=== PATIENT | male | born 1935 | race Caucasian/White ===

== ENCOUNTER 2017-03-04 07:55 | Inpatient (IN) | payer MEDICARE ==
[~2017-03-04] VITALS: Ht 172.7 cm; Wt 70.1 kg
[~2017-03-04 07:55] MED LIST: AMLODIPINE BESYL5 MG PO; ASPIR 8181 MG PO; BUDESONIDE0.5 MG/2 M INH; CEFUROXIME500 MG PO; COMBIVENT INH14.7 GM PO; DOXYCYCLINE HY100 MG PO; FLUZONE HI180 MCG/07 IM; IPRAT-ALBUT 0.5-3 ML INH; LISINOPRIL-HCT1 EACH PO; NICOTINE LOZENGE4 MG BUCCAL; NORCO 5-325 TA1 EACH PO; NYSTATIN1 EAC1 TOP; OMEPRAZOLE20 MG PO; PREDNISONE20 MG PO; RANITIDINE HCL150 M1 PO; TAMSULOSIN HCL0.4 MG PO; ZESTORETIC 20-1 EACH PO
--- NOTE | 2017-03-04 13:45 | NUR ---
PT RECEIVED FROM ED. ARRIVED VIA STRETCHER. PT SATND PIVOT TO BED. PT ASSISTED TO BATHROOM, SBA. PT ON 2L NC. PT SKIN INTACT. IV TO RIGHT FOREARM. PT DENIES PAIN. PT TACHYPNIC, DENIES SOB, O2 SATS >92% ON 2L. LUNG SOUNDS WITH EXPIRATORY WHEEZE, RHONCHI. PT RESTING COMFORTABLY.
--- NOTE | 2017-03-04 16:10 | NUR ---
IV BOLUS INFUSING, IV MAG INFUSING. PT RESTING IN BED. PT DENIES NEEDS AT THIS TIME.
--- NOTE | 2017-03-04 16:35 | EKG ---
[facility] [address] [facility] [place] [address] Signed Sinus tachycardia T wave abnormality, consider lateral ischemia Abnormal ECG When compared with ECG of 04-JUL-2016 13:25, Incomplete left bundle branch block is now present Minimal criteria for Septal infarct are no longer present Confirmed by MARCELA NELSON MD ([id number]) on 03/04/2017 4:35:30 PM Electronically Signed By: MARCELA NELSON MD 03/04/17 1635 PATIENT NAME: ROMA SCHMIDT Electrocardiogram DATE OF : 39 PHYSICIAN: MARCELA NELSON MD REPORT #: [id number] REPORT IS CONFIDENTIAL AND NOT TO BE RELEASED WITHOUT AUTHORIZATION
--- NOTE | 2017-03-04 18:16 | NUR ---
IV BOLUS COMPLETED, LR AT 75 ML/HR INFUSING. PT DENIES NEEDS AT THIS TIME.
--- NOTE | 2017-03-04 18:16 | NUR ---
PT RECEIVED FROM ED WITH COPD EXACERBATION. PT ON 2L NC, LUNG SOUNDS WITH EXPIRATORY WHEEZE AND RHONCHI, GIVEN NEB FOR SOB. PT SBA TO BATHROOM. REGULAR DIET. DENIES PAIN. MAGNESIUM AND POTASSIUM REPLACED. PT HAD VOIDING ONCE SINCE ARRIVING, CONCENTRATED URINE. RECEIVED LR BOLUS X1.
--- NOTE | 2017-03-04 19:10 | NUR ---
BEDSIDE REPORT RECEIVED FROM OFFGOING RN. PT SITTING AT BEDSIDE EATING DINNER, TOLERATING WELL. PT'S URINAL EMPTIED PER REQUEST. PT DENIES OTHER NEEDS AT THIS TIME. CALL LIGHT WITHIN REACH.
--- NOTE | 2017-03-04 20:53 | NUR ---
PT ASSESSMENT COMPELTE. PT LYING IN BED WATCHING TV. PT DENIES PAIN, SOB, OR NAUSEA. PT COUGHS INTERMITTENTLY THROUGHOUT ASSESSMENT. STATES THAT OCCASIONALLY HE PRODUCES MUCOUS. PT REQUESTS WARM BLANKET. DENIES OTHER NEEDS AT THIS TIME. CALL LIGHT WITHIN REACH.
--- NOTE | 2017-03-04 23:36 | NUR ---
PT RESTING IN BED WITH EYES CLOSED. RESPIRATIONS EVEN AND UNLABORED. PT APPEARS TO BE SLEEPING. CALL LIGHT WITHIN REACH.
--- NOTE | 2017-03-05 00:33 | NUR ---
PT RESTING IN BED WITH EYES CLOSED. WAKES EASILY. PT ASSESMENT COMPLETE. PT DENIES PAIN, SOB, OR NAUSEA. LUNG SOUNDS WITH RHONCI AND EXPIRATORY WHEEZE THROUGHOUT, DO NOT CLEAR WITH COUGH. O2 IN PLACE @ 2 LPM. ASSESSMENT OTHERWISE BENIGN. PT DENIES NEEDS AT THIS TIME. CALL LIGHT WITHIN PT'S REACH.
--- NOTE | 2017-03-05 04:32 | NUR ---
PT RESTING WITH EYES CLOSED. RESPIRATIONS EVEN AND UNLABORED. PT APPEARS TO BE SLEEPING. PT ASSESSMENT COMPLETE, PT DOES NOT WAKE DURING AUSCLTATION OF HEART, LUNGS, OR BT'S. RHONCI PRESENT TO ALL LUNG MONROY. O2 IN PLACE @ 1 LPM. ASSESSMENT OTHERWISE UNCHANGED FROM PREVIOUS. CALL LIGHT WITHIN REACH.
--- NOTE | 2017-03-05 04:52 | NUR ---
PT RESTED WELL THROUGHOUT THE NIGHT. O2 BETWEEN 1-2 LPM VIA NC. RHONCI AND EXPIRATORY WHEEZES PRESENT TO ALL LUNG MONROY THROUGHOUT THE NIGHT. OCCASIONAL NONPRODUCTIVE COUGH. SBA/1 PA. UO QS. LR @ 75.
--- NOTE | 2017-03-05 08:30 | NUR ---
PT AWAKE IN BED EATING BREAKFAST. STATES "I'M FEELING A LITTLE BETTER TODAY." REPORTS JUST MILD SOB, IMPROVED. LUNGS WITH OCC RHONCI AND EXPIRATORY WHEEZES. PT DENIES COUGH. DENIES PAIN, NAUSEA OR OTHER CONCERNS. SATTING 92% ON 1LNC. IV INFUSING WNL. CALL LIGHT WITHIN REACH, CALLS APPROPRIATELY.
--- NOTE | 2017-03-05 11:33 | NUR ---
PT SITTING UP IN BED AWAKE, TALKING ON THE PHONE.
--- NOTE | 2017-03-05 15:40 | NUR ---
PT GOT OUT OF BED INDEPENDENTLY AND UNHOOKED IV FROM PORT. IV TUBING REPLACED. IV INTACT AND FUNCTIONS PROPERLY. FLUIDS RESTARTED. PT REMINDED TO CALL FOR ASSISTANCE. COBAN APPLIED TO IV SITE. PT ALERT AND ORIENTED.
[2017-03-05] MEDS ORDERED: NICORETTE4 M2 BUCCAL (15:44)
[2017-03-05] MEDS ORDERED: PREDNISONE20 MG PO (15:45)
[2017-03-05] MEDS ORDERED: DOXYCYCLINE HY100 MG PO (15:46)
--- NOTE | 2017-03-05 18:20 | NUR ---
PT SITTING UP IN BED WATCHING TV. DENIES NEEDS OR CONCERNS AT THIS TIME. CALL LIGHT WITHIN REACH.
--- NOTE | 2017-03-05 19:40 | NUR ---
RECEIVED REPORT FROM RN. PATIENT DENIES NEEDS AT THIS TIME.
--- NOTE | 2017-03-05 21:20 | NUR ---
PATIENT IS RESTING COMFORTABLY IN BED. BREATHING IS EVEN AND UNLABORED ON 1L O2 VIA NC. SHIFT ASSESSMENT DONE. PATIENT DENIES NEEDS AT THIS TIME.
--- NOTE | 2017-03-05 23:35 | NUR ---
PATIENT IS RESTING IN BED COMFORTABLY. BREATHING IS EVEN AND UNLABORED ON 1L OF O2 VIA NC. FRESH WATER GIVEN, CALL LIGHT WITHIN REACH.
--- NOTE | 2017-03-06 02:54 | NUR ---
HAD PATIENT AMBULATE AROUND UNIT X1, WHICH HE TOLERATED WELL A SBA WITH NON-SLIP SOCKS, AND RA. HE IS NOW RESTING COMFORTABLY IN BED WITH O2 SAT AT 90% ON RA. PATIENT DENIES NEEDS AT THIS TIME. CALL LIGHT WITHIN REACH.
--- NOTE | 2017-03-06 05:41 | NUR ---
PATIENT'S NIGHT WAS UNEVENTFUL. HE HAS BEEN RESTING COMFORTABLY THROUGHOUT SHIFT. VSS, NO COMPLAINTS OF PAIN. PATIENT WAS TITRATED TO RA, HE AMBULATED IN HALLS THIS EVENING WITHOUT SHORTNESS OF BREATH ON RA. HE IS A SBA, HIS IV IS SL. NO ACUTE CHANGES FROM BEGINNING OF SHIFT ASSESSMENT.
--- NOTE | 2017-03-06 07:39 | NUR ---
REPORT RECIEVED FROM DALJIT CASTAÑEDA. PT AWAKE AND VERY TALKATIVE. WOULD LIKE TO GO HOME TODAY. PT WALKED IN DUTTA WITH RN'S LAST NIGHT. TOLERATED WELL. STABLE WITH NO ASSIST.
--- NOTE | 2017-03-06 09:22 | NUR ---
PT ATE BREAKFAST AND IS SITTING UP IN BED TALKING. DENIES PAIN. HAD A BM A FEW MINUTES AGO AND FEELS HE DOES NOT NEED THE MIRALAX. RETURNED TO [facility]
--- NOTE | 2017-03-06 10:09 | NUR ---
PT CALLED FRIEND TO COME GET HIM. CALLED DR NELSON AND HE SAID IT WOULD BE AWHILE.
--- NOTE | 2017-03-06 13:45 | NUR ---
TALKED TO THE PT ABOUT HIM NEEDING TO HAVE O2 WHEN HE GETS HOME AND HE SAID HE WANTED TO GO THROUGH [facility]. ALSO WOULD LIKE TO HAVE A CHW COME VISIT WITH HIM AND SEE WHAT THEY CAN HELP HIM WITH HE LIVES ALONE NOW. FAXED CHART NOTES INCLUDING FACESHEET, ORDER, RT HOME O2 QUALIFIER, ER NOTES, H AND P, AND DC SUMMARY TO [facility].
--- NOTE | 2017-03-13 12:26 | NUR ---
CALLED AND TALKED WITH PT STATES HE HAS GOTTEN ALL HIS NEW MEDS AND IS TAKING THEM THEY WERE PRESCIRBED AND FINISHED HIS PREDNISONE AND ANTIBX YESTERDAY. STATES HE HAS A FOLLOW UP APPT AT 1430 TOMORROW AND HE WILL BE THERE AT 1400. STATES HE IS NOT GOING TO OVERDUE IT THIS TIME LIKE HE DID 10 MONTHS AGO WHEN HE WAS IN THE HOSPITAL.
== END 2017-03-06 12:35 | disposition home or self-care (01) | DRG 190 ==
LOC: ED 07:55 → MS 14:42
PROVIDERS: ADMIT Internal Medicine
PROC: 3E0234Z Introduction of Serum, Toxoid and Vaccine into Muscle, Percutaneous Approach (ICD-10-PCS; principal; 2017-03-06)
DX: J44.1 Chronic obstructive pulmonary disease with (acute) exacerbation (principal); J96.01 Acute respiratory failure with hypoxia; R65.10 Systemic inflammatory response syndrome (SIRS) of non-infectious origin without acute organ dysfunction; I10 Essential (primary) hypertension; N40.0 Benign prostatic hyperplasia without lower urinary tract symptoms; F17.210 Nicotine dependence, cigarettes, uncomplicated; E87.6 Hypokalemia; E83.42 Hypomagnesemia; Z23 Encounter for immunization
CPT/HCPCS: 36415; 71020; 80053; 83605; 83735; 84484; 85025; 87040; 87502; 90662; 93005; 93010; 94640; 94668; 94760; 94761; G0008; J0696; J1650; J2930; J3475; J7120

== ENCOUNTER 2017-11-03 12:08 | Emergency (ER) | payer MEDICARE, OTHER ==
[~2017-11-03] VITALS: Ht 172.7 cm; Wt 70.1 kg
[~2017-11-03 12:08] MED LIST changes: +NICORETTE4 M2 BUCCAL
[2017-11-03] MEDS ORDERED: PREDNISONE20 MG PO (12:52)
[2017-11-03] MEDS ORDERED: DOXYCYCLINE HY100 MG PO (13:07)
== END 2017-11-03 13:25 | disposition home or self-care (01) ==
LOC: ED 12:08
DX: J44.1 Chronic obstructive pulmonary disease with (acute) exacerbation (principal); I10 Essential (primary) hypertension; F17.200 Nicotine dependence, unspecified, uncomplicated; Z88.0 Allergy status to penicillin; Z79.899 Other long term (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
CPT/HCPCS: 71046; 94640; 99283; J7512

== ENCOUNTER 2017-11-15 19:50 | Emergency (ER) | payer MEDICARE, MEDICAID ==
[~2017-11-15] VITALS: Ht 172.7 cm; Wt 69.0 kg
[2017-11-15] MEDS ORDERED: ZITHROMAX250 MG PO (20:37)
== END 2017-11-15 21:26 | disposition home or self-care (01) ==
LOC: ED 19:50
DX: K11.20 Sialoadenitis, unspecified (principal); J44.9 Chronic obstructive pulmonary disease, unspecified; I10 Essential (primary) hypertension; F17.200 Nicotine dependence, unspecified, uncomplicated; Z88.0 Allergy status to penicillin; Z79.899 Other long term (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
CPT/HCPCS: 99283

== ENCOUNTER 2018-05-22 01:46 | Emergency (ER) | payer MEDICARE, OTHER ==
[~2018-05-22] VITALS: Ht 172.7 cm; Wt 74.5 kg
[~2018-05-22 01:46] MED LIST changes: +ADVIL200 M1 PO; +ALBUTEROL2.5 MG/3 M INH; +ASPIR-LOW81 MG PO; +ATIVAN1 MG PO; +DOXYCYCLINE HY100 MG; +POTASSIUM99 MG PO; +VENTOLIN HFA18 GM INH; +ZITHROMAX250 MG PO
--- OUTSIDE RECORDS SUMMARY | 2018-05-22 01:50 | XMS ---
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 Care History Medical/Surgical 04/03/2018 [facility] - PATIENT HAS AN APT WITH DR NELSON ON 04/17/18. - Patient is currently established with [facility]. If patient is seen in the ED during business hours. Please contact CHWs at [facility]. Care Recommendation: This patient has had 5 or more Emergency Department visits in the last 12 months.\T\nbsp; Patient requires education on the scope and purpose of the ED as an acute care provider not a Primary Care Provider and should not be utilized for chronic conditions.\T\nbsp; These are guidelines and the provider should exercise clinical judgment when providing care. E.D. VISIT COUNT (12 MO.) 8 [facility] TOTAL 8 NOTE: Visits indicate total known visits. ED/UCC VISIT TRACKING (12 MO.) 05/22/2018 01:46 [facility] [place] TYPE: Emergency COMPLAINT: - SOB 05/03/2018 01:09 [facility] [place] TYPE: Emergency COMPLAINT: - DIFFICUTLY BREATHING 04/16/2018 22:51 [facility] [place] TYPE: Emergency COMPLAINT: - ANXIETY,SOB DIAGNOSES: - Chronic obstructive pulmonary disease, unspecified - Other halfway (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 - Nicotine dependence, unspecified, uncomplicated - long term care pharmacist (current) use of systemic steroids - long term care pharmacist (current) use of aspirin - Essential (primary) hypertension - Allergy status to penicillin - Anxiety disorder, unspecified 04/15/2018 19:41 [facility] [place] TYPE: Emergency COMPLAINT: - SHORTNESS OF BREATH/CONSTIPATION DIAGNOSES: - Shortness of breath - Essential (primary) hypertension - Constipation, unspecified - Nicotine dependence, unspecified, uncomplicated - Chronic obstructive pulmonary disease with (acute) exacerbation - Allergy status to penicillin - 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 04/02/2018 20:47 [facility] TYPE: Emergency COMPLAINT: - SOB DIAGNOSES: - Nicotine dependence, unspecified, uncomplicated - long term care pharmacist (current) use of aspirin - Chronic obstructive pulmonary disease with (acute) exacerbation - Allergy status to penicillin - Essential (primary) hypertension - Shortness of breath - 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 03/16/2018 20:53 [facility] TYPE: Emergency COMPLAINT: - SOB,WEAKNESS DIAGNOSES: - Allergy status to penicillin - 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 - Chronic obstructive pulmonary disease with (acute) exacerbation - Nicotine dependence, unspecified, uncomplicated - Shortness of breath - Essential (primary) hypertension 11/15/2017 19:51 [facility] TYPE: Emergency COMPLAINT: - SWOLLEN GLANDS DIAGNOSES: - Nicotine dependence, unspecified, uncomplicated - Other halfway (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 - Chronic obstructive pulmonary disease, unspecified - Acute pharyngitis, unspecified - Sialoadenitis, unspecified - Essential (primary) hypertension - Allergy status to penicillin 11/03/2017 12:09 [facility] TYPE: Emergency COMPLAINT: - WEAKNESS DIAGNOSES: - Essential (primary) hypertension - Allergy status to penicillin - Weakness - Nicotine dependence, unspecified, uncomplicated - 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 - Chronic obstructive pulmonary disease with (acute) exacerbation INPATIENT VISIT TRACKING (12 MO.) 05/03/2018 01:10 [facility] TYPE: Medical Surgical COMPLAINT: - COPD EXACERBATION DIAGNOSES: - Other halfway (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 - Benign prostatic hyperplasia without lower urinary tract symptoms - Allergy status to penicillin - Chronic obstructive pulmonary disease with (acute) exacerbation - long term care pharmacist (current) use of aspirin - Nicotine dependence, unspecified, uncomplicated - Essential (primary) hypertension - Nicotine dependence, cigarettes, uncomplicated - Shortness of breath - long term care pharmacist (current) use of inhaled steroids - Personal history of traumatic brain injury 04/03/2018 11:16 [facility] TYPE: Medical Surgical COMPLAINT: - COPD EXACERBATION DIAGNOSES: - Essential (primary) hypertension - Allergy status to penicillin - [facility] (current) use of inhaled steroids - Benign prostatic hyperplasia without lower urinary tract symptoms - Nicotine dependence, cigarettes, uncomplicated - 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
[2018-05-22] MEDS ORDERED: PREDNISONE20 MG PO ×2 (01:54→06:10)
[2018-05-22] MEDS ORDERED: LISINOPRIL20 MG PO (01:56)
[2018-05-22] MEDS ORDERED: METFORMIN HCL500 MG PO (06:10)
--- NOTE | 2018-05-22 15:57 | EKG ---
[facility] [address] [facility] [place] [address] Signed Normal sinus rhythm Septal infarct , age undetermined ST \T\ T wave abnormality, consider lateral ischemia Abnormal ECG When compared with ECG of 15-APR-2018 19:47, Septal infarct is now present ST now depressed in Inferior leads Nonspecific T wave abnormality now evident in Inferior leads QT has lengthened Confirmed by LLUVIA VERA DO ([id number]) on 05/22/2018 3:57:30 PM Electronically Signed By: LLUVIA VERA DO 05/22/18 1557 PATIENT NAME: ROMA SCHMIDT Electrocardiogram DATE OF : 39 PHYSICIAN: LLUVIA VERA DO REPORT #: [id number] REPORT IS CONFIDENTIAL AND NOT TO BE RELEASED WITHOUT AUTHORIZATION
[2018-05-25] MEDS ORDERED: PREDNISONE20 MG PO (14:15)
[2018-05-25] MEDS ORDERED: LISINOPRIL-HCT1 EACH PO (14:17)
[2018-05-28] MEDS ORDERED: IPRAT-ALBUT 0.5-3 ML INH (10:52)
[2018-05-28] MEDS ORDERED: LISINOPRIL20 MG PO (10:53)
[2018-05-28] MEDS ORDERED: ADULT ASPIRIN R81 MG PO (13:28)
[2018-05-28] MEDS ORDERED: MAGNESIUM CITR296 ML PO (13:29)
[2018-05-28] MEDS ORDERED: TEARS AGAIN15 ML OU (13:30)
[2018-05-28] MEDS ORDERED: VENTOLIN HFA18 GM (13:36)
[2018-05-28] MEDS ORDERED: DALIRESP250 MCG PO (13:37)
[2018-05-29] MEDS ORDERED: CEFUROXIME500 MG PO (15:48)
[2018-05-29] MEDS ORDERED: PREDNISONE20 MG PO (15:50)
[2018-05-29] MEDS ORDERED: HUMULIN R100 UNIT/1 SUB-Q (15:52)
[2018-05-29] MEDS ORDERED: GLUCOSE TEST S1 EACH MISC (15:53)
[2018-05-29] MEDS ORDERED: BLOOD GLUCOSE1 EAC1 MISC (15:53)
[2018-05-29] MEDS ORDERED: BLOOD LANCETS1 EACH SUB-Q (15:54)
[2018-05-29] MEDS ORDERED: INSULIN SYRING1 EA13 MISC (16:00)
== END 2018-05-22 06:53 | disposition home or self-care (01) ==
LOC: ED 01:46
DX: J44.1 Chronic obstructive pulmonary disease with (acute) exacerbation (principal); R73.9 Hyperglycemia, unspecified; I10 Essential (primary) hypertension; F17.200 Nicotine dependence, unspecified, uncomplicated; Z88.0 Allergy status to penicillin; Z79.899 Other long term (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; Z79.52 Long term (current) use of systemic steroids; Z79.82 Long term (current) use of aspirin
CPT/HCPCS: 71046; 80048; 80053; 83880; 84484; 85025; 93005; 93010; 94640; 96374; 99285-25; J2930; J7030

== ENCOUNTER 2018-06-08 01:29 | Emergency (ER) | payer MEDICARE, OTHER ==
[~2018-06-08] VITALS: Ht 172.7 cm; Wt 75.3 kg
[~2018-06-08 01:29] MED LIST changes: +ADULT ASPIRIN R81 MG PO; +BLOOD GLUCOSE1 EAC1 MISC; +BLOOD LANCETS1 EACH SUB-Q; +DALIRESP250 MCG PO; +GLUCOSE TEST S1 EACH MISC; +HUMULIN R100 UNIT/1 SUB-Q; +INSULIN SYRING1 EA13 MISC; +LISINOPRIL20 MG PO; +MAGNESIUM CITR296 ML PO; +METFORMIN HCL500 MG PO; +TEARS AGAIN15 ML OU; +VENTOLIN HFA18 GM
--- OUTSIDE RECORDS SUMMARY | 2018-06-08 01:34 | XMS ---
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 Care History Medical/Surgical 05/23/2018 [facility] PATIENT NEXT APPOINTMENT WITH DR NELSON:\T\nbsp; May. 04/03/2018 [facility] - PATIENT HAS AN APT WITH DR NELSON ON 04/17/18. - Patient is currently established with [facility]. If patient is seen in the ED during business hours. Please contact CHWs at [facility]. Care Recommendation: This patient has had 5 [...] providing care. E.D. VISIT COUNT (12 MO.) 10 [facility]. TOTAL 10 NOTE: Visits indicate total known visits. 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 - Hyperglycemia, unspecified - Chronic obstructive pulmonary disease with (acute) exacerbation - Nicotine dependence, unspecified, uncomplicated - care home (current) use of systemic steroids - Essential (primary) hypertension - Shortness of breath - Allergy status to penicillin - terminal gauger supervisor (current) use of aspirin 05/03/2018 01:09 [facility] TYPE: Emergency COMPLAINT: - DIFFICUTLY BREATHING 04/16/2018 22:51 [facility] TYPE: Emergency COMPLAINT: - ANXIETY,SOB DIAGNOSES: - Chronic obstructive pulmonary disease, unspecified - 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 - Nicotine dependence, unspecified, uncomplicated - terminal gauger supervisor (current) use of systemic steroids - care home (current) use of aspirin - Essential (primary) hypertension - Allergy status to penicillin - Anxiety disorder, unspecified 04/15/2018 19:41 [facility] TYPE: Emergency COMPLAINT: - SHORTNESS OF BREATH/CONSTIPATION DIAGNOSES: - Shortness of breath - Essential (primary) hypertension - Constipation, unspecified - Nicotine dependence, unspecified, uncomplicated - Chronic obstructive pulmonary disease with (acute) exacerbation - Allergy status to penicillin - Other fci (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 04/02/2018 20:47 [facility] TYPE: Emergency COMPLAINT: - SOB DIAGNOSES: - Nicotine dependence, unspecified, uncomplicated - care home (current) use of aspirin - Chronic obstructive pulmonary disease with (acute) exacerbation - Allergy status to penicillin - Essential (primary) hypertension - Shortness of breath - Other fci (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 03/16/2018 20:53 [facility] TYPE: Emergency COMPLAINT: - SOB,WEAKNESS DIAGNOSES: - Allergy status to penicillin - Other fci (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 - Chronic obstructive pulmonary disease with (acute) exacerbation - Nicotine dependence, unspecified, uncomplicated - Shortness of breath - Essential (primary) hypertension 11/15/2017 19:51 [facility] TYPE: Emergency COMPLAINT: - SWOLLEN GLANDS DIAGNOSES: - Nicotine dependence, unspecified, uncomplicated - 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 - Chronic obstructive pulmonary disease, unspecified - Acute pharyngitis, unspecified - Sialoadenitis, unspecified - Essential (primary) hypertension - Allergy status to penicillin 11/03/2017 12:09 [facility] TYPE: Emergency COMPLAINT: - WEAKNESS DIAGNOSES: - Essential (primary) hypertension - Allergy status to penicillin - Weakness - Nicotine dependence, unspecified, uncomplicated - 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 - Chronic obstructive pulmonary disease with (acute) exacerbation INPATIENT VISIT TRACKING (12 MO.) 05/24/2018 07:28 [facility] TYPE: Medical Surgical COMPLAINT: - COPD, HYPOXIA DIAGNOSES: - Shortness of breath - Other specified abnormalities of plasma proteins - 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 - Essential (primary) hypertension - Nicotine dependence, cigarettes, uncomplicated - Allergy status to penicillin - Benign prostatic hyperplasia without lower urinary tract symptoms - care home (current) use of systemic steroids - Acute and chronic respiratory failure with hypoxia - terminal gauger supervisor (current) use of inhaled steroids - care home (current) use of aspirin - Cramp and spasm - 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 - Chronic obstructive pulmonary disease with (acute) exacerbation - terminal gauger supervisor (current) use of oral hypoglycemic drugs - Adverse effect of glucocorticoids and synthetic analogues, initial encounter 05/03/2018 01:10 [facility] TYPE: Medical Surgical COMPLAINT: - COPD EXACERBATION DIAGNOSES: - 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 - Benign prostatic hyperplasia without lower urinary tract symptoms - Allergy status to penicillin - Chronic obstructive pulmonary disease with (acute) exacerbation - care home (current) use of aspirin - Nicotine dependence, unspecified, uncomplicated - Essential (primary) hypertension - Nicotine dependence, cigarettes, uncomplicated - Shortness of breath - care home (current) use of inhaled steroids - Personal history of traumatic brain injury 04/03/2018 11:16 [facility] TYPE: Medical Surgical COMPLAINT: - COPD EXACERBATION DIAGNOSES: - Essential (primary) hypertension - Allergy status to penicillin - terminal gauger supervisor (current) use of inhaled steroids - Benign prostatic hyperplasia without lower urinary tract symptoms - Nicotine dependence, cigarettes, uncomplicated - 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 - Cramp and spasm - terminal gauger supervisor (current) use of aspirin - terminal gauger supervisor (current) use of systemic steroids - Chronic obstructive pulmonary disease with (acute) exacerbation [email or web address]
[2018-06-08] MEDS ORDERED: SPIRIVA18 MCG INH (01:43)
[2018-06-08] MEDS ORDERED: BROVANA15 MCG/2 M INH (01:43)
[2018-06-08] MEDS ORDERED: METFORMIN HCL500 MG PO (01:44)
[2018-06-08] MEDS ORDERED: PREDNISONE20 MG PO (01:45)
--- NOTE | 2018-06-08 13:41 | EKG ---
[facility] [address] [facility] [place] [address] Signed Normal sinus rhythm Left axis deviation Septal infarct , age undetermined ST \T\ T wave abnormality, consider lateral ischemia Abnormal ECG When compared with ECG of 24-MAY-2018 08:00, Incomplete left bundle branch block is no longer present Septal infarct is now present Confirmed by LLUVIA VERA DO ([id number]) on 06/08/2018 1:41:39 PM Electronically Signed By: LLUVIA VERA DO 06/08/18 1341 PATIENT NAME: ROMA SCHMIDT Electrocardiogram DATE OF : 39 PHYSICIAN: LLUVIA VERA DO REPORT #: [id number] REPORT IS CONFIDENTIAL AND NOT TO BE RELEASED WITHOUT AUTHORIZATION
== END 2018-06-08 03:28 | disposition home or self-care (01) ==
LOC: ED 01:29
DX: J44.1 Chronic obstructive pulmonary disease with (acute) exacerbation (principal); I10 Essential (primary) hypertension; Z87.891 Personal history of nicotine dependence; Z88.0 Allergy status to penicillin; Z79.52 Long term (current) use of systemic steroids; Z79.82 Long term (current) use of aspirin; Z79.899 Other long term (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
CPT/HCPCS: 71045; 80048; 85025; 93005; 93010; 94644; 99285-25; J7512

== ENCOUNTER 2018-06-08 19:36 | Observation (INO) | payer MEDICARE, OTHER ==
[~2018-06-08] VITALS: Ht 172.7 cm; Wt 76.1 kg
[~2018-06-08 19:36] MED LIST changes: +BROVANA15 MCG/2 M INH; +SPIRIVA18 MCG INH
--- OUTSIDE RECORDS SUMMARY | 2018-06-08 19:40 | XMS ---
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 Security Attending Psychiatrist Events No recent Security Events currently on file CRITERIA MET - 6 ED Visits in 6 Months - [facility] - 2 Visits in 30 Days CARE PROVIDERS Denisse Blanton Receiving Worker/Safety Manager 12/17/2017-Current PHONE: [phone] MARCELA NELSON Internal Medicine 04/03/2018-Current SANDEEP PHONE: [phone] Denisse Blanton Primary Care 12/17/2017-Current PHONE: [phone] MARCELA NELSON Primary Care 04/05/2016-Current PHONE: Unknown Other Current PHONE: Unknown Maria R has no Care Guidelines for this patient. Care History Medical/Surgical 05/23/2018 [facility] PATIENT NEXT APPOINTMENT WITH DR NELSON:\T\nbsp; May. 04/03/2018 [facility] - PATIENT HAS AN APT WITH DR NELSON ON 04/17/18. - Patient is currently established with [facility]. If patient is seen in the ED during business hours. Please contact CHWs at [facility]. Care Recommendation: This patient has [...] providing care. E.D. VISIT COUNT (12 MO.) [address] [place] [address]. TOTAL 11 NOTE: Visits indicate total known visits. ED/UCC VISIT TRACKING (12 MO.) 06/08/2018 19:37 [facility] TYPE: Emergency COMPLAINT: - DIFFICULTY BREATHING 06/08/2018 01:29 [facility] TYPE: Emergency COMPLAINT: - DIFFICULTY BREATHING 05/24/2018 07:27 [facility] TYPE: Emergency COMPLAINT: - SOB 05/22/2018 01:46 [facility] TYPE: Emergency COMPLAINT: - SOB DIAGNOSES: - Other fpc (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 - Hyperglycemia, unspecified - Chronic obstructive pulmonary disease with (acute) exacerbation - Nicotine dependence, unspecified, uncomplicated - transfer driver (current) use of systemic steroids - Essential (primary) hypertension - Shortness of breath - Allergy status to penicillin - [facility] (current) use of aspirin 05/03/2018 01:09 [facility] TYPE: Emergency COMPLAINT: - DIFFICUTLY BREATHING 04/16/2018 22:51 [facility] TYPE: Emergency COMPLAINT: - ANXIETY,SOB DIAGNOSES: - Chronic obstructive pulmonary disease, unspecified - Other zone maintenance technician (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 - Nicotine dependence, unspecified, uncomplicated - [facility] (current) use of systemic steroids - transfer driver (current) use of aspirin - Essential (primary) hypertension - Allergy status to penicillin - Anxiety disorder, unspecified 04/15/2018 19:41 [facility] TYPE: Emergency COMPLAINT: - SHORTNESS OF BREATH/CONSTIPATION DIAGNOSES: - Shortness of breath - Essential (primary) hypertension - Constipation, unspecified - Nicotine dependence, unspecified, uncomplicated - Chronic obstructive pulmonary disease with (acute) exacerbation - Allergy status to penicillin - Other fpc (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 04/02/2018 20:47 [facility] TYPE: Emergency COMPLAINT: - SOB DIAGNOSES: - Nicotine dependence, unspecified, uncomplicated - [facility] (current) use of aspirin - Chronic obstructive pulmonary disease with (acute) exacerbation - Allergy status to penicillin - Essential (primary) hypertension - Shortness of breath - Other fpc (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 03/16/2018 20:53 [facility] TYPE: Emergency COMPLAINT: - SOB,WEAKNESS DIAGNOSES: - Allergy status to penicillin - Other fpc (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 - Chronic obstructive pulmonary disease with (acute) exacerbation - Nicotine dependence, unspecified, uncomplicated - Shortness of breath - Essential (primary) hypertension 11/15/2017 19:51 [facility] TYPE: Emergency COMPLAINT: - SWOLLEN GLANDS DIAGNOSES: - Nicotine dependence, unspecified, uncomplicated - Other fpc (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 - Chronic obstructive pulmonary disease, unspecified - Acute pharyngitis, unspecified - Sialoadenitis, unspecified - Essential (primary) hypertension - Allergy status to penicillin 11/03/2017 12:09 [facility] TYPE: Emergency COMPLAINT: - WEAKNESS DIAGNOSES: - Essential (primary) hypertension - Allergy status to penicillin - Weakness - Nicotine dependence, unspecified, uncomplicated - Other zone maintenance technician (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 - Chronic obstructive pulmonary disease with (acute) exacerbation INPATIENT VISIT TRACKING (12 MO.) 05/24/2018 07:28 [facility] TYPE: Medical Surgical COMPLAINT: - COPD, HYPOXIA DIAGNOSES: - Shortness of breath - Other specified abnormalities of plasma proteins - 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 - Essential (primary) hypertension - Nicotine dependence, cigarettes, uncomplicated - Allergy status to penicillin - Benign prostatic hyperplasia without lower urinary tract symptoms - transfer driver (current) use of systemic steroids - Acute and chronic respiratory failure with hypoxia - transfer driver (current) use of inhaled steroids - [facility] (current) use of aspirin - Cramp and spasm - Other zone maintenance technician (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 - Chronic obstructive pulmonary disease with (acute) exacerbation - transfer driver (current) use of oral hypoglycemic drugs - Adverse effect of glucocorticoids and synthetic analogues, initial encounter 05/03/2018 01:10 [facility] TYPE: Medical Surgical COMPLAINT: - COPD EXACERBATION DIAGNOSES: - Other fpc (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 - Benign prostatic hyperplasia without lower urinary tract symptoms - Allergy status to penicillin - Chronic obstructive pulmonary disease with (acute) exacerbation - transfer driver (current) use of aspirin - Nicotine dependence, unspecified, uncomplicated - Essential (primary) hypertension - Nicotine dependence, cigarettes, uncomplicated - Shortness of breath - transfer driver (current) use of inhaled steroids - Personal history of traumatic brain injury 04/03/2018 11:16 [facility] TYPE: Medical Surgical COMPLAINT: - COPD EXACERBATION DIAGNOSES: - Essential (primary) hypertension - Allergy status to penicillin - [facility] (current) use of inhaled steroids - Benign prostatic hyperplasia without lower urinary tract symptoms - Nicotine dependence, cigarettes, uncomplicated - Other zone maintenance technician (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 - Cramp and spasm - transfer driver (current) use of aspirin - [facility] (current) use of systemic steroids - Chronic obstructive pulmonary disease with (acute) exacerbation [email or web address]
--- NOTE | 2018-06-08 23:24 | NUR ---
ADMITTED AT 2220 FROM ED VIA STRETCHER, PT TRANSFER SELF W/O PROBLEMS. UP TO BR W/O HELP, VOIDED AND HAD A LARGE SOGT BM. SLIGHT SOB AND LE WEAKNESS/UNSTEADY GAIT NOTED, SATS ON RETURN 95% ROOM AIR, RESP 24. NO C/O PAIN. ORIENTED TO HOSP ROOM AND PROCEDURES, STATED UNDERSTANDING. FLUIDS AT BEDSIDE, CALL LIGHT RETURN DEMONSTRATION DONE. BED ALARM ON FALL PRECATIONS IN PLACE
--- NOTE | 2018-06-09 01:39 | NUR ---
V/S AND I&O DONE AND CHARTED. PATIENT REQUESTED BREATHING TREATMENT, OPERATIONS MGR CHARLI NOTIFIED AND CALLED RT.
--- NOTE | 2018-06-09 01:54 | NUR ---
RESTING, EYES CLOSED, NO RESP DISTRESS, ON ROOM AIR. TURNS SELF IN BED. BED ALARM ON A FALL PRECAUTION. HAD REQUESTSD A PRN NEB TX BUT HE FELL ASLEEP RIGH AWAY, NO RESP DISTRESS PRESENT, LUNGS W/O CHANGES FROM EARLIER.
--- NOTE | 2018-06-09 02:53 | NUR ---
1 PA USING WALKER TO THE BATHROOM AND BACK TO BED. PATIENT ASKED FOR COFFEE, GIVEN.
--- NOTE | 2018-06-09 04:23 | NUR ---
PT AWAKE, UP TO BR WITH 1 PERSON ASSIST, VOIDED AND HAD SOFT BM. BACK TO BED. NO SOB, NO RESP DISTRESS NOTED, BACK TO BED, BED ALARM ON. PT ON ROOM AIR SPOT O2 CHECKS 92% ON RETURN/ROOM AIR, RESP 20
--- NOTE | 2018-06-09 04:55 | NUR ---
PT ADMITTED FROM ER. ON ROOM AIR. RECEIVED COPD BOOKLET, WILL REVIEW INFORMATION WHEN PT MORE AWAKE AND LESS ANXIOUS. HAS C/O SOB AND INCREASED ANXIETY FROM NOT HAVING ANY OXYGEN THIS ADMISSION. RECEIVED PRN NEBS AND INCREASED REASSURANCE AND SPOT O2 CHECK DONE TOO. SATS 90-94% ON ROOM AIR HAS GOT UP TO BR USING 1 PA AND WALKER, IMPROVED STEADINESS THIS AM
--- NOTE | 2018-06-09 06:15 | NUR ---
PT RESTING, ON ROOM AIR. NO RESP DISTRESS. BED ALARM ON.
--- NOTE | 2018-06-09 07:52 | NUR ---
IN ROOM FOR MORNING ASSESSMENT. PT UP TO BATHROOM. STANDBY ASSIST WITH FWW. PT HAD MILD SHORTNESS OF BREATH WITH ACTIVITY. RECOVERED QUICKLY. REMAINS ON RA AT THIS TIME.
--- NOTE | 2018-06-09 10:23 | NUR ---
MD in room with pt to discuss discharge arrangments.
--- NOTE | 2018-06-09 10:59 | NUR ---
IN ROOM TO GIVE PT DISCHARGE INSTRUCTIONS. INSTRUCTIONS GIVEN ON MEDICATION, FOLLOW-UP, WHEN TO CONTACT THE MD, ACTIVITY, AND DIET. PT VERBALIZED UNDERSTANDING. IV DC'D AT THIS TIME. PT WAITING FOR RIDE HOME.
== END 2018-06-09 11:30 | disposition home or self-care (01) ==
LOC: ED 19:36 → MS 19:38
PROVIDERS: ADMIT Student in an Organized Health Care Education/Training Program
DX: J44.1 Chronic obstructive pulmonary disease with (acute) exacerbation (principal); J96.21 Acute and chronic respiratory failure with hypoxia; N40.0 Benign prostatic hyperplasia without lower urinary tract symptoms; I10 Essential (primary) hypertension; R73.9 Hyperglycemia, unspecified; T38.0X5A Adverse effect of glucocorticoids and synthetic analogues, initial encounter; Z87.891 Personal history of nicotine dependence; Z79.1 Long term (current) use of non-steroidal anti-inflammatories (NSAID); Z79.82 Long term (current) use of aspirin; Z88.0 Allergy status to penicillin; Z79.4 Long term (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; Z79.51 Long term (current) use of inhaled steroids; Z79.52 Long term (current) use of systemic steroids; Z79.899 Other long term (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
CPT/HCPCS: 36415; 71045; 80048; 80053; 83880; 85025; 94640; 96372; 96374; 99285-25; G0378; J1650; J1815; J2930; J7512

== ENCOUNTER 2018-06-12 12:59 | Emergency (ER) | payer MEDICARE, OTHER ==
[~2018-06-12] VITALS: Ht 172.7 cm; Wt 76.1 kg
--- OUTSIDE RECORDS SUMMARY | 2018-06-12 13:02 | XMS ---
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 Security Food Services Coordinator Events No recent Security Events currently on file CRITERIA MET - 6 ED Visits in 6 Months - [facility] - 2 Visits in 30 Days CARE PROVIDERS Denisse Blanton Sales Marketing Manager/Insurance Claims Analyst 12/17/2017-Current PHONE: [phone] MARCELA NELSON Internal Medicine 04/03/2018-Current SANDEEP PHONE: [phone] Denisse Blanton Primary Care 12/17/2017-Current PHONE: [phone] MARCELA NELSON Primary Care 04/05/2016-Current PHONE: Unknown Other Current PHONE: Unknown Maria R has no Care Guidelines for this patient. Care History Medical/Surgical 05/23/2018 [facility] PATIENT NEXT APPOINTMENT WITH DR NELSON:\T\nbsp; May. 04/03/2018 [facility] - PATIENT HAS AN APT WITH DR NELSON ON 04/17/18. - Patient is currently established with [facility]. If patient is seen in the ED during business hours. Please contact CHWs at [facility]. Care Recommendation: This patient has [...] providing care. E.D. VISIT COUNT (12 MO.) [facility]. TOTAL 12 NOTE: Visits indicate total known visits. ED/UCC VISIT TRACKING (12 MO.) 06/12/2018 12:59 [facility] TYPE: Emergency COMPLAINT: - SOB 06/08/2018 19:37 [facility] TYPE: Emergency COMPLAINT: - DIFFICULTY BREATHING 06/08/2018 01:29 [facility] TYPE: Emergency COMPLAINT: - DIFFICULTY BREATHING DIAGNOSES: - FPC (current) use of aspirin - Essential (primary) hypertension - Other snf (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 - Personal history of nicotine dependence - Chronic obstructive pulmonary disease with (acute) exacerbation - FPC (current) use of systemic steroids - Allergy status to penicillin - Shortness of breath 05/24/2018 07:27 [facility] TYPE: Emergency COMPLAINT: - SOB 05/22/2018 01:46 [facility] TYPE: Emergency COMPLAINT: - SOB DIAGNOSES: - Other snf (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 - Hyperglycemia, unspecified - Chronic obstructive pulmonary disease with (acute) exacerbation - Nicotine dependence, unspecified, uncomplicated - FPC (current) use of systemic steroids - Essential (primary) hypertension - Shortness of breath - Allergy status to penicillin - media relations director (current) use of aspirin 05/03/2018 01:09 [facility] TYPE: Emergency COMPLAINT: - DIFFICUTLY BREATHING 04/16/2018 22:51 [facility] TYPE: Emergency COMPLAINT: - ANXIETY,SOB DIAGNOSES: - Chronic obstructive pulmonary disease, unspecified - Other vehicle dynamics engineer (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 - Nicotine dependence, unspecified, uncomplicated - media relations director (current) use of systemic steroids - media relations director (current) use of aspirin - Essential (primary) hypertension - Allergy status to penicillin - Anxiety disorder, unspecified 04/15/2018 19:41 [facility] TYPE: Emergency COMPLAINT: - SHORTNESS OF BREATH/CONSTIPATION DIAGNOSES: - Shortness of breath - Essential (primary) hypertension - Constipation, unspecified - Nicotine dependence, unspecified, uncomplicated - Chronic obstructive pulmonary disease with (acute) exacerbation - Allergy status to penicillin - Other snf (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 04/02/2018 20:47 [facility] TYPE: Emergency COMPLAINT: - SOB DIAGNOSES: - Nicotine dependence, unspecified, uncomplicated - FPC (current) use of aspirin - Chronic obstructive pulmonary disease with (acute) exacerbation - Allergy status to penicillin - Essential (primary) hypertension - Shortness of breath - Other vehicle dynamics engineer (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 03/16/2018 20:53 [facility] TYPE: Emergency COMPLAINT: - SOB,WEAKNESS DIAGNOSES: - Allergy status to penicillin - Other snf (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 - Chronic obstructive pulmonary disease with (acute) exacerbation - Nicotine dependence, unspecified, uncomplicated - Shortness of breath - Essential (primary) hypertension 11/15/2017 19:51 [facility] TYPE: Emergency COMPLAINT: - SWOLLEN GLANDS DIAGNOSES: - Nicotine dependence, unspecified, uncomplicated - Other vehicle dynamics engineer (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 - Chronic obstructive pulmonary disease, unspecified - Acute pharyngitis, unspecified - Sialoadenitis, unspecified - Essential (primary) hypertension - Allergy status to penicillin 11/03/2017 12:09 [facility] TYPE: Emergency COMPLAINT: - WEAKNESS DIAGNOSES: - Essential (primary) hypertension - Allergy status to penicillin - Weakness - Nicotine dependence, unspecified, uncomplicated - Other snf (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 - Chronic obstructive pulmonary disease with (acute) exacerbation INPATIENT VISIT TRACKING (12 MO.) 06/08/2018 19:38 [facility] TYPE: Medical Surgical COMPLAINT: - COPD EXACERBATION DIAGNOSES: - Benign prostatic hyperplasia without lower urinary tract symptoms - Essential (primary) hypertension - Acute and chronic respiratory failure with hypoxia - Chronic obstructive pulmonary disease with (acute) exacerbation - Hyperglycemia, unspecified - Personal history of nicotine dependence - Allergy status to penicillin - media relations director (current) use of aspirin - media relations director (current) use of inhaled steroids - FPC (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 - media relations director (current) use of non-steroidal anti-inflammatories (NSAID) - Shortness of breath - Other vehicle dynamics engineer (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 - FPC (current) use of systemic steroids - Adverse effect of glucocorticoids and synthetic analogues, initial encounter 05/24/2018 07:28 [facility] TYPE: Medical Surgical COMPLAINT: - COPD, HYPOXIA DIAGNOSES: - Shortness of breath - Other specified abnormalities of plasma proteins - 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 - Essential (primary) hypertension - Nicotine dependence, cigarettes, uncomplicated - Allergy status to penicillin - Benign prostatic hyperplasia without lower urinary tract symptoms - media relations director (current) use of systemic steroids - Acute and chronic respiratory failure with hypoxia - media relations director (current) use of inhaled steroids - media relations director (current) use of aspirin - Cramp and spasm - Other vehicle dynamics engineer (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 - Chronic obstructive pulmonary disease with (acute) exacerbation - FPC (current) use of oral hypoglycemic drugs - Adverse effect of glucocorticoids and synthetic analogues, initial encounter 05/03/2018 01:10 [facility] TYPE: Medical Surgical COMPLAINT: - COPD EXACERBATION DIAGNOSES: - Other vehicle dynamics engineer (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 - Benign prostatic hyperplasia without lower urinary tract symptoms - Allergy status to penicillin - Chronic obstructive pulmonary disease with (acute) exacerbation - FPC (current) use of aspirin - Nicotine dependence, unspecified, uncomplicated - Essential (primary) hypertension - Nicotine dependence, cigarettes, uncomplicated - Shortness of breath - FPC (current) use of inhaled steroids - Personal history of traumatic brain injury 04/03/2018 11:16 [facility] TYPE: Medical Surgical COMPLAINT: - COPD EXACERBATION DIAGNOSES: - Essential (primary) hypertension - Allergy status to penicillin - FPC (current) use of inhaled steroids - Benign prostatic hyperplasia without lower urinary tract symptoms - Nicotine dependence, cigarettes, uncomplicated - Other vehicle dynamics engineer (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 - Cramp and spasm - media relations director (current) use of aspirin - media relations director (current) use of systemic steroids - Chronic obstructive pulmonary disease with (acute) exacerbation [email or web address]
[2018-06-12] MEDS ORDERED: BACTRIM DS TAB1 EACH PO (13:18)
[2018-06-12] MEDS ORDERED: ALBUTEROL2.5 MG/0.5 INH (15:44)
[2018-06-12] MEDS ORDERED: CLOTRIMAZOLE10 MG MM (15:46)
--- NOTE | 2018-06-12 23:00 | EKG ---
[facility] [address] [place] [address] Signed Normal sinus rhythm Nonspecific ST and T wave abnormality Abnormal ECG When compared with ECG of 08-JUN-2018 01:37, Criteria for Septal infarct are no longer present T wave inversion less evident in Lateral leads Confirmed by MARCELA NELSON MD ([id number]) on 06/12/2018 11:00:47 PM Electronically Signed By: MARCELA NELSON MD 06/12/18 2300 PATIENT NAME: ROMA SCHMIDT Electrocardiogram DATE OF : 39 PHYSICIAN: MARCELA NELSON MD REPORT #: [id number] REPORT IS CONFIDENTIAL AND NOT TO BE RELEASED WITHOUT AUTHORIZATION
== END 2018-06-12 16:00 | disposition home or self-care (01) ==
LOC: ED 12:59
DX: J44.1 Chronic obstructive pulmonary disease with (acute) exacerbation (principal); B37.0 Candidal stomatitis; I10 Essential (primary) hypertension; Z87.891 Personal history of nicotine dependence; Z88.0 Allergy status to penicillin; Z79.4 Long term (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; Z79.899 Other long term (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
CPT/HCPCS: 71045; 80053; 82803; 83880; 85025; 93005; 93010; 94640; 96365; 99285-25; J3475

== ENCOUNTER 2018-06-13 20:19 | Observation (INO) | payer MEDICARE, OTHER ==
[~2018-06-13] VITALS: Ht 172.7 cm; Wt 73.5 kg
[~2018-06-13 20:19] MED LIST changes: +ALBUTEROL2.5 MG/0.5 INH; +BACTRIM DS TAB1 EACH PO; +CLOTRIMAZOLE10 MG MM
--- OUTSIDE RECORDS SUMMARY | 2018-06-13 20:22 | XMS ---
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 Security Watershed Program Manager Events No recent Security Events currently on file CRITERIA MET - 6 ED Visits in 6 Months - [facility] - 2 Visits in 30 Days CARE PROVIDERS Denisse Blanton Leak Detection Engineer/Internet Marketing Coordinator 12/17/2017-Current PHONE: [phone] MARCELA NELSON Internal Medicine 04/03/2018-Current SANDEEP PHONE: [phone] Denisse Blanton Primary Care 12/17/2017-Current PHONE: [phone] MARCELA NELSON Primary Care 04/05/2016-Current PHONE: Unknown Other Current PHONE: Unknown Maria R has no Care Guidelines for this patient. Care History Medical/Surgical 05/23/2018 [facility] PATIENT NEXT APPOINTMENT WITH DR NELSON:\T\nbsp; May. 04/03/2018 [facility] - PATIENT HAS AN APT WITH DR NELSON ON 04/17/18. - Patient is currently established with [facility]. If patient is seen in the ED during business hours. Please contact CHWs at [facility]. Care Recommendation: This patient has had [...] providing care. E.D. VISIT COUNT (12 MO.) 13 [facility]. TOTAL 13 NOTE: Visits indicate total known visits. ED/UCC VISIT TRACKING (12 MO.) 06/13/2018 20:20 [facility] TYPE: Emergency COMPLAINT: - DIFFICULTY BREATHING 06/12/2018 12:59 [facility] TYPE: Emergency COMPLAINT: - SOB 06/08/2018 19:37 [facility] TYPE: Emergency COMPLAINT: - DIFFICULTY BREATHING 06/08/2018 01:29 [facility] TYPE: Emergency COMPLAINT: - DIFFICULTY BREATHING DIAGNOSES: - lobsterman (current) use of aspirin - Essential (primary) hypertension - Other jail (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 - Personal history of nicotine dependence - Chronic obstructive pulmonary disease with (acute) exacerbation - half-way (current) use of systemic steroids - Allergy status to penicillin - Shortness of breath 05/24/2018 07:27 [facility] TYPE: Emergency COMPLAINT: - SOB 05/22/2018 01:46 [facility] TYPE: Emergency COMPLAINT: - SOB DIAGNOSES: - Other jail (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 - Hyperglycemia, unspecified - Chronic obstructive pulmonary disease with (acute) exacerbation - Nicotine dependence, unspecified, uncomplicated - half-way (current) use of systemic steroids - Essential (primary) hypertension - Shortness of breath - Allergy status to penicillin - half-way (current) use of aspirin 05/03/2018 01:09 [facility] TYPE: Emergency COMPLAINT: - DIFFICUTLY BREATHING 04/16/2018 22:51 [facility] TYPE: Emergency COMPLAINT: - ANXIETY,SOB DIAGNOSES: - Chronic obstructive pulmonary disease, unspecified - Other jail (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 - Nicotine dependence, unspecified, uncomplicated - half-way (current) use of systemic steroids - lobsterman (current) use of aspirin - Essential (primary) hypertension - Allergy status to penicillin - Anxiety disorder, unspecified 04/15/2018 19:41 [facility] TYPE: Emergency COMPLAINT: - SHORTNESS OF BREATH/CONSTIPATION DIAGNOSES: - Shortness of breath - Essential (primary) hypertension - Constipation, unspecified - Nicotine dependence, unspecified, uncomplicated - Chronic obstructive pulmonary disease with (acute) exacerbation - Allergy status to penicillin - Other terminal operations manager (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 04/02/2018 20:47 [facility] TYPE: Emergency COMPLAINT: - SOB DIAGNOSES: - Nicotine dependence, unspecified, uncomplicated - lobsterman (current) use of aspirin - Chronic obstructive pulmonary disease with (acute) exacerbation - Allergy status to penicillin - Essential (primary) hypertension - Shortness of breath - Other terminal operations manager (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 03/16/2018 20:53 [facility] TYPE: Emergency COMPLAINT: - SOB,WEAKNESS DIAGNOSES: - Allergy status to penicillin - Other terminal operations manager (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 - Chronic obstructive pulmonary disease with (acute) exacerbation - Nicotine dependence, unspecified, uncomplicated - Shortness of breath - Essential (primary) hypertension 11/15/2017 19:51 [facility] TYPE: Emergency COMPLAINT: - SWOLLEN GLANDS DIAGNOSES: - Nicotine dependence, unspecified, uncomplicated - Other jail (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 - Chronic obstructive pulmonary disease, unspecified - Acute pharyngitis, unspecified - Sialoadenitis, unspecified - Essential (primary) hypertension - Allergy status to penicillin 11/03/2017 12:09 [facility] TYPE: Emergency COMPLAINT: - WEAKNESS DIAGNOSES: - Essential (primary) hypertension - Allergy status to penicillin - Weakness - Nicotine dependence, unspecified, uncomplicated - Other terminal operations manager (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 - Chronic obstructive pulmonary [...] dependence - Allergy status to penicillin - lobsterman (current) use of aspirin - half-way (current) use of inhaled steroids - half-way (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 - lobsterman (current) use of non-steroidal anti-inflammatories (NSAID) - Shortness of breath - Other jail (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 - lobsterman (current) use of systemic steroids - Adverse [...] hyperplasia without lower urinary tract symptoms - lobsterman (current) use of systemic steroids - Acute and chronic respiratory failure with hypoxia - half-way (current) use of inhaled steroids - half-way (current) use of aspirin - Cramp and spasm - Other jail (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 - Chronic obstructive pulmonary disease with (acute) exacerbation - lobsterman (current) use of oral hypoglycemic drugs - Adverse effect of glucocorticoids and synthetic analogues, initial encounter 05/03/2018 01:10 [facility] TYPE: Medical Surgical COMPLAINT: - COPD EXACERBATION DIAGNOSES: - Other terminal operations manager (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 - Benign prostatic hyperplasia without lower urinary tract symptoms - Allergy status to penicillin - Chronic obstructive pulmonary disease with (acute) exacerbation - half-way (current) use of aspirin - Nicotine dependence, unspecified, uncomplicated - Essential (primary) hypertension - Nicotine dependence, cigarettes, uncomplicated - Shortness of breath - lobsterman (current) use of inhaled steroids - Personal history of traumatic brain injury 04/03/2018 11:16 [facility] TYPE: Medical Surgical COMPLAINT: - COPD EXACERBATION DIAGNOSES: - Essential (primary) hypertension - Allergy status to penicillin - half-way (current) use of inhaled steroids - Benign prostatic hyperplasia without lower urinary tract symptoms - Nicotine dependence, cigarettes, uncomplicated - Other jail (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 - Cramp and spasm - lobsterman (current) use of aspirin - lobsterman (current) use of systemic steroids - Chronic obstructive pulmonary disease with (acute) exacerbation [email or web address]
[2018-06-14] MEDS ORDERED: TRAZODONE HCL50 MG PO (13:40)
--- NOTE | 2018-06-14 20:04 | EKG ---
[facility] [address] [place] [address] Signed Normal sinus rhythm Left axis deviation Incomplete right bundle branch block Left ventricular hypertrophy with repolarization abnormality Cannot rule out Septal infarct , age undetermined Abnormal ECG When compared with ECG of 12-JUN-2018 13:38, Minimal criteria for Septal infarct are now present Confirmed by MARCELA NELSON MD ([id number]) on 06/14/2018 8:04:02 PM Electronically Signed By: MARCELA NELSON MD 06/14/182003 PATIENT NAME: ROMA SCHMIDT Electrocardiogram DATE OF : 39 PHYSICIAN: MARCELA NELSON MD REPORT #: [id number] REPORT IS CONFIDENTIAL AND NOT TO BE RELEASED WITHOUT AUTHORIZATION
== END 2018-06-14 15:15 | disposition home or self-care (01) ==
LOC: ED 20:19 → CCU 20:21
PROVIDERS: ADMIT Internal Medicine
DX: E86.0 Dehydration (principal); J44.1 Chronic obstructive pulmonary disease with (acute) exacerbation; I10 Essential (primary) hypertension; N40.0 Benign prostatic hyperplasia without lower urinary tract symptoms; J96.11 Chronic respiratory failure with hypoxia; F43.21 Adjustment disorder with depressed mood; F41.9 Anxiety disorder, unspecified; E11.9 Type 2 diabetes mellitus without complications; Z87.891 Personal history of nicotine dependence; Z88.0 Allergy status to penicillin; Z79.2 Long term (current) use of antibiotics; Z79.82 Long term (current) use of aspirin; Z79.4 Long term (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; Z79.51 Long term (current) use of inhaled steroids; Z79.52 Long term (current) use of systemic steroids; Z79.899 Other long term (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
CPT/HCPCS: 71045; 80053; 81001; 83880; 84484; 85025; 85379; 93005; 93010; 94640; 99285-25; G0378; J1815; J7120; J7512

== ENCOUNTER 2018-07-09 20:04 | Emergency (ER) | payer MEDICARE, OTHER ==
[~2018-07-09] VITALS: Ht 172.7 cm; Wt 73.5 kg
[~2018-07-09 20:04] MED LIST changes: +TRAZODONE HCL50 MG PO
--- OUTSIDE RECORDS SUMMARY | 2018-07-09 23:00 | XMS ---
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 Security Events currently on file CRITERIA MET - 6 ED Visits in 6 Months - [facility] - Has Care Guidelines - [facility] - 2 Visits in 30 Days CARE PROVIDERS Denisse Blanton Transportation Planner/Forest Ranger 12/17/2017-Current PHONE: [phone] Patrick Meade Transportation Planner/Forest Ranger 12/17/2017-Current PHONE: [phone] MARCELA NELSON Internal Medicine 04/03/2018-Current SANDEEP PHONE: [phone] Patrick Meade Primary Care 12/17/2017-Current PHONE: [phone] MARCELA NELSON Primary Care 04/05/2016-Current PHONE: Unknown Other Current PHONE: Unknown Maria R has no Care Guidelines for this patient. Care History Medical/Surgical 05/23/2018 [facility] PATIENT NEXT APPOINTMENT WITH DR NELSON:\T\nbsp; May. 04/03/2018 [facility] - PATIENT HAS AN APT WITH [...] providing care. E.D. VISIT COUNT (12 MO.) 1 [facility] 14 [facility] [place] TOTAL 15 NOTE: Visits indicate total known visits. 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 - Essential (primary) hypertension - Personal history of nicotine dependence - Chronic obstructive pulmonary disease with (acute) exacerbation - Chronic obstructive pulmonary disease with (acute) exacerbation - 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 technician (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 06/08/2018 19:37 [facility] [place] TYPE: Emergency COMPLAINT: - DIFFICULTY BREATHING 06/08/2018 01:29 [facility] [place] TYPE: Emergency COMPLAINT: - DIFFICULTY BREATHING DIAGNOSES: - 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 technician (current) use of aspirin - Essential (primary) hypertension - Other fpc (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 - Personal history of nicotine dependence - Chronic obstructive pulmonary disease with (acute) exacerbation - 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 technician (current) use of systemic steroids - Allergy status to penicillin - Shortness of breath 05/24/2018 07:27 [facility] [place] TYPE: Emergency COMPLAINT: - SOB 05/22/2018 01:46 [facility] [place] TYPE: Emergency COMPLAINT: - SOB DIAGNOSES: - Other fpc (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 - Hyperglycemia, unspecified - Chronic obstructive pulmonary disease with (acute) exacerbation - Nicotine dependence, unspecified, uncomplicated - 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 technician (current) use of systemic steroids - Essential (primary) hypertension - Shortness of breath - Allergy status to penicillin - jail (current) use of aspirin 05/03/2018 01:09 [facility] [place] TYPE: Emergency COMPLAINT: - DIFFICUTLY BREATHING 04/16/2018 22:51 [facility] [place] TYPE: Emergency COMPLAINT: - ANXIETY,SOB DIAGNOSES: - Chronic obstructive pulmonary disease, unspecified - Other fpc (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 - Nicotine dependence, unspecified, uncomplicated - jail (current) use of systemic steroids - 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 technician (current) use of aspirin - Essential (primary) [...] DIAGNOSES: - Nicotine dependence, unspecified, uncomplicated - 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 technician (current) use of aspirin - Chronic obstructive pulmonary disease with (acute) exacerbation - Allergy status to penicillin - Essential (primary) hypertension - Shortness of breath - Other fpc (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 03/16/2018 20:53 [facility] [place] TYPE: Emergency COMPLAINT: - SOB,WEAKNESS DIAGNOSES: - Allergy status to penicillin - Other 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 (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 - Chronic obstructive pulmonary disease with (acute) exacerbation - Nicotine dependence, unspecified, uncomplicated - Shortness of breath - Essential (primary) hypertension 11/15/2017 19:51 [facility] [place] TYPE: Emergency COMPLAINT: - SWOLLEN GLANDS DIAGNOSES: - Nicotine dependence, unspecified, uncomplicated - Other 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 (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 - Chronic obstructive pulmonary disease, unspecified - Acute pharyngitis, unspecified - Sialoadenitis, unspecified - Essential (primary) hypertension - Allergy status to penicillin 11/03/2017 12:09 [facility] [place] TYPE: Emergency COMPLAINT: - WEAKNESS DIAGNOSES: - Essential (primary) hypertension - Allergy status to penicillin - Weakness - Nicotine dependence, unspecified, uncomplicated - 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 [place] TYPE: Critical Care COMPLAINT: - DEHYDRATION DIAGNOSES: - Essential (primary) hypertension - Other fpc (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 - jail (current) use of inhaled steroids - 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 technician (current) use of antibiotics - 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 technician (current) use of systemic steroids - 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 technician (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 - Adjustment disorder with depressed mood - Anxiety disorder, unspecified - Dehydration - Weakness - 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 technician (current) use of aspirin - Personal history of nicotine dependence - Chronic respiratory failure with hypoxia - Benign prostatic hyperplasia without lower urinary tract symptoms - Allergy status to penicillin - Chronic obstructive pulmonary disease with (acute) exacerbation - Type 2 diabetes mellitus without complications 06/08/2018 19:38 [facility] [place] TYPE: Medical Surgical COMPLAINT: - COPD EXACERBATION DIAGNOSES: - Benign prostatic hyperplasia without lower urinary tract symptoms - Essential (primary) hypertension - Acute and chronic respiratory failure with hypoxia - Chronic obstructive pulmonary disease with (acute) exacerbation - Hyperglycemia, unspecified - Personal history of nicotine dependence - Allergy status to penicillin - 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 technician (current) use of aspirin - 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 technician (current) use of inhaled steroids - 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 technician (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 - 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 technician (current) use of non-steroidal anti-inflammatories (NSAID) - Shortness of breath - Other 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 (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 - 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 technician (current) use of systemic steroids - Adverse [...] hyperplasia without lower urinary tract symptoms - jail (current) use of systemic steroids - Acute and chronic respiratory failure with hypoxia - jail (current) use of inhaled steroids - 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 technician (current) use of aspirin - Cramp and spasm - Other 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 (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 - Chronic obstructive pulmonary disease with (acute) exacerbation - 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 technician (current) use of oral hypoglycemic drugs - Adverse effect of glucocorticoids and synthetic analogues, initial encounter 05/03/2018 01:10 [facility] [place] TYPE: Medical Surgical COMPLAINT: - COPD EXACERBATION DIAGNOSES: - Other 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 (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 - Benign prostatic hyperplasia without lower urinary tract symptoms - Allergy status to penicillin - Chronic obstructive pulmonary disease with (acute) exacerbation - 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 technician (current) use of aspirin - Nicotine dependence, unspecified, uncomplicated - Essential (primary) hypertension - Nicotine dependence, cigarettes, uncomplicated - Shortness of breath - 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 technician (current) use of inhaled steroids - Personal history of traumatic brain injury 04/03/2018 11:16 [facility] [place] TYPE: Medical Surgical COMPLAINT: - COPD EXACERBATION DIAGNOSES: - Essential (primary) hypertension - Allergy status to penicillin - jail (current) use of inhaled steroids - Benign prostatic hyperplasia without lower urinary tract symptoms - Nicotine dependence, cigarettes, uncomplicated - Other fpc (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 - Cramp and spasm - jail (current) use of aspirin - 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 technician (current) use of systemic steroids - Chronic obstructive pulmonary disease with (acute) exacerbation [email or web address]
--- NOTE | 2018-07-12 07:48 | EKG ---
[facility] [address] [place] [address] Signed Sinus tachycardia Left axis deviation Minimal voltage criteria for LVH, may be normal variant Abnormal ECG When compared with ECG of 13-JUN-2018 20:48, Minimal criteria for Septal infarct are no longer present Confirmed by MARCELA NELSON MD ([id number]) on 07/12/2018 7:48:15 AM Electronically Signed By: MARCELA NELSON MD 07/12/18 0748 PATIENT NAME: ROMA SCHMIDT Electrocardiogram DATE OF : 39 PHYSICIAN: MARCELA NELSON MD REPORT #: [id number] REPORT IS CONFIDENTIAL AND NOT TO BE RELEASED WITHOUT AUTHORIZATION
== END 2018-07-09 22:31 | disposition home or self-care (01) ==
LOC: ED 20:04
DX: J44.1 Chronic obstructive pulmonary disease with (acute) exacerbation (principal); I10 Essential (primary) hypertension; N40.0 Benign prostatic hyperplasia without lower urinary tract symptoms; Z87.891 Personal history of nicotine dependence; Z88.0 Allergy status to penicillin; Z79.899 Other long term (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; Z79.82 Long term (current) use of aspirin
CPT/HCPCS: 71046; 80053; 83880; 85025; 93005; 93010; 99285-25

== ENCOUNTER 2018-07-14 17:24 | Emergency (ER) | payer MEDICARE, OTHER ==
[~2018-07-14] VITALS: Ht 172.7 cm; Wt 73.5 kg
--- OUTSIDE RECORDS SUMMARY | 2018-07-14 17:28 | XMS ---
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 Security Events currently on file CRITERIA MET - 6 ED Visits in 6 Months - [facility] - Has Care Guidelines - [facility] - 2 Visits in 30 Days CARE PROVIDERS Denisse Blanton Heavy Equipment Service Manager/Stocking Inspector 12/17/2017-Current PHONE: [phone] Patrick Meade Heavy Equipment Service Manager/Stocking Inspector 12/17/2017-Current PHONE: [phone] MARCELA NELSON Internal Medicine 04/03/2018-Current SANDEEP PHONE: [phone] Patrick Meade Primary Care 12/17/2017-Current PHONE: [phone] MARCELA NELSON Primary Care 04/05/2016-Current PHONE: Unknown Other Current PHONE: Unknown Maria R has no Care Guidelines for this patient. Care History Medical/Surgical 07/10/2018 [facility] - PATIENT IS CURRENTLY ON SERVICES WITH PULMONARY REHAB AT [facility]. 05/23/2018 [facility] PATIENT NEXT APPOINTMENT WITH DR NELSON:\T\nbsp; May. 04/03/2018 [facility] - PATIENT HAS AN APT WITH DR NELSON ON 04/17/18. - Patient is currently established with [facility]. If patient is seen in the ED during business hours. Please contact CHWs at [facility]. Care Recommendation: This patient has had 5 [...] care. E.D. VISIT COUNT ([address] [facility] 15 [facility] [place] TOTAL 16 NOTE: Visits indicate total known visits. 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 - Benign prostatic hyperplasia without lower urinary tract symptoms 06/14/2018 18:43 [facility] TYPE: Emergency DIAGNOSES: - Chronic obstructive pulmonary disease with (acute) exacerbation - Hypoxemia - Shortness of Breath - Chest Pain 06/13/2018 20:20 [facility] TYPE: Emergency COMPLAINT: - DIFFICULTY BREATHING 06/12/2018 12:59 [facility] TYPE: Emergency COMPLAINT: - SOB DIAGNOSES: - Candidal stomatitis - Allergy status to penicillin - Shortness of breath - Other termite treater (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 - Essential (primary) hypertension - Personal history of nicotine dependence - Chronic obstructive pulmonary disease with (acute) exacerbation - Chronic obstructive pulmonary disease with (acute) exacerbation - jail (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 06/08/2018 19:37 [facility] [place] TYPE: Emergency COMPLAINT: - DIFFICULTY BREATHING 06/08/2018 01:29 [facility] [place] TYPE: Emergency COMPLAINT: - DIFFICULTY BREATHING DIAGNOSES: - jail (current) use of aspirin - Essential (primary) hypertension - Other senior living (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 - Personal history of nicotine dependence - Chronic obstructive pulmonary disease with (acute) exacerbation - jail (current) use of systemic steroids - Allergy status to penicillin - Shortness of breath 05/24/2018 07:27 [facility] [place] TYPE: Emergency COMPLAINT: - SOB 05/22/2018 01:46 [facility] [place] TYPE: Emergency COMPLAINT: - SOB DIAGNOSES: - Other termite treater (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 - Hyperglycemia, unspecified - Chronic obstructive pulmonary disease with (acute) exacerbation - Nicotine dependence, unspecified, uncomplicated - jail (current) use of systemic steroids - Essential (primary) hypertension - Shortness of breath - Allergy status to penicillin - adjunct faculty for medical terminology (current) use of aspirin 05/03/2018 01:09 [facility] [place] TYPE: Emergency COMPLAINT: - DIFFICUTLY BREATHING 04/16/2018 22:51 [facility] [place] TYPE: Emergency COMPLAINT: - ANXIETY,SOB DIAGNOSES: - Chronic obstructive pulmonary disease, unspecified - Other senior living (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 - Nicotine dependence, unspecified, uncomplicated - adjunct faculty for medical terminology (current) use of systemic steroids - adjunct faculty for medical terminology (current) use of aspirin - Essential (primary) hypertension - Allergy status to penicillin - Anxiety disorder, unspecified 04/15/2018 19:41 [facility] [place] TYPE: Emergency COMPLAINT: - SHORTNESS OF BREATH/CONSTIPATION DIAGNOSES: - Shortness of breath - Essential (primary) hypertension - Constipation, unspecified - Nicotine dependence, unspecified, uncomplicated - Chronic obstructive pulmonary disease with (acute) exacerbation - Allergy status to penicillin - Other termite treater (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 04/02/2018 20:47 [facility] [place] TYPE: Emergency COMPLAINT: - SOB DIAGNOSES: - Nicotine dependence, unspecified, uncomplicated - adjunct faculty for medical terminology (current) use of aspirin - Chronic obstructive pulmonary disease with (acute) exacerbation - Allergy status to penicillin - Essential (primary) hypertension - Shortness of breath - Other senior living (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 03/16/2018 20:53 [facility] [place] TYPE: Emergency COMPLAINT: - SOB,WEAKNESS DIAGNOSES: - Allergy status to penicillin - Other senior living (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 - Chronic obstructive pulmonary disease with (acute) exacerbation - Nicotine dependence, unspecified, uncomplicated - Shortness of breath - Essential (primary) hypertension 11/15/2017 19:51 [facility] [place] TYPE: Emergency COMPLAINT: - SWOLLEN GLANDS DIAGNOSES: - Nicotine dependence, unspecified, uncomplicated - Other termite treater (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 - Chronic obstructive pulmonary disease, unspecified - Acute pharyngitis, unspecified - Sialoadenitis, unspecified - Essential (primary) hypertension - Allergy status to penicillin 11/03/2017 12:09 [facility] [place] TYPE: Emergency COMPLAINT: - WEAKNESS DIAGNOSES: - Essential (primary) hypertension - Allergy status to penicillin - Weakness - Nicotine dependence, unspecified, uncomplicated - Other termite treater (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 - Chronic obstructive pulmonary disease with (acute) exacerbation INPATIENT VISIT TRACKING (12 MO.) [facility]14/2018 [facility] DIAGNOSES: - Chronic obstructive pulmonary disease with (acute) exacerbation - Hypoxemia 06/13/2018 20:21 [facility] TYPE: Critical Care COMPLAINT: - DEHYDRATION DIAGNOSES: - Essential (primary) hypertension - Other termite treater (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 - adjunct faculty for medical terminology (current) use of inhaled steroids - adjunct faculty for medical terminology (current) use of antibiotics - jail (current) use of systemic steroids - jail (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 - Adjustment disorder with depressed mood - Anxiety disorder, unspecified - Dehydration - Weakness - jail (current) use of aspirin - Personal history [...] dependence - Allergy status to penicillin - jail (current) use of aspirin - jail (current) use of inhaled steroids - adjunct faculty for medical terminology (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 - jail (current) use of non-steroidal anti-inflammatories (NSAID) - Shortness of breath - Other senior living (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 - adjunct faculty for medical terminology (current) use of systemic steroids - Adverse [...] jail (current) use of inhaled steroids - adjunct faculty for medical terminology (current) use of aspirin - Cramp and spasm - Other termite treater (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 - Chronic obstructive pulmonary disease with (acute) exacerbation - jail (current) use of oral hypoglycemic drugs - Adverse effect of glucocorticoids and synthetic analogues, initial encounter 05/03/2018 01:10 [facility] TYPE: Medical Surgical COMPLAINT: - COPD EXACERBATION DIAGNOSES: - Other termite treater (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 - Benign prostatic hyperplasia without lower urinary tract symptoms - Allergy status to penicillin - Chronic obstructive pulmonary disease with (acute) exacerbation - adjunct faculty for medical terminology (current) 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 of 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 - Nicotine dependence, unspecified, uncomplicated - Essential (primary) hypertension - Nicotine dependence, cigarettes, uncomplicated - Shortness of breath - adjunct faculty for medical terminology (current) use of inhaled steroids - Personal history of traumatic brain injury 04/03/2018 11:16 [facility] TYPE: Medical Surgical COMPLAINT: - COPD EXACERBATION DIAGNOSES: - Essential (primary) hypertension - Allergy status to penicillin - jail (current) use of inhaled steroids - Benign prostatic hyperplasia without lower urinary tract symptoms - Nicotine dependence, cigarettes, uncomplicated - Other senior living (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 - Cramp and spasm - adjunct faculty for medical terminology (current) use of aspirin - adjunct faculty for medical terminology (current) use of systemic steroids - Chronic obstructive pulmonary disease with (acute) exacerbation [email or web address]
== END 2018-07-14 19:00 | disposition home or self-care (01) ==
LOC: ED 17:24
DX: R06.02 Shortness of breath (principal); J44.9 Chronic obstructive pulmonary disease, unspecified; I10 Essential (primary) hypertension; Z87.891 Personal history of nicotine dependence; Z88.0 Allergy status to penicillin; Z79.899 Other long term (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; Z79.4 Long term (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
CPT/HCPCS: 71045; 94640; 99284-25; J1100

== ENCOUNTER 2018-08-10 10:13 | Emergency (ER) | payer MEDICARE, OTHER ==
[~2018-08-10] VITALS: Ht 172.7 cm; Wt 73.5 kg
--- OUTSIDE RECORDS SUMMARY | ~2018-08-10 | XMS | Encounter Summary ---
Demographics + + + | Address | [address] | | | [place] [address] | + + + | Home Phone | | + + + | Preferred Language | Unknown | + + + | Marital Status | | + + + | Oriental Orthodox Affiliation | Unknown | + + + | Race | Unknown | + + + | Ethnic Group | Unknown | + + + Author + + + | Author | [facility] | + + + | Organization | [facility] [employer] | + + + | Address [...] Team Providers + +------+ + | Care Progressive Care Unit Registered Nurse Name | Role | Phone | + [...] JYOTSNA LÓPEZ | | | | | ([facility]) | [place], | [place], [place] | | | | | Procedures | [place] [address] | [address] | | | | | Complete PFT | Phone: | Phone: | | | | | - Pre & | [phone] | [phone] | | | | | Post | Fax: | Fax: | | | | | Spirometry, | [phone] | [phone] | | | | | PLETH & [...] | | | disease, | [place], | [facility], [place] | | | | | unspecified | [place] [address] | [address] Phone: | | | | | (HCC) | Phone: | [phone] | | | | | | [phone] | Fax: | | | | | | Fax: | [phone] | | | | | | [phone] | | + +--------+ + + + + Encounter Details +--------+---------+ + + + | Date | Type | Department | Care Team | Description | +--------+---------+ + + + | 07/30/ | Office | [facility] | Chip Claros MD | Centrilobular | | 2019 | Visit | Pulmonology [address] | emphysema (HCC) | | | | [address] | [place] [address] | (Primary Dx) | | | | [place], [place] | [phone] | | | | | [address] | | | | | | [phone] | | | +--------+---------+ + + + [...] order a PFT to be done at [facility] in this encounter Progress Notes Chip Claros [...] got all his medications with him. His [id number] who is also his caregiver, give s [...] left lung base. Pulmonary function test 2016 [facility] severe obstructive impairment with very s [...] function test which will be done at [facility] - Complete PFT - Pre & [...] Claros MD Pulmonary and Critical Care Medicine [facility] [address] , [place] [address] in this encounter Plan of Treatment +--------+---------+ + + + | Date | Type | Specialty | Care Team | Description | +--------+---------+ + + + | 10/08/ | Office | Pulmonology | Chip Claros MD | | | 2019 | Visit | | [address] | | | | | | [place] [address] | | | | | | [phone] | | | | | | | [...]
--- OUTSIDE RECORDS SUMMARY | ~2018-08-10 | XMS | Encounter Summary ---
Demographics + + + | Address | [address] | | | [place] [address] | + + + | Home Phone | | + + + | Preferred Language | Unknown | + + + | Marital Status | | + + + | Sikhism Affiliation | Unknown | + + + | Race | Unknown | + + + | Ethnic Group | Unknown | + + + Author + + + | Author | [facility] | + + + | Organization | [facility] [employer] | + + + | Address [...] Team Providers + +------+ + | Care Pin Sorter And Bagger Name | Role | Phone | + +------+ + PCP | Unavailable | + +------+ + Encounter Details +--------+ + + + + | Date | Type | Department | Care Team | Description | +--------+ + + + + | 05/27/ | Ancillary | [facility] | Adi Garrett MD | SOB (shortness of | | 2019 | Procedure | ECHO | [address] | breath) | | | | | [place], [place] | | | | | | [address] | | | | | | | | +--------+ + + + + Social History + +-------+ +--------+------+ | Tobacco Use | Types | Packs/Day | Years | Date | | | | | Used | | + +-------+ +--------+------+ | Never Assessed | | | | | + +-------+ +--------+------+ + + + | Sex Assigned at | Date Recorded | | | | + + + | Not on file | | + + + as of this encounter Plan of Treatment +--------+---------+ + + + | Date | Type | Specialty | Care Team | Description | +--------+---------+ + + + | 10/08/ | Office | Pulmonology | Chip Claros MD | | | 2018 | Visit | | [address] | | | | | | [place] [address] | | | | | | [phone] | | | | | | | | +--------+---------+ + + + as of this encounter Procedures + +--------+ + + + | Procedure Name | Priori | Date/Time | Associated Diagnosis | Comments | | | ty | | | | + +--------+ + + + | ECHO OUTSIDE | Routin | 05/27/2018 | SOB (shortness of | Results for this | | INTERPRETATION | e | 9:34 AM | breath) | procedure are in the | | STANDARD | | PST | | results section. | + +--------+ + + + in this encounter Results ECHO outside interpretation standard (05/27/2018 9:34 AM) + + + | Impressions | Performed At | + + + | 1. Essentially normal study. 2. Overall left ventricular systolic | [facility] | | function is normal with an EF between 65 - 70%. 3. The right | RADIOLOGY | | ventricle is normal in size and function. 4. No significant valvular | | | abnormalities are noted. | | + + + + + + | Narrative | Performed At | + + + | Patient Name: David Miranda Date of : 1935 | [facility] | | Performing Physician: EDIL REYNOSO MD | RADIOLOGY | | | | | INDICATIONS SOB CONCLUSIONS 1. | | | Essentially normal study. 2. Overall left ventricular systolic | | | function is normal with an EF between 65 - 70%. 3. The right | | | ventricle is normal in size and function. 4. No significant valvular | | | abnormalities are noted. FINDINGS -------- ECG rhythm: Sinus | | | rhythm. Study: A 2-dimensional transthoracic echocardiogram with | | | m-mode, spectral and color flow Doppler was perfomed at [facility]. Study: | | | This was a technically adequate study. Left Ventricle: Overall left | | | ventricular systolic function is normal with, an EF between 65 - 70 %. | | | Left Ventricle: The left ventricle cavity size is normal. Left | | | Ventricle: Left ventricular wall thickness is normal. Left | | | Ventricle: No regional wall motion abnormalities. Left Ventricle: | | | Assessment of diastolic function is indeterminate. Right Ventricle: | | | The right ventricle is normal in size and function. Left Atrium: The | | | left atrium is normal in size. Right Atrium: The right atrium is | | | normal in size. Right Atrium: Prominent Chiari network seen in right | | | atrium (normal finding). Aortic Valve: The aortic valve is | | | trileaflet, and appears anatomically normal except for Aortic Valve: | | | mild thickening. Aortic Valve: Trace amount of aortic | | | regurgitation. Aortic Valve: There is no evidence of aortic | | | stenosis. Mitral Valve: There is trace mitral regurgitation. Mitral | | | Valve: No evidence of MVP. Mitral Valve: Mild mitral annular | | | calcification present. Tricuspid Valve: The tricuspid valve appears | | | structurally normal. Tricuspid Valve: Trace tricuspid regurgitation | | | present. Tricuspid Valve: There is no evidence of pulmonary | | | hypertension. Tricuspid Valve: The right ventricular systolic | | | pressure (pulmonary artery systolic pressure), as measured by Doppler, | | | is 33.44mmHg. Pulmonic Valve: The pulmonic valve was not well | | | visualized. Pericardium: There is no pericardial effusion. | | | IVC/Hepatic Veins: The IVC is normal size (1.5-2.5cm) and collapses | | | >50% with sniff, consistent with central venous pressures of 5-10mmHg. | | | Aorta: Ascending and arch aorta not well seen. Mass: No mass | | | visualized Thrombus: No clot visualized Thrombus: No vegetation | | | visualized. Septum: No ASD observed. Septum: No VSD observed. | | | MEASUREMENTS Ao Diam: 3.12 cm Ao sinus: 3.91 | | | cm Ao st junct: 3.05 cm IVC: 1.55 cm LA Major: 4.41 cm | | | EDV(Teich): 87.95 ml IVSd: 0.96 cm LVIDd: 4.40 cm | | | LVPWd: 0.92 cm LVOT Area: 3.20 cm2 LVOT Diam: 2.02 cm | | | %FS: 37.96 % EF(Teich): 68.34 % ESV(Teich): 27.83 ml | | | LVIDs: 2.73 cm SV(Teich): 60.11 ml RA Major: 4.89 cm RV | | | Major: 7.73 cm RV Minor: 3.21 cm RVIDd: 2.35 cm LVEF | | | MOD A2C: 73.83 % SV MOD A2C: 60.97 ml LVEF MOD A4C: | | | 64.43 % SV MOD A4C: 54.16 ml EF Biplane: 69.56 % LVEDV MOD | | | BP: 86.15 ml LVESV MOD BP: 26.22 ml LVEDV MOD A2C: 82.58 | | | ml LVLd A2C: 7.75 cm LVEDV MOD A4C: 84.06 ml LVLd A4C: | | | 7.22 cm LVESV MOD A2C: 21.61 ml LVLs A2C: 6.32 cm LVESV | | | MOD A4C: 29.90 ml LVLs A4C: 6.79 cm LAESV(A-L): 32.02 ml | | | LAESV Index (A-L): 17.03 ml/m2 LAAs A2C: 13.57 cm2 LAESV | | | A-L A2C: 30.89 ml LALs A2C: 5.06 cm LAAs A4C: 12.98 cm2 | | | LAESV A-L A4C: 30.63 ml LALs A4C: 4.67 cm RAAs: 12.58 | | | cm2 RAESV A-L: 28.09 ml RAESV MOD: 27.73 ml RALs: 4.78 | | | cm TAPSE: 1.82 cm AV maxP.32 mmHg AV meanP.83 | | | mmHg AV Vmax: 1.15 m/s AV Vmean: 0.78 m/s AV VTI: 25.09 | | | cm NORI Vmax: 3.12 cm2 NORI (VTI): 3.43 cm2 AVAI Vmax: | | | 0.00 cm2/m2 AVAI (VTI): 0.00 cm2/m2 LVOT maxP.04 mmHg | | | LVOT meanP.56 mmHg LVSI Dopp: 45.89 ml/m2 LVSV Dopp: | | | 86.27 ml LVOT Vmax: 1.12 m/s LVOT Vmean: 0.75 m/s LVOT | | | VTI: 26.91 cm MV A Gaurav: 1.56 m/s MV Dec [place]: 3.73 m/s2 | | | MV DecT: 244.70 ms MV E Gaurav: 0.91 m/s MV E/A Ratio: | | | 0.58 MV PHT: 70.96 ms MVA By PHT: 3.10 cm2 Septal e': | | | 0.04 m/s Septal E/e': 20.64 Lateral e': 0.05 m/s Lateral | | | E/e': 16.50 RAP: 5 mmHg RVSP: 33.44 mmHg TR maxPG: | | | 28.44 mmHg TR Vmax: 2.66 m/s RV s': 0.13 m/s | | | Residential Assistant: Authenticated by: EDIL REYNOSO MD Report | | | Date/Time: 05-27-2018 17:27:33 | | + + + + + | Procedure Note | + + | [facility] Results In - 05/27/2018 5:31 PM PST Patient Name: Graciela Miranda | | : 1935ccession: [id number] Physician: EDIL REYNOSO MD | | INDICATIONS SOB | | CONCLUSIONS 1. Essentially normal study.2. Overall left ventricular systolic | | function is normal with an EF between 65 - 70%.3. The right ventricle is normal in size | | and function. 4. No significant valvular abnormalities are noted.FINDINGS--------ECG | | rhythm: Sinus rhythm.Study: A 2-dimensional transthoracic echocardiogram with m-mode, | | spectral and color flow Doppler was perfomed at [facility]. Study: This was a technically | | adequate study.Left Ventricle: Overall left ventricular systolic function is normal | | with, an EF between 65 - 70 %. Left Ventricle: The left ventricle cavity size is normal. | | Left Ventricle: Left ventricular wall thickness is normal. Left Ventricle: No regional | | wall motion abnormalities. Left Ventricle: Assessment of diastolic function is | | indeterminate.Right Ventricle: The right ventricle is normal in size and function.Left | | Atrium: The left atrium is normal in size.Right Atrium: The right atrium is normal in | | size. Right Atrium: Prominent Chiari network seen in right atrium (normal | | finding).Aortic Valve: The aortic valve is trileaflet, and appears anatomically normal | | except for Aortic Valve: mild thickening. Aortic Valve: Trace amount of aortic | | regurgitation. Aortic Valve: There is no evidence of aortic stenosis.Mitral Valve: | | There is trace mitral regurgitation. Mitral Valve: No evidence of MVP. Mitral Valve: | | Mild mitral annular calcification present.Tricuspid Valve: The tricuspid valve appears | | structurally normal. Tricuspid Valve: Trace tricuspid regurgitation present. Tricuspid | | Valve: There is no evidence of pulmonary hypertension. Tricuspid Valve: The right | | ventricular systolic pressure (pulmonary artery systolic pressure), as measured by | | Doppler, is 33.44mmHg.Pulmonic Valve: The pulmonic valve was not well | | visualized.Pericardium: There is no pericardial effusion.IVC/Hepatic Veins: The IVC is | | normal size (1.5-2.5cm) and collapses >50% with sniff, consistent with central venous | | pressures of 5-10mmHg.Aorta: Ascending and arch aorta not well seen.Mass: No mass | | visualizedThrombus: No clot visualized Thrombus: No vegetation visualized.Septum: No ASD | | observed. Septum: No VSD observed.MEASUREMENTS Ao Diam: 3.12 cmAo sinus: | | 3.[address] junct: 3.05 cmIVC: 1.55 cmLA Major: 4.41 cmEDV(Teich): 87.95 | | mlIVSd: 0.96 cmLVIDd: 4.40 cmLVPWd: 0.92 cmLVOT Area: 3.20 tk5LICC Diam: 2.02 | | cm%FS: 37.96 %EF(Teich): 68.34 %ESV(Teich): 27.83 mlLVIDs: 2.73 cmSV(Teich): | | 60.11 mlRA Major: 4.89 cmRV Major: 7.73 cmRV Minor: 3.21 cmRVIDd: 2.35 cmLVEF | | MOD A2C: 73.83 %SV MOD A2C: 60.97 mlLVEF MOD A4C: 64.43 %SV MOD A4C: 54.16 mlEF | | Biplane: 69.56 %LVEDV MOD BP: 86.15 mlLVESV MOD BP: 26.22 mlLVEDV MOD A2C: 82.58 | | mlLVLd A2C: 7.75 cmLVEDV MOD A4C: 84.06 mlLVLd A4C: 7.22 cmLVESV MOD A2C: 21.61 | | mlLVLs A2C: 6.32 cmLVESV MOD A4C: 29.90 mlLVLs A4C: 6.79 cmLAESV(A-L): 32.02 | | mlLAESV Index (A-L): 17.03 ml/m2LAAs A2C: 13.57 [id number] A-L A2C: 30.89 mlLALs | | A2C: 5.06 cmLAAs A4C: 12.98 [id number] A-L A4C: 30.63 mlLALs A4C: 4.67 cmRAAs: | | 12.58 [id number] A-L: 28.09 mlRAESV MOD: 27.73 mlRALs: 4.78 cmTAPSE: 1.82 cmAV | | maxP.32 mmHgAV meanP.83 mmHgAV Vmax: 1.15 m/Shy Vmean: 0.78 m/Shy VTI: | | 25.09 cmAVA Vmax: 3.12 cm2AVA (VTI): 3.43 [id number] Vmax: 0.00 cm2/m2AVAI (VTI): | | 0.00 cm2/m2LVOT maxP.04 mmHgLVOT meanP.56 mmHgLVSI Dopp: 45.89 ml/m2LVSV | | Dopp: 86.27 mlLVOT Vmax: 1.12 m/sLVOT Vmean: 0.75 m/sLVOT VTI: 26.91 cmMV A Gaurav: | | 1.56 m/sMV Dec [place]: 3.73 m/s2MV DecT: 244.70 msMV E Gaurav: 0.91 m/sMV E/A | | Ratio: 0.58 MV PHT: 70.96 msMVA By PHT: 3.10 iu1Prxlzf e': 0.04 m/sSeptal E/e': | | 20.64 Lateral e': 0.05 m/sLateral E/e': 16.50 RAP: 5 mmHgRVSP: 33.44 mmHgTR | | maxP.44 mmHgTR Vmax: 2.66 m/sRV s': 0.13 m/sSonographer: DHAuthenticated by: | | MAGGIE WHITEeport Date/Time: 05-27-2018 17:27:33IMPRESSION:1. Essentially normal | | study.2. Overall left ventricular systolic function is normal with an EF between 65 - | | 70%.3. The right ventricle is normal in size and function. 4. No significant valvular | | abnormalities are noted. | | | |MEASUREMENTS | | | |Ao Diam: 3.12 cm | |Ao sinus: 3.91 cm | |Ao st junct: 3.05 cm | |IVC: 1.55 cm | |LA Major: 4.41 cm | |EDV(Teich): 87.95 ml | |IVSd: 0.96 cm | |LVIDd: 4.40 cm | |LVPWd: 0.92 cm | |LVOT Area: 3.20 cm2 | |LVOT Diam: 2.02 cm | |%FS: 37.96 % | |EF(Teich): 68.34 % | |ESV(Teich): 27.83 ml | |LVIDs: 2.73 cm | |SV(Teich): 60.11 ml | |RA Major: 4.89 cm | |RV Major: 7.73 cm | |RV Minor: 3.21 cm | |RVIDd: 2.35 cm | |LVEF MOD A2C: 73.83 % | |SV MOD A2C: 60.97 ml | |LVEF MOD A4C: 64.43 % | |SV MOD A4C: 54.16 ml | |EF Biplane: 69.56 % | |LVEDV MOD BP: 86.15 ml | |LVESV MOD BP: 26.22 ml | |LVEDV MOD A2C: 82.58 ml | |LVLd A2C: 7.75 cm | |LVEDV MOD A4C: 84.06 ml | |LVLd A4C: 7.22 cm | |LVESV MOD A2C: 21.61 ml | |LVLs A2C: 6.32 cm | |LVESV MOD A4C: 29.90 ml | |LVLs A4C: 6.79 cm | |LAESV(A-L): 32.02 ml | |LAESV Index (A-L): 17.03 ml/m2 | |LAAs A2C: 13.57 cm2 | |LAESV A-L A2C: 30.89 ml | |LALs A2C: 5.06 cm | |LAAs A4C: 12.98 cm2 | |LAESV A-L A4C: 30.63 ml | |LALs A4C: 4.67 cm | |RAAs: 12.58 cm2 | |RAESV A-L: 28.09 ml | |RAESV MOD: 27.73 ml | |RALs: 4.78 cm | |TAPSE: 1.82 cm | |AV maxP.32 mmHg | |AV meanP.83 mmHg | |AV Vmax: 1.15 m/s | |AV Vmean: 0.78 m/s | |AV VTI: 25.09 cm | |NORI Vmax: 3.12 cm2 | |NORI (VTI): 3.43 cm2 | |AVAI Vmax: 0.00 cm2/m2 | |AVAI (VTI): 0.00 cm2/m2 | |LVOT maxP.04 mmHg | |LVOT meanP.56 mmHg | |LVSI Dopp: 45.89 ml/m2 | |LVSV Dopp: 86.27 ml | |LVOT Vmax: 1.12 m/s | |LVOT Vmean: 0.75 m/s | |LVOT VTI: 26.91 cm | |MV A Gaurav: 1.56 m/s | |MV Dec [place]: 3.73 m/s2 | |MV DecT: 244.70 ms | |MV E Gaurav: 0.91 m/s | |MV E/A Ratio: 0.58 | |MV PHT: 70.96 ms | |MVA By PHT: 3.10 cm2 | |Septal e': 0.04 m/s | |Septal E/e': 20.64 | |Lateral e': 0.05 m/s | |Lateral E/e': 16.50 | |RAP: 5 mmHg | |RVSP: 33.44 mmHg | |TR maxP.44 mmHg | |TR Vmax: 2.66 m/s | |RV s': 0.13 m/s | | | |Residential Assistant: | |Authenticated by: EDIL REYNOSO MD | |Report Date/Time: 05-27-2018 17:27:33 | | | |IMPRESSION: | |1. Essentially normal study. | |2. Overall left ventricular systolic function is normal with an EF between 65 - 70%. | |3. The right ventricle is normal in size and function. 4. No significant valvular abnormali ties are noted. | + + + + + + + | Performing | Address | City/State/Zipcode | Phone Number | | Organization | | | | + + + + + | [facility] | [address] | [place] [address] | | + + + + + in this encounter Visit Diagnoses + + | Diagnosis | + + | SOB (shortness of breath) | + + | Shortness of breath | + +"
--- OUTSIDE RECORDS SUMMARY | ~2018-08-10 | XMS | Encounter Summary ---
Demographics + + + | Address | [address] | | | [place] [address] | + + + | Home Phone | | + + + | Preferred Language | Unknown | + + + | Marital Status | | + + + | Taoism Affiliation | Unknown | + + + | Race | Unknown | + + + | Ethnic Group | Unknown | + + + Author + + + | Author | [facility] [employer] | + + + | Organization | [facility] [employer] | + + + | Address [...] Team Providers + +------+ + | Care Service Technician Name | Role | Phone | + +------+ + | Adi Garrett MD | PCP | | + +------+ + Encounter Details +--------+ + + + + | Date | Type | Department | Care Team | Description | +--------+ + + + + | 05/27/ | Ancillary | [facility] | Adi Garrett MD | SOB (shortness of | | 2019 | Orders | ECHO | [address] | breath) | | | | | [place] | | | | | | [id number] | | | | | | | [...] [address] | | | | | | [place] [address] | | | | | | [phone] | | | | | | | | +--------+---------+ + + + as of this encounter Results ECHO outside interpretation standard [...] David Miranda Date of : 1935 | [facility] | | Performing Physician: EDIL REYNOSO MD [...] and color flow Doppler was perfomed at [facility]. Study: | | | This was a [...] MV A Gaurav: 1.56 m/s MV Dec Mobile: 3.73 m/s2 | | | MV DecT: [...] RV s': 0.13 m/s | | | Art Historian: ADONIS Authenticated by: EDIL REYNOSO MD Report | | | Date/Time: 05-27-2018 17:27:33 | | + + + + + | Procedure Note | + + | Kevin, Rad Results In - 05/27/2018 5:31 PM PST Patient Name: Miryam Miranda of | | : 1935ccession: [id number] Physician: EDIL REYNOSO MD | | INDICATIONS [...] and color flow Doppler was perfomed at [facility]. Study: This was a technically | | [...] cmLVIDd: 4.40 cmLVPWd: 0.92 cmLVOT Area: 3.20 [id number] Diam: 2.02 | | cm%FS: 37.96 %EF(Teich): [...] mlLAESV Index (A-L): 17.03 ml/m2LAAs A2C: 13.57 [id number] A-L A2C: 30.89 mlLALs | | A2C: 5.06 cmLAAs A4C: 12.98 um9FOTTB A-L A4C: 30.63 mlLALs A4C: 4.67 cmRAAs: | | 12.58 cz7TSHSD A-L: 28.09 mlRAESV MOD: 27.73 mlRALs: 4.78 cmTAPSE: 1.82 cmAV | | maxP.32 mmHgAV meanP.83 mmHgAV Vmax: 1.15 m/Shy Vmean: 0.78 m/Shy VTI: | | 25.09 cmAVA Vmax: 3.12 cm2AVA (VTI): 3.43 [id number] Vmax: 0.00 cm2/m2AVAI (VTI): | | 0.00 cm2/m2LVOT maxP.04 mmHgLVOT meanP.56 mmHgLVSI Dopp: 45.89 ml/m2LVSV | | Dopp: 86.27 mlLVOT Vmax: 1.12 m/sLVOT Vmean: 0.75 m/sLVOT VTI: 26.91 cmMV A Gaurav: | | 1.56 m/sMV Dec [place]: 3.73 m/s2MV DecT: 244.70 msMV E Gaurav: 0.91 m/sMV E/A | | Ratio: 0.58 MV PHT: 70.96 msMVA By PHT: 3.10 va3Vbfomd e': 0.04 m/sSeptal E/e': | | 20.64 [...] A Gaurav: 1.56 m/s | |MV Dec [place]: 3.73 m/s2 | |MV DecT: 244.70 ms [...] |RV s': 0.13 m/s | | | |Art Historian: ADONIS | |Authenticated by: EDIL REYNOSO MD | [...] | + + + + + | [facility] | [address] | [place] [address] | | + + + + + in this encounter Visit Diagnoses + + | Diagnosis | + + | SOB (shortness of breath) | + + | Shortness of breath | + +"
--- OUTSIDE RECORDS SUMMARY | ~2018-08-10 | XMS | Encounter Summary ---
Demographics + + + | Address | [address] | | | [place] [address] | + + + | Home Phone | | + + + | Preferred Language | Unknown | + + + | Marital Status | | + + + | Jewish Affiliation | Unknown | + + + | Race | Unknown | + + + | Ethnic Group | Unknown | + + + Author + + + | Author | [facility] | + + + | Organization | [facility] [employer] | + + + | Address [...] Team Providers + +------+ + | Care Chin Strap Maker Name | Role | Phone | + [...] [place] | | | | | | [place], [place] | | | | | | [address] | | | | | | [phone] | | | +--------+ + + + [...] PM PDT3 step testing Oximetry Exercise (code) [id number] 1. At rest on room air: Time: [...] | | | | | [place] [address] | | | | | | [phone] | | | | | | | | +--------+---------+ + + + as of this encounter Visit Diagnoses Not on filein this encounter"
--- OUTSIDE RECORDS SUMMARY | ~2018-08-10 | XMS | Encounter Summary ---
Demographics + + + | Address | [address] | | | [place] [address] | + + + | Home Phone | | + + + | Preferred Language | Unknown | + + + | Marital Status | | + + + | Temple Affiliation | Unknown | + + + | Race | Unknown | + + + | Ethnic Group | Unknown | + + + Author + + + | Author | [facility] | + + + | Organization | [facility] | + + + | Address [...] Team Providers + +------+ + | Care Drapery Seamstress Name | Role | Phone | + [...] | | Internal | Diagnoses | | [facility] 8th | | | | Medicine | Acute | | [place] | | | | | exacerbation | | [address] | | | | | of chronic | | [address] | | | | | obstructive | | [place], [place] | | | | | pulmonary | | [address] Phone: | | | | | disease | | [phone] | | | | | (COPD) ([facility]) | | | | | | | Hypoxia | | | | | | | | | | +--------+--------+ + + + + Encounter Details +--------+ + + + + | Date | Type | Department | Care Team | Description | +--------+ + + + + | 06/14/ | Hospital | [facility] | Teja Blandon, | Acute exacerbation | | 2019 - | Encounter | [facility] 8th | MD Javon [address] | of chronic | | | | [place] | EMERGENCY DEPARTMENT | obstructive | | 06/16/ | | [address] | [place] [address] | pulmonary disease | | 2019 | | [place] [address] | [phone] | (COPD) (HCC) | | | | [phone] | | (Primary Dx); | | | | | Lei Barcenas, | Hypoxia | | | | | MD [address] | | | | | | [place] [address] | | | | | | [phone] | | | | | | | | | | | | Deric Nevarez MD | | | | | | [address] | | | | | | [place] [address] | | | | | | [phone] | | | | | | | | | | | | Hector Murdock | | | | | | MD J[address]on [address] | | | | | | Blvd [place], [place] | | | | | | [address] | | | | | | | [...] note may be different from the original. [facility] Service: Hospitalist Physician Discharge Summary Pt: David Miranda AGE/SEX: 83 y.o. male ROOM: [facility] PCP: Adi Nelson : 1935 Admit date: [...] mellitus, was seen at emergency department at [facility] in [place] for COPD exacerbation. The shanon ramirez was [...] hours. No results for input(s): PHART, PO2ART, PYR8UFE, [id number], BEART in the last 168 hours. Recent [...] 06/16/2018Continue supplemental oxygen at 2 liters/minute at [facility]. 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; 8) Straight arms-lift high-w/out pain, breath [...] [address] | | | | | | [place] [address] | | | | | | [phone] | | | | | | | [...] Testing | 65 - 99 mg/dL | [facility] | | | performed at [facility];[address] | | | | | [address];[place] | | | | | [address] | | | + + + + + + + + + + | Performing | Address | City/State/Zipcode | Phone Number | | Organization | | | | + + + + + | [facility] | [address] | [place] [address] | | + + + + + [...] (H) | 65 - 99 mg/dL | [facility] | | | | | LABORATORY | [...] | | | | | performed at [facility], [address] | | | | | [facility], | | | | | [place] [address] | | | + + + + + + + | Specimen | + + | Blood | + + + + + + + | Performing | Address | City/State/Zipcode | Phone Number | | Organization | | | | + + + + + | [facility] | [address] | [place] [address] | [phone] | | LABORATORY | Blvd. | | [...] performed at | | | | | [facility], [address] | | | | | [place] | | | | | [address] | | | + + + + + + + | Specimen | + + | Blood | + + + + + + + | Performing | Address | City/State/Zipcode | Phone Number | | Organization | | | | + + + + + | [facility] | [address] [place] [address] | [place] [address] | [phone] | | LABORATORY | Blvd. | | | + + + + + Folate (06/16/2018 5:58 AM) + + + + + | Component | Value | Ref Range | Performed At | + + + + + | FOLATE | 17.8Comment: Testing | >5.4 ng/mL | [facility] | | | performed at [facility], [address] | | LABORATORY | | | [address] [facility] [address], | | | | | [place] [address] | | | + + + + + + + | Specimen | + + | Blood | + + + + + + + | Performing | Address | City/State/Zipcode | Phone Number | | Organization | | | | + + + + + | [facility] | [address] | [place] [address] | [phone] | | LABORATORY | Blvd. | | | + + + + + Vitamin B12 (06/16/2018 5:58 AM) + + + + + | Component | Value | Ref Range | Performed At | + + + + + | VITAMIN B12 | 431Comment: Testing | 254 - 1,320 pg/mL | [facility] | | | performed at [facility], [address] | | LABORATORY | | | [address], | | | | | [place] [address] | | | + + + + + + + | Specimen | + + | Blood | + + + + + + + | Performing | Address | City/State/Zipcode | Phone Number | | Organization | | | | + + + + + | [facility] | [address] [place] [address] | [place] [address] | [phone] | | LABORATORY | [address] | | | + + + + + Ferritin (06/16/2018 5:58 AM) + + + + + | Component | Value | Ref Range | Performed At | + + + + + | FERRITIN | 298Comment: Testing | 11 - 450 ng/mL | [facility] | | | performed at [facility], [address] | | LABORATORY | | | [address], | | | | | [place] [address] | | | + + + + + + + | Specimen | + + | Blood | + + + + + + + | Performing | Address | City/State/Zipcode | Phone Number | | Organization | | | | + + + + + | [facility] | [address] | [place] [address] | [phone] | | LABORATORY | Blvd. | | [...] | [facility] | | | performed at [facility], [address] | | LABORATORY | | | [facility], | | | | | [place] [address] | | | + + + + + + + | Specimen | + + | Blood | + + + + + + + | Performing | Address | City/State/Zipcode | Phone Number | | Organization | | | | + + + + + | [facility] | [address] [place] [address] | [place] [address] | [phone] | | LABORATORY | [address] | | | + + + + + POCT glucose (06/16/2018 5:48 AM) + + + + + | Component | Value | Ref Range | Performed At | + + + + + | GLUCOSE,POC SCREEN | 119 (H)Comment: Testing | 65 - 99 mg/dL | [facility] | | | performed at [facility];[address] | | | | | [address];[place], [place] | | | | | [address] | | | + + + + + + + + + + | Performing | Address | City/State/Zipcode | Phone Number | | Organization | | | | + + + + + | [facility] | [address] | [place] [address] | | + + + + + POCT glucose (06/15/2018 9:40 PM) + + + + + | Component | Value | Ref Range | Performed At | + + + + + | GLUCOSE,POC SCREEN | 263 (H)Comment: Testing | 65 - 99 mg/dL | [facility] | | | performed at [facility];[address] | | | | | [address];[place] | | | | | [address] | | | + + + + + + + + + + | Performing | Address | City/State/Zipcode | Phone Number | | Organization | | | | + + + + + | [facility] | [address] | [place] [address] | | + + + + + POCT glucose (06/15/2018 4:14 PM) + + + + + | Component | Value | Ref Range | Performed At | + + + + + | GLUCOSE,POC SCREEN | 324 (H)Comment: Testing | 65 - 99 mg/dL | [facility] | | | performed at [facility];[address] | | | | | [address];[place] | | | | | [address] | | | + + + + + + + + + + | Performing | Address | City/State/Zipcode | Phone Number | | Organization | | | | + + + + + | [facility] | [address] | [facility] [address] | | + + + + + POCT glucose (06/15/2018 11:16 AM) + + + + + | Component | Value | Ref Range | Performed At | + + + + + | GLUCOSE,POC SCREEN | 282 (H)Comment: Testing | 65 - 99 mg/dL | [facility] | | | performed at [facility];[address] | | | | | [address];[place] | | | | | [address] | | | + + + + + + + + + + | Performing | Address | City/State/Zipcode | Phone Number | | Organization | | | | + + + + + | [facility] | [address] | [place] [address] | | + + + + + [...] + + + | [facility] | [address] | [place] [address] | [phone] | | LABORATORY | Blvd. | | | + + + + + TSH (06/15/2018 6:19 AM) + + + + + | Component | Value | Ref Range | Performed At | + + + + + | TSH | 5.390 (H)Comment: | 0.450 - 5.100 uIU/mL | [facility] | | | Testing performed at | | LABORATORY | | | [facility], [address] [place] [address] | | | | | [place], [place], [place] | | | | | [address] | | | + + + + + + + | Specimen | + + | Blood | + + + + + + + | Performing | Address | City/State/Zipcode | Phone Number | | Organization | | | | + + + + + | [facility] | [address] | [place] [address] | [phone] | | LABORATORY | [address] | | [...] | | | | | performed at [facility], [address] | | | | | [facility], | | | | | [place] [address] | | | + + + + + + + | Specimen | + + | Blood | + + + + + + + | Performing | Address | City/State/Zipcode | Phone Number | | Organization | | | | + + + + + | [facility] | [address] | [place] [address] | [phone] | | LABORATORY | [address] | | [...] (L) | 6.3 - 8.2 g/dL | [facility] | | | | | LABORATORY | + + + + + | Albumin | 2.7 (L) | 3.3 - 4.8 g/dL | [facility] | | | | | LABORATORY [...] the | | | | | MDRD IDHI traceable | | | | | equation.Testing | | | | | performed at [facility], [address] | | | | | [facility], | | | | | [place] [address] | | | + + + + + + + | Specimen | + + | Blood | + + + + + + + | Performing | Address | City/State/Zipcode | Phone Number | | Organization | | | | + + + + + | [facility] | [address] | [place] [address] | [phone] | | LABORATORY | [address]vd[address] | | | + + + + + Phosphorus (06/15/2018 6:19 AM) + + + + + | Component | Value | Ref Range | Performed At | + + + + + | PHOSPHORUS | 3.3Comment: Testing | 2.3 - 4.8 mg/dL | [facility] | | | performed at [facility], [address] | | LABORATORY | | | [facility], | | | | | [place] [address] | | | + + + + + + + | Specimen | + + | Blood | + + + + + + + | Performing | Address | City/State/Zipcode | Phone Number | | Organization | | | | + + + + + | [facility] | [address] [place] [address] | [place] [address] | [phone] | | LABORATORY | [address]vd[address] | | | + + + + + Magnesium (06/15/2018 6:19 AM) + + + + + | Component | Value | Ref Range | Performed At | + + + + + | MAGNESIUM | 2.0Comment: Testing | 1.7 - 2.4 mg/dL | [facility] | | | performed at [facility], [address] | | LABORATORY | | | [facility], | | | | | [place] [address] | | | + + + + + + + | Specimen | + + | Blood | + + + + + + + | Performing | Address | City/State/Zipcode | Phone Number | | Organization | | | | + + + + + | [facility] | [address] | [place] [address] | [phone] | | LABORATORY | [address] | | [...] | LABORATORY | | | performed at [facility], [address] | | | | | [address], | | | | | [place] [address] | | | | | | | | + + + + + + + | Specimen | + + | Blood | + + + + + + + | Performing | Address | City/State/Zipcode | Phone Number | | Organization | | | | + + + + + | [facility] | [address] | [place] [address] | [phone] | | LABORATORY | [address] | | | + + + + + POCT glucose (06/15/2018 5:47 AM) + + + + + | Component | Value | Ref Range | Performed At | + + + + + | GLUCOSE,POC SCREEN | 251 (H)Comment: Testing | 65 - 99 mg/dL | [facility] | | | performed at [facility];[address] | | | | | [address];[place], [place] | | | | | [address] | | | + + + + + + + + + + | Performing | Address | City/State/Zipcode | Phone Number | | Organization | | | | + + + + + | [facility] | [address] | [place] [address] | | + + + + + [...] performed at | | | | | [facility], [address] | | | | | [place] | | | | | [address] | | | + + + + + + + | Specimen | + + | Nasopharyngeal | | Culture | + + + + + + + | Performing | Address | City/State/Zipcode | Phone Number | | Organization | | | | + + + + + | [facility] | [address] | [place] [address] | [phone] | | LABORATORY | [address]vd[address] | | | + + + + + POCT glucose (06/14/2018 11:11 PM) + + + + + | Component | Value | Ref Range | Performed At | + + + + + | GLUCOSE,POC SCREEN | 143 (H)Comment: Testing | 65 - 99 mg/dL | [facility] | | | performed at [facility];[address] | | | | | [address];[place] | | | | | [address] | | | + + + + + + + + + + | Performing | Address | City/State/Zipcode | Phone Number | | Organization | | | | + + + + + | [facility] | [address] | [place] [address] | | + + + + + [...] | + + + + + | [facility] | [address] | [place] [address] | [phone] | | LABORATORY | Blvd. | | | + + + + + | [facility] | [address] | [place] [address] | | + + + + + [...] | + + + + + | [facility] | [address] | [place] [address] | [phone] | | LABORATORY | Blvd. | | | + + + + + | [facility] | [address] | [place] [address] | | + + + + + [...] | + + + + + | [facility] | [address] | [place] [address] | | + + + + + [...] | [address] | [place] [address] | | + + + + + PROCALCITONIN (06/14/2018 7:06 PM) + + + + + | Component | Value | Ref Range | Performed At | + + + + + | PROCALCITONIN | 0.09Comment: | <0.5 ng/mL | [facility] | | | INTERPRETIVE | | [...] performed | | | | | at [facility];[address];[place] [address] | | | + + + + + + + + + + | Performing | Address | City/State/Zipcode | Phone Number | | Organization | | | | + + + + + | [facility] | [address] | [place] [address] | | + + + + + Brain natriuretic peptide (06/14/2018 7:06 PM) + + + + + | Component | Value | Ref Range | Performed At | + + + + + | BRAIN NATRIURETIC | 63.94Comment: Testing | 0 - 100 pg/mL | [facility] | | PEPTIDE | performed at [facility];[address] | | | | | [address];[place] | | | | | [address] | | | + + + + + + + + + + | Performing | Address | City/State/Zipcode | Phone Number | | Organization | | | | + + + + + | [facility] | [address] | [place] [address] | | + + + + + Troponin I (06/14/2018 7:06 PM) + + + + + | Component | Value | Ref Range | Performed At | + + + + + | TROPONIN I | 0.031Comment: Testing | 0.00 - 0.04 ng/mL | [facility] | | | performed at [facility];[address] | | | | | [facility];[place], [place] | | | | | [id number] ON 07/11 | | | | | [...] | + + + + + | [facility] | [address] | [facility] [address] | | + + + + + D-dimer, quantitative (06/14/2018 7:06 PM) + + + + + | Component | Value | Ref Range | Performed At | + + + + + | D DIMER, | 0.68 (H)Comment: Testing | 0.19 - 0.50 mg/L FEU | [facility] | | QUANTITATIVE | performed at [facility];[address] | | | | [address];[place], [place] | | | | | [address] | | | + + + + + + + | Specimen | + + | Blood | + + + + + + + | Performing | Address | City/State/Zipcode | Phone Number | | Organization | | | | + + + + + | [facility] | [address] | [place] [address] | | + + + + + Cardiac Panel (06/14/2018 7:06 PM) + + + + + | Component | Value | Ref Range | Performed At | + + + + + | WBC | 16.54 (H) | 3.80 - 11.00 K/uL | [facility] | + + + + + | RBC | 4.02 (L) | 4.20 - 5.70 M/uL | [facility] | + + + + + | HGB | 13.4 | 13.2 - 17.0 g/dL | [facility] | + + + + + | HCT | 41.0 | 39.0 - 50.0 % | [facility] | + + + + + | MCV | 102.0 (H) | 80.0 - 100.0 fl | [facility] | + + + + + | MCH | 33.2 | 27.0 - 34.0 pg | [facility] | + + + + + | MCHC | 32.5 | 32.0 - 35.5 g/dL | [facility] | + + + + + [...] | 0.33 (H) | 0.00 K/uL | [facility] | | Absolute | | | | + + + + + | Lymphocytes Absolute | 0.99 (L) | 1.00 - 3.90 K/uL | [facility] | + + + + + | Monocytes Absolute | 0.83 (H) | 0.00 - 0.80 K/uL | [facility] | + + + + + [...] SPECIMEN | 3.5 - 4.9 mmol/L | [facility] | | | MODERATELY HEMOLYZED | [...] + | BUN/CREAT | 21 | | [facility] | + + + + + | CALCIUM | 9.2 | 8.5 - 10.5 mg/dL | [facility] | + + + + + | TOTAL PROTEIN | 6.0 (L) | 6.3 - 8.2 g/dL | [facility] | + + + + + | Albumin | 4.0 | 3.3 - 4.8 g/dL | [facility] | + + + + + | GLOBULIN | 2.0 | 1.3 - 4.9 g/dL | [facility] | + + + + + | A/G | 2.0 | 1.0 - 2.4 | [facility] | + + + + + | TBIL | 0.7 | 0.1 - 1.5 mg/dL | [facility] | + + + + + | ALK PHOS | 63 | 35 - 115 U/L | [facility] | + + + + + | AST | 37 | 10 - 45 U/L | [facility] | + + + + + | ALT | 47 | 10 - 65 U/L | [facility] | + + + + + | EGFR | >60Comment: GFR <60: | >60 mL/min/1.73m2 | [facility] | | | CHRONIC KIDNEY DISEASE, [...] the | | | | | MDRD [facility] traceable | | | | | equation. | | | + + + + + | CPK | 77Comment: SPECIMEN | 55 - 400 U/L | [facility] | | | MODERATELY HEMOLYZED | | | + + + + + | INR | 0.9Comment: REFERENCE | | [facility] | | | RANGE:0.9 - | [...] (L) | 23 - 32 seconds | [facility] | + + + + + | MMB | 5.7 (H) | 0.5 - 3.6 ng/mL | [facility] | + + + + + | CK-MB Index | 7.4Comment: CK INDEX | | [facility] | | | INTERPRETATION: | | [...] | | | | | performed at [facility];[address] | | | | | [facility];[place] | | | | | [address] | | | + + + + + + + + + + | Performing | Address | City/State/Zipcode | Phone Number | | Organization | | | | + + + + + | [facility] | [address] [facility] | [place] [address] | | + + + + + [...] + + + + | Calculated P [place] | 49 | degrees | [facility] | + + + + + | Calculated R [place] | -26 | degrees | [facility] | + + + + + | Calculated T [place] | 92 | degrees | [facility] EKG [...] -COMPUTER (500), | | | | | technical writer and editor Marissa Paige | | | | | (79) on 06/16/2018 | | | | | 12:53:28 AM | | | + + + + + + + + + + | Performing | Address | City/State/Zipcode | Phone Number | | Organization | | | | + + + + + | [facility] | [address] | [place] [address] | | + + + + + ED INFORMATION EXCHANGE (06/14/2018 6:46 PM) + + + | Narrative | Performed At | + + + | [id number] Upcoming Changes to the Maria R | ED | | Notification On June 20, 2018 the layout of this notification will | INFORMATION | | be updated. For an overview of upcoming changes, please log into | EXCHANGE | | [email or web address] For questions, | | | please email [email or web address] or call . | | | This patient has registered at the [facility] | | | Emergency Department For more information visit: | | | [email or web address] | | | [email or web address] Security Events No recent Security Events currently on file | | | ED Care Guidelines There are currently no ED Care Guidelines for | | | this patient. Please check your facility's medical records system. | | | Recent Emergency Department Visit Summary Date Facility [facility] | | | Type Major Type Diagnoses or Chief Complaint Jun 14, [address] [facility] | | | [facility] Emergency Shortness of | | | Breath Chest Pain Jun 13, 2018 [facility] | | | [place] Emergency Emergency Chief Complaint: DIFFICULTY BREATHING | | | Jun 12, 2018 [place] | | | Emergency Emergency Chief Complaint: SOB Jun 08, 2018 [facility] | | | [facility] [place] Emergency Emergency Chief Complaint: | | | DIFFICULTY BREATHING Jun 08, 2018 [place] | | | Emergency Emergency Shortness of breath medical terminologist | | | (current) use of aspirin Essential (primary) hypertension | | | Other half-way (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 Personal history of | | | nicotine dependence Chronic obstructive pulmonary disease with | | | (acute) exacerbation medical terminologist (current) use of systemic | | | steroids Allergy status to penicillin May 24, [address] [facility] [address] | | | [facility] Emergency Emergency Chief Complaint: | | | SOB May 22, 2018 [facility] [place] | | | Emergency Emergency Hyperglycemia, unspecified | | | Chronic obstructive pulmonary disease with (acute) exacerbation | | | Shortness of breath Other half-way (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 | | | Nicotine dependence, unspecified, uncomplicated [facility] | | | (current) use of systemic steroids Essential (primary) | | | hypertension Allergy status to penicillin [facility] | | | (current) use of aspirin May 03, 2018 [facility] [place] | | | [place] Emergency Emergency Chief Complaint: DIFFICUTLY BREATHING | | | Apr 16, 2018 [facility] 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 [place] | | | [place] Emergency Emergency Shortness of breath | | | Essential (primary) hypertension Constipation, unspecified | | | Nicotine dependence, unspecified, uncomplicated Chronic | | | obstructive pulmonary disease with (acute) exacerbation Allergy | | | status to penicillin Other half-way (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 | | | [facility] [place] 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 [place] [place] [facility] Emergency Chronic obstructive pulmonary disease | | | with (acute) exacerbation Shortness of breath Allergy | | | status to penicillin Other half-way (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 | | | Nicotine dependence, unspecified, uncomplicated Essential | | | (primary) hypertension E.D. Visit Count (12 mo.) Facility | | | Visits Low Acuity [facility] [address] [facility] [address] | | | [facility] 13 0 Total 14 0 Note: Visits indicate total known | | | visits. Medicaid Low Acuity Dx are the number of primary diagnoses on | | | the Medicaid's Low Acuity dx list. Recent Inpatient Visit | | | Summary Date Facility City State Type Major Type Diagnoses or Chief | | | Complaint Jun 13, 2018 [facility] [place] [facility] Critical | | | Care Inpatient Chief Complaint: DEHYDRATION Jun 08, 2018 | | | [facility] [place] Medical Surgical Inpatient | | | Shortness of breath Benign prostatic hyperplasia without | | | lower urinary tract symptoms Essential (primary) hypertension | | | Acute and chronic respiratory failure with hypoxia | | | Chronic obstructive pulmonary disease with (acute) exacerbation | | | Hyperglycemia, unspecified Personal history of nicotine | | | dependence Allergy status to penicillin FDC | | | (current) use of aspirin medical terminologist (current) use of inhaled | | | steroids May 24, 2018 [facility] [place] [facility] Medical | | | [...] | | | respiratory failure with hypoxia medical terminologist (current) use of | | | inhaled steroids May 03, 2018 [facility] 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 [place] 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 Care Providers | | | Provider PRC Type Phone Fax Service Dates Denisse Blanton Case | | | Forensic Chemist/Stewardess Supervisor Dec 17, 2017 - Current | | [...] for additional information. 2019 | | | [employer] - [place], [place] - | | | [email or web address] Card | | + + + + + | Procedure Note | + + | Interface, Lab - 06/14/2018 6:48 PM PST Formatting of this note may be different | | from the original.[id number] Changes to the Maria R | | NotificationOn June 20, 2018 the layout of this notification will be updated. For an | | overview of upcoming changes, please log into | | [email or web address]. For questions, please email | | [email or web address] or call .This patient has registered at the | | [facility] Emergency Department For more information visit: | | [email or web address] Security | | EventsNo recent Security Events currently on fileED Care GuidelinesThere are currently | | no ED Care Guidelines for this patient. Please check your facility's medical records | | system.Recent Emergency Department Visit SummaryDate Facility City State Type Major Type | | Diagnoses [facility] [place] [facility] | | Emergency Shortness of Breath Chest Pain Jun 13, 2018 [facility] [place] [facility] | | [place] Emergency Emergency Chief Complaint: DIFFICULTY BREATHING Jun 12, [address] [facility] [address] | | [place] [facility] Emergency Emergency Chief Complaint: SOB Jun 08, [address] [facility] [address] | | [place] [facility] Emergency Emergency Chief Complaint: DIFFICULTY BREATHING May | | 2018 [facility] [place] 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 | | [place] Emergency Emergency Chief Complaint: SOB May 22, 2018 [facility] [place] 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 | | [place] Emergency Emergency Chief Complaint: DIFFICUTLY BREATHING Apr 16, [address] [facility] [address] | | [place] [facility] 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 [place] 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 [place] [place] Emergency | | Emergency Chronic obstructive pulmonary disease with (acute) exacerbation | | Shortness of breath Nicotine dependence, unspecified, uncomplicated medical terminologist | | (current) use of aspirin Allergy status to penicillin Essential (primary) | | hypertension Other superintendent [employer] (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 [facility] [place] [facility] Emergency Chronic obstructive pulmonary disease with (acute) | | exacerbation Shortness of breath Allergy status to penicillin Other half-way | | (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 Nicotine dependence, unspecified, uncomplicated Essential | | (primary) hypertension E.D. Visit Count (12 mo.)Facility Visits Low Acuity [facility] | | [facility] 1 0 [facility] 13 0 Total 14 0 Note: Visits | | indicate total known visits. Medicaid Low Acuity Dx are the number of primary diagnoses | | on the Medicaid's Low Acuity dx list. Recent Inpatient Visit SummaryDate Facility City | | State Type Major Type Diagnoses or Chief Complaint [facility] [place] Critical Care Inpatient Chief Complaint: DEHYDRATION Jun 08, 2018 [facility]. | | [place] [facility] Medical Surgical Inpatient Shortness of breath Benign | | prostatic hyperplasia without lower urinary tract symptoms Essential (primary) | | hypertension Acute and chronic respiratory failure with hypoxia Chronic | | obstructive pulmonary disease with (acute) exacerbation Hyperglycemia, unspecified | | Personal history of nicotine dependence Allergy status to penicillin FDC | | (current) use of aspirin FDC (current) use of inhaled steroids May 24, 2018 [facility] | | 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 [place] [facility] | | Inpatient Chronic obstructive pulmonary disease with (acute) exacerbation | | Shortness of breath Other half-way (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 Benign prostatic | | hyperplasia without lower urinary tract symptoms Allergy status to penicillin Long | | term (current) use of aspirin Nicotine dependence, unspecified, uncomplicated | | Essential (primary) hypertension FDC (current) use of inhaled steroids | | Personal history of traumatic brain injury [facility] 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 2019 | | [employer] [place], [place] - | | [email or web address] Card | |[facility] 1 0 | |[facility] 13 0 | |Total 14 0 | |Note: Visits indicate total known visits. Medicaid Low Acuity Dx are the number of primary diagnoses on the Medicaid's Low Acuity dx list. | | | |Recent Inpatient Visit Summary | |Date Facility [facility] State Type Major Type Diagnoses or Chief Complaint | |[facility] [place] [facility] In[facility] Chief Complaint: DEHYDR ATION | |[facility] [place] [facility] Inpatient | | Shortness of breath | | Benign prostatic hyperplasia without lower urinary tract symptoms | | Essential (primary) hypertension | | Acute and chronic respiratory failure with hypoxia | | Chronic obstructive pulmonary disease with (acute) exacerbation | | Hyperglycemia, unspecified | | Personal history of nicotine dependence | | Allergy status to penicillin | | FDC (current) use of aspirin | | medical terminologist (current) use of inhaled steroids | | | |[facility] 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 [place] Medical Surgical Inpatient | | Chronic obstructive pulmonary disease with (acute) exacerbation | | Shortness of breath | | Other half-way (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 | | Benign prostatic hyperplasia without lower urinary tract symptoms | | Allergy status to penicillin | | medical terminologist (current) use of aspirin | | Nicotine dependence, unspecified, uncomplicated | | Essential (primary) hypertension | | FDC (current) use of inhaled steroids | | Personal history of traumatic brain injury | | | |Apr 03, 2018 [facility]. [facility]. 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 | | | |Care Providers | |Provider PRC Type Phone Fax Service Dates | |Denisse Blanton Med Care Manager/Stewardess Supervisor Dec 17, 2017 - Current | |ADI [...] aforementioned facilities for additional information. | |2019 [employer] - [place], [place] - | + + + +---------+ [...] | 10 mLs | | | | [id number]-pi | | 9 16:28 | | | [...]
--- OUTSIDE RECORDS SUMMARY | ~2018-08-10 | XMS | Clinical Summary ---
Demographics + + + | Address | [address] | | | [place] [address] | + + + | Home Phone | | + + + | Preferred Language | Unknown | + + + | Marital Status | Single | + + + | Scientologist Affiliation | Unknown | + + + | Race | White | + + + | Ethnic Group | Not or | + + + Author + + + | Author | [facility] | + + + | Organization | [facility] | + + + | Address | Unknown | + + + | Phone | Unavailable | + + + Support + + + + + | Name | Relationship | Address | Phone | + + + + + | LUL SCHMIDT | ECON | [address] | | | | | [place], [place] | | | | | [address] | | + + + + + | SHANNON PENA | ECON | [address] | | | | | [place], [place] | | | | | [address] | | + + + + + Care Team Providers + +------+ + | Care Head Charrer Name | Role | Phone | + +------+ + | Resident, Mala Generic | PP | Unavailable | + +------+ + Source Comments LORENA is fully live on both [facility] Ambulatory and [facility] InPatient.[facility] Allergies No Known Allergies Current Medications [...] | MEDICA | xxxxxxxxxxx | Medica | [phone] | [address] | | | RE A & | | re | [phone] | [place] [address] | | | B | | | | | + +--------+ +--------+ + + | [place]ICAID [place] | OHP | xxxxxxxx | Medica | [phone] | [address] [address] | | | PLUS | | id | [phone] | [place] [address] | | | OPEN | | | [...] | 1935 | [phone] | [place] [address] | | | kareem | | | [phone] | | + +--------+ +--------+ + +"
--- OUTSIDE RECORDS SUMMARY | ~2018-08-10 | XMS | Encounter Summary ---
Demographics + + + | Address | [address] | | | [place] [address] | + + + | Home Phone | | + + + | Preferred Language | Unknown | + + + | Marital Status | | + + + | Jehovah'S Witness Affiliation | Unknown | + + + | Race | Unknown | + + + | Ethnic Group | Unknown | + + + Author + + + | Author | [facility] [employer] | + + + | Organization | [facility] [employer] | + + + | Address [...] Team Providers + +------+ + | Care Mobile Practice Lead Name | Role | Phone | + [...] [place] | | | | | | [place], [place] | | | | | | [address] | | | | | | [phone] | | | +--------+ + + + [...] PM PDT3 step testing Oximetry Exercise (code) 25251 1. At rest on room air: Time: [...] | | | | | [place] [address] | | | | | | [phone] | | | | | | | | +--------+---------+ + + + as of this encounter Visit Diagnoses Not on filein this encounter"
--- OUTSIDE RECORDS SUMMARY | ~2018-08-10 | XMS | Clinical Summary ---
Demographics + + + | Address | [address] | | | [place] [address] | + + + | Home Phone | | + + + | Preferred Language | Unknown | + + + | Marital Status | Single | + + + | Holiness Affiliation | Unknown | + + + | Race | White | + + + | Ethnic Group | Not or | + + + Author + + + | Author | [facility] | + + + | Organization | [facility] | + + + | Address | Unknown | + + + | Phone | Unavailable | + + + Support + + + + + | Name | Relationship | Address | Phone | + + + + + | LUL SCHMIDT | ECON | [address] | | | | | [place], [place] | | | | | [address] | | + + + + + | SHANNON PENA | ECON | [address] | | | | | [place], [place] | | | | | [address] | | + + + + + Care Team Providers + +------+ + | Care Machine Package Sealer Name | Role | Phone | + +------+ + | Resident, Mala Generic | PP | Unavailable | + +------+ + Source Comments LORENA is fully live on both [facility] and [facility] InPatient.[facility] Allergies No Known Allergies Current [...] | MEDICA | xxxxxxxxxxx | Medica | [phone] | [address] | | | RE A & | | re | [phone] | [place] [address] | | | B | | | | | + +--------+ +--------+ + + | MEDICAID [place] | OHP | xxxxxxxx | Medica | [phone] | [address] [address] | | | PLUS | | id | [phone] | [place] [address] | | | OPEN | | | [...] | 1935 | [phone] | [place] [address] | | | [place] | | | [address] | | + +--------+ +--------+ + +"
--- OUTSIDE RECORDS SUMMARY | ~2018-08-10 | XMS | Encounter Summary ---
Demographics + + + | Address | [address] | | | [place] [address] | + + + | Home Phone | | + + + | Preferred Language | Unknown | + + + | Marital Status | | + + + | Yazidism Affiliation | Unknown | + + + | Race | Unknown | + + + | Ethnic Group | Unknown | + + + Author + + + | Author | [facility] | + + + | Organization | [facility] [employer] | + + + | Address [...] Team Providers + +------+ + | Care Pie Bottomer Name | Role | Phone | + [...] JYOTSNA LÓPEZ | | | | | ([facility]) | [place], | [place], [place] | | | | | Procedures | [place] [address] | [address] | | | | | Complete PFT | Phone: | Phone: | | | | | - Pre & | [phone] | [phone] | | | | | Post | Fax: | Fax: | | | | | Spirometry, | [phone] | [phone] | | | | | PLETH & [...] | | | disease, | [place], | [facility] [place] | | | | | unspecified | [place] [address] | [address] Phone: | | | | | (HCC) | Phone: | [phone] | | | | | | [phone] | Fax: | | | | | | Fax: | [phone] | | | | | | [phone] | | + +--------+ + + + + Encounter Details +--------+---------+ + + + | Date | Type | Department | Care Team | Description | +--------+---------+ + + + | 07/30/ | Office | [facility] | Chip Claros MD | Centrilobular | | 2019 | Visit | Pulmonology [address] | emphysema (HCC) | | | | [address] | [place] [address] | (Primary Dx) | | | | [place], [place] | [phone] | | | | | [address] | | | | | | [phone] | | | +--------+---------+ + + + [...] order a PFT to be done at [facility] in this encounter Progress Notes Chip [...] got all his medications with him. His trtudkmp-mn-wub who is also his caregiver, give s [...] left lung base. Pulmonary function test 2016 [facility] severe obstructive impairment with very s everely [...] function test which will be done at [facility] - Complete PFT - [...] Claros MD Pulmonary and Critical Care Medicine [facility] [address] , [place] [address] in this encounter Plan of Treatment +--------+---------+ + + + | Date | Type | Specialty | Care Team | Description | +--------+---------+ + + + | 10/08/ | Office | Pulmonology | Chip Claros MD | | | 2019 | Visit | | [address] | | | | | | [place] [address] | | | | | | [phone] | | | | | | | [...]
--- OUTSIDE RECORDS SUMMARY | ~2018-08-10 | XMS | Encounter Summary ---
Demographics + + + | Address | [address] | | | [place] [address] | + + + | Home Phone | | + + + | Preferred Language | Unknown | + + + | Marital Status | | + + + | Islam Affiliation | Unknown | + + + | Race | Unknown | + + + | Ethnic Group | Unknown | + + + Author + + + | Author | [facility] [employer] | + + + | Organization | [facility] [employer] | + + + | Address [...] Team Providers + +------+ + | Care Design Studio Consultant Name | Role | Phone | + [...] [place] | | | | | | [address] | | | | | | | [...] [address] | | | | | | [place] [address] | | | | | | [phone] | | | | | | | [...] David Miranda Date of : 1935 | [facility] | | Performing Physician: EDIL [...] and color flow Doppler was perfomed at [facility]. Study: | | | This was a [...] MV A Gaurav: 1.56 m/s MV Dec [place]: 3.73 m/s2 | | | MV DecT: [...] RV s': 0.13 m/s | | | Aging Room Operator: Authenticated by: EDIL REYNOSO MD Report | | | Date/Time: 05-27-2018 17:27:33 | | + + + + + | Procedure Note | + + | Wilmer Brown Results In - 05/27/2018 5:31 PM PST Patient Name: Graciela Miranda | | : 1935ccession: [id number] Physician: EDIL REYNOSO MD | | INDICATIONS [...] and color flow Doppler was perfomed at [facility]. Study: This was a technically [...] cmLVIDd: 4.40 cmLVPWd: 0.92 cmLVOT Area: 3.20 ka1HLTB Diam: 2.02 | | cm%FS: 37.96 %EF(Teich): [...] mlLAESV Index (A-L): 17.03 ml/m2LAAs A2C: 13.57 [id number] A-L A2C: 30.89 mlLALs | | A2C: 5.06 cmLAAs A4C: 12.98 [id number] A-L A4C: 30.63 mlLALs A4C: 4.67 cmRAAs: | | 12.58 [id number] A-L: 28.09 mlRAESV MOD: 27.73 mlRALs: 4.78 cmTAPSE: 1.82 cmAV | | maxP.32 mmHgAV meanP.83 mmHgAV Vmax: 1.15 m/Shy Vmean: 0.78 m/Shy VTI: | | 25.09 cmAVA Vmax: 3.12 cm2AVA (VTI): 3.43 lq6HNPP Vmax: 0.00 cm2/m2AVAI (VTI): | | 0.00 cm2/m2LVOT maxP.04 mmHgLVOT meanP.56 mmHgLVSI Dopp: 45.89 ml/m2LVSV | | Dopp: 86.27 mlLVOT Vmax: 1.12 m/sLVOT Vmean: 0.75 m/sLVOT VTI: 26.91 cmMV A Gaurav: | | 1.56 m/sMV Dec [place]: 3.73 m/s2MV DecT: 244.70 msMV E Gaurav: 0.91 m/sMV E/A | | Ratio: 0.58 MV PHT: 70.96 msMVA By PHT: 3.10 yx8Ysjhxv e': 0.04 m/sSeptal E/e': | | 20.64 [...] A Gaurav: 1.56 m/s | |MV Dec [place]: 3.73 m/s2 | |MV DecT: 244.70 ms [...] |RV s': 0.13 m/s | | | |Aging Room Operator: | |Authenticated by: EDIL REYNOSO MD | [...] HARINI SALCEDO | [address] | [place] [address] | | + + + + + in this encounter Visit Diagnoses + + | Diagnosis | + + | SOB (shortness of breath) | + + | Shortness of breath | + +"
--- OUTSIDE RECORDS SUMMARY | ~2018-08-10 | XMS | Encounter Summary ---
Demographics + + + | Address | [address] | | | [place] [address] | + + + | Home Phone | | + + + | Preferred Language | Unknown | + + + | Marital Status | | + + + | Presybeterian Affiliation | Unknown | + + + | Race | Unknown | + + + | Ethnic Group | Unknown | + + + Author + + + | Author | [facility] | + + + | Organization | [facility] | + + + | Address [...] Team Providers + +------+ + | Care Roller Leveler Name | Role | Phone | + [...] | | Internal | Diagnoses | | [facility] 8th | | | | Medicine | Acute | | [place] | | | | | exacerbation | | [address] | | | | | of chronic | | [address] | | | | | obstructive | | [place], [place] | | | | | pulmonary | | [address] Phone: | | | | | disease | | [phone] | | | | | (COPD) ([facility]) | | | | | | | Hypoxia | | | | | | | | | | +--------+--------+ + + + + Encounter Details +--------+ + + + + | Date | Type | Department | Care Team | Description | +--------+ + + + + | 06/14/ | Hospital | [facility] | Teja Blandon, | Acute exacerbation | | 2019 - | Encounter | [facility] 8th | MD Javon [address] | of chronic | | | | [address] [place] | EMERGENCY DEPARTMENT | obstructive | | 06/16/ | | [address] | [place] [address] | pulmonary disease | | 2019 | | [place] [address] | [phone] | (COPD) (HCC) | | | | [phone] | | (Primary Dx); | | | | | Lei Barcenas, | Hypoxia | | | | | MD [address] | | | | | | [place] [address] | | | | | | [phone] | | | | | | | | | | | | Deric eNvarez MD | | | | | | [address] | | | | | | [place] [address] | | | | | | [phone] | | | | | | | | | | | | Hector Murdock | | | | | | MD J[address]on [address] | | | | | | Blvd [place], [place] | | | | | | [address] | | | | | | | [...] note may be different from the original. [facility] Service: Hospitalist Physician Discharge Summary Pt: David Miranda AGE/SEX: 83 y.o. male ROOM: [facility] PCP: Adi Nelson : 1935 Admit [...] mellitus, was seen at emergency department at [facility] in [place] for COPD exacerbation. The shanon ramirez was [...] hours. No results for input(s): PHART, PO2ART, [id number], [id number], BEART in the last 168 hours. Recent [...] supplemental oxygen at 2 liters/minute at [facility]. 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; 8) Straight arms-lift high-w/out pain, breath [...] [address] | | | | | | [place] [address] | | | | | | [phone] | | | | | | | [...] Testing | 65 - 99 mg/dL | [facility] | | | performed at [facility];[address] | | | | | [address];[place] | | | | | [address] | | | + + + + + + + + + + | Performing | Address | City/State/Zipcode | Phone Number | | Organization | | | | + + + + + | [facility] | [address] | [place] [address] | | + + + + + [...] (H) | 65 - 99 mg/dL | [facility] | | | | | LABORATORY | [...] | | | | | performed at [facility], [address] | | | | | [facility], | | | | | [place] [address] | | | + + + + + + + | Specimen | + + | Blood | + + + + + + + | Performing | Address | City/State/Zipcode | Phone Number | | Organization | | | | + + + + + | [facility] | [address] | [place] [address] | [phone] | | LABORATORY | Blvd. | | [...] performed at | | | | | [facility], [address] [facility] | | | | | [place] | | | | | [address] | | | + + + + + + + | Specimen | + + | Blood | + + + + + + + | Performing | Address | City/State/Zipcode | Phone Number | | Organization | | | | + + + + + | [facility] | [address] [place] [address] | [place] [address] | [phone] | | LABORATORY | Blvd. | | | + + + + + Folate (06/16/2018 5:58 AM) + + + + + | Component | Value | Ref Range | Performed At | + + + + + | FOLATE | 17.8Comment: Testing | >5.4 ng/mL | [facility] | | | performed at [facility], [address] | | LABORATORY | | | [facility] [address], | | | | | [place] [address] | | | + + + + + + + | Specimen | + + | Blood | + + + + + + + | Performing | Address | City/State/Zipcode | Phone Number | | Organization | | | | + + + + + | [facility] | [address] | [place] [address] | [phone] | | LABORATORY | Blvd. | | | + + + + + Vitamin B12 (06/16/2018 5:58 AM) + + + + + | Component | Value | Ref Range | Performed At | + + + + + | VITAMIN B12 | 431Comment: Testing | 254 - 1,320 pg/mL | [facility] | | | performed at [facility], [address] | | LABORATORY | | | [address], | | | | | [place] [address] | | | + + + + + + + | Specimen | + + | Blood | + + + + + + + | Performing | Address | City/State/Zipcode | Phone Number | | Organization | | | | + + + + + | [facility] | [address] [place] [address] | [place] [address] | [phone] | | LABORATORY | [address] | | | + + + + + Ferritin (06/16/2018 5:58 AM) + + + + + | Component | Value | Ref Range | Performed At | + + + + + | FERRITIN | 298Comment: Testing | 11 - 450 ng/mL | [facility] | | | performed at [facility], [address] | | LABORATORY | | | [address], | | | | | [place] [address] | | | + + + + + + + | Specimen | + + | Blood | + + + + + + + | Performing | Address | City/State/Zipcode | Phone Number | | Organization | | | | + + + + + | [facility] | [address] | [place] [address] | [phone] | | LABORATORY | Blvd. | | [...] | [facility] | | | performed at [facility], [address] | | LABORATORY | | | [facility], | | | | | [place] [address] | | | + + + + + + + | Specimen | + + | Blood | + + + + + + + | Performing | Address | City/State/Zipcode | Phone Number | | Organization | | | | + + + + + | [facility] | [address] [place] [address] | [place] [address] | [phone] | | LABORATORY | [address] | | | + + + + + POCT glucose (06/16/2018 5:48 AM) + + + + + | Component | Value | Ref Range | Performed At | + + + + + | GLUCOSE,POC SCREEN | 119 (H)Comment: Testing | 65 - 99 mg/dL | [facility] | | | performed at [facility];[address] | | | | | [address];[place], [place] | | | | | [address] | | | + + + + + + + + + + | Performing | Address | City/State/Zipcode | Phone Number | | Organization | | | | + + + + + | [facility] | [address] | [place] [address] | | + + + + + POCT glucose (06/15/2018 9:40 PM) + + + + + | Component | Value | Ref Range | Performed At | + + + + + | GLUCOSE,POC SCREEN | 263 (H)Comment: Testing | 65 - 99 mg/dL | [facility] | | | performed at [facility];[address] | | | | | [address];[place] | | | | | [address] | | | + + + + + + + + + + | Performing | Address | City/State/Zipcode | Phone Number | | Organization | | | | + + + + + | [facility] | [address] | [place] [address] | | + + + + + POCT glucose (06/15/2018 4:14 PM) + + + + + | Component | Value | Ref Range | Performed At | + + + + + | GLUCOSE,POC SCREEN | 324 (H)Comment: Testing | 65 - 99 mg/dL | [facility] | | | performed at [facility];[address] | | | | | [address];[place] | | | | | [address] | | | + + + + + + + + + + | Performing | Address | City/State/Zipcode | Phone Number | | Organization | | | | + + + + + | [facility] | [address] | [facility] [address] | | + + + + + POCT glucose (06/15/2018 11:16 AM) + + + + + | Component | Value | Ref Range | Performed At | + + + + + | GLUCOSE,POC SCREEN | 282 (H)Comment: Testing | 65 - 99 mg/dL | [facility] | | | performed at [facility];[address] | | | | | [address];[place] | | | | | [address] | | | + + + + + + + + + + | Performing | Address | City/State/Zipcode | Phone Number | | Organization | | | | + + + + + | [facility] | [address] | [place] [address] | | + + + + + [...] + + + | [facility] | [address] | [place] [address] | [phone] | | LABORATORY | Blvd. | | | + + + + + TSH (06/15/2018 6:19 AM) + + + + + | Component | Value | Ref Range | Performed At | + + + + + | TSH | 5.390 (H)Comment: | 0.450 - 5.100 uIU/mL | [facility] | | | Testing performed at | | LABORATORY | | | [facility], [address] [place] [address] | | | | | [address], [place], [place] | | | | | [address] | | | + + + + + + + | Specimen | + + | Blood | + + + + + + + | Performing | Address | City/State/Zipcode | Phone Number | | Organization | | | | + + + + + | [facility] | [address] | [place] [address] | [phone] | | LABORATORY | [address] | | [...] | | | | | performed at [facility], [address] | | | | | [facility], | | | | | [place] [address] | | | + + + + + + + | Specimen | + + | Blood | + + + + + + + | Performing | Address | City/State/Zipcode | Phone Number | | Organization | | | | + + + + + | [facility] | [address] | [place] [address] | [phone] | | LABORATORY | [address] | | [...] (L) | 6.3 - 8.2 g/dL | [facility] | | | | | LABORATORY | + + + + + | Albumin | 2.7 (L) | 3.3 - 4.8 g/dL | [facility] | | | | | LABORATORY | [...] the | | | | | MDRD IDME traceable | | | | | equation.Testing | | | | | performed at [facility], [address] | | | | | [facility], | | | | | [place] [address] | | | + + + + + + + | Specimen | + + | Blood | + + + + + + + | Performing | Address | City/State/Zipcode | Phone Number | | Organization | | | | + + + + + | [facility] | [address] | [place] [address] | [phone] | | LABORATORY | [address]vd. | | | + + + + + Phosphorus (06/15/2018 6:19 AM) + + + + + | Component | Value | Ref Range | Performed At | + + + + + | PHOSPHORUS | 3.3Comment: Testing | 2.3 - 4.8 mg/dL | [facility] | | | performed at [facility], [address] | | LABORATORY | | | [facility], | | | | | [place] [address] | | | + + + + + + + | Specimen | + + | Blood | + + + + + + + | Performing | Address | City/State/Zipcode | Phone Number | | Organization | | | | + + + + + | [facility] | [address] [place] [address] | [place] [address] | [phone] | | LABORATORY | [address]vd[address] | | | + + + + + Magnesium (06/15/2018 6:19 AM) + + + + + | Component | Value | Ref Range | Performed At | + + + + + | MAGNESIUM | 2.0Comment: Testing | 1.7 - 2.4 mg/dL | [facility] | | | performed at [facility], [address] | | LABORATORY | | | [facility], | | | | | [place] [address] | | | + + + + + + + | Specimen | + + | Blood | + + + + + + + | Performing | Address | City/State/Zipcode | Phone Number | | Organization | | | | + + + + + | [facility] | [address] | [place] [address] | [phone] | | LABORATORY | [address] | | [...] | LABORATORY | | | performed at [facility], [address] | | | | | [address], | | | | | [place] [address] | | | | | | | | + + + + + + + | Specimen | + + | Blood | + + + + + + + | Performing | Address | City/State/Zipcode | Phone Number | | Organization | | | | + + + + + | [facility] | [address] | [place] [address] | [phone] | | LABORATORY | [address] | | | + + + + + POCT glucose (06/15/2018 5:47 AM) + + + + + | Component | Value | Ref Range | Performed At | + + + + + | GLUCOSE,POC SCREEN | 251 (H)Comment: Testing | 65 - 99 mg/dL | [facility] | | | performed at [facility];[address] | | | | | [address];[place], [place] | | | | | [address] | | | + + + + + + + + + + | Performing | Address | City/State/Zipcode | Phone Number | | Organization | | | | + + + + + | [facility] | [address] | [place] [address] | | + + + + + [...] performed at | | | | | [facility], [address] [facility] | | | | | [place] | | | | | [address] | | | + + + + + + + | Specimen | + + | Nasopharyngeal | | Culture | + + + + + + + | Performing | Address | City/State/Zipcode | Phone Number | | Organization | | | | + + + + + | [facility] | [address] | [place] [address] | [phone] | | LABORATORY | [address]vd[address] | | | + + + + + POCT glucose (06/14/2018 11:11 PM) + + + + + | Component | Value | Ref Range | Performed At | + + + + + | GLUCOSE,POC SCREEN | 143 (H)Comment: Testing | 65 - 99 mg/dL | [facility] | | | performed at [facility];[address] | | | | | [address];[place] | | | | | [address] | | | + + + + + + + + + + | Performing | Address | City/State/Zipcode | Phone Number | | Organization | | | | + + + + + | [facility] | [address] | [place] [address] | | + + + + + [...] + + + | [facility] | [address] | [place] [address] | [phone] | | LABORATORY | Blvd. | | | + + + + + | [facility] | [address] | [place] [address] | | + + + + + [...] + + + | [facility] | [address] | [place] [address] | [phone] | | LABORATORY | Blvd. | | | + + + + + | [facility] | [address] | [place] [address] | | + + + + + [...] | + + + + + | [facility] | [address] | [place] [address] | | + + + + + [...] | [address] | [place] [address] | | + + + + + PROCALCITONIN (06/14/2018 7:06 PM) + + + + + | Component | Value | Ref Range | Performed At | + + + + + | PROCALCITONIN | 0.09Comment: | <0.5 ng/mL | [facility] | | | INTERPRETIVE | | [...] performed | | | | | at [facility];[address] | | [address];[place] [address] | | | + + + + + + + + + + | Performing | Address | City/State/Zipcode | Phone Number | | Organization | | | | + + + + + | [facility] | [address] | [place] [address] | | + + + + + Brain natriuretic peptide (06/14/2018 7:06 PM) + + + + + | Component | Value | Ref Range | Performed At | + + + + + | BRAIN NATRIURETIC | 63.94Comment: Testing | 0 - 100 pg/mL | [facility] | | PEPTIDE | performed at [facility];[address] | | | | | [address];[place] | | | | | [address] | | | + + + + + + + + + + | Performing | Address | City/State/Zipcode | Phone Number | | Organization | | | | + + + + + | [facility] | [address] | [place] [address] | | + + + + + Troponin I (06/14/2018 7:06 PM) + + + + + | Component | Value | Ref Range | Performed At | + + + + + | TROPONIN I | 0.031Comment: Testing | 0.00 - 0.04 ng/mL | [facility] | | | performed at [facility];[address] | | | | | [facility];[place], [place] | | | | | [id number] ON 07/11 | | | | | [...] | + + + + + | [facility] | [address] | [facility] [address] | | + + + + + D-dimer, quantitative (06/14/2018 7:06 PM) + + + + + | Component | Value | Ref Range | Performed At | + + + + + | D DIMER, | 0.68 (H)Comment: Testing | 0.19 - 0.50 mg/L FEU | [facility] | | QUANTITATIVE | performed at [facility];[address] | | | | [address];[place], [place] | | | | | [address] | | | + + + + + + + | Specimen | + + | Blood | + + + + + + + | Performing | Address | City/State/Zipcode | Phone Number | | Organization | | | | + + + + + | [facility] | [address] | [place] [address] | | + + + + + Cardiac Panel (06/14/2018 7:06 PM) + + + + + | Component | Value | Ref Range | Performed At | + + + + + | WBC | 16.54 (H) | 3.80 - 11.00 K/uL | [facility] | + + + + + | RBC | 4.02 (L) | 4.20 - 5.70 M/uL | [facility] | + + + + + | HGB | 13.4 | 13.2 - 17.0 g/dL | [facility] | + + + + + | HCT | 41.0 | 39.0 - 50.0 % | [facility] | + + + + + | MCV | 102.0 (H) | 80.0 - 100.0 fl | [facility] | + + + + + | MCH | 33.2 | 27.0 - 34.0 pg | [facility] | + + + + + | MCHC | 32.5 | 32.0 - 35.5 g/dL | [facility] | + + + + + [...] | 0.33 (H) | 0.00 K/uL | [facility] | | Absolute | | | | + + + + + | Lymphocytes Absolute | 0.99 (L) | 1.00 - 3.90 K/uL | [facility] | + + + + + | Monocytes Absolute | 0.83 (H) | 0.00 - 0.80 K/uL | [facility] | + + + + + [...] SPECIMEN | 3.5 - 4.9 mmol/L | [facility] | | | MODERATELY HEMOLYZED | [...] + | BUN/CREAT | 21 | | [facility] | + + + + + | CALCIUM | 9.2 | 8.5 - 10.5 mg/dL | [facility] | + + + + + | TOTAL PROTEIN | 6.0 (L) | 6.3 - 8.2 g/dL | [facility] | + + + + + | Albumin | 4.0 | 3.3 - 4.8 g/dL | [facility] | + + + + + | GLOBULIN | 2.0 | 1.3 - 4.9 g/dL | [facility] | + + + + + | A/G | 2.0 | 1.0 - 2.4 | [facility] | + + + + + | TBIL | 0.7 | 0.1 - 1.5 mg/dL | [facility] | + + + + + | ALK PHOS | 63 | 35 - 115 U/L | [facility] | + + + + + | AST | 37 | 10 - 45 U/L | [facility] | + + + + + | ALT | 47 | 10 - 65 U/L | [facility] | + + + + + | EGFR | >60Comment: GFR <60: | >60 mL/min/1.73m2 | [facility] | | | CHRONIC KIDNEY DISEASE, [...] the | | | | | MDRD [facility] traceable | | | | | equation. | | | + + + + + | CPK | 77Comment: SPECIMEN | 55 - 400 U/L | [facility] | | | MODERATELY HEMOLYZED | | | + + + + + | INR | 0.9Comment: REFERENCE | | [facility] | | | RANGE:0.9 - | [...] (L) | 23 - 32 seconds | [facility] | + + + + + | MMB | 5.7 (H) | 0.5 - 3.6 ng/mL | [facility] | + + + + + | CK-MB Index | 7.4Comment: CK INDEX | | [facility] | | | INTERPRETATION: | | [...] | | | | | performed at [facility];[address] | | | | | [facility];[place] | | | | | [address] | | | + + + + + + + + + + | Performing | Address | City/State/Zipcode | Phone Number | | Organization | | | | + + + + + | [facility] | [address] | [place] [address] | | + + + + + [...] + + + + | Calculated P [place] | 49 | degrees | [facility] | + + + + + | Calculated R [place] | -26 | degrees | [facility] | + + + + + | Calculated T [place] | 92 | degrees | [facility] EKG [...] -COMPUTER (500), | | | | | development editor Marissa Paige | | | | | (79) on 06/16/2018 | | | | | 12:53:28 AM | | | + + + + + + + + + + | Performing | Address | City/State/Zipcode | Phone Number | | Organization | | | | + + + + + | [facility] | [address] | [place] [address] | | + + + + + ED INFORMATION EXCHANGE (06/14/2018 6:46 PM) + + + | Narrative | Performed At | + + + | [id number] Upcoming Changes to the Maria R | ED | | Notification On June 20, 2018 the layout of this notification will | INFORMATION | | be updated. For an overview of upcoming changes, please log into | EXCHANGE | | [email or web address] For questions, | | | please email [email or web address] or call . | | | This patient has registered at the [facility] | | | Emergency Department For more information visit: | | | [email or web address] | | | [email or web address] Security Events No recent Security Events currently on file | | | ED Care Guidelines There are currently no ED Care Guidelines for | | | this patient. Please check your facility's medical records system. | | | Recent Emergency Department Visit Summary Date Facility [facility] State | | | Type Major Type Diagnoses or Chief Complaint Jun 14, 2018 [facility] | | | [facility] Emergency Emergency Shortness of | | | Breath Chest Pain Jun 13, 2018 [facility] [place] | | | [place] Emergency Emergency Chief Complaint: DIFFICULTY BREATHING | | | Jun 12, 2018 [place] | | | Emergency Emergency Chief Complaint: SOB Jun 08, 2018 [facility] | | | 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 | | | [facility] [place] [place] Emergency Emergency Chief Complaint: | | | SOB May 22, 2018 [facility] [place] | | | Emergency Emergency Hyperglycemia, unspecified | | | Chronic obstructive pulmonary disease with (acute) exacerbation | | | Shortness of breath Other halfway (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 | | | Nicotine dependence, unspecified, uncomplicated assisted | | | (current) use of systemic steroids Essential (primary) | | | hypertension Allergy status to penicillin assisted | | | (current) use of aspirin May 03, 2018 [facility] [place] [facility] | | | [place] Emergency Emergency Chief Complaint: DIFFICUTLY BREATHING | | | Apr 16, 2018 [facility] [place] [facility] 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 [place] Emergency Emergency Shortness of breath | | | Essential (primary) hypertension Constipation, unspecified | | | Nicotine dependence, unspecified, uncomplicated Chronic | | | obstructive pulmonary disease with (acute) exacerbation Allergy | | | status to penicillin Other halfway (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 | | | Apr 02[facility] 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 [place] [facility] Chronic obstructive pulmonary disease | | | with (acute) exacerbation Shortness of breath Allergy | | | status to penicillin Other halfway (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 | | | Nicotine dependence, unspecified, uncomplicated Essential | | | (primary) hypertension E.D. Visit Count (12 mo.) Facility | | | Visits Low Acuity [facility] 1 [address] [facility] [address] | | | [facility] 13 [...] | | Complaint Jun 13, 2018 [facility] [place] Critical | | | Care Inpatient Chief Complaint: DEHYDRATION Jun 08, 2018 | | | [facility] 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 [place] Medical | | | [...] | | | respiratory failure with hypoxia bed bug exterminator (current) use of | | | inhaled steroids May 03, 2018 [facility] 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 Care Providers | | | Provider PRC Type Phone Fax Service Dates Denisse Blanton Case | | | Tea Room Manager/Console Manager Dec 17, 2017 - Current | | [...] for additional information. 2019 | | | [employer] - [place], [place] - | | | [email or web address] | | + + + + + | Procedure Note | + + | Interface, Lab - 06/14/2018 6:48 PM PST Formatting of this note may be different | | from the original.[id number] Changes to the Maria R | | NotificationOn June 20, 2018 the layout of this notification will be updated. For an | | overview of upcoming changes, please log into | | [email or web address]. For questions, please email | | [email or web address] or call .This patient has registered at the | | [facility] Emergency Department For more information visit: | | [email or web address] Security | | EventsNo recent Security Events currently on fileED Care GuidelinesThere are currently | | no ED Care Guidelines for this patient. Please check your facility's medical records | | system.Recent Emergency Department Visit SummaryDate Facility City State Type Major Type | | Diagnoses or [facility] [place] [facility] | Emergency Shortness of Breath Chest Pain Jun 13, 2018 [facility] | | [place] Emergency Emergency Chief Complaint: DIFFICULTY BREATHING Jun 12, [address] [facility] | | [facility] [place] Emergency Emergency Chief Complaint: SOB Jun 08, [address] [facility] [address] | | [facility] [place] Emergency Emergency Chief Complaint: DIFFICULTY BREATHING May | | 2018 [facility] 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 | | [place] Emergency Emergency Chief Complaint: SOB May 22, 2018 [facility] 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 | | [place] Emergency Emergency Chief Complaint: DIFFICUTLY BREATHING Apr 16, [address] [facility] [address] | | [facility] 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 [place] [facility] Emergency Chronic obstructive pulmonary disease with (acute) | | exacerbation Shortness of breath Allergy status to penicillin Other halfway | | (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 Nicotine dependence, unspecified, uncomplicated Essential | | (primary) hypertension E.D. Visit Count (12 mo.)Facility Visits [facility] | | [facility] 1 0 [facility] 13 0 Total 14 0 Note: Visits | | indicate total known visits. Medicaid Low Acuity Dx are the number of primary diagnoses | | on the Medicaid's Low Acuity dx list. Recent Inpatient Visit SummaryDate Facility City | | State Type Major Type Diagnoses or Chief [facility] [place] [place] [facility] Inpatient Chief Complaint: DEHYDRATION Jun 08, 2018 [facility] | | [facility] [place] Medical Surgical Inpatient Shortness of breath Benign | | prostatic hyperplasia without lower urinary tract symptoms Essential (primary) | | hypertension Acute and chronic respiratory failure with hypoxia Chronic | | obstructive pulmonary disease with (acute) exacerbation Hyperglycemia, unspecified | | Personal history of nicotine dependence Allergy status to penicillin assisted | | (current) use of aspirin assisted (current) use of inhaled steroids May 24, 2018 [facility] | | [facility] 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 [place] [facility] | | Inpatient Chronic obstructive pulmonary disease with (acute) exacerbation | | Shortness of breath Other halfway (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 Benign prostatic | | hyperplasia without lower urinary tract symptoms Allergy status to penicillin Long | | term (current) use of aspirin Nicotine dependence, unspecified, uncomplicated | | Essential (primary) hypertension assisted (current) use of inhaled steroids | | Personal history of traumatic brain injury 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 2019 | | [employer] [place], [place] - | | [email or web address] | |[facility] 1 0 | |[facility] 13 0 | |Total 14 0 | |Note: Visits indicate total known visits. Medicaid Low Acuity Dx are the number of primary diagnoses on the Medicaid's Low Acuity dx list. | | | |Recent Inpatient Visit Summary | |Date Facility [facility] State Type Major Type Diagnoses or Chief Complaint | |[facility] Chief Complaint: DEHYDR ATION | |Jun [facility] | | Shortness of breath | | Benign prostatic hyperplasia without lower urinary tract symptoms | | Essential (primary) hypertension | | Acute and chronic respiratory failure with hypoxia | | Chronic obstructive pulmonary disease with (acute) exacerbation | | Hyperglycemia, unspecified | | Personal history of nicotine dependence | | Allergy status to penicillin | | assisted (current) use of aspirin | | bed bug exterminator (current) use of inhaled steroids | | | |[facility] 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 | | | |Care Providers | |Provider PRC Type Phone Fax Service Dates | |Denisse Blanton Manager Call/Console Manager Dec 17, 2017 - Current | |ADI [...] aforementioned facilities for additional information. | |2019 [employer] - [place], [place] - [email or web address] | + + + +---------+ + + [...] | 10 mLs | | | | [id number] | | 9 16:28 | | | [...]
--- OUTSIDE RECORDS SUMMARY | ~2018-08-10 | XMS | Encounter Summary ---
Demographics + + + | Address | [address] | | | [place] [address] | + + + | Home Phone | | + + + | Preferred Language | Unknown | + + + | Marital Status | | + + + | Taoism Affiliation | Unknown | + + + | Race | Unknown | + + + | Ethnic Group | Unknown | + + + Author + + + | Author | [facility] | + + + | Organization | [facility] [employer] | + + + | Address [...] Providers + +------+ + | Care Data Warehousing Engineer Name | Role | Phone | + [...] [place] | | | | | | [id number] | | | | | | | [...] [place]ER | | | | | | [place] [address] | | | | | | [phone] | | | | | | | [...] David Miranda Date of : 1935 | [facility] | | Performing Physician: EDIL REYNOSO MD [...] MV A Gaurav: 1.56 m/s MV Dec [place]: 3.73 m/s2 | | | MV DecT: [...] RV s': 0.13 m/s | | | Funeral Limousine Driver: ADONIS Authenticated by: EDIL REYNOSO MD Report | | | Date/Time: 05-27-2018 17:27:33 | | + + + + + | Procedure Note | + + | Kevin, Rad Results In - 05/27/2018 5:31 PM PST Patient Name: Miryam Miranda of | | : 1935ccession: [id number] Physician: EDIL REYNOSO MD | | INDICATIONS [...] and color flow Doppler was perfomed at [facility]. Study: This was a technically | | [...] cmLVIDd: 4.40 cmLVPWd: 0.92 cmLVOT Area: 3.20 [id number] Diam: 2.02 | | cm%FS: 37.96 %EF(Teich): [...] mlLAESV Index (A-L): 17.03 ml/m2LAAs A2C: 13.57 [id number] A-L A2C: 30.89 mlLALs | | A2C: 5.06 cmLAAs A4C: 12.98 [id number] A-L A4C: 30.63 mlLALs A4C: 4.67 cmRAAs: | | 12.58 [id number] A-L: 28.09 mlRAESV MOD: 27.73 mlRALs: 4.78 cmTAPSE: 1.82 cmAV | | maxP.32 mmHgAV meanP.83 mmHgAV Vmax: 1.15 m/Shy Vmean: 0.78 m/Shy VTI: | | 25.09 cmAVA Vmax: 3.12 cm2AVA (VTI): 3.43 [id number] Vmax: 0.00 cm2/m2AVAI (VTI): | | 0.00 cm2/m2LVOT maxP.04 mmHgLVOT meanP.56 mmHgLVSI Dopp: 45.89 ml/m2LVSV | | Dopp: 86.27 mlLVOT Vmax: 1.12 m/sLVOT Vmean: 0.75 m/sLVOT VTI: 26.91 cmMV A Gaurav: | | 1.56 m/sMV Dec [place]: 3.73 m/s2MV DecT: 244.70 msMV E Gaurav: 0.91 m/sMV E/A | | Ratio: 0.58 MV PHT: 70.96 msMVA By PHT: 3.10 [id number] e': 0.04 m/sSeptal E/e': | | 20.64 [...] A Gaurav: 1.56 m/s | |MV Dec [place]: 3.73 m/s2 | |MV DecT: 244.70 ms [...] |RV s': 0.13 m/s | | | |Funeral Limousine Driver: ADONIS | |Authenticated by: EDIL REYNOSO MD [...] + + + + + | [facility] | [address] | [place] [address] | | + + + + + in this encounter Visit Diagnoses + + | Diagnosis | + + | SOB (shortness of breath) | + + | Shortness of breath | + +"
--- OUTSIDE RECORDS SUMMARY | ~2018-08-10 | XMS | Clinical Summary ---
Demographics + + + | Address | [address] | | | [place] [address] | + + + | Home Phone | | + + + | Preferred Language | Unknown | + + + | Marital Status | | + + + | Restorationism Affiliation | Unknown | + + + | Race | Unknown | + + + | Ethnic Group | Unknown | + + + Author + + + | Author | [facility] | + + + | Organization | [facility] | + + + | Address [...] Team Providers + +------+ + | Care Game Attendant Name | Role | Phone | + [...] | | | MRN: | | | [id number] | | | OM: | | | [...] | | Nackos, MD, | | | Edil | | | Sign | | | [...] | | | [id number], | | | [id number], | | | [id number], | | | BEART in | | [...] | | 10:29 AM | +---+ + +--------+ +---+ + + | 05/27/ | Ancillary | | Adi Nelson MD | SOB (shortness of | | 2018 | Procedure | | | breath) | +--------+ +---+ + + | 05/27/ | Ancillary | | Adi Nelson MD | SOB (shortness of | | 2018 | Orders | | | breath) | +--------+ +---+ + + from Last 3 Months Social [...] [facility] | | | | | | [place] [address] | | | | | | [phone] | | | | | | | [...] | 65 - 99 mg/dL | [facility] | | | performed at [facility] | | | | | [facility];[place], [place] | | | | | [address] | | | + + + + + + + + + + | Performing | Address | City/State/Zipcode | Phone Number | | Organization | | | | + + + + + | [facility] | [address] | [place] [address] | | + + + + + [...] | [facility] | | | performed at [facility], [address] | | LABORATORY | | | [address] [place], | | | | | [place] [address] | | | + + + + + + + | Specimen | + + | Blood | + + + + + + + | Performing | Address | City/State/Zipcode | Phone Number | | Organization | | | | + + + + + | [facility] | [address] | [place] [address] | [phone] | | LABORATORY | Blvd. | | [...] | | | | | [facility], [address] [facility] | | | | | [place] | | | | | [address] | | | + + + + + + + | Specimen | + + | Blood | + + + + + + + | Performing | Address | City/State/Zipcode | Phone Number | | Organization | | | | + + + + + | [facility] | [address] | [place] [address] | [phone] | | LABORATORY | Blvd. | | | + + + + + Folate (06/16/2018 5:58 AM) + + + + + | Component | Value | Ref Range | Performed At | + + + + + | FOLATE | 17.8Comment: Testing | >5.4 ng/mL | [facility] | | | performed at [facility], [address] | | LABORATORY | | | [address], | | | | | [place] [address] | | | + + + + + + + | Specimen | + + | Blood | + + + + + + + | Performing | Address | City/State/Zipcode | Phone Number | | Organization | | | | + + + + + | [facility] | [address] | [place] [address] | [phone] | | LABORATORY | Blvd. | | | + + + + + Ferritin (06/16/2018 5:58 AM) + + + + + | Component | Value | Ref Range | Performed At | + + + + + | FERRITIN | 298Comment: Testing | 11 - 450 ng/mL | [facility] | | | performed at [facility], [address] | | LABORATORY | | | [address], | | | | | [place] [address] | | | + + + + + + + | Specimen | + + | Blood | + + + + + + + | Performing | Address | City/State/Zipcode | Phone Number | | Organization | | | | + + + + + | [facility] | [address] [place] [address] | [place] [address] | [phone] | | LABORATORY | [address]vd. | | | + + + + + Vitamin B12 (06/16/2018 5:58 AM) + + + + + | Component | Value | Ref Range | Performed At | + + + + + | VITAMIN B12 | 431Comment: Testing | 254 - 1,320 pg/mL | [facility] | | | performed at [facility], [address] | | LABORATORY | | | [facility] [place], | | | | | [place] [address] | | | + + + + + + + | Specimen | + + | Blood | + + + + + + + | Performing | Address | City/State/Zipcode | Phone Number | | Organization | | | | + + + + + | [facility] | [address] | [place] [address] | [phone] | | LABORATORY | Blvd. | | [...] >60Comment: GFR <60: | >60 mL/min/1.73m2 | [facility] | | | CHRONIC KIDNEY DISEASE, [...] the | | | | | MDRD IDND traceable | | | | | equation.Testing | | | | | performed at [facility], [address] | | | | | [facility], | | | | | [place] [address] | | | + + + + + + + | Specimen | + + | Blood | + + + + + + + | Performing | Address | City/State/Zipcode | Phone Number | | Organization | | | | + + + + + | [facility] | [address] | [place] [address] | [phone] | | LABORATORY | Blvd. | | [...] | [address] | [place] [address] | [phone] | | LABORATORY | Blvd. | | [...] | LABORATORY | | | TCL, [address] [facility] | | | | | Blvd, [place], [place] | | | | | [address] | | | + + + + + + + | Specimen | + + | Blood | + + + + + + + | Performing | Address | City/State/Zipcode | Phone Number | | Organization | | | | + + + + + | [facility] | [address] | [place] [address] | [phone] | | LABORATORY | Blvd. | | | + + + + + Phosphorus (06/15/2018 6:19 AM) + + + + + | Component | Value | Ref Range | Performed At | + + + + + | PHOSPHORUS | 3.3Comment: Testing | 2.3 - 4.8 mg/dL | [facility] | | | performed at [facility], [address] | | LABORATORY | | | [facility], | | | | | [place] [address] | | | + + + + + + + | Specimen | + + | Blood | + + + + + + + | Performing | Address | City/State/Zipcode | Phone Number | | Organization | | | | + + + + + | [facility] | [address] | [place] [address] | [phone] | | LABORATORY | [place] | | | + + + + + Magnesium (06/15/2018 6:19 AM) + + + + + | Component | Value | Ref Range | Performed At | + + + + + | MAGNESIUM | 2.0Comment: Testing | 1.7 - 2.4 mg/dL | [facility] | | | performed at [facility], [address] | | LABORATORY | | | [place], | | | | | [place] [address] | | | + + + + + + + | Specimen | + + | Blood | + + + + + + + | Performing | Address | City/State/Zipcode | Phone Number | | Organization | | | | + + + + + | [facility] | [address] | [place] [address] | [phone] | | LABORATORY | Blvd. | | [...] | | | | | performed at [facility], [address] | | | | | [facility], | | | | | [place] [address] | | | + + + + + + + | Specimen | + + | Blood | + + + + + + + | Performing | Address | City/State/Zipcode | Phone Number | | Organization | | | | + + + + + | [facility] | [address] | [place] [address] | [phone] | | LABORATORY | Blvd. | | [...] the | | | | | MDRD IDND traceable | | | | | equation.Testing | | | | | performed at [facility], [address] | | | | | [facility], | | | | | [place] [address] | | | + + + + + + + | Specimen | + + | Blood | + + + + + + + | Performing | Address | City/State/Zipcode | Phone Number | | Organization | | | | + + + + + | [facility] | [address] | [place] [address] | [phone] | | LABORATORY | Blvd. | | [...] | + + + + + | PARAINFLCARLOS 3 | Not Detected | Not Detected [...] performed at | | | | | [facility], [address] | | | | | [place] | | | | | [address] | | | + + + + + + + | Specimen | + + | Nasopharyngeal | | Culture | + + + + + + + | Performing | Address | City/State/Zipcode | Phone Number | | Organization | | | | + + + + + | [facility] | [address] | [place] [address] | [phone] | | LABORATORY | Blvd. | | | + + + + + Blood Culture Set 2 (06/14/2018 11:00 PM) + + + + + | Component | Value | Ref Range | Performed At | + + + + + | Specimen Description | BLOOD | | [facility] | | | | | LABORATORY | + + + + + | SPECIAL REQUESTS | L WRIST | | [facility] | + + + + + | CULTURE | NO GROWTH 6 DAYS | | [facility] | | | | | LABORATORY | + + + + + + + | Specimen | + + | Blood - Blood | + + + + + + + | Performing | Address | City/State/Zipcode | Phone Number | | Organization | | | | + + + + + | [facility] | [address] | [place] [address] | [phone] | | LABORATORY | [place] | | | + + + + + | [facility] | [address] | [place] [address] | | + + + + + [...] | + + + + + | [facility] | [address] | [place] [address] | [phone] | | LABORATORY | [place] | | | + + + + + | [facility] | [address] | [place] [address] | | + + + + + [...] [facility] | [address] | [place] [address] | | + + + + + [...] | + + + + + | [facility] | [address] | [place] [address] | | + + + + + PROCALCITONIN (06/14/2018 7:06 PM) + + + + + | Component | Value | Ref Range | Performed At | + + + + + | PROCALCITONIN | 0.09Comment: | <0.5 ng/mL | [facility] | | | INTERPRETIVE [...] performed | | | | | at [facility] [facility] | | | | | [place] [address] | | | + + + + + + + + + + | Performing | Address | City/State/Zipcode | Phone Number | | Organization | | | | + + + + + | [facility] | [address] | [place] [address] | | + + + + + Cardiac Panel (06/14/2018 7:06 PM) + + + + + | Component | Value | Ref Range | Performed At | + + + + + | WBC | 16.54 (H) | 3.80 - 11.00 K/uL | [facility] | + + + + + | RBC | 4.02 (L) | 4.20 - 5.70 M/uL | [facility] | + + + + + | HGB | 13.4 | 13.2 - 17.0 g/dL | [facility] | + + [...] 32.5 | 32.0 - 35.5 g/dL | [facility] | + + + + + | RDW SD | 50.3 | 37 - 53 fl | [facility] | + + + + + | PLT | 225 | 150 - 400 K/uL | [facility] | + + + + + | MPV | 8.4 | fl | [facility] | + + + + + | DIFF TYPE | MANUAL | | [facility] | + + + + + | Neutrophils Manual | 76 | % | [facility] | + + + + + [...] 0.33 (H) | 0.00 K/uL | [facility] | | Absolute | | | | + + + + + | Lymphocytes Absolute | 0.99 (L) | 1.00 - 3.90 K/uL | [facility] | + + [...] + | BUN/CREAT | 21 | | [facility] | + + + + + | CALCIUM | 9.2 | 8.5 - 10.5 mg/dL | [facility] | + + + + + | TOTAL PROTEIN | 6.0 (L) | 6.3 - 8.2 g/dL | [facility] | + + + + + | Albumin | 4.0 | 3.3 - 4.8 g/dL | [facility] | + + + + + | GLOBULIN | 2.0 | 1.3 - 4.9 g/dL | [facility] | + + + + + | A/G | 2.0 | 1.0 - 2.4 | [facility] | + + + + + | TBIL | 0.7 | 0.1 - 1.5 mg/dL | [facility] | + + + + + | ALK PHOS | 63 | 35 - 115 U/L | [facility] | + + + + + | AST | 37 | 10 - 45 U/L | [facility] | + + + + + | ALT | 47 | 10 - 65 U/L | [facility] | + + + + + | EGFR | >60Comment: GFR <60: | >60 mL/min/1.73m2 | [facility] | | | CHRONIC [...] the | | | | | MDRD [facility] traceable | | | | | equation. | | | + + + + + | CPK | 77Comment: SPECIMEN | 55 - 400 U/L | [facility] | | | MODERATELY HEMOLYZED | | | + + + + + | INR | 0.9Comment: REFERENCE | | [facility] | | | RANGE:0.9 [...] | 23 - 32 seconds | [facility] | + + + + + | MMB | 5.7 (H) | 0.5 - 3.6 ng/mL | [facility] | + + + + + | CK-MB Index | 7.4Comment: CK INDEX | | [facility] | | | INTERPRETATION: [...] | | | | | performed at [facility];[address] | | | | | [address];[place] | | | | | [address] | | | + + + + + + + + + + | Performing | Address | City/State/Zipcode | Phone Number | | Organization | | | | + + + + + | [facility] | [address] | [place] [address] | | + + + + + Troponin I (06/14/2018 7:06 PM) + + + + + | Component | Value | Ref Range | Performed At | + + + + + | TROPONIN I | 0.031Comment: Testing | 0.00 - 0.04 ng/mL | [facility] | | | performed at [facility] | | | | | [facility];[place], [place] | | | | | [id number] ON 07/11 | | | | | [...] + + + + + | [facility] | [address] | [place] [address] | | + + + + + D-dimer, quantitative (06/14/2018 7:06 PM) + + + + + | Component | Value | Ref Range | Performed At | + + + + + | D DIMER, | 0.68 (H)Comment: Testing | 0.19 - 0.50 mg/L FEU | [facility] | | QUANTITATIVE | performed at [facility];[address] | | | | | [address];[place] | | | | | [address] | | | + + + + + + + | Specimen | + + | Blood | + + + + + + + | Performing | Address | City/State/Zipcode | Phone Number | | Organization | | | | + + + + + | [facility] | [address] | [place] [address] | | + + + + + Brain natriuretic peptide (06/14/2018 7:06 PM) + + + + + | Component | Value | Ref Range | Performed At | + + + + + | BRAIN NATRIURETIC | 63.94Comment: Testing | 0 - 100 pg/mL | [facility] | | PEPTIDE | performed at [facility];[address] | | | | | [facility];[place], [place] | | | | | [address] | | | + + + + + + + + + + | Performing | Address | City/State/Zipcode | Phone Number | | Organization | | | | + + + + + | [facility] | [address] | [place] [address] | | + + + + + EKG 12 LEAD UNIT PERFORMED (06/14/2018 6:51 PM) + + + + + | Component | Value | Ref Range | Performed At | + + + + + | Ventricular Rate | 96 | BPM | [facility] | + + + + + | Atrial Rate | 96 | BPM | [facility] | + + + + + | P-R Interval | 144 | ms | [facility] | + + + [...] + + + + | Calculated P [place] | 49 | degrees | [facility] | + + + + + | Calculated R [place] | -26 | degrees | [facility] | + + + + + | Calculated T [place] | 92 | degrees | [facility] | + + + + + | Diagnosis | Normal sinus | | 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 | [address] | [place] [address] | | + + + + + ED INFORMATION EXCHANGE (06/14/2018 6:46 PM) + + + | Narrative | Performed At | + + + | [id number] Upcoming Changes to the [facility] | ED | | Notification On June 20, 2018 the layout of this notification will | INFORMATION | | be updated. For an overview of upcoming changes, please log into | EXCHANGE | | [email or web address]. For questions, | | | please email [email or web address] or call . | | | This patient has registered at the [facility] | | | Emergency Department For more information visit: | | | [email or web address] | | | [email or web address] Security Events No [...] Diagnoses or Chief Complaint Jun 14, 2018 [facility] | | | [facility] [place] Emergency Emergency Shortness of | | | Breath Chest Pain Jun 13, 2018 [facility] [place] | | | [place] Emergency Emergency Chief Complaint: DIFFICULTY BREATHING | | | Jun 12, 2018 [facility] [place] | | | Emergency Emergency Chief Complaint: SOB Jun 08, 2018 [facility] | | | [place] Emergency Emergency Chief Complaint: | | | DIFFICULTY BREATHING Jun 08, 2018 [facility] [place] | | | Emergency Emergency Shortness of breath [facility] | | | (current) use of aspirin Essential (primary) hypertension | | | Other group home (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 Personal history of | | | nicotine dependence Chronic obstructive pulmonary disease with | | | (acute) exacerbation intermediate card tender (current) use of systemic | | | steroids Allergy status to penicillin May 24, [address] [facility] [address] | | | [facility] [facility] Emergency Emergency Chief Complaint: | | | SOB May 22, 2018 [facility] [place] | | | Emergency Emergency Hyperglycemia, unspecified | | | Chronic obstructive pulmonary disease with (acute) exacerbation | | | Shortness of breath Other long term care pharmacist (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 | | | Nicotine dependence, unspecified, uncomplicated intermediate card tender | | | (current) use of systemic steroids Essential (primary) | | | hypertension Allergy status to penicillin [facility] | | | (current) use of aspirin May 03, 2018 [facility] [place] [facility] [place] | | | [place] Emergency Emergency Chief Complaint: DIFFICUTLY BREATHING | | | Apr 16, 2018 [facility] [place] [facility] Emergency Emergency | | | Anxiety disorder, unspecified Chronic obstructive | | | pulmonary disease, unspecified Other long term care pharmacist (current) drug | | | therapy Nicotine dependence, unspecified, uncomplicated | | | intermediate card tender (current) use of systemic steroids intermediate card tender | | | (current) use of aspirin Essential (primary) hypertension | | | Allergy status to penicillin Apr 15, 2018 [facility] [place] [facility] | | | [place] Emergency Emergency Shortness of breath | | | Essential (primary) hypertension Constipation, unspecified | | | Nicotine dependence, unspecified, uncomplicated Chronic | | | obstructive pulmonary disease with (acute) exacerbation Allergy | | | status to penicillin Other group home (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 | | | Apr 02, 2018 [facility] [address] [facility] [place] | | | Emergency Emergency Chronic obstructive pulmonary disease | | | with (acute) exacerbation Shortness of breath Nicotine | | | dependence, unspecified, uncomplicated [facility] (current) use | | | of aspirin Allergy status to penicillin Essential | | | (primary) hypertension Other long term care pharmacist (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 | | | Mar 16, [address] [facility] [address] [facility] [place]. [place] | | | Emergency Emergency Chronic obstructive pulmonary disease | | | with (acute) exacerbation Shortness of breath Allergy | | | status to penicillin Other group home (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 | | | Nicotine dependence, unspecified, uncomplicated Essential | | | (primary) hypertension E.D. Visit Count (12 mo.) Facility | | | Visits Low Acuity [facility] 1 0 [facility]. | | | [facility] 13 0 Total 14 0 Note: Visits indicate total known | | | visits. Medicaid Low Acuity Dx are the number of primary diagnoses on | | | the Medicaid's Low Acuity dx list. Recent Inpatient Visit | | | Summary Date Facility City State Type Major Type Diagnoses or Chief | | | Complaint Jun 13, 2018 [facility] [place] Critical | | | Care Inpatient Chief Complaint: DEHYDRATION Jun 08, 2018 | | | [facility] [place]. [place] Medical Surgical Inpatient | | | [...] | | | (current) use of aspirin [facility] (current) use of inhaled | | | steroids May 24, [address] [facility] [address] [facility] [place]. [place] Medical | | | Surgical [...] | | respiratory failure with hypoxia intermediate card tender (current) use of | | | inhaled steroids May 03, 2018 [facility] [place] | | | Medical Surgical Inpatient Chronic obstructive pulmonary | | | disease with (acute) exacerbation Shortness of breath | | | Other group home (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 Benign prostatic | | | hyperplasia without lower urinary tract symptoms Allergy status | | | to penicillin intermediate card tender (current) use of aspirin | | | Nicotine dependence, unspecified, uncomplicated Essential | | | (primary) hypertension [facility] (current) use of inhaled | | | steroids Personal history of traumatic brain injury Mar | | | 2017 [facility] [place] [facility] Medical | | | Surgical Inpatient Essential (primary) hypertension | | | Allergy status to penicillin [facility] (current) use of | | | inhaled steroids Benign prostatic hyperplasia without lower | | | urinary tract symptoms Nicotine dependence, cigarettes, | | | uncomplicated Other long term care pharmacist (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 | | | Cramp [...] Dates Denisse Blanton Case | | | Continuous Improvement Specialist/Switcher Dec 17, 2017 - Current | | [...] for additional information. 2019 | | | [facility] [employer] - [place], [place] - | | | | | + + + + + | Procedure Note | + + | Interface, Lab - 06/14/2018 6:48 PM PST Formatting of this note may be different | | from the original.[id number] Changes to the Maria R | | NotificationOn June 20, 2018 the layout of this notification will be updated. For an | | overview of upcoming changes, please log into | | [email or web address] For questions, please email | | [email or web address] or call .This patient has registered at the | | [facility] Emergency Department For more information visit: | | [email or web address] Security | | EventsNo recent Security Events currently on fileED Care GuidelinesThere are currently | | no ED Care Guidelines for this patient. Please check your facility's medical records | | system.Recent Emergency Department Visit SummaryDate Facility City State Type Major Type | | Diagnoses or Chief Complaint Jun 14, 2018 [facility] [place] Emergency | | Emergency Shortness of Breath Chest Pain Jun 13, 2018 [facility] [place] [facility] | | [place] Emergency Emergency Chief Complaint: DIFFICULTY BREATHING Jun 12, [address] | | [place] Emergency Emergency Chief Complaint: SOB Jun 08, [address] | | [place] Emergency Emergency Chief Complaint: DIFFICULTY BREATHING May | | 2018 [facility] [place] [facility] [place] Emergency Emergency Shortness of breath | | [facility] (current) use of aspirin Essential (primary) hypertension Other long | | term (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 Personal history of nicotine dependence Chronic | | obstructive pulmonary disease with (acute) exacerbation [facility] (current) use of | | systemic steroids Allergy status to penicillin May 24, 2018 [facility] [place] [facility] | | [place] Emergency Emergency Chief Complaint: SOB May 22, 2018 [facility] [place] | | Emergency Emergency Hyperglycemia, unspecified Chronic obstructive pulmonary | | disease with (acute) exacerbation Shortness of breath Other long term care pharmacist (current) | | 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 Nicotine dependence, unspecified, uncomplicated intermediate card tender (current) | | use of systemic steroids Essential (primary) hypertension Allergy status to | | penicillin [facility] (current) use of [facility] [place] [facility] Emergency Chief Complaint: DIFFICUTLY BREATHING Apr 16, 2018 [facility]. | | [place] Emergency Emergency Anxiety disorder, unspecified Chronic | | obstructive pulmonary disease, unspecified Other long term care pharmacist (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 | | Nicotine dependence, unspecified, uncomplicated intermediate card tender (current) use of systemic | | steroids [facility] (current) use of aspirin Essential (primary) hypertension | | Allergy status to penicillin [facility] [place] [place] [facility] | | Emergency Shortness of breath Essential (primary) hypertension Constipation, | | unspecified Nicotine dependence, unspecified, uncomplicated Chronic obstructive | | pulmonary disease with (acute) exacerbation Allergy status to penicillin Other | | group home (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 Apr 02, [facility] [place] [place] [facility] | | Emergency Chronic obstructive pulmonary disease with (acute) exacerbation | | Shortness of breath Nicotine dependence, unspecified, uncomplicated [facility] | | (current) use of aspirin Allergy status to penicillin Essential (primary) | | hypertension Other group home (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 Mar 16, 2018 [facility] [place] Emergency Emergency Chronic obstructive pulmonary disease with (acute) | | exacerbation Shortness of breath Allergy status to penicillin Other long term care pharmacist | | (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 Nicotine dependence, unspecified, uncomplicated Essential | | (primary) hypertension E.D. Visit Count (12 mo.)Facility Visits Low Acuity Located Within [facility] | | [facility] 1 0 [facility] 13 0 Total 14 0 Note: Visits | | indicate total known visits. Medicaid Low Acuity Dx are the number of primary diagnoses | | on the Medicaid's Low Acuity dx list. Recent Inpatient Visit SummaryDate Facility City | | State Type Major Type Diagnoses or Chief Complaint Jun 13, [facility] [place] Critical Care Inpatient Chief Complaint: DEHYDRATION Jun 08, 2018 [facility]. | | [place] Medical Surgical Inpatient Shortness of breath Benign | | prostatic hyperplasia without lower urinary tract symptoms Essential (primary) | | hypertension Acute and chronic respiratory failure with hypoxia Chronic | | obstructive pulmonary disease with (acute) exacerbation Hyperglycemia, unspecified | | Personal history of nicotine dependence Allergy status to penicillin intermediate card tender | | (current) use of aspirin [facility] (current) use of inhaled steroids May 24, 2018 [facility] | | [place] 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 Medical Surgical | | Inpatient Chronic obstructive pulmonary disease with (acute) exacerbation | | Shortness of breath Other group home (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 Benign prostatic | | hyperplasia without lower urinary tract symptoms Allergy status to penicillin Long | | term (current) use of aspirin Nicotine dependence, unspecified, uncomplicated | | Essential (primary) hypertension intermediate card tender (current) use of inhaled steroids | | Personal history of traumatic brain injury Apr 03, 2018 [facility] [place] | | Medical Surgical Inpatient Essential (primary) hypertension Allergy status to | | penicillin intermediate card tender (current) use of inhaled steroids Benign prostatic | | hyperplasia without lower urinary tract symptoms Nicotine dependence, cigarettes, | | uncomplicated Other group home (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 Cramp and spasm intermediate card tender | | (current) use of aspirin intermediate card tender (current) use of systemic steroids Chronic | | obstructive pulmonary disease with (acute) exacerbation Prescription Drug Report (12 | | Mo.)PDMP query found no report.Care ProvidersProvider [facility] Type Phone Fax Service Dates | | Denisse Blanton Fence Laborer/Switcher Dec 17, 2017 - Current OMAR, | [...] facilities for additional information. 2019 | | [email or web address] - [place], [place] - | | [email or web address] | |[facility] 1 0 | |[facility] 13 0 | |Total 14 0 | |Note: Visits indicate total known visits. Medicaid Low Acuity Dx are the number of primary diagnoses on the Medicaid's Low Acuity dx list. | | | |Recent Inpatient Visit Summary | |Date Facility City State Type Major Type Diagnoses or Chief Complaint | |Jun 13, 2018 [facility] [place] Critical Care Inpatient Chief Complaint: DEHYDR ATION | |Jun 08, 2018 [facility] [place] Medical Surgical Inpatient [...] Facility (current) use of aspirin | | [facility] (current) use of inhaled steroids | | | |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 | | Chronic obstructive pulmonary disease with (acute) exacerbation | | Shortness of breath | | Other long term care pharmacist (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 | | Benign prostatic hyperplasia without lower urinary tract symptoms | | Allergy status to penicillin | | intermediate card tender (current) use of aspirin | | Nicotine dependence, unspecified, uncomplicated | | Essential (primary) hypertension | | [facility] (current) use of inhaled steroids | | Personal history of traumatic brain injury | | | |Apr 03, 2018 [facility] [place] Medical Surgical Inpatient | | Essential (primary) hypertension | | Allergy status to penicillin | | [facility] (current) use of inhaled steroids | | Benign prostatic hyperplasia without lower urinary tract symptoms | | Nicotine dependence, cigarettes, uncomplicated | | Other long term care pharmacist (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 | | Cramp and spasm | | intermediate card tender (current) use of aspirin | | [facility] (current) use of systemic steroids | | Chronic obstructive pulmonary disease with (acute) exacerbation | | | | | | | |Prescription Drug Report (12 Mo.) | |PDMP query found no report. | | | |Care Providers | |Provider PRC Type Phone Fax Service Dates | |Denisse Blanton Fence Laborer/Switcher Dec 17, 2017 - Current | |ADI [...] aforementioned facilities for additional information. | |2019 [email or web address] - [place], [place] - [email or web address] | + + + +---------+ + + | Performing | Address | City/State/Zipcode | Phone Number | | Organization | | | | + +---------+ + + | ED INFORMATION | | | | | EXCHANGE | | | | + +---------+ + + ECHO outside interpretation standard (05/27/2018 9:34 AM) [...] David Miranda Date of : 1935 | [facility] | | Performing Physician: EDIL [...] and color flow Doppler was perfomed at [facility]. Study: | | | This was a [...] MV A Gaurav: 1.56 m/s MV Dec Finney: 3.73 m/s2 | | | MV DecT: [...] RV s': 0.13 m/s | | | [employer] Operator: Authenticated by: EDIL REYNOSO MD Report | | | Date/Time: 05-27-2018 17:27:33 | | + + + + + | Procedure Note | + + | Kevin, Rad Results In 05/27/2018 5:31 PM PST Patient Name: Miryam Miranda of | | : 1935ccession: [id number] Physician: EDIL REYNOSO MD | | INDICATIONS [...] and color flow Doppler was perfomed at [facility]. Study: This was a technically | | [...] cmLVIDd: 4.40 cmLVPWd: 0.92 cmLVOT Area: 3.20 ph3ETEQ Diam: 2.02 | | cm%FS: 37.96 %EF(Teich): [...] mlLAESV Index (A-L): 17.03 ml/m2LAAs A2C: 13.57 [id number] A-L A2C: 30.89 mlLALs | | A2C: 5.06 cmLAAs A4C: 12.98 [id number] A-L A4C: 30.63 mlLALs A4C: 4.67 cmRAAs: | | 12.58 [id number] A-L: 28.09 mlRAESV MOD: 27.73 mlRALs: 4.78 cmTAPSE: 1.82 cmAV | | maxP.32 mmHgAV meanP.83 mmHgAV Vmax: 1.15 m/Shy Vmean: 0.78 m/Shy VTI: | | 25.09 cmAVA Vmax: 3.12 cm2AVA (VTI): 3.43 [id number] Vmax: 0.00 cm2/m2AVAI (VTI): | | 0.00 cm2/m2LVOT maxP.04 mmHgLVOT meanP.56 mmHgLVSI Dopp: 45.89 ml/m2LVSV | | Dopp: 86.27 mlLVOT Vmax: 1.12 m/sLVOT Vmean: 0.75 m/sLVOT VTI: 26.91 cmMV A Gaurav: | | 1.56 m/sMV Dec Finney: 3.73 m/s2MV DecT: 244.70 msMV E Gaurav: 0.91 m/sMV E/A | | Ratio: 0.58 MV PHT: 70.96 msMVA By PHT: 3.10 [id number] e': 0.04 m/sSeptal E/e': | | 20.64 [...] A Gaurav: 1.56 m/s | |MV Dec Finney: 3.73 m/s2 | |MV DecT: 244.70 ms [...] |RV s': 0.13 m/s | | | |Hi Ranger Operator: | |Authenticated by: EDIL REYNOSO MD [...] | + + + + + | [facility] | [address] | [place] [address] | | + + + + + from Last 3 Months Insurance + +--------+ +------+-------+ + | Payer | Benefi | Subscriber | Type | Phone | Address | | | t Plan | ID | | | | | | / | | | | | | | Group | | | | | + +--------+ +------+-------+ + | MEDICARE | MEDICA | [id number] | | | [address] | | | RE | | | | [place] [phone] | | | IP-OP | | | | | + +--------+ +------+-------+ + | MEDICAID | [place]ER | [id number] | | | [address] | | | N | | | | [place] | | | [place] | | | | [phone] | | | 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
--- OUTSIDE RECORDS SUMMARY | ~2018-08-10 | XMS | Clinical Summary ---
Demographics + + + | Address | [address] | | | [place] [address] | + + + | Home Phone | | + + + | Preferred Language | Unknown | + + + | Marital Status | | + + + | Christianity Affiliation | Unknown | + + + | Race | Unknown | + + + | Ethnic Group | Unknown | + + + Author + + + | Author | [facility] | + + + | Organization | [facility] | + + + | Address [...] Team Providers + +------+ + | Care Coding Clerk Name | Role | Phone | [...] | | | MRN: | | | [id number] | | | OM: | | | [...] | | | [id number], | | | [id number], | | | [id number], | | | BEART in | | [...] ASHER | | | | | | [place] [address] | | | | | | [phone] | | | | | | | [...] Testing | 65 - 99 mg/dL | [facility] | | | performed at [facility] | | | | | [facility];[place], [place] | | | | | [address] | | | + + + + + + + + + + | Performing | Address | City/State/Zipcode | Phone Number | | Organization | | | | + + + + + | [facility] | [address] | [place] [address] | | + + + + + [...] [place], | | | | | [place] [address] | | | + + + + + + + | Specimen | + + | Blood | + + + + + + + | Performing | Address | City/State/Zipcode | Phone Number | | Organization | | | | + + + + + | [facility] | [address] | [place] [address] | [phone] | | LABORATORY | Blvd. | | [...] | | | | TCL, [address] [facility] | | | | | [place] | | | | | [address] | | | + + + + + + + | Specimen | + + | Blood | + + + + + + + | Performing | Address | City/State/Zipcode | Phone Number | | Organization | | | | + + + + + | [facility] | [address] | [place] [address] | [phone] | | LABORATORY | Blvd. | | [...] [place], | | | | | [place] [address] | | | + + + + + + + | Specimen | + + | Blood | + + + + + + + | Performing | Address | City/State/Zipcode | Phone Number | | Organization | | | | + + + + + | [facility] | [address] | [place] [address] | [phone] | | LABORATORY | Blvd. | | [...] [place], | | | | | [place] [address] | | | + + + + + + + | Specimen | + + | Blood | + + + + + + + | Performing | Address | City/State/Zipcode | Phone Number | | Organization | | | | + + + + + | [facility] | [address] [place] [address] | [place] [address] | [phone] | | LABORATORY | [address]vd. | | | + + + + + Vitamin B12 (06/16/2018 5:58 AM) + + + + + | Component | Value | Ref Range | Performed At | + + + + + | VITAMIN B12 | 431Comment: Testing | 254 - 1,320 pg/mL | [facility] | | | performed at [facility], [address] | | LABORATORY | | | [facility] [place], | | | | | [place] [address] | | | + + + + + + + | Specimen | + + | Blood | + + + + + + + | Performing | Address | City/State/Zipcode | Phone Number | | Organization | | | | + + + + + | [facility] | [address] | [place] [address] | [phone] | | LABORATORY | Blvd. | | [...] >60Comment: GFR <60: | >60 mL/min/1.73m2 | [facility] | | | CHRONIC KIDNEY DISEASE, | [...] the | | | | | MDRD IDNV traceable | | | | | equation.Testing | | | | | performed at [facility], [address] | | | | | [facility], | | | | | [place] [address] | | | + + + + + + + | Specimen | + + | Blood | + + + + + + + | Performing | Address | City/State/Zipcode | Phone Number | | Organization | | | | + + + + + | [facility] | [address] | [place] [address] | [phone] | | LABORATORY | Blvd. | | [...] | [address] | [place] [address] | [phone] | | LABORATORY | Blvd. | | [...] | LABORATORY | | | TCL, [address] [facility] | | | | | Blvd, [place], [place] | | | | | [address] | | | + + + + + + + | Specimen | + + | Blood | + + + + + + + | Performing | Address | City/State/Zipcode | Phone Number | | Organization | | | | + + + + + | [facility] | [address] | [place] [address] | [phone] | | LABORATORY | Blvd. | | [...] | | [facility], | | | | | [place] [address] | | | + + + + + + + | Specimen | + + | Blood | + + + + + + + | Performing | Address | City/State/Zipcode | Phone Number | | Organization | | | | + + + + + | [facility] | [address] | [place] [address] | [phone] | | LABORATORY | [place] | | [...] | | | | | [place] [address] | | | + + + + + + + | Specimen | + + | Blood | + + + + + + + | Performing | Address | City/State/Zipcode | Phone Number | | Organization | | | | + + + + + | [facility] | [address] | [place] [address] | [phone] | | LABORATORY | Blvd. | | [...] [address] | | | | | [facility], | | | | | [place] [address] | | | + + + + + + + | Specimen | + + | Blood | + + + + + + + | Performing | Address | City/State/Zipcode | Phone Number | | Organization | | | | + + + + + | [facility] | [address] | [place] [address] | [phone] | | LABORATORY | Blvd. | | [...] the | | | | | MDRD IDNV traceable | | | | | equation.Testing | | | | | performed at [facility], [address] | | | | | [facility], | | | | | [place] [address] | | | + + + + + + + | Specimen | + + | Blood | + + + + + + + | Performing | Address | City/State/Zipcode | Phone Number | | Organization | | | | + + + + + | [facility] | [address] | [place] [address] | [phone] | | LABORATORY | Blvd. | | [...] | [facility], [address] | | | | | [place] | | | | | [address] | | | + + + + + + + | Specimen | + + | Nasopharyngeal | | Culture | + + + + + + + | Performing | Address | City/State/Zipcode | Phone Number | | Organization | | | | + + + + + | [facility] | [address] | [place] [address] | [phone] | | LABORATORY | Blvd. | | | + + + + + Blood Culture Set 2 (06/14/2018 11:00 PM) + + + + + | Component | Value | Ref Range | Performed At | + + + + + | Specimen Description | BLOOD | | [facility] | | | | | LABORATORY | + + + + + | SPECIAL REQUESTS | L WRIST | | [facility] | + + + + + | CULTURE | NO GROWTH 6 DAYS | | [facility] | | | | | LABORATORY | + + + + + + + | Specimen | + + | Blood - Blood | + + + + + + + | Performing | Address | City/State/Zipcode | Phone Number | | Organization | | | | + + + + + | [facility] | [address] | [place] [address] | [phone] | | LABORATORY | [place] | | | + + + + + | [facility] | [address] | [place] [address] | | + + + + + [...] | + + + + + | [facility] | [address] | [place] [address] | [phone] | | LABORATORY | [address] | | | + + + + + | [facility] | [address] | [place] [address] | | + + + + + [...] [facility] | [address] | [place] [address] | | + + + + + [...] + + + + + | [facility] | [address] | [place] [address] | | + + + + + PROCALCITONIN (06/14/2018 7:06 PM) + + + + + | Component | Value | Ref Range | Performed At | + + + + + | PROCALCITONIN | 0.09Comment: | <0.5 ng/mL | [facility] | | | [...] performed | | | | | at [facility];[address] [facility] | | | | | [place] [address] | | | + + + + + + + + + + | Performing | Address | City/State/Zipcode | Phone Number | | Organization | | | | + + + + + | [facility] | [address] | [place] [address] | | + + + + + [...] 50.3 | 37 - 53 fl | [facility] | + + + + + | PLT | 225 | 150 - 400 K/uL | [facility] | + + + + + | MPV | 8.4 | fl | [facility] | + + + + + | DIFF TYPE | MANUAL | | [facility] | + + + + + | Neutrophils Manual | 76 | % | [facility] | + + + + + [...] | 0.33 (H) | 0.00 K/uL | [facility] | | Absolute [...] + | BUN/CREAT | 21 | | [facility] | + + + + + | CALCIUM | 9.2 | 8.5 - 10.5 mg/dL | [facility] | + + + + + | TOTAL PROTEIN | 6.0 (L) | 6.3 - 8.2 g/dL | [facility] | + + + + + | Albumin | 4.0 | 3.3 - 4.8 g/dL | [facility] | + + + + + | GLOBULIN | 2.0 | 1.3 - 4.9 g/dL | [facility] | + + + + + | A/G | 2.0 | 1.0 - 2.4 | [facility] | + + + + + | TBIL | 0.7 | 0.1 - 1.5 mg/dL | [facility] | + + + + + | ALK PHOS | 63 | 35 - 115 U/L | [facility] | + + + + + | AST | 37 | 10 - 45 U/L | [facility] | + + + + + | ALT | 47 | 10 - 65 U/L | [facility] | + + + + + | EGFR | >60Comment: GFR <60: | >60 mL/min/1.73m2 | [facility] | | | [...] SPECIMEN | 55 - 400 U/L | [facility] | | | MODERATELY HEMOLYZED | | | + + + + + | INR | 0.9Comment: REFERENCE | | [facility] | | | [...] (L) | 23 - 32 seconds | [facility] | + + + + + | MMB | 5.7 (H) | 0.5 - 3.6 ng/mL | [facility] | + + + + + | CK-MB Index | 7.4Comment: CK INDEX | | [facility] | | | [...] | | | | | performed at [facility];[address] | | | | | [place] | | | | | [address] | | | + + + + + + + + + + | Performing | Address | City/State/Zipcode | Phone Number | | Organization | | | | + + + + + | [facility] | [address] | [place] [address] | | + + + + + Troponin I (06/14/2018 7:06 PM) + + + + + | Component | Value | Ref Range | Performed At | + + + + + | TROPONIN I | 0.031Comment: Testing | 0.00 - 0.04 ng/mL | [facility] | | | performed at [facility] | | | | | [facility];[place], [place] | | | | | [id number] ON 07/11 | | | | | [...] | + + + + + | [facility] | [address] | [place] [address] | | + + + + + D-dimer, quantitative (06/14/2018 7:06 PM) + + + + + | Component | Value | Ref Range | Performed At | + + + + + | D DIMER, | 0.68 (H)Comment: Testing | 0.19 - 0.50 mg/L FEU | [facility] | | QUANTITATIVE | performed at [facility];[address] | | | | | [address] [place] | | | | | [address] | | | + + + + + + + | Specimen | + + | Blood | + + + + + + + | Performing | Address | City/State/Zipcode | Phone Number | | Organization | | | | + + + + + | [facility] | [address] | [place] [address] | | + + + + + Brain natriuretic peptide (06/14/2018 7:06 PM) + + + + + | Component | Value | Ref Range | Performed At | + + + + + | BRAIN NATRIURETIC | 63.94Comment: Testing | 0 - 100 pg/mL | [facility] | | PEPTIDE | performed at [facility];[address] | | | | | [facility];[place], [place] | | | | | [address] | | | + + + + + + + + + + | Performing | Address | City/State/Zipcode | Phone Number | | Organization | | | | + + + + + | [facility] | [address] | [place] [address] | | + + + + + [...] + + + + | Calculated P Cannon Ball | 49 | degrees | [facility] | + + + + + | Calculated R [place] | -26 | degrees | [facility] | + + + + + | Calculated T [place] | 92 | degrees | [facility] | + + + + + | Diagnosis | Normal sinus | | [facility] | | | rhythmNonspecific [...] | | | | | ONLY, -COMPUTER ([id number]), | | | | | news video editor Marsisa Paige | | | | | (79) on 06/16/2018 | | | | | 12:53:28 AM | | | + + + + + + + + + + | Performing | Address | City/State/Zipcode | Phone Number | | Organization | | | | + + + + + | [facility] | [address] | [place] [address] | | + + + + + ED INFORMATION EXCHANGE (06/14/2018 6:46 PM) + + + | Narrative | Performed At | + + + | [id number] Upcoming Changes to the [facility] | ED | | Notification On June 20, 2018 the layout of this notification will | INFORMATION | | be updated. For an overview of upcoming changes, please log into | EXCHANGE | | [email or web address]. For questions, | | | please email [email or web address] or call . | | | This patient has registered at the [facility] | | | Emergency Department For more information visit: | | | [email or web address] | | | [email or web address] Security Events No [...] Diagnoses or Chief Complaint Jun 14, 2018 [facility] | | | [facility] [place] Emergency Emergency Shortness of | | | Breath Chest Pain Jun 13, 2018 [facility] | | | [place] Emergency Emergency Chief Complaint: DIFFICULTY BREATHING | | | Jun 12, 2018 [facility] [place] | | | Emergency Emergency Chief Complaint: SOB Jun 08, 2018 [facility] | | | [facility] [place] [place] Emergency Emergency Chief Complaint: | | | DIFFICULTY BREATHING Jun 08, 2018 [facility] 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 | | | [place] Emergency Emergency Chief Complaint: | | | SOB May 22, 2018 [facility] [place] | | | Emergency Emergency Hyperglycemia, unspecified | | | Chronic obstructive pulmonary disease with (acute) exacerbation | | | Shortness of breath Other watermaster (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 | | | Nicotine dependence, unspecified, uncomplicated terminal block assembler | | | (current) use of systemic steroids Essential (primary) | | | hypertension Allergy status to penicillin long-term | | | (current) use of aspirin May 03, 2018 [facility] | | | [place] Emergency Emergency Chief Complaint: DIFFICUTLY BREATHING | | | Apr 16, 2018 [facility] [place] Emergency Emergency | | | Anxiety disorder, unspecified Chronic obstructive | | | pulmonary disease, unspecified Other watermaster (current) drug | | | therapy Nicotine dependence, unspecified, uncomplicated | | | terminal block assembler (current) use of systemic steroids terminal block assembler | | | (current) use of aspirin Essential (primary) hypertension | | | Allergy status to penicillin Apr 15, 2018 [facility] | | | [place] Emergency Emergency Shortness of breath | | | Essential (primary) hypertension Constipation, unspecified | | | Nicotine dependence, unspecified, uncomplicated Chronic | | | obstructive pulmonary disease with (acute) exacerbation Allergy | | | status to penicillin Other usp (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 | | | Apr 02, [address] [facility] [address] [place] | | | Emergency Emergency Chronic obstructive pulmonary disease | | | with (acute) exacerbation Shortness of breath Nicotine | | | dependence, unspecified, uncomplicated long-term (current) use | | | of aspirin Allergy status to penicillin Essential | | | (primary) hypertension Other watermaster (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 | | | Mar 16, [address] [facility] [address] [place] [place] | | | Emergency Emergency Chronic obstructive pulmonary disease | | | with (acute) exacerbation Shortness of breath Allergy | | | status to penicillin Other usp (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 | | | Nicotine dependence, unspecified, uncomplicated Essential | | | (primary) hypertension E.D. Visit Count (12 mo.) Facility | | | Visits Low Acuity [facility] 1 0 [facility]. | | | [facility] 13 0 Total 14 0 Note: [...] DEHYDRATION Jun 08, 2018 | | | [facility] [place] [place] Medical Surgical [...] | | dependence Allergy status to penicillin long-term | | | (current) use of aspirin long-term (current) use of inhaled | | | steroids May 24, [address] [facility] [address] [place] [place] Medical | | [...] | | | respiratory failure with hypoxia terminal block assembler (current) use of | | | inhaled steroids May 03, 2018 [facility] 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 [place] Medical | | | Surgical Inpatient Essential (primary) hypertension | | | Allergy status to penicillin long-term (current) use of | | | inhaled steroids Benign prostatic hyperplasia without lower | | | urinary tract symptoms Nicotine dependence, cigarettes, | | | uncomplicated Other watermaster (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 | | | Cramp and spasm long-term (current) use of aspirin Long | | | term (current) use of systemic steroids Chronic obstructive | | | pulmonary disease with (acute) exacerbation Prescription | | | Drug Report (12 Mo.) PDMP query found no report. Care Providers | | | Provider PRC Type Phone Fax Service Dates Denisse Blanton Case | | | Scanner Supervisor/Transition Of Care Specialist Dec 17, 2017 - Current | | [...] for additional information. 2019 | | | [employer] [employer] - [place], [place] - | | | | | + + + + + | Procedure Note | + + | Interface, Lab - 06/14/2018 6:48 PM PST Formatting of this note may be different | | from the original.[id number] Changes to the Maria R | | NotificationOn June 20, 2018 the layout of this notification will be updated. For an | | overview of upcoming changes, please log into | | [email or web address]. For questions, please email | | [email or web address] or call .This patient has registered at the | | [facility] Emergency Department For more information visit: | | [email or web address] Security | | EventsNo recent Security Events currently on fileED Care GuidelinesThere are currently | | no ED Care Guidelines for this patient. Please check your facility's medical records | | system.Recent Emergency Department Visit SummaryDate Facility City State Type Major Type | | Diagnoses or Chief Complaint Jun 14, 2018 [facility]. [place] Emergency | | Emergency Shortness of Breath Chest Pain Jun 13, 2018 [facility] | | [place] Emergency Emergency Chief Complaint: DIFFICULTY BREATHING Jun 12, [address] [facility] [address] | | [facility] [place] [place] Emergency Emergency Chief Complaint: SOB Jun 08, [address] [facility] [address] | | [facility] [facility] [place] [place] Emergency Emergency Chief Complaint: DIFFICULTY BREATHING May | | 2018 [facility] [place] Emergency Emergency Shortness of breath | | long-term (current) use of aspirin Essential (primary) hypertension Other long | | term (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 Personal history of nicotine dependence Chronic | | obstructive pulmonary disease with (acute) exacerbation long-term (current) use of | | systemic steroids Allergy status to penicillin May 24, 2018 [facility] | | [place] Emergency Emergency Chief Complaint: SOB May 22, 2018 [facility] 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 [place] [facility] Emergency Chief Complaint: DIFFICUTLY BREATHING Apr 16, 2018 [facility]. | | 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 [place] [facility] | | Emergency Shortness of breath Essential (primary) hypertension Constipation, | | unspecified Nicotine dependence, unspecified, uncomplicated Chronic obstructive | | pulmonary disease with (acute) exacerbation Allergy status to penicillin Other | | usp (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 [facility] 02[facility] [place] [place] [facility] | | Emergency Chronic obstructive pulmonary disease with (acute) exacerbation | | Shortness of breath Nicotine dependence, unspecified, uncomplicated long-term | | (current) use of aspirin Allergy status to penicillin Essential (primary) | | hypertension Other usp (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 [facility] [place] [facility] Emergency Chronic obstructive pulmonary disease with (acute) | | exacerbation Shortness of breath Allergy status to penicillin Other watermaster | | (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 Nicotine dependence, unspecified, uncomplicated Essential | | (primary) hypertension E.D. Visit Count (12 mo.)Facility Visits Low Acuity [facility] | | [facility] 1 0 [facility] 13 0 Total 14 0 Note: Visits | | indicate total known visits. Medicaid Low Acuity Dx are the number of primary diagnoses | | on the Medicaid's Low Acuity dx list. Recent Inpatient Visit SummaryDate Facility City | | State Type Major Type Diagnoses or Chief Complaint [facility] [place] Critical Care Inpatient Chief Complaint: DEHYDRATION Jun 08, 2018 [facility]. | | [place] Medical Surgical Inpatient Shortness of breath Benign | | prostatic hyperplasia without lower urinary tract symptoms Essential (primary) | | hypertension Acute and chronic respiratory failure with hypoxia Chronic | | obstructive pulmonary disease with (acute) exacerbation Hyperglycemia, unspecified | | Personal history of nicotine dependence Allergy status to penicillin terminal block assembler | | (current) use of aspirin long-term (current) use of inhaled steroids May 24, 2018 [facility] | | [facility] [facility] 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 [place] Medical Surgical | | Inpatient Chronic obstructive pulmonary disease with (acute) exacerbation | | Shortness of breath Other usp (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 Benign prostatic | | hyperplasia without lower urinary tract symptoms Allergy status to penicillin Long | | term (current) use of aspirin Nicotine dependence, unspecified, uncomplicated | | Essential (primary) hypertension terminal block assembler (current) use of inhaled steroids | | Personal history of traumatic brain injury Apr 03, 2018 [facility] [place] [place] | | Medical Surgical Inpatient Essential (primary) hypertension Allergy status to | | penicillin terminal block assembler (current) use of inhaled steroids Benign prostatic | | hyperplasia without lower urinary tract symptoms Nicotine dependence, cigarettes, | | uncomplicated Other usp (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 Cramp and spasm terminal block assembler | | (current) use of aspirin terminal block assembler (current) use of systemic steroids Chronic | | obstructive pulmonary disease with (acute) exacerbation Prescription Drug Report (12 | | Mo.)PDMP query found no report.Care ProvidersProvider [facility] Type Phone Fax Service Dates | | Denisse Blanton Obstetrical Anesthesiologist/Transition Of Care Specialist Dec 17, 2017 - Current OMAR, | [...] facilities for additional information. 2019 | | [employer] - [place], [place] - | | [email or web address] | |[facility] 1 0 | |[facility] 13 0 | |Total 14 0 | |Note: Visits indicate total known visits. Medicaid Low Acuity Dx are the number of primary diagnoses on the Medicaid's Low Acuity dx list. | | | |Recent Inpatient Visit Summary | |Date Facility City State Type Major Type Diagnoses or Chief Complaint | |Jun 13, 2018 [facility] [place] Critical Care Inpatient Chief Complaint: DEHYDR ATION | |Jun 08, 2018 [facility] [place] Medical Surgical Inpatient [...] | Allergy status to penicillin | | long-term (current) use of aspirin | | long-term (current) use of inhaled steroids | | | |May 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 | | Chronic obstructive pulmonary disease with (acute) exacerbation | | Shortness of breath | | Other watermaster (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 | | Benign prostatic hyperplasia without lower urinary tract symptoms | | Allergy status to penicillin | | terminal block assembler (current) use of aspirin | | Nicotine dependence, unspecified, uncomplicated | | Essential (primary) hypertension | | long-term (current) use of inhaled steroids | | Personal history of traumatic brain injury | | | |Apr 03, 2018 [facility] 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 | | | |Care Providers | |Provider PRC Type Phone Fax Service Dates | |Denisse Blanton Obstetrical Anesthesiologist/Transition Of Care Specialist Dec 17, 2017 - Current | |ADI [...] aforementioned facilities for additional information. | |2019 [employer] - [place], [place] - [email or web address] | + + + +---------+ + + [...] David Miranda Date of : 1935 | [facility] | | Performing Physician: EDIL REYNOSO MD [...] and color flow Doppler was perfomed at [facility]. Study: | | | This was a [...] MV A Gaurav: 1.56 m/s MV Dec [place]: 3.73 m/s2 | | | MV DecT: [...] RV s': 0.13 m/s | | | Macaroni Press Operator: Authenticated by: EDIL REYNOSO MD Report | | | Date/Time: 05-27-2018 17:27:33 | | + + + + + | Procedure Note | + + | Kevin, Rad Results In 05/27/2018 5:31 PM PST Patient Name: Miryam Miranda of | | : 1935ccession: [id number] Physician: EDIL REYNOSO MD | | INDICATIONS [...] and color flow Doppler was perfomed at [facility]. Study: This was a technically [...] cmLVIDd: 4.40 cmLVPWd: 0.92 cmLVOT Area: 3.20 dn3FAYM Diam: 2.02 | | cm%FS: 37.96 %EF(Teich): [...] mlLAESV Index (A-L): 17.03 ml/m2LAAs A2C: 13.57 [id number] A-L A2C: 30.89 mlLALs | | A2C: 5.06 cmLAAs A4C: 12.98 xz4EVUPH A-L A4C: 30.63 mlLALs A4C: 4.67 cmRAAs: | | 12.58 [id number] A-L: 28.09 mlRAESV MOD: 27.73 mlRALs: 4.78 cmTAPSE: 1.82 cmAV | | maxP.32 mmHgAV meanP.83 mmHgAV Vmax: 1.15 m/Shy Vmean: 0.78 m/Shy VTI: | | 25.09 cmAVA Vmax: 3.12 cm2AVA (VTI): 3.43 qy4IPSL Vmax: 0.00 cm2/m2AVAI (VTI): | | 0.00 cm2/m2LVOT maxP.04 mmHgLVOT meanP.56 mmHgLVSI Dopp: 45.89 ml/m2LVSV | | Dopp: 86.27 mlLVOT Vmax: 1.12 m/sLVOT Vmean: 0.75 m/sLVOT VTI: 26.91 cmMV A Gaurav: | | 1.56 m/sMV Dec [place]: 3.73 m/s2MV DecT: 244.70 msMV E Gaurav: 0.91 m/sMV E/A | | Ratio: 0.58 MV PHT: 70.96 msMVA By PHT: 3.10 ba3Nhxtss e': 0.04 m/sSeptal E/e': | | 20.64 [...] A Gaurav: 1.56 m/s | |MV Dec [place]: 3.73 m/s2 | |MV DecT: 244.70 ms [...] |RV s': 0.13 m/s | | | |Macaroni Press Operator: | |Authenticated by: EDIL REYNOSO MD [...] + + + + + | [facility] | [address] | [place] [address] | | + + + + + [...] +------+-------+ + | MEDICARE | MEDICA | [id number] | | | [address] | | | RE | | | | [place] [phone] | | | IP-OP | | | | | + +--------+ +------+-------+ + | MEDICAID | EASTER | [id number] | | | [address] | | | N | | | | [place] | | | [place] | | | | [phone] | | | MANIFOLD BUILDER | | | | | + +--------+ [...] | | al/Fam | | 1935 | [phone] | [place] [address] | | | kareem | | | [phone] | | + +--------+ +--------+ + +
--- OUTSIDE RECORDS SUMMARY | 2018-08-10 10:16 | XMS ---
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 Events No recent Security Events currently on file CRITERIA MET - 6 ED Visits in 6 Months - [facility] - Has Care Guidelines - [facility] - 2 Visits in 30 Days CARE PROVIDERS Denisse Blanton Construction Estimator/Crane Ladle Person 12/17/2017-Current PHONE: [phone] Patrick Meade Construction Estimator/Crane Ladle Person 12/17/2017-Current PHONE: [phone] MARCELA NELSON Internal Medicine 04/03/2018-Current SANDEEP PHONE: [phone] Patrick Meade Primary Care 12/17/2017-Current PHONE: [phone] MARCELA NELSON Primary Care 04/05/2016-Current PHONE: Unknown Other Current PHONE: Unknown Maria R has no Care Guidelines for this patient. Care History Medical/Surgical 07/10/2018 [facility] - PATIENT IS CURRENTLY ON SERVICES WITH PULMONARY REHAB AT [facility]. 05/23/2018 [facility] PATIENT NEXT APPOINTMENT WITH DR NELSON:\T\nbsp; May. 04/03/2018 [facility] - PATIENT HAS AN APT WITH DR NELSON ON 04/17/18. - Patient is currently established with [facility]. If patient is seen in the ED during business hours. Please contact [facility]Ws at [facility]. Care Recommendation: This patient has had [...] care. E.D. VISIT COUNT (12 MO.) 1 [facility] 16 [facility] [place] TOTAL 17 NOTE: Visits indicate total known visits. 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 - Allergy status to penicillin - Essential (primary) hypertension - Chronic obstructive pulmonary disease, unspecified 07/09/2018 20:05 [facility] [place] TYPE: Emergency COMPLAINT: - SOB DIAGNOSES: - Shortness of breath - 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 service 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 (current) use of aspirin - Allergy status to penicillin - Essential (primary) hypertension - Chronic obstructive pulmonary disease with (acute) exacerbation - Personal history of nicotine dependence - Other long-term (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 - Benign prostatic hyperplasia without lower urinary tract symptoms 06/14/2018 18:43 [facility] TYPE: Emergency DIAGNOSES: - Chronic obstructive pulmonary disease with (acute) exacerbation - Hypoxemia - Shortness of Breath - Chest Pain 06/13/2018 20:20 [facility] TYPE: Emergency COMPLAINT: - DIFFICULTY BREATHING 06/12/2018 12:59 [facility] [place] TYPE: Emergency COMPLAINT: - SOB DIAGNOSES: - Candidal stomatitis - Allergy status to penicillin - Shortness of breath - 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 - Essential (primary) hypertension - Personal history of nicotine dependence - Chronic obstructive pulmonary disease with (acute) exacerbation - Chronic obstructive pulmonary disease with (acute) exacerbation - [facility] (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 06/08/2018 19:37 [facility] [place] TYPE: Emergency COMPLAINT: - DIFFICULTY BREATHING 06/08/2018 01:29 [facility] TYPE: Emergency COMPLAINT: - DIFFICULTY BREATHING DIAGNOSES: - 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 service 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 (current) use of aspirin - Essential (primary) hypertension - Other long-term (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 - Personal history of nicotine dependence - Chronic obstructive pulmonary disease with (acute) exacerbation - [facility] (current) use of systemic steroids - Allergy status to penicillin - Shortness of breath 05/24/2018 07:27 [facility] [place] TYPE: Emergency COMPLAINT: - SOB 05/22/2018 01:46 [facility] TYPE: Emergency COMPLAINT: - SOB DIAGNOSES: - Other long-term (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 - Hyperglycemia, unspecified - Chronic obstructive pulmonary disease with (acute) exacerbation - Nicotine dependence, unspecified, uncomplicated - [facility] (current) use of systemic steroids - Essential (primary) hypertension - Shortness of breath - Allergy status to penicillin - [facility] (current) use of aspirin 05/03/2018 01:09 [facility] TYPE: Emergency COMPLAINT: - DIFFICUTLY BREATHING 04/16/2018 22:51 [facility] TYPE: Emergency COMPLAINT: - ANXIETY,SOB DIAGNOSES: - Chronic obstructive pulmonary disease, unspecified - 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 - Nicotine dependence, unspecified, uncomplicated - [facility] (current) use of systemic steroids - [facility] (current) use of aspirin - Essential (primary) hypertension - Allergy status to penicillin - Anxiety disorder, unspecified 04/15/2018 19:41 [facility] TYPE: Emergency COMPLAINT: - SHORTNESS OF BREATH/CONSTIPATION DIAGNOSES: - Shortness of breath - Essential (primary) hypertension - Constipation, unspecified - Nicotine dependence, unspecified, uncomplicated - Chronic obstructive pulmonary disease with (acute) exacerbation - Allergy status to penicillin - 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 04/02/2018 20:47 [facility] TYPE: Emergency COMPLAINT: - SOB DIAGNOSES: - Nicotine dependence, unspecified, uncomplicated - [facility] (current) use of aspirin - Chronic obstructive pulmonary disease with (acute) exacerbation - Allergy status to penicillin - Essential (primary) hypertension - Shortness of breath - 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 03/16/2018 20:53 [facility] TYPE: Emergency COMPLAINT: - SOB,WEAKNESS DIAGNOSES: - Allergy status to penicillin - 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 - Chronic obstructive pulmonary disease with (acute) exacerbation - Nicotine dependence, unspecified, uncomplicated - Shortness of breath - Essential (primary) hypertension 11/15/2017 19:51 [facility] TYPE: Emergency COMPLAINT: - SWOLLEN GLANDS DIAGNOSES: - Nicotine dependence, unspecified, uncomplicated - 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 - Chronic obstructive pulmonary disease, unspecified - Acute pharyngitis, unspecified - Sialoadenitis, unspecified - Essential (primary) hypertension - Allergy status to penicillin 11/03/2017 12:09 [facility] TYPE: Emergency COMPLAINT: - WEAKNESS DIAGNOSES: - Essential (primary) hypertension - Allergy status to penicillin - Weakness - Nicotine dependence, unspecified, uncomplicated - 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 - Chronic obstructive pulmonary disease with (acute) exacerbation INPATIENT VISIT TRACKING (12 MO.) 06/14/2018 18:43 [facility] TYPE: General Medicine DIAGNOSES: - Chronic obstructive pulmonary disease with (acute) exacerbation - Hypoxemia 06/13/2018 20:21 [facility] [place] TYPE: Observation COMPLAINT: - DEHYDRATION DIAGNOSES: - Essential (primary) hypertension - 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 - 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 service 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 (current) use of inhaled steroids - 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 service 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 (current) use of antibiotics - 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 service 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 (current) use of systemic steroids - [facility] (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 - Adjustment disorder with depressed mood - Anxiety disorder, unspecified - Dehydration - Weakness - 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 service 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 (current) use of aspirin - Personal history of nicotine dependence - Chronic respiratory failure with hypoxia - Benign prostatic hyperplasia without lower urinary tract symptoms - Allergy status to penicillin - Chronic obstructive pulmonary disease with (acute) exacerbation - Type 2 diabetes mellitus without complications 06/08/2018 19:38 [facility] TYPE: Observation COMPLAINT: - COPD EXACERBATION DIAGNOSES: - Benign prostatic hyperplasia without lower urinary tract symptoms - Essential (primary) hypertension - Acute and chronic respiratory failure with hypoxia - Chronic obstructive pulmonary disease with (acute) exacerbation - Hyperglycemia, unspecified - Personal history of nicotine dependence - Allergy status to penicillin - 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 service 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 (current) use of aspirin - 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 service 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 (current) use of inhaled steroids - [facility] (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 - [facility] (current) use of non-steroidal anti-inflammatories (NSAID) - Shortness of breath - Other long-term (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 - 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 service 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 (current) use of systemic steroids - Adverse effect of glucocorticoids and synthetic analogues, initial encounter 05/24/2018 07:28 [facility] TYPE: Observation COMPLAINT: - COPD, HYPOXIA DIAGNOSES: - Shortness of breath - Other specified abnormalities of plasma proteins - 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 - Essential (primary) hypertension - Nicotine dependence, cigarettes, uncomplicated - Allergy status to penicillin - Benign prostatic hyperplasia without lower urinary tract symptoms - [facility] (current) use of systemic steroids - Acute and chronic respiratory failure with hypoxia - [facility] (current) use of inhaled steroids - 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 service 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 (current) use of aspirin - Cramp and spasm - 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 - Chronic obstructive pulmonary disease with (acute) exacerbation - 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 service 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 (current) use of oral hypoglycemic drugs - Adverse effect of glucocorticoids and synthetic analogues, initial encounter 05/03/2018 01:10 [facility] TYPE: Observation COMPLAINT: - COPD EXACERBATION DIAGNOSES: - 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 - Benign prostatic hyperplasia without lower urinary tract symptoms - Allergy status to penicillin - Chronic obstructive pulmonary disease with (acute) exacerbation - [facility] (current) use of aspirin - Nicotine dependence, unspecified, uncomplicated - Essential (primary) hypertension - Nicotine dependence, cigarettes, uncomplicated - Shortness of breath - 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 service 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 (current) use of inhaled steroids - Personal history of traumatic brain injury 04/03/2018 11:16 [facility] TYPE: Observation COMPLAINT: - COPD EXACERBATION DIAGNOSES: - Essential (primary) hypertension - Allergy status to penicillin - [facility] (current) use of inhaled steroids - Benign prostatic hyperplasia without lower urinary tract symptoms - Nicotine dependence, cigarettes, uncomplicated - Other long-term (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 - Cramp and spasm - 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 service 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 (current) use of aspirin - 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 service 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 (current) use of systemic steroids - Chronic obstructive pulmonary disease with (acute) exacerbation [email or web address]
[2018-08-10] MEDS ORDERED: PREDNISONE20 MG PO (11:12)
== END 2018-08-10 11:29 | disposition home or self-care (01) ==
LOC: ED 10:13
DX: J44.1 Chronic obstructive pulmonary disease with (acute) exacerbation (principal); I10 Essential (primary) hypertension; Z87.891 Personal history of nicotine dependence; Z88.0 Allergy status to penicillin; Z79.899 Other long term (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; Z79.82 Long term (current) use of aspirin
CPT/HCPCS: 71046; 94640; 99284-25; J7512

== ENCOUNTER 2018-08-26 04:26 | Emergency (ER) | payer MEDICARE, OTHER ==
[~2018-08-26] VITALS: Ht 172.7 cm; Wt 72.6 kg
--- OUTSIDE RECORDS SUMMARY | ~2018-08-26 | XMS | Encounter Summary ---
Demographics + + + | Address | [address] | | | [place] [address] | + + + | Home Phone | | + + + | Preferred Language | Unknown | + + + | Marital Status | | + + + | Anabaptism Affiliation | Unknown | + + + | Race | Unknown | + + + | Ethnic Group | Unknown | + + + Author + + + | Author | [facility] | + + + | Organization | [facility] | + + + | Address | Unknown | + + + | Phone | Unavailable | + + + Support + + + + + | Name | Relationship | Address | Phone | + + + + + | Jerry Miranda | ECON | [place] | | + + + + + | Amaris Miranda | ECON | [place] , [place] | | + + + + + Care Team Providers + +------+ + | Care Catering Truck Operator Name | Role | Phone | + +------+ + | Adi Garrett MD | PCP | | + +------+ + Reason for Referral Diagnostic Lab (Routine) + +--------+ + + + + | Status | Reason | Specialty | Diagnoses / | Referred By | Referred To | | | | | Procedures | Contact | Contact | + +--------+ + + + + | Authorized | | | Diagnoses | Harlan, | Brennan, | | | | | | MD Chip | [facility] | | | | | Centrilobula | [address] | | | | | kevan rubin | [address] | [place] | | | | | ([facility]) | [place], | [place], [place] | | | | | Procedures | [place] [address] | [address] | | | | | Complete PFT | Phone: | Phone: | | | | | - Pre & | [phone] | [phone] | | | | | Post | Fax: | Fax: | | | | | Spirometry, | [phone] | [phone] | | | | | PLETH & DLCO | | | + +--------+ + + + + Reason for Visit Consult and Treat (Urgent) + +--------+ + + + + | Status | Reason | Specialty | Diagnoses / | Referred By | Referred To | | | | | Procedures | Contact | Contact | + +--------+ + + + + | Authorized | | Pulmonology | Diagnoses | Garrett, | Harlan, | | | | | Chronic | MD Adi | MD Chip | | | | | obstructive | [address] | [address] | | | | | pulmonary | [address] | | | | | disease, | [place], | [facility], [place] | | | | | unspecified | [place] [address] | [address] Phone: | | | | | (HCC) | Phone: | [phone] | | | | | | [phone] | Fax: | | | | | | Fax: | [phone] | | | | | | [phone] | | + +--------+ + + + + Encounter Details +--------+---------+ + + + | Date | Type | Department | Care Team | Description | +--------+---------+ + + + | 07/30/ | Office | [facility] | Chip Claros MD | Centrilobular | | 2019 | Visit | Pulmonology [address] | [address] | emphysema (HCC) | | | | [address] | [place] [address] | (Primary Dx) | | | | [place], [place] | [phone] | | | | | [address] | | | | | | [phone] | | | +--------+---------+ + + + Social History + +-------+ +--------+ + | Tobacco Use | Types | Packs/Day | Years | Date | | | | | Used | | + +-------+ +--------+ + | Former Smoker | | | 1 | Quit: 05/21/2018 | + +-------+ +--------+ + + +---+---+---+ | Smokeless Tobacco: | | | | | Never Used | | | | + +---+---+---+ + + +---------+ + | Alcohol Use | Drinks/We | oz/Week | Comments | | | ek | | | + + +---------+ + | No | | | | + + +---------+ + + + + | Sex Assigned at | Date Recorded | | | | + + + | Not on file | | + + + as of this encounter Last Filed Vital Signs + + + + | Vital Sign | Reading | Time Taken | + + + + | Blood Pressure | 134/74 | 07/30/2018 2:32 PM PDT | + + + + | Pulse | 93 | 07/30/2018 2:32 PM PDT | + + + + | Temperature | 36.2 C (97.1 F) | 07/30/2018 2:32 PM PDT | + + + + | Respiratory Rate | - | - | + + + + | Oxygen Saturation | 96% | 07/30/2018 2:32 PM PDT | + + + + | Inhaled Oxygen | - | - | | Concentration | | | + + + + | Weight | 67.9 kg (149 lb 9.6 | 07/30/2018 2:32 PM PDT | | | oz) | | + + + + | Height | 172.7 cm (5' 8") | 07/30/2018 2:32 PM PDT | + + + + | Body Mass Index | 22.75 | 07/30/2018 2:32 PM PDT | + + + + in this encounter Instructions Patient Instructions - Chip Claros MD - 07/30/2018 2:00 PM PDTPlease stop Spiriva He should use Brovana twice daily with nebulizer Budesonide nebulizer twice daily Daliresp one tablet daily He can use albuterol as needed For now he can use duoneb 4 times daily but when this batch is over please do not refill it I will send a new prescription for atrovent We will order a PFT to be done at [facility] in this encounter Progress Notes Chip Claros MD - 07/30/2018 2:00 PM PDTFormatting of this note may be different from rosa amos original. Subjective: Patient ID: David Miranda is a 83 y.o. male is here for evaluation of COPD HPI The following portions of the patient's history were reviewed and updated as appropriate an d is available elsewhere in the record: allergies, current medications, past family history, past medical history, past social history, past surgical history and problem list. The patient is a pleasant 83-year-old male who was diagnosed with COPD in 2009. He says th at he has been managed with multiple inhalers in the past and due to poor tolerance, he has been switched to nebulizations. He does not recall any of his medications but fortunately lopez amos has got all his medications with him. His uasqubjl-kk-wkc who is also his caregiver, give s him his medications. He uses his Spiriva once a day. DuoNeb four times a day. He does n ot recall if he takes Brovana or budesonide. However, he does say that all medications whkaryna marroquin are there in the bag are given to him on the regular times. He has had multiple exacerbat ions in the past one year. All exacerbations are treated with prednisone. Most recent exac erbation was in May. His primary care physician has added Daliresp 250 mcg which he toya es everyday. He has been participated in physical therapy/pulmonary rehab. He has not rece ntly been intubated for respiratory failure. He does not use oxygen on exertion. He denies any chest pain, orthopnea or PND. He is an informed smoker who quit smoking 90 days ago. Review of Systems Constitutional: Positive for activity change, diaphoresis and fatigue. HENT: Negative. Eyes: Negative. Respiratory: Positive for cough, chest tightness and shortness of breath. Cardiovascular: Negative. Gastrointestinal: Negative. Endocrine: Negative. Genitourinary: Negative. Musculoskeletal: Negative. Skin: Negative. Allergic/Immunologic: Negative. Neurological: Negative. Hematological: Negative. Psychiatric/Behavioral: Negative. History: Past Medical History Diagnosis Date BPH (benign prostatic hyperplasia) Chronic obstructive pulmonary disease (HCC) HTN (hypertension) Type 2 diabetes mellitus (HCC) History reviewed. No pertinent surgical history. Social History Social History Marital status: Spouse name: N/A Number of children: N/A Years of education: N/A Social History Main Topics Smoking status: Former Smoker Years: 1.00 Quit date: 05/21/2018 Smokeless tobacco: Never Used Alcohol use No Drug use: No Sexual activity: Not Asked Other Topics Concern None Social History Narrative None History reviewed. No pertinent family history. Allergies: No Known Allergies Current Medications: Current Outpatient Prescriptions on File Prior to Visit Medication Sig Dispense Refill Blood Glucose Monitoring Suppl (FREESTYLE LITE) BONY USE DAILY QID DIRECTED 0 BROVANA 15 MCG/2ML NEBU INHALE THE CONTENTS OF 1 VIAL VIA NEBULIZER BID 3 budesonide (PULMICORT) 0.5 MG/2ML nebulizer suspension INHALE THE CONTENTS OF 1 VIAL A NEBULIZER BID 0 DALIRESP 250 MCG TABS TK 1 T PO QD 3 FREESTYLE LITE test strip USE TO TEST QID 3 ipratropium-albuterol (DUO-NEB) 0.5-2.5 mg/3mL INHALE THE CONTENTS OF 1 VIAL VIA NEBULI ZER Q 4 H 11 lisinopril (ZESTRIL) 20 MG tablet TK 1 T PO QD 3 metFORMIN (GLUCOPHAGE) 500 MG tablet TK 1 T PO BID WAC 3 tamsulosin (FLOMAX) 0.4 MG capsule TK 1 C PO QD 3 VENTOLIN HFA 108 (90 Base) MCG/ACT inhaler INHALE 2 PUFFS PO Q 2 H PRF SHORTNESS OF JAMES ATH OR WHEEZING 11 [DISCONTINUED] SPIRIVA HANDIHALER 18 MCG inhalation capsule INHALE THE CONTENTS OF 1 CA PSULE VIA DEVICE ONCE A DAY 3 glimepiride (AMARYL) 2 MG tablet Take 1 tablet by mouth every morning before breakfast. (Patient not taking: Reported on 07/30/2018) 30 tablet 1 HUMULIN R 100 UNIT/ML injection 0 Insulin Syringe-Needle U-100 (INSULIN SYRINGE .5CC/30GX5/16") 30G X 5/16" 0.5 ML MISC U SE QID DIRECTED 6 LORazepam (ATIVAN) 1 MG tablet TK 1 T PO 3 XD PRA 0 predniSONE (DELTASONE) 10 MG tablet Take 30 mg daily for 2 days, then 20 mg daily for 2 days, then 10 mg daily for 2 days, then 5 mg daily for 2 days, then stop. (Patient not taki ng: Reported on 07/30/2018) 15 tablet 0 No current facility-administered medications on file prior to visit. Objective: Physical Exam Vitals: 07/30/18 1432 BP: 134/74 Pulse: 93 Temp: 97.1 F (36.2 C) SpO2: 96% Vital signs reviewed. Three-step test noted there was no oxygen desaturation GENERAL: pleasant, cooperative, oriented, in mild distress HEENT: pink conjunctiva, anicteric sclerae, moist oral mucosae and without any lesions, nor mal appearing nasal mucosae; no JVD; MALAMPATTI _2__; no thyromegaly; no cervicolymphadenopa lesa CVS: PMI non displaced, NRRR, S1 and S2, no murmurs/gallops/rubs CHEST: Examination of the chest was unremarkable. There were no bony deformities, no asymme try, and no other abnormalities. LUNGS: Normal effort, Equal in expansion, resonant to percussion, clear and equal breath so unds, no wheezes/rales/rhonchi ABDOMEN: Flat abdomen, NABS, non-tender on palpation, Traube's space intact, liver span nor mal, no masses palpated EXTREMITIES: good distal pulses, no cyanosis, no edema, no clubbing, no nail abnormalities NEURO: awake and oriented, gait normal, no focal neurologic deficits CT chest PE protocol 06/14/2018 1. No evidence of pulmonary embolus. 2. Panlobular emphysematous change with probable chronic bronchitis. 3. Asymmetric bronchial wall thickening the lower lung zones, particularly on the left, perhaps with mild peribronchial infiltrate in the left lower lobe, and scarring in the peripheral left lower lobe with mild pleural thickening. 4. Blebs/bullae in the lateral left lung base. Pulmonary function test 2016 [facility] severe obstructive impairment with very s everely reduced diffusing capacity. There is evidence of air trapping and hyperinflation Assessment and Plan: 1. Centrilobular emphysema (HCC) The patient has history of severe COPD since 2016 as per the documentation by PFT and since 2009 based on his symptoms. He has symptoms suggestive of emphysema more than chronic bron chitis. He is on maximal medical therapy however there are a lot of overlapping medications . To simplify I have advised him to stop using Spiriva completely He will use DuoNeb nebulization every 6 hours when awake and once his current patch is over I will switch him to Atrovent nebulizations every 6 hours when awake He will use Brovana twice daily He will use budesonide twice daily via nebulization He will use albuterol as needed If he has another exacerbation I will increase his Daliresp to 500 g I do not think he is retaining carbon dioxide as his room air oxygen saturations are normal hence there is no clear role of noninvasive ventilation at this point. I will repeat a pul monary function test which will be done at [facility] - Complete PFT - Pre & Post Spirometry, PLETH & DLCO; Future I have written all these instructions so that his caregiver can read them and follow Thank you for allowing me to participate in your patient's care. We will review test result s that we have ordered with the patient once they become available. A return visit has been scheduled in 2/months. Chip Claros MD Pulmonary and Critical Care Medicine [facility] [address] , [place] [address] in this encounter Plan of Treatment +--------+---------+ + + + | Date | Type | Specialty | Care Team | Description | +--------+---------+ + + + | 10/08/ | Office | Pulmonology | Chip Claros MD | | | 2019 | Visit | | [address] | | | | | | [place] [address] | | | | | | [phone] | | | | | | | | +--------+---------+ + + + + +--------+ + + | Name | Priori | Associated Diagnoses | Order Schedule | | | ty | | | + +--------+ + + | Complete PFT - Pre & Post | Routin | Centrilobular | Expected: | | Spirometry, PLETH & DLCO | e | emphysema (HCC) | 08/30/2018, Expires: | | | | | 07/30/2019 | + +--------+ + + as of this encounter Visit Diagnoses + + | Diagnosis | + + | Centrilobular emphysema (HCC) - Primary | + + | Other emphysema | + +
--- OUTSIDE RECORDS SUMMARY | ~2018-08-26 | XMS | Encounter Summary ---
Demographics + + + | Address | [address] | | | [place] [address] | + + + | Home Phone | | + + + | Preferred Language | Unknown | + + + | Marital Status | | + + + | Jehovah'S Witness Affiliation | Unknown | + + + | Race | Unknown | + + + | Ethnic Group | Unknown | + + + Author + + + | Author | [facility] | + + + | Organization | [facility] | + + + | Address | Unknown | + + + | Phone | Unavailable | + + + Support + + + + + | Name | Relationship | Address | Phone | + + + + + | Jerry Miranda | ECON | [place] | | + + + + + | Amaris Miranda | ECON | [place] , [place] | | + + + + + Care Team Providers + +------+ + | Care Federal Aid Coordinator Name | Role | Phone | + +------+ + | Adi Garrett MD | PCP | | + +------+ + Reason for Visit +--------+ + | Reason | Comments | +--------+ + | Other | 3-STEP | +--------+ + Encounter Details +--------+ + + + + | Date | Type | Department | Care Team | Description | +--------+ + + + + | 07/30/ | Documentati | [facility] | Clifton Feliciano, | Other (3-STEP) | | 2019 | on Only | Pulmonology [address] | [address] | | | | | [address] | | | | | | [place], [place] | | | | | | [address] | | | | | | [phone] | | | +--------+ + + + + Social History + +-------+ [...] + + + as of this encounter Progress Notes Clifton Feliciano MA - 07/30/2018 3:09 PM PDT3 step testing Oximetry Exercise (code) [id number] 1. At rest on room air: Time: 2:55PM Heart rate: 100 Oxygen saturations: 96% 2. At exercise on room air: Time: 2:59PM Heart rate: 120 Oxygen saturations: 94% 3. At exercise with oxygen: Time: Heart rate: Oxygen Saturations: Liters per minute: in this encounter Plan of Treatment +--------+---------+ + + + | Date | Type | Specialty | Care Team | Description | +--------+---------+ + + + | 10/08/ | Office | Pulmonology | hCip Claros MD | | | 2019 | Visit | | [address] | | | | | | [place] [address] | | | | | | [phone] | | | | | | | | +--------+---------+ + + + as of this encounter Visit Diagnoses Not on filein this encounter"
--- OUTSIDE RECORDS SUMMARY | ~2018-08-26 | XMS | Encounter Summary ---
Demographics + + + | Address | [address] | | | [place] [address] | + + + | Home Phone | | + + + | Preferred Language | Unknown | + + + | Marital Status | | + + + | Shinto Affiliation | Unknown | + + + | Race | Unknown | + + + | Ethnic Group | Unknown | + + + Author + + + | Author | [facility] | + + + | Organization | [facility] | + + + | Address [...] Team Providers + +------+ + | Care Electronic Warfare Linguist Name | Role | Phone | + +------+ + | Adi Nelson MD | PCP | | + +------+ + Reason for Visit + + + | Reason | Comments | + + + | Shortness of Breath | recently hospitalized for same. | + + + | Chest Pain | | + + + Auth/Cert +--------+--------+ + + + + | Status | Reason | Specialty | Diagnoses / | Referred By | Referred To | | | | | Procedures | Contact | Contact | +--------+--------+ + + + + | | | Internal | Diagnoses | | [facility] | | | | Medicine | Acute | | [address] | | | | | exacerbation | | [address] | | | | | of chronic | | [address] | | | | | obstructive | | [place], [place] | | | | | pulmonary | | [address] Phone: | | | | | disease | | [phone] | | | | | (COPD) ([facility]) | | | | | | | Hypoxia | | | | | | | | | | +--------+--------+ + + + + Encounter Details +--------+ + + + + | Date | Type | Department | Care Team | Description | +--------+ + + + + | 06/14/ | Hospital | [facility] | Teja Blandon, | Acute exacerbation | | 2019 - | Encounter | [facility] | MD [address] | of chronic | | | | [place] | EMERGENCY DEPARTMENT | obstructive | | 06/16/ | | [address] | [place] [address] | pulmonary disease | | 2019 | | [place] [address] | [phone] | (COPD) (HCC) | | | | [phone] | | (Primary Dx); | | | | | Lei Barcenas, | Hypoxia | | | | | MD [address] | | | | | | [place] [address] | | | | | | [phone] | | | | | | | | | | | | Deric Nevarez MD | | | | | | [address] | | | | | | [place] [address] | | | | | | [phone] | | | | | | | | | | | | Hector Murdock | | | | | | MD [address] | | | | | [address] [place], [place] | | | | | | [address] | | | | | | | | +--------+ + + + + Social History + +-------+ +--------+------+ | Tobacco Use | Types | Packs/Day | Years | Date | | | | | Used | | + +-------+ +--------+------+ | Former Smoker | | | 1 | | + +-------+ +--------+------+ + +---+---+---+ | Smokeless Tobacco: | | [...] + + + | Blood Pressure | 167/77 | 06/16/2018 11:29 AM PST | + + + + | Pulse | 79 | 06/16/2018 11:29 AM PST | + + + + | Temperature | 36.7 C (98.1 F) | 06/16/2018 11:29 AM PST | + + + + | Respiratory Rate | 16 | 06/16/2018 11:29 AM PST | + + + + | Oxygen Saturation | 95% | 06/16/2018 11:29 AM PST | + + + + | Inhaled Oxygen | - | - | | Concentration | | | + + + + | Weight | 73.6 kg (162 lb 3.2 | 06/16/2018 4:48 AM PST | | | oz) | | + + + + | Height | 172.7 cm (5' 8") | 06/14/2018 10:44 PM PST | + + + + | Body Mass Index | 24.66 | 06/16/2018 4:48 AM PST | + + + + in this encounter Discharge Summaries Hector Murdock MD - 06/16/2018 10:29 AM PSTFormatting of this note may be different from the original. [facility] Service: Hospitalist Physician Discharge Summary Pt: David Miranda AGE/SEX: 83 y.o. male ROOM: [facility] PCP: Adi Nelson : 1935 Admit date: 06/14/2018 Discharge date and time: 06/16/18 Admitting Physician: Lei Barcenas MD Discharge Physician: Hector Murdock MD Consults: Primary Discharge Diagnoses: Principal Problem: COPD with acute exacerbation (HCC) Active Problems: Acute on chronic respiratory failure with hypoxia (HCC) Bandemia Pneumonia of left lower lobe due to infectious organism (HCC) Generalized weakness Resolved Problems: * No resolved hospital problems. * Secondary Discharge Diagnoses: Discharged Condition: stable Significant Diagnostic Studies: Xr Chest Pa And Lateral Result Date: 06/14/2018 Mild ill-defined densities in the left lower lobe which may represent atelectasis, bronchio litis or scarring. Hyperexpansion of the lungs suggestive of COPD. Signed by: MD Sutton J effrey Sign Date/Time: 06/14/2018 7:[address] Chest Pe Protocol Result Date: 06/14/2018 1. No evidence of pulmonary embolus. 2. Panlobular emphysematous change with probable chron ic bronchitis. 3. Asymmetric bronchial wall thickening the lower lung zones, particularly on the left, perhaps with mild peribronchial infiltrate in the left lower lobe, and scarring i n the peripheral left lower lobe with mild pleural thickening. 4. Blebs/bullae in the latera l left lung base. Signed by: Alex Brewer Sign Date/Time: 06/14/2018 8:35 PM HPI and Hospital Course: Mr. 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 The shanon ramirez was admitted overnight and was discharged in the morning hours in a stable condition. Ho wever, the patient's family thought he still has ongoing dyspnea, and hence they drove him t o the emergency department of this hospital and was again admitted. HOSPITAL COURSE: A CT of chest was done that was negative for PE, but showed significant p anlobular emphysema and chronic bronchitis and question of left lower lobe infiltrate. Whit e count was elevated at 16,000, but the patient was taking prednisone at home. He received IV Solu-Medrol and nebulized treatment as well as supplemental oxygen. His symptoms slowly improved, and yesterday apart from minimal wheezing, he felt a lot better, and was taken off supplemental oxygen. IV Solu-Medrol was changed to oral prednisone yesterday. The patient was kept for one more day in the hospital, and today he does not have any shortness of dilan th or wheezing and wants to go home. In my opinion, he is stable for discharge. The preethi gil is on several inhalers including inhaled steroids, long-acting beta-agonist and Spiriva. I will continue all other medications. He also has a nebulized treatment at home that he is supposed to use every 4 hours as needed. We will give him tapering doses of prednisone for one week. There is no need for antibiotics, as he is afebrile, and has had several courses of oral antibiotics including Ceftin and doxycycline recently. Elevated white count is due to prednisone. In my opinion, the possible infiltrate on chest x-ray is just an incidental finding. The patient has an upcoming appointment with Dr. Claros in about two weeks from no w. His blood sugars were slightly out of control due to steroids, and I am hopeful that onc e he is off prednisone, his blood sugars will be under better control. However, the patient is advised to follow with his primary care physician in about one week from now for rest of his medical issues. Discharge Vitals: Vitals: 06/15/18 2313 06/16/18 0448 06/16/18 0731 06/16/18 0804 BP: 171/81 177/84 168/74 BP Location: Right upper arm Right upper arm Right upper arm Pulse: 71 60 74 74 Resp: 20 16 18 16 Temp: 98.1 F (36.7 C) 97.7 F (36.5 C) 98 F (36.7 C) TempSrc: Oral Oral Oral SpO2: 94% 94% 95% 93% Weight: 73.6 kg (162 lb 3.2 oz) Height: Discharge Exam: Constitutional: Alert and oriented to person, place, and time. Appears well-developed and w ell-nourished. Cardiovascular: Normal rate, regular rhythm, normal heart sounds with S1 and S2 and intact distal pulses. Exam reveals no gallop and no friction rub. No murmur heard. Pulmonary/Chest: Effort normal and breath sounds diminished bilaterally No stridor. No resp iratory distress. no wheezes. no rales. exhibits no tenderness. Abdominal: Soft. Bowel sounds are normal. exhibits no distension and no mass. There is no t enderness. There is no rebound and no guarding. Musculoskeletal: Normal range of motion.exhibits no tenderness. exhibits no edema. Neurological: Alert and oriented to person, place, and time. No cranial nerve deficit. Ex hibits normal muscle tone. Coordination normal. Skin: Skin is warm and dry. No rash noted. No erythema. No pallor. Psychiatric: Has a normal mood and affect. Behavior is normal. Judgment normal. LABS: Recent Labs Lab 06/16/18 0558 06/15/18 0619 06/14/181905 WBC 18.75* 11.50* 16.54* HGB 11.2* 11.7* 13.4 HCT 33.4* 35.2* 41.0 PLT 235 208 225 Recent Labs Lab 06/16/18 0558 06/15/18 0619 06/14/181905 NA 140 138 141 K 3.9 4.4 4.8 CL 104 100 99 CO2 27 28 29 BUN 20 20 23 CREATININE 0.8 0.9 1.07 PROT -- 5.4* 6.0* BILITOT -- 0.6 0.7 ALT -- 38 47 AST -- 14 37 Invalid input(s): LABALBU Recent Labs Lab 06/15/18 06 MG 2.0 No results for input(s): AMYLASE in the last 168 hours. No results for input(s): PHART, PO2ART, LBZ8ADR, E1RATGFJ, BEART in the last 168 hours. Recent Labs Lab 06/14/181905 APTT 21* INR 0.9 Recent Labs Lab 06/14/181905 CKTOTAL 77 TROPONINI 0.031 CKMBINDEX 7.4 Disposition: Home Patient Instructions: Medication List START taking these medications glimepiride 2 MG tablet QTY: 30 tablet Refills: 1 Commonly known as: AMARYL Take 1 tablet by mouth every morning before breakfast. CHANGE how you take these medications predniSONE 10 MG tablet QTY: 15 tablet Refills: 0 Commonly known as: DELTASONE Take 30 mg daily for 2 days, then 20 mg daily for 2 days, then 10 mg daily for 2 days, then 5 mg daily for 2 days, then stop. What changed: medication strength See the new instructions. VENTOLIN HFA 108 (90 Base) MCG/ACT inhaler Refills: 11 Generic drug: albuterol What changed: Another medication with the same name was removed. Continue taking this medi cation, and follow the directions you see here. CONTINUE taking these medications BROVANA 15 MCG/2ML Nebu Refills: 3 Generic drug: arformoterol budesonide 0.5 MG/2ML nebulizer suspension Refills: 0 Commonly known as: PULMICORT DALIRESP 250 MCG Tabs Refills: 3 Generic drug: Roflumilast FREESTYLE LITE Jana Refills: 0 FREESTYLE LITE test strip Refills: 3 Generic drug: glucose blood HUMULIN R 100 UNIT/ML injection Refills: 0 Generic drug: insulin regular INSULIN SYRINGE .5CC/30GX5/16" 30G X 5/16" 0.5 ML Misc Refills: 6 ipratropium-albuterol 0.5-2.5 mg/3mL Refills: 11 Commonly known as: DUO-NEB lisinopril 20 MG tablet Refills: 3 Commonly known as: ZESTRIL LORazepam 1 MG tablet Refills: 0 Commonly known as: ATIVAN metFORMIN 500 MG tablet Refills: 3 Commonly known as: GLUCOPHAGE SPIRIVA HANDIHALER 18 MCG inhalation capsule Refills: 3 Generic drug: tiotropium tamsulosin 0.4 MG capsule Refills: 3 Commonly known as: FLOMAX You might also be taking other medications not listed above. If you have questions about an y of your other medications, talk to the person who prescribed them or your Primary Care Pro vider. STOP taking these medications cefUROXime 500 MG tablet Commonly known as: CEFTIN clotrimazole 10 MG carlitos Commonly known as: MYCELEX doxycycline 100 MG capsule Commonly known as: VIBRAMYCIN sulfamethoxazole-trimethoprim 800-160 MG per tablet Commonly known as: BACTRIM DS Where to Get Your Medications You can get these medications from any pharmacy Bring a paper prescription for each of these medications glimepiride 2 MG tablet predniSONE 10 MG tablet Activity: activity as tolerated Diet: cardiac diet and diabetic diet Wound Care: not applicable Total time of discharge: 35 minutes. This included talking to patient, examining patient, d iscussing outpatient plan of care, reconciling home medications and dictating discharge summ perry. Follow-up with PCP in 1 week. Signed: Hector Murdock MD 06/16/2018 10:29 [place] this encounter Discharge Instructions Hector Murdock MD - 06/16/2018Continue supplemental oxygen at 2 liters/minute at [facility]. in this encounter Medications at Time of Discharge + + +--------+---------+ + + | Medication | Sig. | Disp. | Refills | Start | End Date | | | | | | Date | | + + +--------+---------+ + + | Blood Glucose | USE DAILY QID | | 0 | 05/29/19 | | | Monitoring Suppl | DIRECTED | | | 19 | | | (EUFEMIA VÁZQUEZ) | | | | | | | JANA | | | | | | + + +--------+---------+ + + | BROVANA 15 MCG/2ML | INHALE THE CONTENTS | | 3 | 06/05/19 | | | NEBU | OF 1 VIAL VIA | | | 19 | | | | NEBULIZER BID | | | | | + + +--------+---------+ + + | budesonide | INHALE THE CONTENTS | | 0 | 05/13/20 | | | (PULMICORT) 0.5 | OF 1 VIAL VIA | | | 18 | | | MG/2ML nebulizer | NEBULIZER BID | | | | | | suspension | | | | | | + + +--------+---------+ + + | DALIRESP 250 MCG | TK 1 T PO QD | | 3 | 05/23/19 | | | TABS | | | | 19 | | + + +--------+---------+ + + | EUFEMIA VÁZQUEZ | USE TO TEST QID | | 3 | 05/29/19 | | | test strip | | | | 19 | | + + +--------+---------+ + + | glimepiride | Take 1 tablet by | 30 | 1 | 06/16/19 | | | (AMARYL) 2 MG tablet | mouth every morning | tablet | | 19 | 0 | | | before breakfast. | | | | | + + +--------+---------+ + + | HUMULIN R 100 | | | 0 | 05/30/19 | | | UNIT/ML injection | | | | 19 | | + + +--------+---------+ + + | Insulin | USE QID DIRECTED | | 6 | 05/29/19 | | | Syringe-Needle U-100 | | | | 19 | | | (INSULIN SYRINGE | | | | | | | .5CC/30GX5/16") 30G | | | | | | | X 516" 0.5 ML MISC | | | | | | + + +--------+---------+ + + | | INHALE THE CONTENTS | | 11 | 05/20/20 | | | ipratropium-albutero | OF 1 VIAL VIA | | | 18 | | | l (DUO-NEB) 0.5-2.5 | NEBULIZER Q 4 H | | | | | | mg/3mL | | | | | | + + +--------+---------+ + + | lisinopril | TK 1 T PO QD | | 3 | 05/02/20 | | | (ZESTRIL) 20 MG | | | | 18 | | | tablet | | | | | | + + +--------+---------+ + + | LORazepam (ATIVAN) | TK 1 T PO 3 XD PRA | | 0 | 04/17/20 | | | 1 MG tablet | | | | 18 | | + + +--------+---------+ + + | metFORMIN | TK 1 T PO BID WAC | | 3 | 06/05/19 | | | (GLUCOPHAGE) 500 MG | | | | 19 | | | tablet | | | | | | + + +--------+---------+ + + | predniSONE | Take 30 mg daily for | 15 | 0 | 06/16/19 | | | (DELTASONE) 10 MG | 2 days, then 20 mg | tablet | | 19 | | | tablet | daily for 2 days, | | | | | | | then 10 mg daily for | | | | | | | 2 days, then 5 mg | | | | | | | daily for 2 days, | | | | | | | then stop. | | | | | + + +--------+---------+ + + | tamsulosin | TK 1 C PO QD | | 3 | 05/20/20 | | | (FLOMAX) 0.4 MG | | | | 18 | | | capsule | | | | | | + + +--------+---------+ + + | VENTOLIN HFA 108 | INHALE 2 PUFFS PO Q | | 11 | 05/22/19 | | | (90 Base) MCG/ACT | 2 H PRF SHORTNESS OF | | | 19 | | | inhaler | BREATH OR WHEEZING | | | | | + + +--------+---------+ + + | SPIRIVA HANDIHALER | INHALE THE CONTENTS | | 3 | 06/05/19 | | | 18 MCG inhalation | OF 1 CAPSULE VIA | | | 19 | 9 | | capsule | DEVICE ONCE A DAY | | | | | + + +--------+---------+ + + as of this encounter Progress Notes Belle Castellano, PT - 06/15/2018 9:39 AM Silvino Soler PT: DAILY FOREVER! :-) Every commercial- move Read- every 5pg-move: Lying in bed: go slowly! 1)*Ankle pumps; 9)*Push heels down; 2)*Squeeze bottom/gluts/bladder; 3)*Push back of knees into bed/straight knees; 4) Straight leg up and down; 10) Scoot R/L; 5) Straight leg-slide out to side/back; 6) Heel slide- bring knee up/down to chest; 7) Jelly fish hands/feet- toe fruit or nut picker; 8) Straight arms-lift high-w/out pain, breath deep; * "1000-a -day" Both knees bent: 1) push bottom up/slight bridge(one knee bent-like one leg roll); 2) Rock knees R/L; 3) Bridge; 4) Rock baby; 5) Alternate reach -straight arms; 6) Chin tuck Sittin) Lift outside on foot; 1) Tap toes; 10) ABC's; 11) Lift breastbone; 2) Straighten knee and bend/kick ball; 3) Lift knee/march; 4) Step knee/foot out to side and back; 5) Squeeze bottom; 6) Straight arms-lift high w/out pain- deep breath; 7) Sit to stand 5x; 8) Scoot R/L B/F; 9) Backward shoulder rolls; NEVER GO THROUGH PAIN!!! Start slowly!!! Be safe!!! Standing- at counter: 1) Toe/heel raises; 2) March- lift knee; 3) Straight leg back; 4) Straight leg out to side; 5) Bend knee-kick self; 6) Push ups; 7) Back to wall-bend knees-flatten back Walking(Forward/Backward): 1) Side step; 2) Toe walk-Heel walk; 3) High knee march; 4) Toe to heel walk; Balance(Eyes Open/Close-Foam): 1) Feet together; 2) Toe to instep; 3) Heel to Toe; 4) Single foot stand; "*1000-a-day" Lying on back 1) Ankle pumps; 2) Squeeze bottom; 3) Push knees into bed; 4) Straight leg up; 5) Straight leg out; 6) Heel slide; Both knees bent: 1) push bottom up/slight bridge(one knee bent-like one leg roll); 2) Rock knees R/L; 3) Bridge; 4) Rock baby; 5) Alternate reach -straight arms; 6) Chin tuck in this encounter Plan of Treatment +--------+---------+ + + + | Date | Type | Specialty | Care Team | Description | +--------+---------+ + + + | 10/08/ | Office | Pulmonology | Chip Claros MD | | | 2019 | Visit | | [address] | | | | | | [place] [address] | | | | | | [phone] | | | | | | | | +--------+---------+ + + + as of this encounter Procedures + +--------+ + + + | Procedure Name | Priori | Date/Time | Associated Diagnosis | Comments | | | ty | | | | + +--------+ + + + | POCT GLUCOSE | Routin | 06/16/2018 | | Results for this | | | e | 11:28 AM | | procedure are in the | | | | PST | | results section. | + +--------+ + + + | IRON AND TIBC | Routin | 06/16/2018 | | Results for this | | | e - AM | 5:58 AM | | procedure are in the | | | | PST | | results section. | + +--------+ + + + | CBC W/AUTO DIFF | Routin | 06/16/2018 | | Results for this | | (REFLEX TO MANUAL) | e - AM | 5:58 AM | | procedure are in the | | | | PST | | results section. | + +--------+ + + + | FOLATE | Routin | 06/16/2018 | | Results for this | | | e - AM | 5:58 AM | | procedure are in the | | | | PST | | results section. | + +--------+ + + + | FERRITIN | Routin | 06/16/2018 | | Results for this | | | e - AM | 5:58 AM | | procedure are in the | | | | PST | | results section. | + +--------+ + + + | VITAMIN B12 | Routin | 06/16/2018 | | Results for this | | | e - AM | 5:58 AM | | procedure are in the | | | | PST | | results section. | + +--------+ + + + | BASIC METABOLIC | Routin | 06/16/2018 | | Results for this | | PANEL | e - AM | 5:58 AM | | procedure are in the | | | | PST | | results section. | + +--------+ + + + | POCT GLUCOSE | Routin | 06/16/2018 | | Results for this | | | e | 5:48 AM | | procedure are in the | | | | PST | | results section. | + +--------+ + + + | POCT GLUCOSE | Routin | 06/15/2018 | | Results for this | | | e | 9:40 PM | | procedure are in the | | | | PST | | results section. | + +--------+ + + + | POCT GLUCOSE | Routin | 06/15/2018 | | Results for this | | | e | 4:14 PM | | procedure are in the | | | | PST | | results section. | + +--------+ + + + | POCT GLUCOSE | Routin | 06/15/2018 | | Results for this | | | e | 11:16 AM | | procedure are in the | | | | PST | | results section. | + +--------+ + + + | SPUTUM CULT W/ GRAM | Timed | 06/15/2018 | | Results for this | | STAIN | | 7:59 AM | | procedure are in the | | | | PST | | results section. | + +--------+ + + + | CBC W/AUTO DIFF | Routin | 06/15/2018 | | Results for this | | (REFLEX TO MANUAL) | e - AM | 6:19 AM | | procedure are in the | | | | PST | | results section. | + +--------+ + + + | TSH | Routin | 06/15/2018 | | Results for this | | | e - AM | 6:19 AM | | procedure are in the | | | | PST | | results section. | + +--------+ + + + | PHOSPHOROUS | Routin | 06/15/2018 | | Results for this | | | e - AM | 6:19 AM | | procedure are in the | | | | PST | | results section. | + +--------+ + + + | MAGNESIUM | Routin | 06/15/2018 | | Results for this | | | e - AM | 6:19 AM | | procedure are in the | | | | PST | | results section. | + +--------+ + + + | HEMOGLOBIN A1C | Routin | 06/15/2018 | | Results for this | | | e - AM | 6:19 AM | | procedure are in the | | | | PST | | results section. | + +--------+ + + + | COMPREHENSIVE | Routin | 06/15/2018 | | Results for this | | METABOLIC PANEL | e - AM | 6:19 AM | | procedure are in the | | | | PST | | results section. | + +--------+ + + + | POCT GLUCOSE | Routin | 06/15/2018 | | Results for this | | | e | 5:47 AM | | procedure are in the | | | | PST | | results section. | + +--------+ + + + | RESPIRATORY | JAYSON | 06/14/2018 | | Results for this | | FILMARRAY | | 11:55 PM | | procedure are in the | | | | PST | | results section. | + +--------+ + + + | POCT GLUCOSE | Routin | 06/14/2018 | | Results for this | | | e | 11:11 PM | | procedure are in the | | | | PST | | results section. | + +--------+ + + + | BLOOD CULTURE, SET 2 | Timed | 06/14/2018 | | Results for this | | | | 11:00 PM | | procedure are in the | | | | PST | | results section. | + +--------+ + + + | BLOOD CULTURE, SET 1 | Timed | 06/14/2018 | | Results for this | | | | 11:00 PM | | procedure are in the | | | | PST | | results section. | + +--------+ + + + | NEBULIZER/INHALATION | STAT | 06/14/2018 | | | | TREATMENT | | 9:29 PM | | | | | | PST | | | + +--------+ + + + | CTA CHEST PULMONARY | JAYSON | 06/14/2018 | | Results for this | | EMBOLISM W CONTRAST | | 8:25 PM | | procedure are in the | | | | PST | | results section. | + +--------+ + + + | XR CHEST 2 VIEW | JAYSON | 06/14/2018 | | Results for this | | FRONTAL AND LATERAL | | 7:17 PM | | procedure are in the | | | | PST | | results section. | + +--------+ + + + | PROCALCITONIN | Add-On | 06/14/2018 | | Results for this | | | | 7:06 PM | | procedure are in the | | | | PST | | results section. | + +--------+ + + + | [facility] CARD PANEL W/O | STAT | 06/14/2018 | | Results for this | | TRP (ED ONLY) | | 7:06 PM | | procedure are in the | | | | PST | | results section. | + +--------+ + + + | TROPONIN I | STAT | 06/14/2018 | | Results for this | | | | 7:06 PM | | procedure are in the | | | | PST | | results section. | + +--------+ + + + | D-DIMER, | STAT | 06/14/2018 | | Results for this | | QUANTITATIVE | | 7:06 PM | | procedure are in the | | | | PST | | results section. | + +--------+ + + + | BRAIN NATRIURETIC | STAT | 06/14/2018 | | Results for this | | PEPTIDE | | 7:06 PM | | procedure are in the | | | | PST | | results section. | + +--------+ + + + | NEBULIZER/INHALATION | STAT | 06/14/2018 | | | | TREATMENT | | 6:54 PM | | | | | | PST | | | + +--------+ + + + | EKG 12 LEAD UNIT | Routin | 06/14/2018 | | Results for this | | PERFORMED | e | 6:51 PM | | procedure are in the | | | | PST | | results section. | + +--------+ + + + | ED INFORMATION | Routin | 06/14/2018 | | Results for this | | EXCHANGE | e | 6:46 PM | | procedure are in the | | | | PST | | results section. | + +--------+ + + + in this encounter Results POCT glucose (06/16/2018 11:28 AM) + + + + + | Component | Value | Ref Range | Performed At | + + + + + | GLUCOSE,POC SCREEN | 238 (H)Comment: Testing | 65 - 99 mg/dL | [facility] | | | performed at [facility];[address] | | | | | [address];[place] | | | | | [address] | | | + + + + + + + + + + | Performing | Address | City/State/Zipcode | Phone Number | | Organization | | | | + + + + + | [facility] | [address] | [place] [address] | | + + + + + Basic metabolic panel (06/16/2018 5:58 AM) + + + + + | Component | Value | Ref Range | Performed At | + + + + + | SODIUM | 140 | 135 - 145 mmol/L | [facility] | | | | | [facility] | + + + + + | POTASSIUM | 3.9 | 3.5 - 4.9 mmol/L | [facility] | | | | | [facility] | + + + + + | CHLORIDE | 104 | 99 - 109 mmol/L | [facility] | | | | | [facility] | + + + + + | CO2 | 27 | 23 - 32 mmol/L | [facility] | | | | | [facility] | + + + + + | ANION GAP AGAP | 13 | 5 - 20 mmol/L | [facility] | | | | | [facility] | + + + + + | GLUCOSE | 127 (H) | 65 - 99 mg/dL | [facility] | | | | | [facility] | + + + + + | BUN | 20 | 8 - 25 mg/dL | [facility] | | | | | [facility] | + + + + + | CREATININE | 0.8 | 0.70 - 1.30 mg/dL | [facility] | | | | | [facility] | + + + + + | BUN/CREAT | 25 | | [facility] | | | | | LAB[facility]AT[facility] | + + + + + | CALCIUM | 8.0 (L) | 8.5 - 10.5 mg/dL | [facility] | | | | | [facility] | + + + + + | EGFR | >60Comment: GFR <60: | >60 mL/min/1.73m2 | [facility] | | | CHRONIC KIDNEY DISEASE, | | LABORATORY | | | IF FOUND OVER A 3 MONTH | | | | | PERIOD.GFR <15: KIDNEY | | | | | FAILURE.FOR | | | | | AMERICANS, MULTIPLY THE | | | | | CALCULATED GFR BY | | | | | 1.210.This eGFR is | | | | | calculated using the | | | | | MDRD IDMS traceable | | | | | equation.Testing | | | | | performed at [facility], [address] | | | | | [facility], | | | | | [place] [address] | | | + + + + + + + | Specimen | + + | Blood | + + + + + + + | Performing | Address | City/State/Zipcode | Phone Number | | Organization | | | | + + + + + | [facility] | [address] | [place] [address] | [phone] | | LABORATORY | [address] | | | + + + + + CBC w/auto diff (reflex to manual) (06/16/2018 5:58 AM) + + + + + | Component | Value | Ref Range | Performed At | + + + + + | WBC | 18.75 (H) | 3.80 - 11.00 K/uL | [facility] | | | | | LABORATORY | + + + + + | RBC | 3.36 (L) | 4.20 - 5.70 M/uL | [facility] | | | | | LABORATORY | + + + + + | HGB | 11.2 (L) | 13.2 - 17.0 g/dL | [facility] | | | | | LABORATORY | + + + + + | HCT | 33.4 (L) | 39.0 - 50.0 % | [facility] | | | | | LABORATORY | + + + + + | MCV | 99.5 | 80.0 - 100.0 fl | [facility] | | | | | LABORATORY | + + + + + | MCH | 33.3 | 27.0 - 34.0 pg | [facility] | | | | | LABORATORY | + + + + + | MCHC | 33.5 | 32.0 - 35.5 g/dL | [facility] | | | | | LABORATORY | + + + + + | RDW SD | 49.4 | 37 - 53 fl | [facility] | | | | | LABORATORY | + + + + + | PLT | 235 | 150 - 400 K/uL | [facility] | | | | | LABORATORY | + + + + + | MPV | 8.8 | fl | [facility] | | | | | LABORATORY | + + + + + | DIFF TYPE | MANUAL | | [facility] | | | | | LABORATORY | + + + + + | Neutrophils Manual | 89 | % | [facility] | | | | | LABORATORY | + + + + + | Bands | 1 | % | [facility] | | | | | LABORATORY | + + + + + | Lymphocytes Manual | 7 | % | [facility] | | | | | LABORATORY | + + + + + | Monocytes Manual | 3 | % | [facility] | | | | | LABORATORY | + + + + + | Neutrophils Absolute | 16.69 (H) | 1.90 - 7.40 K/uL | [facility] | | | | | LABORATORY | + + + + + | Bands Manual | 0.19 | 0.00 - 0.20 K/uL | [facility] | | | | | LABORATORY | + + + + + | Lymphocytes Absolute | 1.31 | 1.00 - 3.90 K/uL | [facility] | | | | | LABORATORY | + + + + + | Monocytes Absolute | 0.56 | 0.00 - 0.80 K/uL | [facility] | | | | | LABORATORY | + + + + + | MORPHOLOGY | RBC AND PLT MORPHOLOGY | | [facility] | | | APPEAR NORMALComment: | | LABORATORY | | | Testing performed at | | | | | [facility], [address] | | | | | [place] | | | | | [address] | | | + + + + + + + | Specimen | + + | Blood | + + + + + + + | Performing | Address | City/State/Zipcode | Phone Number | | Organization | | | | + + + + + | [facility] | [address] [place] [address] | [place] [address] | [phone] | | LABORATORY | [address] | | | + + + + + Folate (06/16/2018 5:58 AM) + + + + + | Component | Value | Ref Range | Performed At | + + + + + | FOLATE | 17.8Comment: Testing | >5.4 ng/mL | [facility] | | | performed at [facility], [address] | | LABORATORY | | | [address], | | | | | [place] [address] | | | + + + + + + + | Specimen | + + | Blood | + + + + + + + | Performing | Address | City/State/Zipcode | Phone Number | | Organization | | | | + + + + + | [facility] | [address] | [place] [address] | [phone] | | LABORATORY | [address] | | | + + + + + Vitamin B12 (06/16/2018 5:58 AM) + + + + + | Component | Value | Ref Range | Performed At | + + + + + | VITAMIN B12 | 431Comment: Testing | 254 - 1,320 pg/mL | [facility] | | | performed at [facility], [address] | | LABORATORY | | | [address] [place], | | | | | [place] [address] | | | + + + + + + + | Specimen | + + | Blood | + + + + + + + | Performing | Address | City/State/Zipcode | Phone Number | | Organization | | | | + + + + + | [facility] | [address] [place] [address] | [place] [address] | [phone] | | LABORATORY | [address] | | | + + + + + Ferritin (06/16/2018 5:58 AM) + + + + + | Component | Value | Ref Range | Performed At | + + + + + | FERRITIN | 298Comment: Testing | 11 - 450 ng/mL | [facility] | | | performed at [facility], [address] | | LABORATORY | | | [address], | | | | | [place] [address] | | | + + + + + + + | Specimen | + + | Blood | + + + + + + + | Performing | Address | City/State/Zipcode | Phone Number | | Organization | | | | + + + + + | [facility] | [address] | [place] [address] | [phone] | | LABORATORY | [address] | | | + + + + + Iron panel (06/16/2018 5:58 AM) + + + + + | Component | Value | Ref Range | Performed At | + + + + + | IRON | 111 | 45 - 190 ug/dL | [facility] | | | | | LABORATORY | + + + + + | TIBC | 205 (L) | 250 - 450 ug/dL | [facility] | | | | | LABORATORY | + + + + + | IRON % SAT | 54 (H)Comment: Testing | 20 - 50 % | [facility] | | | performed at [facility], [address] | | LABORATORY | | | [facility], | | | | | [place] [address] | | | + + + + + + + | Specimen | + + | Blood | + + + + + + + | Performing | Address | City/State/Zipcode | Phone Number | | Organization | | | | + + + + + | [facility] | [address] [place] [address] | [place] [address] | [phone] | | LABORATORY | [address] | | | + + + + + POCT glucose (06/16/2018 5:48 AM) + + + + + | Component | Value | Ref Range | Performed At | + + + + + | GLUCOSE,POC SCREEN | 119 (H)Comment: Testing | 65 - 99 mg/dL | [facility] | | | performed at [facility];[address] | | | | | [address];[place], [place] | | | | | [address] | | | + + + + + + + + + + | Performing | Address | City/State/Zipcode | Phone Number | | Organization | | | | + + + + + | [facility] | [address] | [place] [address] | | + + + + + POCT glucose (06/15/2018 9:40 PM) + + + + + | Component | Value | Ref Range | Performed At | + + + + + | GLUCOSE,POC SCREEN | 263 (H)Comment: Testing | 65 - 99 mg/dL | [facility] | | | performed at [facility];[address] | | [address];[place] | | | | | [address] | | | + + + + + + + + + + | Performing | Address | City/State/Zipcode | Phone Number | | Organization | | | | + + + + + | [facility] | [address] | [place] [address] | | + + + + + POCT glucose (06/15/2018 4:14 PM) + + + + + | Component | Value | Ref Range | Performed At | + + + + + | GLUCOSE,POC SCREEN | 324 (H)Comment: Testing | 65 - 99 mg/dL | [facility] | | | performed at [facility];[address] | | | | | [address];[place] | | | | | [address] | | | + + + + + + + + + + | Performing | Address | City/State/Zipcode | Phone Number | | Organization | | | | + + + + + | [facility] | [address] | [facility] [place] [address] | | + + + + + POCT glucose (06/15/2018 11:16 AM) + + + + + | Component | Value | Ref Range | Performed At | + + + + + | GLUCOSE,POC SCREEN | 282 (H)Comment: Testing | 65 - 99 mg/dL | [facility] | | | performed at [facility];[address] | | | | | [address];[place] | | | | | [address] | | | + + + + + + + + + + | Performing | Address | City/State/Zipcode | Phone Number | | Organization | | | | + + + + + | [facility] | [address] | [place] [address] | | + + + + + Sputum culture (06/15/2018 7:59 AM) + + + + + | Component | Value | Ref Range | Performed At | + + + + + | Specimen Description | SPUTUM | | [facility] | | | | | LABORATORY | + + + + + | GRAM STAIN | GREATER THAN 10 SEC/LPF | | [facility] | | | | | LABORATORY | + + + + + | GRAM STAIN | GREATER THAN 10 WBCS/LPF | | [facility] | | | | | LABORATORY | + + + + + | GRAM STAIN | 1+ | | [facility] | | | | | LABORATORY | + + + + + | GRAM STAIN | GRAM NEGATIVE RODS | | [facility] | | | | | LABORATORY | + + + + + | GRAM STAIN | 2+ | | [facility] | | | | | LABORATORY | + + + + + | GRAM STAIN | GRAM POSITIVE COCCI | | [facility] | | | | | LABORATORY | + + + + + | CULTURE | 1+ | | [facility] | | | | | LABORATORY | + + + + + | CULTURE | NORMAL UPPER RESPIRATORY | | [facility] | | | CHARLI | | LABORATORY | + + + + + + + | Specimen | + + | Sputum - Sputum | + + + + + + + | Performing | Address | City/State/Zipcode | Phone Number | | Organization | | | | + + + + + | [facility] | [address] | [place] [address] | [phone] | | LABORATORY | [address] | | | + + + + + TSH (06/15/2018 6:19 AM) + + + + + | Component | Value | Ref Range | Performed At | + + + + + | TSH | 5.390 (H)Comment: | 0.450 - 5.100 uIU/mL | [facility] | | | Testing performed at | | LABORATORY | | | [facility], [address] [place] [address] | | | | | [place], [place], [place] | | | | | [address] | | | + + + + + + + | Specimen | + + | Blood | + + + + + + + | Performing | Address | City/State/Zipcode | Phone Number | | Organization | | | | + + + + + | [facility] | [address] | [place] [address] | [phone] | | LABORATORY | [address] | | | + + + + + Glycohemoglobin A1c (06/15/2018 6:19 AM) + + + + + | Component | Value | Ref Range | Performed At | + + + + + | HEMOGLOBIN A1C | 9.7 (H)Comment: HbA1c | 4.0 - 6.0 % | [facility] | | | method is certified by | | LABORATORY | | | NGSP and traceable to | | | | | the DCCT reference | | | | | method.ADA guidelines | | | | | indicate: | | | | | Prediabetes: 5.7 - | | | | | 6.4 Diabetes: | | | | | >6.4 Glycemic | | | | | control for adults with | | | | | diabetes: <7.0Effective | | | | | 06/05/2018: Note New | | | | | Method | | | + + + + + | ESTIMATED AVG | 232 (H)Comment: | <154 mg/dL | [facility] | | GLUCOSE | Estimated Average | | LABORATORY | | | Glucose calculated from | | | | | hemoglobin A1c by use of | | | | | the ADA recommended | | | | | formula.Testing | | | | | performed at [facility], [address] | | | | | [facility], | | | | | [place] [address] | | | + + + + + + + | Specimen | + + | Blood | + + + + + + + | Performing | Address | City/State/Zipcode | Phone Number | | Organization | | | | + + + + + | [facility] | [address] | [place] [address] | [phone] | | LABORATORY | [address] | | | + + + + + Comprehensive Metabolic Panel (06/15/2018 6:19 AM) + + + + + | Component | Value | Ref Range | Performed At | + + + + + | SODIUM | 138 | 135 - 145 mmol/L | [facility] | | | | | LABORATORY | + + + + + | POTASSIUM | 4.4 | 3.5 - 4.9 mmol/L | [facility] | | | | | LABORATORY | + + + + + | CHLORIDE | 100 | 99 - 109 mmol/L | [facility] | | | | | LABORATORY | + + + + + | CO2 | 28 | 23 - 32 mmol/L | [facility] | | | | | LABORATORY | + + + + + | ANION GAP AGAP | 14 | 5 - 20 mmol/L | [facility] | | | | | LABORATORY | + + + + + | GLUCOSE | 268 (H) | 65 - 99 mg/dL | [facility] | | | | | LABORATORY | + + + + + | BUN | 20 | 8 - 25 mg/dL | [facility] | | | | | LABORATORY | + + + + + | CREATININE | 0.9 | 0.70 - 1.30 mg/dL | [facility] | | | | | LABORATORY | + + + + + | BUN/CREAT | 22 | | [facility] | | | | | LABORATORY | + + + + + | CALCIUM | 8.1 (L) | 8.5 - 10.5 mg/dL | [facility] | | | | | LABORATORY | + + + + + | TOTAL PROTEIN | 5.4 (L) | 6.3 - 8.2 g/dL | [facility] | | | | | LABORATORY | + + + + + | Albumin | 2.7 (L) | 3.3 - 4.8 g/dL | [facility] | | | | | LABORATORY | + + + + + | GLOBULIN | 2.7 | 1.3 - 4.9 g/dL | [facility] | | | | | LABORATORY | + + + + + | A/G | 1.0 | 1.0 - 2.4 | [facility] | | | | | LABORATORY | + + + + + | TBIL | 0.6 | 0.1 - 1.5 mg/dL | [facility] | | | | | LABORATORY | + + + + + | ALK PHOS | 58 | 35 - 115 U/L | [facility] | | | | | LABORATORY | + + + + + | AST | 14 | 10 - 45 U/L | [facility] | | | | | LABORATORY | + + + + + | ALT | 38 | 10 - 65 U/L | [facility] | | | | | LABORATORY | + + + + + | EGFR | >60Comment: GFR <60: | >60 mL/min/1.73m2 | [facility] | | | CHRONIC KIDNEY DISEASE, | | LABORATORY | | | IF FOUND OVER A 3 MONTH | | | | | PERIOD.GFR <15: KIDNEY | | | | | FAILURE.FOR | | | | | AMERICANS, MULTIPLY THE | | | | | CALCULATED GFR BY | | | | | 1.210.This eGFR is | | | | | calculated using the | | | | | MDRD IDGA traceable | | | | | equation.Testing | | | | | performed at [facility], [address] | | | | | [facility], | | | | | [place] [address] | | | + + + + + + + | Specimen | + + | Blood | + + + + + + + | Performing | Address | City/State/Zipcode | Phone Number | | Organization | | | | + + + + + | [facility] | [address] | [place] [address] | [phone] | | LABORATORY | [address] | | | + + + + + Phosphorus (06/15/2018 6:19 AM) + + + + + | Component | Value | Ref Range | Performed At | + + + + + | PHOSPHORUS | 3.3Comment: Testing | 2.3 - 4.8 mg/dL | [facility] | | | performed at [facility], [address] | | LABORATORY | | | [facility], | | | | | [place] [address] | | | + + + + + + + | Specimen | + + | Blood | + + + + + + + | Performing | Address | City/State/Zipcode | Phone Number | | Organization | | | | + + + + + | [facility] | [address] [place] [address] | [place] [address] | [phone] | | LABORATORY | [address] | | | + + + + + Magnesium (06/15/2018 6:19 AM) + + + + + | Component | Value | Ref Range | Performed At | + + + + + | MAGNESIUM | 2.0Comment: Testing | 1.7 - 2.4 mg/dL | [facility] | | | performed at [facility], [address] | | LABORATORY | | | [facility], | | | | | [place] [address] | | | + + + + + + + | Specimen | + + | Blood | + + + + + + + | Performing | Address | City/State/Zipcode | Phone Number | | Organization | | | | + + + + + | [facility] | [address] | [place] [address] | [phone] | | LABORATORY | [address] | | | + + + + + CBC W/Auto Diff (Reflex to Manual) (06/15/2018 6:19 AM) + + + + + | Component | Value | Ref Range | Performed At | + + + + + | WBC | 11.50 (H) | 3.80 - 11.00 K/uL | [facility] | | | | | LABORATORY | + + + + + | RBC | 3.49 (L) | 4.20 - 5.70 M/uL | [facility] | | | | | LABORATORY | + + + + + | HGB | 11.7 (L) | 13.2 - 17.0 g/dL | [facility] | | | | | LABORATORY | + + + + + | HCT | 35.2 (L) | 39.0 - 50.0 % | [facility] | | | | | LABORATORY | + + + + + | MCV | 100.9 (H) | 80.0 - 100.0 fl | [facility] | | | | | LABORATORY | + + + + + | MCH | 33.6 | 27.0 - 34.0 pg | [facility] | | | | | LABORATORY | + + + + + | MCHC | 33.3 | 32.0 - 35.5 g/dL | [facility] | | | | | LABORATORY | + + + + + | RDW SD | 50.3 | 37 - 53 fl | [facility] | | | | | LABORATORY | + + + + + | PLT | 208 | 150 - 400 K/uL | [facility] | | | | | LABORATORY | + + + + + | MPV | 8.6 | fl | [facility] | | | | | LABORATORY | + + + + + | DIFF TYPE | MANUAL | | [facility] | | | | | LABORATORY | + + + + + | Neutrophils Manual | 91 | % | [facility] | | | | | LABORATORY | + + + + + | METAMYELOCYTES | 3 | % | [facility] | | | | | LABORATORY | + + + + + | Lymphocytes Manual | 3 | % | [facility] | | | | | LABORATORY | + + + + + | Monocytes Manual | 3 | % | [facility] | | | | | LABORATORY | + + + + + | Neutrophils Absolute | 10.45 (H) | 1.90 - 7.40 K/uL | [facility] | | | | | LABORATORY | + + + + + | Metamyelocytes | 0.35 (H) | 0.00 K/uL | [facility] | | Absolute | | | LABORATORY | + + + + + | Lymphocytes Absolute | 0.35 (L) | 1.00 - 3.90 K/uL | [facility] | | | | | LABORATORY | + + + + + | Monocytes Absolute | 0.35 | 0.00 - 0.80 K/uL | [facility] | | | | | LABORATORY | + + + + + | MORPHOLOGY | 1+Comment: MACRONORMAL | | [facility] | | | PLT MORPHTesting | | LABORATORY | | | performed at [facility], [address] | | | | | [address], | | | | | [place] [address] | | | | | | | | + + + + + + + | Specimen | + + | Blood | + + + + + + + | Performing | Address | City/State/Zipcode | Phone Number | | Organization | | | | + + + + + | [facility] | [address] | [place] [address] | [phone] | | LABORATORY | [address] | | | + + + + + POCT glucose (06/15/2018 5:47 AM) + + + + + | Component | Value | Ref Range | Performed At | + + + + + | GLUCOSE,POC SCREEN | 251 (H)Comment: Testing | 65 - 99 mg/dL | [facility] | | | performed at [facility];[address] | | | | | [address];[place], [place] | | | | | [address] | | | + + + + + + + + + + | Performing | Address | City/State/Zipcode | Phone Number | | Organization | | | | + + + + + | [facility] | [address] | [place] [address] | | + + + + + Respiratory Filmarray (06/14/2018 11:55 PM) + + + + + | Component | Value | Ref Range | Performed At | + + + + + | ADENOVIRUS | Not Detected | Not Detected | [facility] | | | | | LABORATORY | + + + + + | CORONAVIRUS 229E | Not Detected | Not Detected | [facility] | | | | | LABORATORY | + + + + + | CORONAVIRUS HKU1 | Not Detected | Not Detected | [facility] | | | | | LABORATORY | + + + + + | CORONAVIRUS NL63 | Not Detected | Not Detected | [facility] | | | | | LABORATORY | + + + + + | CORONAVIRUS OC43 | Not Detected | Not Detected | [facility] | | | | | LABORATORY | + + + + + | HUMAN | Not Detected | Not Detected | [facility] | | METAPNEUMOVIRUS | | | LABORATORY | + + + + + | HUMAN RHINO/ENTERO | Not Detected | Not Detected | [facility] | | | | | LABORATORY | + + + + + | INFLUENZA A | Not Detected | Not Detected | [facility] | | | | | LABORATORY | + + + + + | INFLUENZA B | Not Detected | Not Detected | [facility] | | | | | LABORATORY | + + + + + | PARAINFLUENZA 1 | Not Detected | Not Detected | [facility] | | | | | LABORATORY | + + + + + | PARAINFLUENZA 2 | Not Detected | Not Detected | [facility] | | | | | LABORATORY | + + + + + | PARAINFLUENZA 3 | Not Detected | Not Detected | [facility] | | | | | LABORATORY | + + + + + | PARAINFLUENZA 4 | Not Detected | Not Detected | [facility] | | | | | LABORATORY | + + + + + | RESP SYNCYTIAL VIRUS | Not Detected | Not Detected | [facility] | | | | | LABORATORY | + + + + + | BORDETELLA PERTUSSIS | Not Detected | Not Detected | [facility] | | | | | LABORATORY | + + + + + | CHLAMYDIAE | Not Detected | Not Detected | [facility] | | PNEUMONIAE | | | LABORATORY | + + + + + | MYCOPLASMA | Not Detected | Not Detected | [facility] | | PNEUMONIAE | | | LABORATORY | + + + + + | RESP PANEL INTERP | Testing performed by | | [facility] | | | Molecular | | LABORATORY | | | MethodologyComment: | | | | | Testing performed at | | | | | [facility], [address] | | | | | [place] | | | | | [address] | | | + + + + + + + | Specimen | + + | Nasopharyngeal | | Culture | + + + + + + + | Performing | Address | City/State/Zipcode | Phone Number | | Organization | | | | + + + + + | [facility] | [address] | [place] [address] | [phone] | | LABORATORY | [address] | | | + + + + + POCT glucose (06/14/2018 11:11 PM) + + + + + | Component | Value | Ref Range | Performed At | + + + + + | GLUCOSE,POC SCREEN | 143 (H)Comment: Testing | 65 - 99 mg/dL | [facility] | | | performed at [facility];[address] | | | | | [address];[place] | | | | | [address] | | | + + + + + + + + + + | Performing | Address | City/State/Zipcode | Phone Number | | Organization | | | | + + + + + | [facility] | [address] | [place] [address] | | + + + + + Blood Culture Set 2 (06/14/2018 11:00 PM) + + + + + | Component | Value | Ref Range | Performed At | + + + + + | Specimen Description | BLOOD | | [facility] | | | | | LABORATORY | + + + + + | SPECIAL REQUESTS | L WRIST | | [facility] | + + + + + | CULTURE | NO GROWTH 6 DAYS | | [facility] | | | | | LABORATORY | + + + + + + + | Specimen | + + | Blood - Blood | + + + + + + + | Performing | Address | City/State/Zipcode | Phone Number | | Organization | | | | + + + + + | [facility] | [address] | [place] [address] | [phone] | | LABORATORY | [address] | | | + + + + + | [facility] | [address] | [place] [address] | | + + + + + Blood Culture Set 1 (06/14/2018 11:00 PM) + + + + + | Component | Value | Ref Range | Performed At | + + + + + | Specimen Description | BLOOD | | [facility] | | | | | LABORATORY | + + + + + | SPECIAL REQUESTS | RAC | | [facility] | + + + + + | CULTURE | NO GROWTH 6 DAYS | | [facility] | | | | | LAB[facility]AT[facility] | + + + + + + + | Specimen | + + | Blood - Blood | + + + + + + + | Performing | Address | City/State/Zipcode | Phone Number | | Organization | | | | + + + + + | [facility] | [address] | [place] [address] | [phone] | | LABORATORY | [address] | | | + + + + + | [facility] | [address] | [place] [address] | | + + + + + CT Chest PE Protocol (06/14/2018 8:25 PM) + + + | Impressions | Performed At | + + + | 1. No evidence of pulmonary embolus. 2. 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 3. Asymmetric bronchial wall | [facility] | | thickening the lower lung zones, particularly on the left, perhaps | | | with mild peribronchial infiltrate in the left lower lobe, and | | | scarring in the peripheral left lower lobe with mild pleural | | | thickening. 4. Blebs/bullae in the lateral left lung base. Signed | | | by: Alex Brewer Sign Date/Time: 06/14/2018 8:35 PM | | + + + + + + | Narrative | Performed At | + + + | CT ANGIOGRAM PULMONARY CLINICAL INFORMATION: shortness of breath | [facility] | | worsening over last two days COMPARISON: XR CHEST 2 VIEW FRONTAL AND | [facility] | | LATERAL (06/14/2018); PROCEDURE: Thin-section images of the entire | | | chest after the administration of intravenous contrast. 3D MIP thin | | | slab images and 2D multiplanar reconstructions performed. At least | | | one of the following CT dose optimization techniques were used: | | | Automated exposure control; Adjustment of mA and/or kV according to | | | patient size; Use of iterative reconstruction technique. FINDINGS: | | | PULMONARY ARTERIES: No evidence of pulmonary embolus. RIGHT VENTRICLE | | | TO LEFT VENTRICLE RATIO: Not applicable. (Maximum short axis | | | diameter on axial image. Applicable only when pulmonary embolism | | | present. Abnormal greater than or equal to 0.9.) CHEST Lungs, Pleura | | | and Airways: Scattered calcified granulomata. Panlobular | | | emphysematous change. Mild central bronchial thickening diffusely, | | | greater involving the lower lobes, particularly on the left. | | | Scattered peribronchial infiltrative change and presumed strandy | | | scarring in the posterior and lateral left lung base with strandy | | | pleural thickening in the posterolateral left costophrenic sulcus, | | | likely chronic. Bulla in the lateral left lung base series 6 image 73 | | | measuring 2.5 cm with adjacent smaller bleb measuring 1.8 | | | cm. Density along the posterior aspect of the bulla probably due | | | to atelectasis or infiltrate. No definite internal debris. | | | Mediastinum: Moderate aortic and aortic trifurcation atherosclerotic | | | calcification. Moderate coronary arterial calcification. Small | | | hiatal hernia. Lymph Nodes: No adenopathy. Upper Abdomen: No | | | further significant abnormality in the visualized upper abdomen. | | | BODY WALL Soft Tissues: The soft tissues of the chest wall are | | | unremarkable. Bones: Spondylotic changes of the spine. | | + + + + + | Procedure Note | + + | Kevin, Rad Results In - 06/14/2018 8:[address] ANGIOGRAM PULMONARY | | CLINICAL INFORMATION: | | shortness of breath worsening over last two days | | COMPARISON: | | XR CHEST 2 VIEW FRONTAL AND LATERAL (06/14/2018); | | PROCEDURE: | | Thin-section images of the entire chest after the administration of | | intravenous contrast. 3D MIP thin slab images and 2D multiplanar | | reconstructions performed. | | At least one of the following CT dose optimization techniques were | | used: Automated exposure control; Adjustment of mA and/or kV according | | to patient size; Use of iterative reconstruction technique. | | FINDINGS: | | PULMONARY ARTERIES: No evidence of pulmonary embolus. | | RIGHT VENTRICLE TO LEFT VENTRICLE RATIO: Not applicable. (Maximum short | | axis diameter on axial image. Applicable only when pulmonary embolism | | present. Abnormal greater than or equal to 0.9.) | | CHEST | | Lungs, Pleura and Airways: Scattered calcified granulomata. Panlobular | | emphysematous change. Mild central bronchial thickening diffusely, | | greater involving the lower lobes, particularly on the left. | | Scattered peribronchial infiltrative change and presumed strandy | | scarring in the posterior and lateral left lung base with strandy | | pleural thickening in the posterolateral left costophrenic sulcus, | | likely chronic. | | Bulla in the lateral left lung base series 6 image 73 measuring 2.5 cm | | with adjacent smaller bleb measuring 1.8 cm. Density along the | | posterior aspect of the bulla probably due to atelectasis or | | infiltrate. No definite internal debris. | | Mediastinum: Moderate aortic and aortic trifurcation atherosclerotic | | calcification. Moderate coronary arterial calcification. Small hiatal | | hernia. | | Lymph Nodes: No adenopathy. | | Upper Abdomen: No further significant abnormality in the visualized | | upper abdomen. | | BODY WALL | | Soft Tissues: The soft tissues of the chest wall are unremarkable. | | Bones: Spondylotic changes of the spine. | | IMPRESSION: | | 1. No evidence of pulmonary embolus. | | 2. Panlobular emphysematous change with probable chronic bronchitis. | | 3. Asymmetric bronchial wall thickening the lower lung zones, | | particularly on the left, perhaps with mild peribronchial infiltrate in | | the left lower lobe, and scarring in the peripheral left lower lobe | | with mild pleural thickening. | | 4. Blebs/bullae in the lateral left lung base. | | Signed by: Alex Brewer | | Sign Date/Time: 06/14/2018 8:35 PM | + + + + + + + | Performing | Address | City/State/Zipcode | Phone Number | | Organization | | | | + + + + + | [facility] | [address] | [place] [address] | | + + + + + XR Chest PA and Lateral (06/14/2018 7:17 PM) + + + | Impressions | Performed At | + + + | Mild ill-defined densities in the left lower lobe which may | [facility] | | represent atelectasis, bronchiolitis or scarring. Hyperexpansion | RADIOLOGY | | of the lungs suggestive of COPD. Signed by: MD Sutton Jeffrey | | | Sign Date/Time: 06/14/2018 7:20 PM | | + + + + + + | Narrative | Performed At | + + + | CHEST TWO VIEWS CLINICAL INFORMATION: Respiratory failure. | [facility] | | shortness of breath COMPARISON: None FINDINGS: Hyperexpansion of | RADIOLOGY | | the lungs suggesting COPD. Mild ill-defined densities within the | | | left lower lobe. No significant pleural fluid or | | | pneumothorax. Heart size normal. | | + + + + + | Procedure Note | + + | Kevin, Rad Results In - 06/14/2018 7:24 PM PST CHEST TWO VIEWS | | CLINICAL INFORMATION: | | Respiratory failure. shortness of breath | | COMPARISON: | | None | | FINDINGS: | | Hyperexpansion of the lungs suggesting COPD. Mild ill-defined | | densities within the left lower lobe. No significant pleural fluid or | | pneumothorax. Heart size normal. | | IMPRESSION: | | Mild ill-defined densities in the left lower lobe which may represent | | atelectasis, bronchiolitis or scarring. Hyperexpansion of the lungs | | suggestive of COPD. | | Signed by: MD Sutton Jeffrey | | Sign Date/Time: 06/14/2018 7:20 PM | + + + + + + + | Performing | Address | City/State/Zipcode | Phone Number | | Organization | | | | + + + + + | [facility] | [address] | [place] [address] | | + + + + + PROCALCITONIN (06/14/2018 7:06 PM) + + + + + | Component | Value | Ref Range | Performed At | + + + + + | PROCALCITONIN | 0.09Comment: | <0.5 ng/mL | [facility] | | | INTERPRETIVE | | | | | INFORMATION: PROCALCI | | | | | TONIN PCT <= 0.5 | | | | | ng/mL: Low risk | | | | | for progression to | | | | | severe | | | | | systemic bacteria | | | | | l infection (severe | | | | | sepsis/septic | | | | | shock). Does not | | | | | exclude an infection, | | | | | because | | | | | localized infecti | | | | | ons may be associated | | | | | with such low | | | | | levels. If PCT is | | | | | measured very early | | | | | after | | | | | bacterial challen | | | | | ge (usually <6 hours), | | | | | results may still | | | | | be low and should | | | | | re-assess PCT 6-24 | | | | | hours later. PCT >0.5 | | | | | and <= 2 | | | | | ng/mL: Moderate | | | | | risk for progression to | | | | | severe | | | | | systemic infectio | | | | | n (severe sepsis/septic | | | | | shock). Other | | | | | conditions are known to | | | | | elevate PCT, patient | | | | | should be | | | | | closely monitored both | | | | | clinically and | | | | | by re-assessing | | | | | PCT within 6-24 hours. | | | | | PCT > 2 | | | | | ng/mL: High | | | | | likelihood for | | | | | progression to severe | | | | | systemic bacteria | | | | | l infection (severe | | | | | sepsis/septic shock). | | | | | PCT >= 10 | | | | | ng/mL: High | | | | | likelihood of severe | | | | | sepsis or septic | | | | | shock.Testing performed | | | | | at [facility];[address];[place] [address] | | | + + + + + + + + + + | Performing | Address | City/State/Zipcode | Phone Number | | Organization | | | | + + + + + | [facility] | [address] | [place] [address] | | + + + + + Brain natriuretic peptide (06/14/2018 7:06 PM) + + + + + | Component | Value | Ref Range | Performed At | + + + + + | BRAIN NATRIURETIC | 63.94Comment: Testing | 0 - 100 pg/mL | [facility] | | PEPTIDE | performed at [facility];[address];[place] | | | | | [address] | | | + + + + + + + + + + | Performing | Address | City/State/Zipcode | Phone Number | | Organization | | | | + + + + + | [facility] | [address] | [place] [address] | | + + + + + Troponin I (06/14/2018 7:06 PM) + + + + + | Component | Value | Ref Range | Performed At | + + + + + | TROPONIN I | 0.031Comment: Testing | 0.00 - 0.04 ng/mL | [facility] | | | performed at [facility];[address] | | | [facility];[place], [place] | | | | | [id number] ON 07/11 | | | | | AT 1310: PREVIOUSLY | | | | | REPORTED .031 | | | | | 0.04 ng/mL or | | | | | less Nega | | | | | tive, repeat testing in | | | | | four to six hour if | | | | | clinically indicted 0.05 | | | | | to 0.77 | | | | | ng/mL Jerri | | | | | picious for myocardial | | | | | injury. Serial | | | | | measurements may be | | | | | necessary to confirm or | | | | | exclude the diagnosis of | | | | | acute coronary | | | | | syndrome. Repeat testing | | | | | in four to six hours if | | | | | indicated. 0.78 or | | | | | greater | | | | | ng/mL Consistent | | | | | with myocardial injury. | | | | | Clinical and laboratory | | | | | correlation | | | | | recommended. NOTE | | | | | NEW REFERENCE RANGE | | | + + + + + + + | Specimen | + + | Blood | + + + + + + + | Performing | Address | City/State/Zipcode | Phone Number | | Organization | | | | + + + + + | [facility] | [address] | [facility] [place] [address] | | + + + + + D-dimer, quantitative (06/14/2018 7:06 PM) + + + + + | Component | Value | Ref Range | Performed At | + + + + + | D DIMER, | 0.68 (H)Comment: Testing | 0.19 - 0.50 mg/L FEU | [facility] | | QUANTITATIVE | performed at [facility];[address];[place], [place] | | | | | [address] | | | + + + + + + + | Specimen | + + | Blood | + + + + + + + | Performing | Address | City/State/Zipcode | Phone Number | | Organization | | | | + + + + + | [facility] | [address] | [place] [address] | | + + + + + Cardiac Panel (06/14/2018 7:06 PM) + + + + + | Component | Value | Ref Range | Performed At | + + + + + | WBC | 16.54 (H) | 3.80 - 11.00 K/uL | [facility] | + + + + + | RBC | 4.02 (L) | 4.20 - 5.70 M/uL | [facility] | + + + + + | HGB | 13.4 | 13.2 - 17.0 g/dL | [facility] | + + + + + | HCT | 41.0 | 39.0 - 50.0 % | [facility] | + + + + + | MCV | 102.0 (H) | 80.0 - 100.0 fl | [facility] | + + + + + | MCH | 33.2 | 27.0 - 34.0 pg | [facility] | + + + + + | MCHC | 32.5 | 32.0 - 35.5 g/dL | [facility] | + + + + + | RDW SD | 50.3 | 37 - 53 fl | [facility] | + + + + + | PLT | 225 | 150 - 400 K/uL | [facility] | + + + + + | MPV | 8.4 | fl | [facility] | + + + + + | DIFF TYPE | MANUAL | | [facility] | + + + + + | Neutrophils Manual | 76 | % | [facility] | + + + + + | Bands | 11 | % | [facility] | + + + + + | METAMYELOCYTES | 2 | % | [facility] | + + + + + | Lymphocytes Manual | 6 | % | [facility] | + + + + + | Monocytes Manual | 5 | % | [facility] | + + + + + | Neutrophils Absolute | 12.57 (H) | 1.90 - 7.40 K/uL | [facility] | + + + + + | Bands Manual | 1.82 (H) | 0.00 - 0.20 K/uL | [facility] | + + + + + | Metamyelocytes | 0.33 (H) | 0.00 K/uL | [facility] | | Absolute | | | | + + + + + | Lymphocytes Absolute | 0.99 (L) | 1.00 - 3.90 K/uL | [facility] | + + + + + | Monocytes Absolute | 0.83 (H) | 0.00 - 0.80 K/uL | [facility] | + + + + + | Platelet Estimate | ADEQUATE | | [facility] | + + + + + | MORPHOLOGY | 1+ | | [facility] | | | Comment: | | | | | MACRO | | | | | NORMAL PLT MORPH | | | | | | | | + + + + + | SODIUM | 141 | 135 - 145 mmol/L | [facility] | + + + + + | POTASSIUM | 4.8Comment: SPECIMEN | 3.5 - 4.9 mmol/L | [facility] | | | MODERATELY HEMOLYZED | | | + + + + + | CHLORIDE | 99 | 99 - 109 mmol/L | [facility] | + + + + + | CO2 | 29 | 23 - 32 mmol/L | [facility] | + + + + + | ANION GAP AGAP | 18 | 5 - 20 mmol/L | [facility] | + + + + + | GLUCOSE | 126 (H) | 65 - 99 mg/dL | [facility] | + + + + + | BUN | 23Comment: SPECIMEN | 8 - 25 mg/dL | [facility] | | | MODERATELY HEMOLYZED | | | + + + + + | CREATININE | 1.07 | 0.70 - 1.30 mg/dL | [facility] | + + + + + | BUN/CREAT | 21 | | [facility] | + + + + + | CALCIUM | 9.2 | 8.5 - 10.5 mg/dL | [facility] | + + + + + | TOTAL PROTEIN | 6.0 (L) | 6.3 - 8.2 g/dL | [facility] | + + + + + | Albumin | 4.0 | 3.3 - 4.8 g/dL | [facility] | + + + + + | GLOBULIN | 2.0 | 1.3 - 4.9 g/dL | [facility] | + + + + + | A/G | 2.0 | 1.0 - 2.4 | [facility] | + + + + + | TBIL | 0.7 | 0.1 - 1.5 mg/dL | [facility] | + + + + + | ALK PHOS | 63 | 35 - 115 U/L | [facility] | + + + + + | AST | 37 | 10 - 45 U/L | [facility] | + + + + + | ALT | 47 | 10 - 65 U/L | [facility] | + + + + + | EGFR | >60Comment: GFR <60: | >60 mL/min/1.73m2 | [facility] | | | CHRONIC KIDNEY DISEASE, | | | | | IF FOUND OVER A 3 MONTH | | | | | PERIOD.GFR <15: KIDNEY | | | | | FAILURE.FOR | | | | | AMERICANS, MULTIPLY THE | | | | | CALCULATED GFR BY | | | | | 1.210.This eGFR is | | | | | calculated using the | | | | | [facility]D [facility] traceable | | | | | equation. | | | + + + + + | CPK | 77Comment: SPECIMEN | 55 - 400 U/L | [facility] | | | MODERATELY HEMOLYZED | | | + + + + + | INR | 0.9Comment: REFERENCE | | [facility] | | | RANGE:0.9 - | | | | | 1.2 NON-ANTICOAGULATE | | | | | D2.0 - 3.0 ALL OTHER | | | | | THERAPEUTIC | | | | | INDICATIONS2.5 - 3.5 | | | | | MECHANICAL HEART VALVES, | | | | | RECURRENT OR SYSTEMIC | | | | | EMBOLISM | | | + + + + + | APTT | 21 (L) | 23 - 32 seconds | [facility] | + + + + + | MMB | 5.7 (H) | 0.5 - 3.6 ng/mL | [facility] | + + + + + | CK-MB Index | 7.4Comment: CK INDEX | | [facility] | | | INTERPRETATION: | | | | | MMB | | | | | ng/mL & Relative | | | | | IndexNon-AMI | | | | | < or = | | | | | 5.0 N | | | | | AGray Zone | | | | | >5.0 < | | | | | or = | | | | | 4.0AMI | | | | | | | | | | >5.0 | | | | | >4.0Testing | | | | | performed at [facility];[address] | | | | | [facility];[place] | | | | | [address] | | | + + + + + + + + + + | Performing | Address | City/State/Zipcode | Phone Number | | Organization | | | | + + + + + | [facility] | [address] | [place] [address] | | + + + + + EKG 12 LEAD UNIT PERFORMED (06/14/2018 6:51 PM) + + + + + | Component | Value | Ref Range | Performed At | + + + + + | Ventricular Rate | 96 | BPM | [facility] | + + + + + | Atrial Rate | 96 | BPM | [facility] | + + + + + | P-R Interval | 144 | ms | [facility] | + + + + + | QRS Duration | 106 | ms | [facility] | + + + + + | Q-T Interval | 348 | ms | [facility] | + + + + + | QTC Calculation | 439 | ms | [facility] | | (Celso) | | | | + + + + + | Calculated P [place] | 49 | degrees | [facility] | + + + + + | Calculated R [place] | -26 | degrees | [facility] | + + + + + | Calculated T [place] | 92 | degrees | [facility] | + + + + + | Diagnosis | Normal sinus | | [facility] | | | rhythmNonspecific T wave | | | | | abnormalityAbnormal | | | | | ECGNo previous ECGs | | | | | availableThis ECG | | | | | contains Unconfirmed | | | | | Interpretation | | | | | Statements. See ED | | | | | Record for Physician | | | | | Interpretation. | | | | | Confirmed by MUSE READ | | | | | ONLY, -COMPUTER ([id number]), | | | | | film editor supervisor Marissa Paige | | | | | ([phone]) on 06/16/2018 | | | | | 12:53:28 AM | | | + + + + + + + + + + | Performing | Address | City/State/Zipcode | Phone Number | | Organization | | | | + + + + + | [facility] | [address] | [place] [address] | | + + + + + ED INFORMATION EXCHANGE (06/14/2018 6:46 PM) + + + | Narrative | Performed At | + + + | [id number] Upcoming Changes to the [facility] | ED | | Notification On June 20, 2018 the layout of this notification will | INFORMATION | | be updated. For an overview of upcoming changes, please log into | EXCHANGE | | [email or web address]. For questions, | | | please email [email or web address] or call . | | | This patient has registered at the [facility] | | | Emergency Department For more information visit: | | | [email or web address] | | | [email or web address] Security Events No recent Security Events currently on file | | | ED Care Guidelines There are currently no ED Care Guidelines for | | | this patient. Please check your facility's medical records system. | | | Recent Emergency Department Visit Summary Date Facility [facility] State | | | Type Major Type Diagnoses or Chief Complaint Jun 14, 2018 [facility] | | | [facility] Shortness of | | | Breath Chest Pain Jun 13, 2018 [facility] | | | [place] Emergency Emergency Chief Complaint: DIFFICULTY BREATHING | | | Jun 12, 2018 [facility] [place] | | | Emergency Emergency Chief Complaint: SOB Jun 08, 2018 [facility] | | | 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 | | | [facility] [facility] [place] [place] Emergency Emergency Chief Complaint: | | | SOB May 22, 2018 [facility] [place] | | | Emergency Emergency Hyperglycemia, unspecified | | | Chronic obstructive pulmonary disease with (acute) exacerbation | | | Shortness of breath Other detention (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 | | | Nicotine dependence, unspecified, uncomplicated prison | | | (current) use of systemic steroids Essential (primary) | | | hypertension Allergy status to penicillin prison | | | (current) use of aspirin May 03, 2018 [facility] [place] [facility] | | | [place] Emergency Emergency Chief Complaint: DIFFICUTLY BREATHING | | | Apr 16, 2018 [facility] 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 [facility] | | [place] Emergency Emergency Shortness of breath | | | Essential (primary) hypertension Constipation, unspecified | | | Nicotine dependence, unspecified, uncomplicated Chronic | | | obstructive pulmonary disease with (acute) exacerbation Allergy | | | status to penicillin Other detention (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 | | | Apr 02[facility] [place] | | | [facility] Emergency Chronic obstructive pulmonary disease | | | with (acute) exacerbation Shortness of breath Nicotine | | | dependence, unspecified, uncomplicated prison (current) use | | | of aspirin Allergy status to penicillin Essential | | | (primary) hypertension Other superintendent container terminal (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 | | | [facility] [place] [facility] Emergency Chronic obstructive pulmonary disease | | | with (acute) exacerbation Shortness of breath Allergy | | | status to penicillin Other detention (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 | | | Nicotine dependence, unspecified, uncomplicated Essential | | | (primary) hypertension E.D. Visit Count (12 mo.) Facility | | | Visits Low Acuity [facility] [address] [facility] [address] | | | [facility] 13 0 Total 14 0 Note: Visits indicate total known | | | visits. Medicaid Low Acuity Dx are the number of primary diagnoses on | | | the Medicaid's Low Acuity dx list. Recent Inpatient Visit | | | Summary Date Facility City State Type Major Type Diagnoses or Chief | | | Complaint Jun 13, 2018 [facility] [place] Critical | | | Care Inpatient Chief Complaint: DEHYDRATION Jun 08, 2018 | | | [facility] [place] Medical Surgical Inpatient | | | Shortness of breath Benign prostatic hyperplasia without | | | lower urinary tract symptoms Essential (primary) hypertension | | | Acute and chronic respiratory failure with hypoxia | | | Chronic obstructive pulmonary disease with (acute) exacerbation | | | Hyperglycemia, unspecified Personal history of nicotine | | | dependence Allergy status to penicillin prison | | | (current) use of aspirin buttermaker helper (current) use of inhaled | | | steroids May 24, 2018 [facility] 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 | | | Medical Surgical Inpatient Chronic obstructive pulmonary | | | disease with (acute) exacerbation Shortness of breath | | | Other superintendent container terminal (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 Benign prostatic | | | hyperplasia without lower urinary tract symptoms Allergy status | | | to penicillin buttermaker helper (current) use of aspirin | | | Nicotine dependence, unspecified, uncomplicated Essential | | | (primary) hypertension prison (current) use of inhaled | | | steroids Personal history of traumatic brain injury Nov | | | 2017 [facility] [place] Medical | | | Surgical Inpatient Essential (primary) hypertension | | | Allergy status to penicillin buttermaker helper (current) use of | | | inhaled steroids Benign prostatic hyperplasia without lower | | | urinary tract symptoms Nicotine dependence, cigarettes, | | | uncomplicated Other superintendent container terminal (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 | | | Cramp and spasm prison (current) use of aspirin Long | | | term (current) use of systemic steroids Chronic obstructive | | | pulmonary disease with (acute) exacerbation Prescription | | | Drug Report (12 Mo.) PDMP query found no report. 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 Criteria Met in 12 2 in 2 The | | | above information is provided for the sole purpose of patient | | | treatment. Use of this information beyond the terms of Data Sharing | | | Memorandum of Understanding and License Agreement is prohibited. In | | | certain cases not all visits may be represented. Consult the | | | aforementioned facilities for additional information. 2019 | | | [facility] - [place], [place] - | | | [email or web address] | | + + + + + | Procedure Note | + + | Interface, Lab - 06/14/2018 6:48 PM PST Formatting of this note may be different | | from the original.[id number] Changes to the Maria R | | NotificationOn June 20, 2018 the layout of this notification will be updated. For an | | overview of upcoming changes, please log into | | [email or web address]. For questions, please email | | [email or web address] or call .This patient has registered at the | | [facility] Emergency Department For more information visit: | | [id number] Security | | EventsNo recent Security Events currently on fileED Care GuidelinesThere are currently | | no ED Care Guidelines for this patient. Please check your facility's medical records | | system.Recent Emergency Department Visit SummaryDate Facility City State Type Major Type | | Diagnoses or Chief [facility] [place] [facility] | | Emergency Shortness of Breath Chest Pain Jun 13, 2018 [facility] | | [place] Emergency Emergency Chief Complaint: DIFFICULTY BREATHING Jun 12, [address] [facility] | | [facility] [facility] [place] Emergency Emergency Chief Complaint: SOB Jun 08, [address] [facility] | | [place] [facility] Emergency Emergency Chief Complaint: DIFFICULTY BREATHING May | | 2018 [facility] [place] [place] Emergency Emergency Shortness of breath | | buttermaker helper (current) use of aspirin Essential (primary) hypertension Other long | | term (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 Personal history of nicotine dependence Chronic | | obstructive pulmonary disease with (acute) exacerbation buttermaker helper (current) use of | | systemic steroids Allergy status to penicillin May 24, 2018 [facility] | | [place] Emergency Emergency Chief Complaint: SOB May 22, 2018 [facility] [place] [place] | | Emergency Emergency Hyperglycemia, unspecified Chronic obstructive pulmonary | | disease with (acute) exacerbation Shortness of breath Other superintendent container terminal (current) | | drug therapy Nicotine dependence, unspecified, uncomplicated prison (current) | | use of systemic steroids Essential (primary) hypertension Allergy status to | | penicillin buttermaker helper (current) use of aspirin May 03, 2018 [facility] | | [place] Emergency Emergency Chief Complaint: DIFFICUTLY BREATHING Apr 16, [address] [facility] | | [place] [facility] Emergency Emergency Anxiety disorder, unspecified Chronic | | obstructive pulmonary disease, unspecified Other superintendent container terminal (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 | | Nicotine dependence, unspecified, uncomplicated prison (current) use of systemic | | steroids buttermaker helper (current) use of aspirin Essential (primary) hypertension | | Allergy status to penicillin Apr 15, 2018 [facility] [place] [place] Emergency | | Emergency Shortness of breath Essential (primary) hypertension Constipation, | | unspecified Nicotine dependence, unspecified, uncomplicated Chronic obstructive | | pulmonary disease with (acute) exacerbation Allergy status to penicillin Other | | superintendent container terminal (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 Apr 02, 2018 [facility] [place] Emergency | | Emergency Chronic obstructive pulmonary disease with (acute) exacerbation | | Shortness of breath Nicotine dependence, unspecified, uncomplicated buttermaker helper | | (current) use of aspirin Allergy status to penicillin Essential (primary) | | hypertension Other superintendent container terminal (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 [facility] [place] [facility] Emergency Chronic obstructive pulmonary disease with (acute) | | exacerbation Shortness of breath Allergy status to penicillin Other detention | | (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 Nicotine dependence, unspecified, uncomplicated Essential | | (primary) hypertension E.D. Visit Count (12 mo.)Facility Visits Low Acuity [facility] | | [facility] 1 0 [facility] 13 0 Total 14 0 Note: Visits | | indicate total known visits. Medicaid Low Acuity Dx are the number of primary diagnoses | | on the Medicaid's Low Acuity dx list. Recent Inpatient Visit SummaryDate Facility City | | State Type Major Type Diagnoses or Chief Complaint [facility] [place] [facility] Chief Complaint: DEHYDRATION Jun 08, 2018 [facility] | | [facility] [facility] Medical Surgical Inpatient Shortness of breath Benign | | prostatic hyperplasia without lower urinary tract symptoms Essential (primary) | | hypertension Acute and chronic respiratory failure with hypoxia Chronic | | obstructive pulmonary disease with (acute) exacerbation Hyperglycemia, unspecified | | Personal history of nicotine dependence Allergy status to penicillin prison | | (current) use of aspirin prison (current) use of inhaled steroids May 24, 2018 [facility] | | [facility] [place] Medical Surgical Inpatient Shortness of breath Other | | specified abnormalities of plasma proteins Drug or chemical induced diabetes mellitus | | without complications Essential (primary) hypertension Nicotine dependence, | | cigarettes, uncomplicated Allergy status to penicillin Benign prostatic | | hyperplasia without lower urinary tract symptoms prison (current) use of systemic | | steroids Acute and chronic respiratory failure with hypoxia buttermaker helper (current) | | use of inhaled steroids May 03, 2018 [facility] [place] [facility] | | Inpatient Chronic obstructive pulmonary disease with (acute) exacerbation | | Shortness of breath Other detention (current) drug therapy Benign prostatic | | hyperplasia without lower urinary tract symptoms Allergy status to penicillin Long | | term (current) use of aspirin Nicotine dependence, unspecified, uncomplicated | | Essential (primary) hypertension prison (current) use of inhaled steroids | | Personal history of traumatic brain injury [facility] 03, 2018 [facility] 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 Criteria Met | | 10 in 12 2 in 2The above information is provided for the sole purpose of patient | | treatment. Use of this information beyond the terms of Data Sharing Memorandum of | | Understanding and License Agreement is prohibited. In certain cases not all visits may | | be represented. Consult the aforementioned facilities for additional information. 2019 | | [employer]. [place], [place] - | | [email or web address] | |[facility] 1 0 | |[facility] 13 0 | |Total 14 0 | |Note: Visits indicate total known visits. Medicaid Low Acuity Dx are the number of primary diagnoses on the Medicaid's Low Acuity dx list. | | | |Recent Inpatient Visit Summary | |Date Facility [facility] State Type Major Type Diagnoses or Chief Complaint | |Jun [facility], [facility] [place] [facility] Chief Complaint: DEHYDR ATION | |Jun 08, 2018 [facility] 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. 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 | | | |Care Providers | |Provider PRC Type Phone Fax Service Dates | |Denisse Blanton Child'S Nurse/Photographic Machine Operator Dec 17, 2017 - Current | |ADI NELSON MD Internal Medicine Apr 03, 2018 - Current | |Denisse Blanton Primary Care Dec 17, 2017 - Current | |ADI NELSON Primary Care Apr 05, 2016 - Current | |Unknown Other Current | | | |Known Aliases | |No known aliases. | |Criteria Met | | | | 10 in 12 | | 2 in 2 | | | |The above information is provided for the sole purpose of patient treatment. Use of this in formation beyond the terms of Data Sharing Memorandum of Understanding and License Agreement is prohibited. In | |certain cases not all visits may be represented. Consult the aforementioned facilities for additional information. | |2019 [employer] [facility] - [place], [place] - [email or web address] | + + + +---------+ + + | Performing | Address | City/State/Zipcode | Phone Number | | Organization | | | | + +---------+ + + | ED INFORMATION | | | | | EXCHANGE | | | | + +---------+ + + in this encounter Visit Diagnoses + + | Diagnosis | + + | COPD with acute exacerbation (HCC) - Primary | + + | Obstructive chronic bronchitis with exacerbation | + + | Acute exacerbation of chronic obstructive pulmonary disease (COPD) (HCC) | + + | Obstructive chronic bronchitis with exacerbation | + + | Hypoxia | + + | Hypoxemia | + + | Acute on chronic respiratory failure with hypoxia (HCC) | + + | Bandemia | + + | Pneumonia of left lower lobe due to infectious organism (HCC) | + + | Generalized weakness | + + | Other malaise and fatigue | + + Admitting Diagnoses + + | Diagnosis | + + | Acute exacerbation of chronic obstructive pulmonary disease (COPD) (HCC) | + + | Obstructive chronic bronchitis with exacerbation | + + | Hypoxia | + + | Hypoxemia | + + Administered Medications + +--------+---------+------+------+------+ | Medication Order | MAR | Action | Dose | Rate | Site | | | Action | Date | | | | + +--------+---------+------+------+------+ + +---+ | acetaminophen (TYLENOL) | | | suppository 650 mg 650 mg, | | | Rectal, Every 6 Hours PRN, Mild | | | Pain (1-3), Fever, Starting Fri | | | 06/14/18 at 2243 | | + +---+ | | | + +---+ | acetaminophen (TYLENOL) tablet | | | 650 mg 650 mg, Oral, Every 6 | | | Hours PRN, Mild Pain (1-3), | | | Fever, Starting 06/14/18 at | | | 2243 | | + +---+ | | | + +---+ + +-------+ +------+---+---+ | albuterol (PROVENTIL) nebulizer | Given | | 5 mg | | | | solution 5 mg 5 mg, | | 9 21:39 | | | | | Nebulization, Once RT, Fri | | PST | | | | | 06/14/18 at 2131, For 1 dose | | | | | | + +-------+ +------+---+---+ +---+---+ | | | +---+---+ + +-------+ +--------+---+---+ | aspirin chewable tablet 324 mg | Given | | 324 mg | | | | 324 mg, Oral, Once, 06/14/18 | | 9 19:07 | | | | | at 1856, For 1 dose | | PST | | | | + +-------+ +--------+---+---+ +---+---+ | | | +---+---+ + +-------+ + +---+---+ | calcium carbonate (TUMS) | Given | | 1,000 mg | | | | chewable tablet 1,000 mg 1,000 | | 9 18:30 | | | | | mg, Oral, Every 6 Hours PRN, | | PST | | | | | Indigestion, Starting 06/14/18 | | | | | | | at 2243 | | | | | | + +-------+ + +---+---+ + +---+ | | | + +---+ | dextrose 50 % solution 12 mL | | | 12 mL, Intravenous, PRN, | | | Hypoglycemia (BG < 70 mg/dL), | | | Starting 06/15/18 at 1812 | | + +---+ | | | + +---+ + +-------+ +--------+---+---+ | | Given | | 10 mLs | | | | vwytcvjsskmoray-cumnnbkspvmnnm-de | | 9 16:28 | | | | | statin (DUKES MOUTHWASH) | | PST | | | | | suspension 10 mL 10 mL, Swish & | | | | | | | Spit, 4 Times Daily, First dose | | | | | | | on 06/15/18 at 1500 | | | | | | + +-------+ +--------+---+---+ +-------+ +--------+---+---+ | Given | | 10 mLs | | | | | 9 22:00 | | | | | | PST | | | | +-------+ +--------+---+---+ | Given | | 10 mLs | | | | | 9 09:55 | | | | | | PST | | | | +-------+ +--------+---+---+ +---+---+ | | | +---+---+ + +-------+ +-------+---+---+ | enoxaparin (LOVENOX) injection | Given | | 40 mg | | | | 40 mg 40 mg, Subcutaneous, Every | | 9 09:44 | | | | | 24 Hours, First dose on Sat | | PST | | | | | 06/15/18 at 1000 | | | | | | + +-------+ +-------+---+---+ +-------+ +-------+---+---+ | Given | | 40 mg | | | | | 9 09:55 | | | | | | PST | | | | +-------+ +-------+---+---+ + +---+ | | | + +---+ | famotidine (PEPCID) IVPB 20 mg | | | 20 mg, Intravenous, Administer | | | over 30 Minutes, 2 Times Daily, | | | First dose on 06/15/18 at 0900 | | + +---+ | | | + +---+ + +-------+ +-------+---+---+ | famotidine (PEPCID) tablet 20 | Given | | 20 mg | | | | mg 20 mg, Oral, 2 Times Daily, | | 9 09:46 | | | | | First dose on 06/15/18 at 0900 | | PST | | | | + +-------+ +-------+---+---+ +-------+ +-------+---+---+ | Given | | 20 mg | | | | | 9 21:50 | | | | | | PST | | | | +-------+ +-------+---+---+ | Given | | 20 mg | | | | | 9 09:55 | | | | | | PST | | | | +-------+ +-------+---+---+ +---+---+ | | | +---+---+ + +-------+ +---------+---+---+ | insulin glargine (LANTUS) | Given | | 5 Units | | | | injection 5 Units 5 Units, | | 9 00:24 | | | | | Subcutaneous, Nightly, First dose | | PST | | | | | on 06/14/18 at 2330 | | | | | | + +-------+ +---------+---+---+ +---+---+ | | | +---+---+ + +-------+ +---------+---+---+ | insulin glargine (LANTUS) | Given | | 7 Units | | | | injection 7 Units 7 Units, | | 9 21:50 | | | | | Subcutaneous, Nightly, First dose | | PST | | | | | on 06/15/18 at 2200 | | | | | | + +-------+ +---------+---+---+ +---+---+ | | | +---+---+ + +-------+ +---------+---+---+ | insulin lispro (human) | Given | | 5 Units | | | | (HUMALOG) injection 0-10 Units | | 9 06:00 | | | | | 0-10 Units, Subcutaneous, 3 Times | | PST | | | | | Daily Before Meals, First dose | | | | | | | on 06/15/18 at 0630 | | | | | | + +-------+ +---------+---+---+ +-------+ +---------+---+---+ | Given | | 5 Units | | | | | 9 11:24 | | | | | | PST | | | | +-------+ +---------+---+---+ | Given | | 7 Units | | | | | 9 16:26 | | | | | | PST | | | | +-------+ +---------+---+---+ +---+---+ | | | +---+---+ + +-------+ +---------+---+---+ | insulin lispro (human) | Given | | 4 Units | | | | (HUMALOG) injection 0-14 Units | | 9 11:40 | | | | | 0-14 Units, Subcutaneous, 3 Times | | PST | | | | | Daily Before Meals, First dose | | | | | | | on 06/15/18 at 1830 | | | | | | + +-------+ +---------+---+---+ +---+---+ | | | +---+---+ + +-------+ +---------+---+---+ | insulin lispro (human) | Given | | 3 Units | | | | (HUMALOG) injection 0-7 Units | | 9 21:50 | | | | | 0-7 Units, Subcutaneous, Nightly, | | PST | | | | | First dose on 06/15/18 at | | | | | | | 2200 | | | | | | + +-------+ +---------+---+---+ +---+---+ | | | +---+---+ + +-------+ +---------+---+---+ | iohexol (OMNIPAQUE 350) 350 | Given | | 100 mLs | | | | mg/mL injection 100 mL 100 mL, | | 9 20:14 | | | | | Intravenous, Img Once PRN, Other, | | PST | | | | | Starting 06/14/18 at 2013, | | | | | | | For 1 dose | | | | | | + +-------+ +---------+---+---+ +---+---+ | | | +---+---+ + +-------+ +-------+---+---+ | ipratropium-albuterol (DUO-NEB) | Given | | 3 mLs | | | | 0.5-2.5 mg/3mL nebulizer | | 9 19:15 | | | | | solution 3 mL 3 mL, | | PST | | | | | Nebulization, Once RT, Fri | | | | | | | 06/14/18 at 1856, For 1 dose | | | | | | + +-------+ +-------+---+---+ +---+---+ | | | +---+---+ + +-------+ +-------+---+---+ | ipratropium-albuterol (DUO-NEB) | Given | | 3 mLs | | | | 0.5-2.5 mg/3mL nebulizer | | 9 20:07 | | | | | solution 3 mL 3 mL, | | PST | | | | | Nebulization, Every 4 Hours While | | | | | | | Awake, First dose on 06/15/18 | | | | | | | at 0700 | | | | | | + +-------+ +-------+---+---+ +-------+ +-------+---+---+ | Given | | 3 mLs | | | | | 9 07:31 | | | | | | PST | | | | +-------+ +-------+---+---+ | Given | | 3 mLs | | | | | 9 10:43 | | | | | | PST | | | | +-------+ +-------+---+---+ + +---+ | | | + +---+ | ipratropium-albuterol (DUO-NEB) | | | 0.5-2.5 mg/3mL nebulizer | | | solution 3 mL 3 mL, | | | Nebulization, Every 2 Hours PRN, | | | Wheezing, Shortness of Breath, | | | Starting 06/15/18 at 0021 | | + +---+ | | | + +---+ + +-------+ +--------+-------+---+ | levofloxacin (LEVAQUIN) IVPB | Given | | 750 mg | 100 | | | 750 mg 750 mg, Intravenous, | | 9 00:24 | | mL/hr | | | Administer over 90 Minutes, Every | | PST | | | | | 24 Hours, First dose on Fri | | | | | | | 06/14/18 at 2230, For 5 days | | | | | | + +-------+ +--------+-------+---+ +-------+ +--------+-------+---+ | Given | | 750 mg | 100 | | | | 9 21:53 | | mL/hr | | | | PST | | | | +-------+ +--------+-------+---+ +---+---+ | | | +---+---+ + +-------+ +--------+---+---+ | magnesium hydroxide (MILK OF | Given | | 30 mLs | | | | MAGNESIA) 400 MG/5ML suspension | | 9 15:28 | | | | | 30 mL 30 mL, Oral, Daily PRN, | | PST | | | | | Constipation, Starting Sat | | | | | | | 06/15/18 at 1434 | | | | | | + +-------+ +--------+---+---+ +-------+ +--------+---+---+ | Given | | 30 mLs | | | | | 9 01:06 | | | | | | PST | | | | +-------+ +--------+---+---+ +---+---+ | | | +---+---+ + +-------+ +--------+---+---+ | methylPREDNISolone | Given | | 125 mg | | | | (Solu-MEDROL) injection 125 mg | | 9 22:11 | | | | | 125 mg, Intravenous, Once, Fri | | PST | | | | | 06/14/18 at 2131, For 1 dose | | | | | | + +-------+ +--------+---+---+ +---+---+ | | | +---+---+ + +-------+ + +---+---+ | methylPREDNISolone | Given | | 81.25 mg | | | | (Solu-MEDROL) injection 81.25 mg | | 9 09:46 | | | | | 81.25 mg (rounded from 80 mg), | | PST | | | | | Intravenous, Every 12 Hours, | | | | | | | First dose on 06/15/18 at 1000 | | | | | | + +-------+ + +---+---+ +---+---+ | | | +---+---+ + +-------+ +-------+---+---+ | predniSONE (DELTASONE) tablet | Given | | 40 mg | | | | 40 mg 40 mg, Oral, Daily With | | 9 15:28 | | | | | Breakfast, First dose on Sat | | PST | | | | | 06/15/18 at 1600 | | | | | | + +-------+ +-------+---+---+ +---+---+ | | | +---+---+ + +-------+ +--------+---+---+ | sodium chloride 0.9 % flush 10 | Given | | 10 mLs | | | | mL 10 mL, Intravenous, Every 8 | | 9 00:27 | | | | | Hours, First dose on Sun06/14/18 | | PST | | | | | at 1856 | | | | | | + +-------+ +--------+---+---+ +-------+ +--------+---+---+ | Given | | 10 mLs | | | | | 9 00:45 | | | | | | PST | | | | +-------+ +--------+---+---+ +---+---+ | | | +---+---+ + +---------+ +---+ +---+ | sodium chloride 0.9 % infusion | New Bag | 1/25/201 | | 75 mL/hr | | | at 75 mL/hr, Intravenous, | | 9 23:12 | | | | | Continuous, Starting 06/14/18 | | PST | | | | | at 2211 | | | | | | + +---------+ +---+ +---+ +---------+ +---+ +---+ | New Bag | | | 75 mL/hr | | | | 9 13:07 | | | | | | PST | | | | +---------+ +---+ +---+ | New Bag | | | 75 mL/hr | | | | 9 03:56 | | | | | | PST | | | | +---------+ +---+ +---+ +---+---+ | | | +---+---+ in this encounter
--- OUTSIDE RECORDS SUMMARY | ~2018-08-26 | XMS | Encounter Summary ---
Demographics + + + | Address | [address] | | | [place] [address] | + + + | Home Phone | | + + + | Preferred Language | Unknown | + + + | Marital Status | | + + + | Evangelical Affiliation | Unknown | + + + | Race | Unknown | + + + | Ethnic Group | Unknown | + + + Author + + + | Author | [facility] | + + + | Organization | [facility] [employer] | + + + | Address [...] Team Providers + +------+ + | Care Pulp Grinder Feeder Name | Role | Phone | + [...] | | Internal | Diagnoses | | [facility] 8th | | | | Medicine | Acute | | [place] | | | | | exacerbation | | [address] | | | | | of chronic | | [address] | | | | | obstructive | | [place], [place] | | | | | pulmonary | | [address] Phone: | | | | | disease | | [phone] | | | | | (COPD) ([facility]) | | | | | | | Hypoxia | | | | | | | | | | +--------+--------+ + + + + Encounter Details +--------+ + + + + | Date | Type | Department | Care Team | Description | +--------+ + + + + | 06/14/ | Hospital | [facility] | Teja Blandon, | Acute exacerbation | | 2019 - | Encounter | [facility] 8th | MD Javon [address] | of chronic | | | | [place] | EMERGENCY DEPARTMENT | obstructive | | 06/16/ | | [address] | [place] [address] | pulmonary disease | | 2019 | | [place] [address] | [phone] | (COPD) (HCC) | | | | [phone] | | (Primary Dx); | | | | | Lei Barcenas, | Hypoxia | | | | | MD [address] | | | | | | [place] [address] | | | | | | [phone] | | | | | | | | | | | | Deric Nevarez MD | | | | | | [address] | | | | | | [place] [address] | | | | | | [phone] | | | | | | | | | | | | Hector Murdock | | | | | | MD Javon [address] | | | | | | Blvd [place], [place] | | | | | | [address] | | | | | | | [...] note may be different from the original. [facility] Service: Hospitalist Physician Discharge Summary Pt: David Miranda AGE/SEX: 83 y.o. male ROOM: [facility] PCP: Adi Nelson : 1935 Admit date: [...] mellitus, was seen at emergency department at [facility] in [place] for COPD exacerbation. The shanon ramirez was [...] hours. No results for input(s): PHART, PO2ART, VPU9PFI, D9XRPCHN, BEART in the last 168 hours. Recent [...] 06/16/2018Continue supplemental oxygen at 2 liters/minute at [facility]. 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; 8) Straight arms-lift high-w/out pain, breath deep; [...] [address] | | | | | | [place] [address] | | | | | | [phone] | | | | | | | [...] Testing | 65 - 99 mg/dL | [facility] | | | performed at [facility];[address] | | | | | [address];[place] | | | | | [address] | | | + + + + + + + + + + | Performing | Address | City/State/Zipcode | Phone Number | | Organization | | | | + + + + + | [facility] | [address] | [place] [address] | | + + + + + [...] (H) | 65 - 99 mg/dL | [facility] | | | | | LABORATORY | [...] | | | | | performed at [facility], [address] | | | | | [facility], | | | | | [place] [address] | | | + + + + + + + | Specimen | + + | Blood | + + + + + + + | Performing | Address | City/State/Zipcode | Phone Number | | Organization | | | | + + + + + | [facility] | [address] | [place] [address] | [phone] | | LABORATORY | Blvd. | | [...] performed at | | | | | [facility], [address] | | | | | [place] | | | | | [address] | | | + + + + + + + | Specimen | + + | Blood | + + + + + + + | Performing | Address | City/State/Zipcode | Phone Number | | Organization | | | | + + + + + | [facility] | [address] [place] [address] | [place] [address] | [phone] | | LABORATORY | Blvd. | | | + + + + + Folate (06/16/2018 5:58 AM) + + + + + | Component | Value | Ref Range | Performed At | + + + + + | FOLATE | 17.8Comment: Testing | >5.4 ng/mL | [facility] | | | performed at [facility], [address] | | LABORATORY | | | [address], | | | | | [place] [address] | | | + + + + + + + | Specimen | + + | Blood | + + + + + + + | Performing | Address | City/State/Zipcode | Phone Number | | Organization | | | | + + + + + | [facility] | [address] | [place] [address] | [phone] | | LABORATORY | Blvd. | | | + + + + + Vitamin B12 (06/16/2018 5:58 AM) + + + + + | Component | Value | Ref Range | Performed At | + + + + + | VITAMIN B12 | 431Comment: Testing | 254 - 1,320 pg/mL | [facility] | | | performed at [facility], [address] | | LABORATORY | | | [address], | | | | | [place] [address] | | | + + + + + + + | Specimen | + + | Blood | + + + + + + + | Performing | Address | City/State/Zipcode | Phone Number | | Organization | | | | + + + + + | [facility] | [address] [place] [address] | [place] [address] | [phone] | | LABORATORY | [address] | | | + + + + + Ferritin (06/16/2018 5:58 AM) + + + + + | Component | Value | Ref Range | Performed At | + + + + + | FERRITIN | 298Comment: Testing | 11 - 450 ng/mL | [facility] | | | performed at [facility], [address] | | LABORATORY | | | [address], | | | | | [place] [address] | | | + + + + + + + | Specimen | + + | Blood | + + + + + + + | Performing | Address | City/State/Zipcode | Phone Number | | Organization | | | | + + + + + | [facility] | [address] | [place] [address] | [phone] | | LABORATORY | Blvd. | | [...] | [facility] | | | performed at [facility], [address] | | LABORATORY | | | [facility], | | | | | [place] [address] | | | + + + + + + + | Specimen | + + | Blood | + + + + + + + | Performing | Address | City/State/Zipcode | Phone Number | | Organization | | | | + + + + + | [facility] | [address] [place] [address] | [place] [address] | [phone] | | LABORATORY | [address] | | | + + + + + POCT glucose (06/16/2018 5:48 AM) + + + + + | Component | Value | Ref Range | Performed At | + + + + + | GLUCOSE,POC SCREEN | 119 (H)Comment: Testing | 65 - 99 mg/dL | [facility] | | | performed at [facility];[address] | | | | | [address];[place], [place] | | | | | [address] | | | + + + + + + + + + + | Performing | Address | City/State/Zipcode | Phone Number | | Organization | | | | + + + + + | [facility] | [address] | [place] [address] | | + + + + + POCT glucose (06/15/2018 9:40 PM) + + + + + | Component | Value | Ref Range | Performed At | + + + + + | GLUCOSE,POC SCREEN | 263 (H)Comment: Testing | 65 - 99 mg/dL | [facility] | | | performed at [facility];[address] | | | | | [address];[place] | | | | | [address] | | | + + + + + + + + + + | Performing | Address | City/State/Zipcode | Phone Number | | Organization | | | | + + + + + | [facility] | [address] | [place] [address] | | + + + + + POCT glucose (06/15/2018 4:14 PM) + + + + + | Component | Value | Ref Range | Performed At | + + + + + | GLUCOSE,POC SCREEN | 324 (H)Comment: Testing | 65 - 99 mg/dL | [facility] | | | performed at [facility];[address] | | | | | [address];[place] | | | | | [address] | | | + + + + + + + + + + | Performing | Address | City/State/Zipcode | Phone Number | | Organization | | | | + + + + + | [facility] | [address] | [facility] [place] [facility] [address] | | + + + + + POCT glucose (06/15/2018 11:16 AM) + + + + + | Component | Value | Ref Range | Performed At | + + + + + | GLUCOSE,POC SCREEN | 282 (H)Comment: Testing | 65 - 99 mg/dL | [facility] | | | performed at [facility];[address] | | | | | [address];[place] | | | | | [address] | | | + + + + + + + + + + | Performing | Address | City/State/Zipcode | Phone Number | | Organization | | | | + + + + + | [facility] | [address] | [place] [address] | | + + + + + [...] + + + | [facility] | [address] | [place] [address] | [phone] | | LABORATORY | Blvd. | | | + + + + + TSH (06/15/2018 6:19 AM) + + + + + | Component | Value | Ref Range | Performed At | + + + + + | TSH | 5.390 (H)Comment: | 0.450 - 5.100 uIU/mL | [facility] | | | Testing performed at | | LABORATORY | | | [facility], [address] [place] [address] | | | | | [place], [place], [place] | | | | | [address] | | | + + + + + + + | Specimen | + + | Blood | + + + + + + + | Performing | Address | City/State/Zipcode | Phone Number | | Organization | | | | + + + + + | [facility] | [address] | [place] [address] | [phone] | | LABORATORY | [address] | | [...] | | | | | performed at [facility], [address] | | | | | [facility], | | | | | [place] [address] | | | + + + + + + + | Specimen | + + | Blood | + + + + + + + | Performing | Address | City/State/Zipcode | Phone Number | | Organization | | | | + + + + + | [facility] | [address] | [place] [address] | [phone] | | LABORATORY | [address] | | [...] (L) | 6.3 - 8.2 g/dL | [facility] | | | | | LABORATORY | + + + + + | Albumin | 2.7 (L) | 3.3 - 4.8 g/dL | [facility] | | | | | LABORATORY | [...] the | | | | | MDRD IDKS traceable | | | | | equation.Testing | | | | | performed at [facility], [address] | | | | | [facility], | | | | | [place] [address] | | | + + + + + + + | Specimen | + + | Blood | + + + + + + + | Performing | Address | City/State/Zipcode | Phone Number | | Organization | | | | + + + + + | [facility] | [address] | [place] [address] | [phone] | | LABORATORY | [address]vd. | | | + + + + + Phosphorus (06/15/2018 6:19 AM) + + + + + | Component | Value | Ref Range | Performed At | + + + + + | PHOSPHORUS | 3.3Comment: Testing | 2.3 - 4.8 mg/dL | [facility] | | | performed at [facility], [address] | | LABORATORY | | | [facility], | | | | | [place] [address] | | | + + + + + + + | Specimen | + + | Blood | + + + + + + + | Performing | Address | City/State/Zipcode | Phone Number | | Organization | | | | + + + + + | [facility] | [address] [place] [address] | [place] [address] | [phone] | | LABORATORY | [address]vd[address] | | | + + + + + Magnesium (06/15/2018 6:19 AM) + + + + + | Component | Value | Ref Range | Performed At | + + + + + | MAGNESIUM | 2.0Comment: Testing | 1.7 - 2.4 mg/dL | [facility] | | | performed at [facility], [address] | | LABORATORY | | | [facility], | | | | | [place] [address] | | | + + + + + + + | Specimen | + + | Blood | + + + + + + + | Performing | Address | City/State/Zipcode | Phone Number | | Organization | | | | + + + + + | [facility] | [address] | [place] [address] | [phone] | | LABORATORY | [address] | | [...] | LABORATORY | | | performed at [facility], [address] | | | | | [address], | | | | | [place] [address] | | | | | | | | + + + + + + + | Specimen | + + | Blood | + + + + + + + | Performing | Address | City/State/Zipcode | Phone Number | | Organization | | | | + + + + + | [facility] | [address] | [place] [address] | [phone] | | LABORATORY | [address] | | | + + + + + POCT glucose (06/15/2018 5:47 AM) + + + + + | Component | Value | Ref Range | Performed At | + + + + + | GLUCOSE,POC SCREEN | 251 (H)Comment: Testing | 65 - 99 mg/dL | [facility] | | | performed at [facility];[address] | | | | | [address];[place], [place] | | | | | [address] | | | + + + + + + + + + + | Performing | Address | City/State/Zipcode | Phone Number | | Organization | | | | + + + + + | [facility] | [address] | [place] [address] | | + + + + + [...] performed at | | | | | [facility], [address] | | | | | [place] | | | | | [address] | | | + + + + + + + | Specimen | + + | Nasopharyngeal | | Culture | + + + + + + + | Performing | Address | City/State/Zipcode | Phone Number | | Organization | | | | + + + + + | [facility] | [address] | [place] [address] | [phone] | | LABORATORY | [address] | | | + + + + + POCT glucose (06/14/2018 11:11 PM) + + + + + | Component | Value | Ref Range | Performed At | + + + + + | GLUCOSE,POC SCREEN | 143 (H)Comment: Testing | 65 - 99 mg/dL | [facility] | | | performed at [facility];[address] | | | | | [address];[place] | | | | | [address] | | | + + + + + + + + + + | Performing | Address | City/State/Zipcode | Phone Number | | Organization | | | | + + + + + | [facility] | [address] | [place] [address] | | + + + + + [...] | + + + + + | [facility] | [address] | [place] [address] | [phone] | | LABORATORY | Blvd. | | | + + + + + | [facility] | [address] | [place] [address] | | + + + + + [...] | + + + + + | [facility] | [address] | [place] [address] | [phone] | | LABORATORY | Blvd. | | | + + + + + | [facility] | [address] | [place] [address] | | + + + + + [...] | + + + + + | [facility] | [address] | [place] [address] | | + + + + + [...] | [address] | [place] [address] | | + + + + + PROCALCITONIN (06/14/2018 7:06 PM) + + + + + | Component | Value | Ref Range | Performed At | + + + + + | PROCALCITONIN | 0.09Comment: | <0.5 ng/mL | [facility] | | | INTERPRETIVE | | [...] performed | | | | | at [facility];[address] | | [address];[place] [address] | | | + + + + + + + + + + | Performing | Address | City/State/Zipcode | Phone Number | | Organization | | | | + + + + + | [facility] | [address] | [place] [address] | | + + + + + Brain natriuretic peptide (06/14/2018 7:06 PM) + + + + + | Component | Value | Ref Range | Performed At | + + + + + | BRAIN NATRIURETIC | 63.94Comment: Testing | 0 - 100 pg/mL | [facility] | | PEPTIDE | performed at [facility];[address] | | | | | [address];[place] | | | | | [address] | | | + + + + + + + + + + | Performing | Address | City/State/Zipcode | Phone Number | | Organization | | | | + + + + + | [facility] | [address] | [place] [address] | | + + + + + Troponin I (06/14/2018 7:06 PM) + + + + + | Component | Value | Ref Range | Performed At | + + + + + | TROPONIN I | 0.031Comment: Testing | 0.00 - 0.04 ng/mL | [facility] | | | performed at [facility];[address] | | | | | [facility];[place], [place] | | | | | [id number] ON 07/11 | | | | | [...] | + + + + + | [facility] | [address] | [facility] [place] [address] | | + + + + + D-dimer, quantitative (06/14/2018 7:06 PM) + + + + + | Component | Value | Ref Range | Performed At | + + + + + | D DIMER, | 0.68 (H)Comment: Testing | 0.19 - 0.50 mg/L FEU | [facility] | | QUANTITATIVE | performed at [facility];[address] | | | | | [address];[place], [place] | | | | | [address] | | | + + + + + + + | Specimen | + + | Blood | + + + + + + + | Performing | Address | City/State/Zipcode | Phone Number | | Organization | | | | + + + + + | [facility] | [address] | [place] [address] | | + + + + + Cardiac Panel (06/14/2018 7:06 PM) + + + + + | Component | Value | Ref Range | Performed At | + + + + + | WBC | 16.54 (H) | 3.80 - 11.00 K/uL | [facility] | + + + + + | RBC | 4.02 (L) | 4.20 - 5.70 M/uL | [facility] | + + + + + | HGB | 13.4 | 13.2 - 17.0 g/dL | [facility] | + + + + + | HCT | 41.0 | 39.0 - 50.0 % | [facility] | + + + + + | MCV | 102.0 (H) | 80.0 - 100.0 fl | [facility] | + + + + + | MCH | 33.2 | 27.0 - 34.0 pg | [facility] | + + + + + | MCHC | 32.5 | 32.0 - 35.5 g/dL | [facility] | + + + + + [...] | 0.33 (H) | 0.00 K/uL | [facility] | | Absolute | | | | + + + + + | Lymphocytes Absolute | 0.99 (L) | 1.00 - 3.90 K/uL | [facility] | + + + + + | Monocytes Absolute | 0.83 (H) | 0.00 - 0.80 K/uL | [facility] | + + + + + [...] SPECIMEN | 3.5 - 4.9 mmol/L | [facility] | | | MODERATELY HEMOLYZED | [...] + | BUN/CREAT | 21 | | [facility] | + + + + + | CALCIUM | 9.2 | 8.5 - 10.5 mg/dL | [facility] | + + + + + | TOTAL PROTEIN | 6.0 (L) | 6.3 - 8.2 g/dL | [facility] | + + + + + | Albumin | 4.0 | 3.3 - 4.8 g/dL | [facility] | + + + + + | GLOBULIN | 2.0 | 1.3 - 4.9 g/dL | [facility] | + + + + + | A/G | 2.0 | 1.0 - 2.4 | [facility] | + + + + + | TBIL | 0.7 | 0.1 - 1.5 mg/dL | [facility] | + + + + + | ALK PHOS | 63 | 35 - 115 U/L | [facility] | + + + + + | AST | 37 | 10 - 45 U/L | [facility] | + + + + + | ALT | 47 | 10 - 65 U/L | [facility] | + + + + + | EGFR | >60Comment: GFR <60: | >60 mL/min/1.73m2 | [facility] | | | CHRONIC KIDNEY DISEASE, [...] the | | | | | MDRD [facility] traceable | | | | | equation. | | | + + + + + | CPK | 77Comment: SPECIMEN | 55 - 400 U/L | [facility] | | | MODERATELY HEMOLYZED | | | + + + + + | INR | 0.9Comment: REFERENCE | | [facility] | | | RANGE:0.9 - | [...] (L) | 23 - 32 seconds | [facility] | + + + + + | MMB | 5.7 (H) | 0.5 - 3.6 ng/mL | [facility] | + + + + + | CK-MB Index | 7.4Comment: CK INDEX | | [facility] | | | INTERPRETATION: | | [...] | | | | | performed at [facility];[address] | | | | | [facility];[place] | | | | | [address] | | | + + + + + + + + + + | Performing | Address | City/State/Zipcode | Phone Number | | Organization | | | | + + + + + | [facility] | [address] [facility] | [place] [address] | | + + + + + [...] + + + + | Calculated P [place] | 49 | degrees | [facility] | + + + + + | Calculated R [place] | -26 | degrees | [facility] | + + + + + | Calculated T [place] | 92 | degrees | [facility] E[facility] [...] | + + + + + | [facility] | [address] | [place] [address] | | + + + + + ED INFORMATION EXCHANGE (06/14/2018 6:46 PM) + + + | Narrative | Performed At | + + + | [id number] Upcoming Changes to the Maria [facility] | ED | | Notification On June 20, 2018 the layout of this notification will | INFORMATION | | be updated. For an overview of upcoming changes, please log into | EXCHANGE | | [email or web address]. For questions, | | | please email [email or web address] or call . | | | This patient has registered at the [facility] | | | Emergency Department For more information visit: | | | [email or web address] | | | [email or web address] Security Events No recent Security Events currently on file | | | ED Care Guidelines There are currently no ED Care Guidelines for | | | this patient. Please check your facility's medical records system. | | | Recent Emergency Department Visit Summary Date Facility [facility] | | | Type Major Type Diagnoses or Chief Complaint Jun 14, 2018 [facility] | | | [facility] Emergency Shortness of | | | Breath Chest Pain Jun 13, 2018 [facility] | | | [place] Emergency Emergency Chief Complaint: DIFFICULTY BREATHING | | | Jun 12, 2018 [place] | | | Emergency Emergency Chief Complaint: SOB Jun 08, 2018 [facility] | | | 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 | | | [place] Emergency Emergency Chief Complaint: | | | SOB May 22, 2018 [facility] [place] | | | Emergency Emergency Hyperglycemia, unspecified | | | Chronic obstructive pulmonary disease with (acute) exacerbation | | | Shortness of breath Other ch[facility] (current) drug therapy | | | Nicotine dependence, unspecified, uncomplicated [facility] | | | (current) use of systemic steroids Essential (primary) | | | hypertension Allergy status to penicillin [facility] | | | (current) use of aspirin May 03, 2018 [facility] [place] | | | [place] Emergency Emergency Chief Complaint: DIFFICUTLY BREATHING | | | Apr 16, 2018 [facility] 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 | | | [place] Emergency Emergency Shortness of breath | | | Essential (primary) hypertension Constipation, unspecified | | | Nicotine dependence, unspecified, uncomplicated Chronic | | | obstructive pulmonary disease with (acute) exacerbation Allergy | | | status to penicillin Other [facility] (current) drug therapy | | | [facility] [place] [facility] Emergency Chronic obstructive pulmonary disease | | | with (acute) exacerbation Shortness of breath Nicotine | | | dependence, unspecified, uncomplicated [facility] (current) use | | | of aspirin Allergy status to penicillin Essential | | | (primary) hypertension Other [employer] (current) drug therapy | | | [facility] [place] [facility] Emergency Chronic obstructive pulmonary disease | | | with (acute) exacerbation Shortness of breath Allergy | | | status to penicillin Other [facility] (current) drug therapy | | | Nicotine dependence, unspecified, uncomplicated Essential | | | (primary) hypertension E.D. Visit Count (12 mo.) Facility | | | Visits Low Acuity [facility] [address] [facility] [address] | | | [facility] 13 0 Total 14 0 Note: Visits indicate total known | | | visits. Medicaid Low Acuity Dx are the number of primary diagnoses on | | | the Medicaid's Low Acuity dx list. Recent Inpatient Visit | | | Summary Date Facility City State Type Major Type Diagnoses or Chief | | | Complaint Jun 13, 2018 [facility] [place] Critical | | | Care Inpatient Chief Complaint: DEHYDRATION Jun 08, 2018 | | | [facility] 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 2019 | | | [employer] - [place], [place] - | | | [email or web address] | | + + + + + | Procedure Note | + + | Interface, Lab - 06/14/2018 6:48 PM PST Formatting of this note may be different | | from the original.[id number] Changes to the Maria R | | NotificationOn June 20, 2018 the layout of this notification will be updated. For an | | overview of upcoming changes, please log into | | [email or web address]. For questions, please email | | [email or web address] or call .This patient has registered at the | | [facility] Emergency Department For more information visit: | | [email or web address] Security | | EventsNo recent Security Events currently on fileED Care GuidelinesThere are currently | | no ED Care Guidelines for this patient. Please check your facility's medical records | | system.Recent Emergency Department Visit SummaryDate Facility City State Type Major Type | | Diagnoses or Chief [facility] [place] [facility] | | Emergency Shortness of Breath Chest Pain Jun 13, 2018 [facility] [place] | | [place] Emergency Emergency Chief Complaint: DIFFICULTY BREATHING Jun 12, [address] [facility] [address] | | [place] Emergency Emergency Chief Complaint: SOB Jun 08, [address] [facility] [address] | | [place] Emergency Emergency Chief Complaint: DIFFICULTY BREATHING May | | 2018 [facility] 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 | | [place] Emergency Emergency Chief Complaint: SOB May 22, 2018 [facility] 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 | | [place] Emergency Emergency Chief Complaint: DIFFICUTLY BREATHING Apr 16, [address] [facility] [address] | | 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 [place] [facility] Emergency Chronic obstructive pulmonary disease with (acute) | | exacerbation Shortness of breath Allergy status to penicillin Other [facility] | | (current) drug therapy Nicotine dependence, unspecified, uncomplicated Essential | | (primary) hypertension E.D. Visit Count (12 mo.)Facility Visits Low Acuity [facility] | | [facility] 1 0 [facility] 13 0 Total 14 0 Note: Visits | | indicate total known visits. Medicaid Low Acuity Dx are the number of primary diagnoses | | on the Medicaid's Low Acuity dx list. Recent Inpatient Visit SummaryDate Facility City | | State Type Major Type Diagnoses or Chief Complaint [facility] [place] [facility] Inpatient Chief Complaint: DEHYDRATION Jun 08, 2018 [facility]. | | [place] Medical Surgical Inpatient Shortness of breath Benign | | prostatic hyperplasia without lower urinary tract symptoms Essential (primary) | | hypertension Acute and chronic respiratory failure with hypoxia Chronic | | obstructive pulmonary disease with (acute) exacerbation Hyperglycemia, unspecified | | Personal history of nicotine dependence Allergy status to penicillin [facility] | | (current) use of aspirin [facility] (current) use of inhaled steroids May 24, 2018 [facility] | | 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 [place] [facility] | | Inpatient Chronic obstructive pulmonary disease with (acute) exacerbation | | Shortness of breath Other [facility] (current) drug therapy Benign prostatic | | hyperplasia without lower urinary tract symptoms Allergy status to penicillin Long | | term (current) use of aspirin Nicotine dependence, unspecified, uncomplicated | | Essential (primary) hypertension [facility] (current) use of inhaled steroids | | Personal history of traumatic brain injury [facility] 03[facility] 2018 [facility] 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 2019 | | [employer] [place], [place] - | | [email or web address] | |[facility] 1 0 | |[facility] 13 0 | |Total 14 0 | |Note: Visits indicate total known visits. Medicaid Low Acuity Dx are the number of primary diagnoses on the Medicaid's Low Acuity dx list. | | | |Recent Inpatient Visit Summary | |Date Facility [facility] State Type Major Type Diagnoses or Chief Complaint | |[facility] [place] [place] [place] [facility] Chief Complaint: DEHYDR ATION | |Jun 08, 2018 [facility] 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 [facility]. 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 | | | |Care Providers | |Provider PRC Type Phone Fax Service Dates | |Denisse Blanton Wire Insulator/Ic Design Engineer Dec 17, 2017 - Current | |ADI [...] aforementioned facilities for additional information. | |2019 [employer] - [place], [place] - [email or web address] | + + + +---------+ + + [...] | 10 mLs | | | | [id number] | | 9 16:28 | | | [...]
--- OUTSIDE RECORDS SUMMARY | ~2018-08-26 | XMS | Encounter Summary ---
Demographics + + + | Address | [address] | | | [place] [address] | + + + | Home Phone | | + + + | Preferred Language | Unknown | + + + | Marital Status | | + + + | Jewish Affiliation | Unknown | + + + | Race | Unknown | + + + | Ethnic Group | Unknown | + + + Author + + + | Author | [facility] [employer] | + + + | Organization | [facility] [employer] | + + + | Address [...] Team Providers + +------+ + | Care Over Short And Damage Clerk Name | Role | Phone | + [...] AVILA | | | | | | [place], [place] | | | | | | [address] | | | | | | [phone] | | | +--------+ + + + [...] PM PDT3 step testing Oximetry Exercise (code) 25700 1. At rest on room air: Time: [...] | | | | | [place] [address] | | | | | | [phone] | | | | | | | | +--------+---------+ + + + as of this encounter Visit Diagnoses Not on filein this encounter"
--- OUTSIDE RECORDS SUMMARY | ~2018-08-26 | XMS | Clinical Summary ---
Demographics + + + | Address | [address] | | | [place] [address] | + + + | Home Phone | | + + + | Preferred Language | Unknown | + + + | Marital Status | | + + + | Rastafari Affiliation | Unknown | + + + | Race | Unknown | + + + | Ethnic Group | Unknown | + + + Author + + + | Author | [facility] [email or web address] | + + + | Organization | [facility] [employer] | + + + | Address | Unknown | + + + | Phone | Unavailable | + + + Support + + + + + | Name | Relationship | Address | Phone | + + + + + | Jerry Miranda | ECON | [place] | | + + + + + | Amaris Miranda | ECON | [place] | | + + + + + Care Team Providers + +------+ + | Care Mattress Spring Encaser Name | Role | Phone | + [...] | | | + + +--------+---------+------+------+-------+ | SPIRIVA HANDIHALER | INHALE THE CONTENTS | | 3 | 05/21 | 07/19 | Disco | | 18 MCG inhalation | OF 1 CAPSULE VIA | | | 11/07 | 07/10 | ntinu | | capsule | DEVICE ONCE A DAY | | | 19 | 19 | ed | + + +--------+---------+------+------+-------+ Active Problems + [...] Teja Blandon, | Acute exacerbation | | 2018 - | Encounter | | Lei Price | of chronic | | | | | MD Roque Pena, | obstructive | | 06/16/ | | | MD Collette Leos, | pulmonary disease | | 2018 | | | Hector Carrington MD | (COPD) (HCC) | | | | | | (Primary Dx); | | | | | | Hypoxia | +--------+ + + + + +---+ + | | Discharge | | | Summaries | | | - Collette | | Jordon Young | | | MD Zeb - | [...] | | | MRN: | | | [id number] | | | OM: | | | [...] | | Physician: | | | Lei M | | | Gawlik, MD | | | Discharge | | | [...] | | Signed by: | | | Nackos, MD, | | | Walt | | | [...] | | Hospital in | | | [place] | | | for COPD | | [...] | | | [id number], | | | [id number], | | | [id number], | | | BEART in | | [...] | | sh K | | | Collette, | | | MD06/16/2018 | | | [...] | 2019 | Visit | | [address] | | | | | | [place] [address] | | | | | | [phone] | | | | | | | [...] | + +--------+ + + + | KM CARD PANEL W/O | STAT | 06/14/2018 [...] Testing | 65 - 99 mg/dL | [facility] | | | performed at [facility];[address] | | | | | [address];[place], [place] | | | | | [address] | | | + + + + + + + + + + | Performing | Address | City/State/Zipcode | Phone Number | | Organization | | | | + + + + + | [facility] | [address] | [place] [address] | | + + + + + [...] | [facility] | | | performed at [facility] [address] | | LABORATORY | | | [address], | | | | | [place] [address] | | | + + + + + + + | Specimen | + + | Blood | + + + + + + + | Performing | Address | City/State/Zipcode | Phone Number | | Organization | | | | + + + + + | [facility] | [address] | [place] [address] | [phone] | | LABORATORY | [address] | | | + + + + + CBC w/auto diff (reflex to manual) (06/16/2018 5:58 AM)Only the most recent of 2 results w ithin the time period is included. + + [...] performed at | | | | | [facility], [address] | | | | | [place], [place] | | | | | [address] | | | + + + + + + + | Specimen | + + | Blood | + + + + + + + | Performing | Address | City/State/Zipcode | Phone Number | | Organization | | | | + + + + + | [facility] | [address] | [place] [address] | [phone] | | LABORATORY | [place]. | | | + + + + + Folate (06/16/2018 5:58 AM) + + + + + | Component | Value | Ref Range | Performed At | + + + + + | FOLATE | 17.8Comment: Testing | >5.4 ng/mL | [facility] | | | performed at [facility], [address] | | LABORATORY | | | [address], | | | | | [place] [address] | | | + + + + + + + | Specimen | + + | Blood | + + + + + + + | Performing | Address | City/State/Zipcode | Phone Number | | Organization | | | | + + + + + | [facility] | [address] | [place] [address] | [phone] | | LABORATORY | [address] | | | + + + + + Ferritin (06/16/2018 5:58 AM) + + + + + | Component | Value | Ref Range | Performed At | + + + + + | FERRITIN | 298Comment: Testing | 11 - 450 ng/mL | [facility] | | | performed at [facility], [address] | | LABORATORY | | | [facility], | | | | | [place] [address] | | | + + + + + + + | Specimen | + + | Blood | + + + + + + + | Performing | Address | City/State/Zipcode | Phone Number | | Organization | | | | + + + + + | [facility] | [address] | [place] [address] | [phone] | | LABORATORY | [address] | | | + + + + + Vitamin B12 (06/16/2018 5:58 AM) + + + + + | Component | Value | Ref Range | Performed At | + + + + + | VITAMIN B12 | 431Comment: Testing | 254 - 1,320 pg/mL | [facility] | | | performed at [facility], [address] | | LABORATORY | | | [facility] [place], | | | | | [place] [address] | | | + + + + + + + | Specimen | + + | Blood | + + + + + + + | Performing | Address | City/State/Zipcode | Phone Number | | Organization | | | | + + + + + | [facility] | [address] | [place] [address] | [phone] | | LABORATORY | [address] | | [...] (L) | 8.5 - 10.5 mg/dL | [facility] | | | | | LABORATORY | + + + + + | EGFR | >60Comment: GFR <60: | >60 mL/min/1.73m2 | [facility] | | | CHRONIC KIDNEY DISEASE, | [...] | | | | | performed at [facility], [address] | | | | | [facility], | | | | | [place] [address] | | | + + + + + + + | Specimen | + + | Blood | + + + + + + + | Performing | Address | City/State/Zipcode | Phone Number | | Organization | | | | + + + + + | [facility] | [address] | [place] [address] | [phone] | | LABORATORY | [address] | | [...] + + + + | [facility] | [address] | [place] [address] | [phone] | | LABORATORY | Blvd. | | [...] | LABORATORY | | | [facility], [address] | | | | | [place] | | | | | [address] | | | + + + + + + + | Specimen | + + | Blood | + + + + + + + | Performing | Address | City/State/Zipcode | Phone Number | | Organization | | | | + + + + + | [facility] | [address] | [place] [address] | [phone] | | LABORATORY | [address] | | | + + + + + Phosphorus (06/15/2018 6:19 AM) + + + + + | Component | Value | Ref Range | Performed At | + + + + + | PHOSPHORUS | 3.3Comment: Testing | 2.3 - 4.8 mg/dL | [facility] | | | performed at [facility], [address] | | LABORATORY | | | [address], | | | | | [place] [address] | | | + + + + + + + | Specimen | + + | Blood | + + + + + + + | Performing | Address | City/State/Zipcode | Phone Number | | Organization | | | | + + + + + | [facility] | [address] | [place] [address] | [phone] | | LABORATORY | [address] | | | + + + + + Magnesium (06/15/2018 6:19 AM) + + + + + | Component | Value | Ref Range | Performed At | + + + + + | MAGNESIUM | 2.0Comment: Testing | 1.7 - 2.4 mg/dL | [facility] | | | performed at [facility], [address] | | LABORATORY | | | [address], | | | | | [place] [address] | | | + + + + + + + | Specimen | + + | Blood | + + + + + + + | Performing | Address | City/State/Zipcode | Phone Number | | Organization | | | | + + + + + | [facility] | [address] | [place] [address] | [phone] | | LABORATORY | [address] | | | + + + + + Glycohemoglobin A1c (06/15/2018 6:19 AM) + + + + + | Component | Value | Ref Range | Performed At | + + + + + | HEMOGLOBIN A1C | 9.7 (H)Comment: HbA1c | 4.0 - 6.0 % | [facility] | | | method is certified by [...] | | | | | performed at [facility], [address] | | | | | [address], | | | | | [place] [address] | | | + + + + + + + | Specimen | + + | Blood | + + + + + + + | Performing | Address | City/State/Zipcode | Phone Number | | Organization | | | | + + + + + | [facility] | [address] | [place] [address] | [phone] | | LABORATORY | [address] | | [...] (H) | 65 - 99 mg/dL | [facility] | | | | | LABORATORY [...] (L) | 6.3 - 8.2 g/dL | [facility] | | | | | LABORATORY | + + + + + | Albumin | 2.7 (L) | 3.3 - 4.8 g/dL | [facility] | | | | [...] | | | | | performed at [facility], [address] | | | | | [facility], | | | | | [place] [address] | | | + + + + + + + | Specimen | + + | Blood | + + + + + + + | Performing | Address | City/State/Zipcode | Phone Number | | Organization | | | | + + + + + | [facility] | [address] | [place] [address] | [phone] | | LABORATORY | [address]. | | [...] INTERP | Testing performed by | | [employer] | | | Molecular | | LABORATORY | | | MethodologyComment: | | | | | Testing performed at | | | | | [facility], [address] | | | | | [place], [place] | | | | | [address] | | | + + + + + + + | Specimen | + + | Nasopharyngeal | | Culture | + + + + + + + | Performing | Address | City/State/Zipcode | Phone Number | | Organization | | | | + + + + + | [facility] | [address] | [place] [address] | [phone] | | LABORATORY | [address] | | [...] SPECIAL REQUESTS | L WRIST | | [facility] | + + [...] | [address] | [place] [address] | [phone] | | LABORATORY | [address]vd. | | | + + + + + | [facility] | [address] | [place] [address] | | + + + + + Blood Culture Set 1 (06/14/2018 11:00 PM) + + + + + | Component | Value | Ref Range | Performed At | + + + + + | Specimen Description | BLOOD | | [facility] | | | | | LABORATORY | + + + + + | SPECIAL REQUESTS | RAC | | [facility] | + + [...] | [address] | [place] [address] | [phone] | | LABORATORY | Blvd. | | | + + + + + | [facility] | [address] | [place] [address] | | + + + + + [...] | + + + + + | [facility] | [address] | [place] [address] | | + + + + + [...] Procedure Note | + + | Kevin, Wilmer Results In - 06/14/2018 7:24 PM PST [...] | + + + + + | [facility] | [address] | [place] [address] | | + + + + + PROCALCITONIN (06/14/2018 7:06 PM) + + + + + | Component | Value | Ref Range | Performed At | + + + + + | PROCALCITONIN | 0.09Comment: | <0.5 ng/mL | [facility] | | | INTERPRETIVE [...] performed | | | | | at [facility];[address] [place] [address] | | | | | [facility];[place] [address] | | | + + + + + + + + + + | Performing | Address | City/State/Zipcode | Phone Number | | Organization | | | | + + + + + | [facility] | [address] | [place] [address] | | + + + + + Cardiac Panel (06/14/2018 7:06 PM) + + + + + | Component | Value | Ref Range | Performed At | + + + + + | WBC | 16.54 (H) | 3.80 - 11.00 K/uL | [facility] | + + + + + | RBC | 4.02 (L) | 4.20 - 5.70 M/uL | [facility] | + + + + + | HGB | 13.4 | 13.2 - 17.0 g/dL | [facility] | + + + + + | HCT | 41.0 | 39.0 - 50.0 % | [facility] | + + + + + | MCV | 102.0 (H) | 80.0 - 100.0 fl | [facility] | + + + + + | MCH | 33.2 | 27.0 - 34.0 pg | [facility] | + + + + + | MCHC | 32.5 | 32.0 - 35.5 g/dL | [facility] | + + + + + | RDW SD | 50.3 | 37 - 53 fl | [facility] | + + + + + | PLT | 225 | 150 - 400 K/uL | [facility] | + + + + + | MPV | 8.4 | fl | [facility] | + + + + + | DIFF TYPE | MANUAL | | [facility] | + + + + + | Neutrophils Manual | 76 | % | [facility] | + + + + + | Bands | 11 | % | [facility] | + [...] (H) | 1.90 - 7.40 K/uL | [facility] | + + + + + | Bands Manual | 1.82 (H) | 0.00 - 0.20 K/uL | [facility] | + + + + + | Metamyelocytes | 0.33 (H) | 0.00 K/uL | [facility] | | Absolute | | | | + + + + + | Lymphocytes Absolute | 0.99 (L) | 1.00 - 3.90 K/uL | [facility] | + + + + + | Monocytes Absolute | 0.83 (H) | 0.00 - 0.80 K/uL | [facility] | + + + + + | Platelet Estimate | ADEQUATE | | [facility] | + + + + + | MORPHOLOGY | 1+ | | [facility] | | | Comment: | | | | | MACRO | | | | | NORMAL PLT MORPH | | | | | | | | + + + + + | SODIUM | 141 | 135 - 145 mmol/L | [facility] | + + + + + | POTASSIUM | 4.8Comment: SPECIMEN | 3.5 - 4.9 mmol/L | [facility] | | | MODERATELY HEMOLYZED | | | + + + + + | CHLORIDE | 99 | 99 - 109 mmol/L | [facility] | + + + + + | CO2 | 29 | 23 - 32 mmol/L | [facility] | + + + + + | ANION GAP AGAP | 18 | 5 - 20 mmol/L | [facility] | + + + + + | GLUCOSE | 126 (H) | 65 - 99 mg/dL | [facility] | + + + + + | BUN | 23Comment: SPECIMEN | 8 - 25 mg/dL | [facility] | | | MODERATELY HEMOLYZED | | | + + + + + | CREATININE | 1.07 | 0.70 - 1.30 mg/dL | [facility] | + + + + + | BUN/CREAT | 21 | | [facility] | + + + + + | CALCIUM | 9.2 | 8.5 - 10.5 mg/dL | [facility] | + + + + + | TOTAL PROTEIN | 6.0 (L) | 6.3 - 8.2 g/dL | [facility] | + + + + + | Albumin | 4.0 | 3.3 - 4.8 g/dL | [facility] | + + + + + | GLOBULIN | 2.0 | 1.3 - 4.9 g/dL | [facility] | + + + + + | A/G | 2.0 | 1.0 - 2.4 | [facility] | + + + + + | TBIL | 0.7 | 0.1 - 1.5 mg/dL | [facility] | + + + + + | ALK PHOS | 63 | 35 - 115 U/L | [facility] | + + + + + | AST | 37 | 10 - 45 U/L | [facility] | + + + + + | ALT | 47 | 10 - 65 U/L | [facility] | + + + + + | EGFR | >60Comment: GFR <60: | >60 mL/min/1.73m2 | [facility] | | | CHRONIC [...] IDMS traceable | | | | | equation. | | | + + + + + | CPK | 77Comment: SPECIMEN | 55 - 400 U/L | [facility] | | | MODERATELY HEMOLYZED | | | + + + + + | INR | 0.9Comment: REFERENCE | | [facility] | | | RANGE:0.9 [...] (L) | 23 - 32 seconds | [facility] | + + + + + | MMB | 5.7 (H) | 0.5 - 3.6 ng/mL | [facility] | + + + + + | CK-MB Index | 7.4Comment: CK INDEX | | [facility] | | | INTERPRETATION: [...] | | | | | performed at [facility];[address] | | | | [address];[place] | | | | | [address] | | | + + + + + + + + + + | Performing | Address | City/State/Zipcode | Phone Number | | Organization | | | | + + + + + | [facility] | [address] | [place] [address] | | + + + + + Troponin I (06/14/2018 7:06 PM) + + + + + | Component | Value | Ref Range | Performed At | + + + + + | TROPONIN I | 0.031Comment: Testing | 0.00 - 0.04 ng/mL | [facility] | | | performed at [facility];[address] | | | | | [facility];[place], [place] | | | | | [id number] ON 07/11 | | | | | [...] | + + + + + | [facility] | [address] | [place] [address] | | + + + + + D-dimer, quantitative (06/14/2018 7:06 PM) + + + + + | Component | Value | Ref Range | Performed At | + + + + + | D DIMER, | 0.68 (H)Comment: Testing | 0.19 - 0.50 mg/L FEU | [facility] | | QUANTITATIVE | performed at [facility] | | | | | [address];[place], [place] | | | | | [address] | | | + + + + + + + | Specimen | + + | Blood | + + + + + + + | Performing | Address | City/State/Zipcode | Phone Number | | Organization | | | | + + + + + | [facility] | [address] | [place] [address] | | + + + + + Brain natriuretic peptide (06/14/2018 7:06 PM) + + + + + | Component | Value | Ref Range | Performed At | + + + + + | BRAIN NATRIURETIC | 63.94Comment: Testing | 0 - 100 pg/mL | [facility] | | PEPTIDE | performed at [facility];[address];[place] | | | | | [address] | | | + + + + + + + + + + | Performing | Address | City/State/Zipcode | Phone Number | | Organization | | | | + + + + + | [facility] | [address] | [place] [address] | | + + + + + EKG 12 LEAD UNIT PERFORMED (06/14/2018 6:51 PM) + + + + + | Component | Value | Ref Range | Performed At | + + + + + | Ventricular Rate | 96 | BPM | [facility] | + + + + + | Atrial Rate | 96 | BPM | [facility] | + + + + + [...] + + + + | Calculated P [place] | 49 | degrees | [facility] | + + + + + | Calculated R [place] | -26 | degrees | [facility] | + + + + + | Calculated T [place] | 92 | degrees | [facility] | + + + + + | Diagnosis | Normal sinus | | [facility] | | | rhythmNonspecific T wave [...] | | | | | ONLY, -COMPUTER ([id number]), | | | | | 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 | [place] [address] | | + + + + + ED INFORMATION EXCHANGE (06/14/2018 6:46 PM) + + + | Narrative | Performed At | + + + | [id number] Upcoming Changes to the [facility] | ED | | Notification On June 20, 2018 the layout of this notification will | INFORMATION | | be updated. For an overview of upcoming changes, please log into | EXCHANGE | | [email or web address] For questions, | | | please email [email or web address] or call . | | | This patient has registered at the [facility] | | | Emergency Department For more information visit: | | | [email or web address] | | | [email or web address] Security Events No recent Security Events currently on file | | | ED Care Guidelines There are currently no ED Care Guidelines for | | | this patient. Please check your facility's medical records system. | | | Recent Emergency Department Visit Summary Date Facility City State | | | Type Major Type Diagnoses or Chief Complaint Jun 14, 2018 [facility] | | | [facility] [place] Emergency Emergency Shortness of | | | Breath Chest Pain Jun 13, 2018 [facility] | | | [place] Emergency Emergency Chief Complaint: DIFFICULTY BREATHING | | | Jun 12, 2018 [facility] [place] | | | Emergency Emergency Chief Complaint: SOB Jun 08, 2018 [facility] | | [facility] [place] [facility] Emergency Chief Complaint: | | | DIFFICULTY BREATHING Jun 08, 2018 [facility] 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 | | | [facility] [place] Emergency Emergency Chief Complaint: | | | SOB May 22, 2018 [facility] 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 | | | [place] Emergency Emergency Chief Complaint: DIFFICUTLY BREATHING | | | Apr 16, 2018 [facility] 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 [place] 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 [place] [facility] | [facility] Emergency Chronic obstructive pulmonary disease | | | with (acute) exacerbation Shortness of breath Allergy | | | status to penicillin Other prison (current) drug therapy | | | Nicotine dependence, unspecified, uncomplicated Essential | | | (primary) hypertension E.D. Visit Count (12 mo.) Facility | | | Visits Low Acuity [facility] 1 0 [facility]. | | | [facility] 13 0 Total 14 0 Note: Visits indicate total known | | | visits. Medicaid Low Acuity Dx are the number of primary diagnoses on | | | the Medicaid's Low Acuity dx list. Recent Inpatient Visit | | | Summary Date Facility [facility] State Type Major Type Diagnoses or Chief | | | Complaint [facility] [place] [facility] | | | Care Inpatient Chief Complaint: DEHYDRATION Jun 08, 2018 | | | [facility] [place] [facility] | | | Shortness of breath Benign prostatic hyperplasia without | | | lower urinary tract symptoms Essential (primary) hypertension | | | Acute and chronic respiratory failure with hypoxia | | | Chronic obstructive pulmonary disease with (acute) exacerbation | | | Hyperglycemia, unspecified Personal history of nicotine | | | dependence Allergy status to penicillin alf | | | (current) use of aspirin alf (current) use of inhaled | | | steroids May [facility], 2018 [facility] 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 2018 | | | [facility] - [place], [place] - | | | [email or web address] | | + + + + + | Procedure Note | + + | Interface, Lab - 06/14/2018 6:48 PM PST Formatting of this note may be different | | from the original.[id number] Changes to the Maria R | | NotificationOn June 20, 2018 the layout of this notification will be updated. For an | | overview of upcoming changes, please log into | | [email or web address] For questions, please email | | [email or web address] or call .This patient has registered at the | | [facility] Emergency Department For more information visit: | | [email or web address] Security | | EventsNo recent Security Events currently on fileED Care GuidelinesThere are currently | | no ED Care Guidelines for this patient. Please check your facility's medical records | | system.Recent Emergency Department Visit SummaryDate Facility City State Type Major Type | | Diagnoses or Chief Complaint Jun 14, 2018 [facility] [place] Emergency | | Emergency Shortness of Breath Chest Pain Jun 13, 2018 [facility]. | | [place] Emergency Emergency Chief Complaint: DIFFICULTY BREATHING Jun 12, 2018 [facility]. 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 [place] [facility] Emergency Chief Complaint: SOB [facility] 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 [place] [facility] Emergency Chief Complaint: DIFFICUTLY BREATHING Apr 16, 2018 [facility]. | | 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 | | [place] Emergency Emergency Chronic obstructive pulmonary disease with (acute) | | exacerbation Shortness of breath Allergy status to penicillin Other terminal computer operator | | (current) drug therapy Nicotine dependence, unspecified, uncomplicated Essential | | (primary) hypertension E.D. Visit Count (12 mo.)Facility Visits [facility] | | [facility] 1 0 [facility] 13 0 Total 14 0 Note: Visits | | indicate total known visits. Medicaid Low Acuity Dx are the number of primary diagnoses | | on the Medicaid's Low Acuity dx list. Recent Inpatient Visit SummaryDate Facility City | | State Type Major Type Diagnoses or Chief Complaint [facility] 2018 [facility] [place] Critical Care Inpatient Chief Complaint: DEHYDRATION Jun 08, 2018 [facility]. | | 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 2019 | | [facility] - [place], [place] - | | [email or web address] | |[facility] 1 0 | |[facility] 13 0 | |Total 14 0 | |Note: Visits indicate total known visits. Medicaid Low Acuity Dx are the number of primary diagnoses on the Medicaid's Low Acuity dx list. | | | |Recent Inpatient Visit Summary | |Date Facility City State Type Major Type Diagnoses or Chief Complaint | |Jun 13, 2018 [facility]. [place] Critical Care Inpatient Chief Complaint: DEHYDR ATION | |Jun 08, 2018 [facility] [place] Medical Surgical Inpatient | | Shortness of breath | | Benign prostatic hyperplasia without lower urinary tract symptoms | | Essential (primary) hypertension | | Acute and chronic respiratory failure with hypoxia | | Chronic obstructive pulmonary disease with (acute) exacerbation | | Hyperglycemia, unspecified | | Personal history of nicotine dependence | | Allergy status to penicillin | | alf (current) use of aspirin | | alf (current) use of inhaled steroids | | | |[facility] 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 | |2019 [facility] - [place], [place] - [email or web address] | + + + +---------+ + + [...] +------+-------+ + | MEDICARE | MEDICA | [id number] | | | [address] | | | RE | | | | [place] [address] | | | IP-OP | | | | | + +--------+ +------+-------+ + | MEDICAID | [place]ASTER | [id number] | | | [address] | | | N | | | | [place] | | | [place] | | | | [address] | | | POWDERMAN | | | | | + +--------+ [...] [address] | | | [place] | | 1935 | [phone] | [place] [address] | | | [place] | | | [phone] | | + +--------+ +--------+ + +
--- OUTSIDE RECORDS SUMMARY | ~2018-08-26 | XMS | Clinical Summary ---
Demographics + + + | Address | [address] | | | [place] [address] | + + + | Home Phone | | + + + | Preferred Language | Unknown | + + + | Marital Status | Single | + + + | Mosque Affiliation | Unknown | + + + | Race | White | + + + | Ethnic Group | Not or | + + + Author + + + | Author | [facility] | + + + | Organization | [facility] | + + + | Address | Unknown | + + + | Phone | Unavailable | + + + Support + + + + + | Name | Relationship | Address | Phone | + + + + + | LUL SCHMIDT | ECON | [address] | | | | | [place], [place] | | | | | [address] | | + + + + + | SHANNON PENA | ECON | [address] | | | | | [place], [place] | | | | | [address] | | + + + + + Care Team Providers + +------+ + | 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 Ambulatory and [facility] InPatient.[facility] Allergies No Known Allergies Current Medications + [...] | MEDICA | xxxxxxxxxxx | Medica | [phone] | [address] | | | RE A & | | re | [phone] | [place] [address] | | | B | | | | | + +--------+ +--------+ + + | MEDICAID [place] | OHP | xxxxxxxx | Medica | [phone] [address] [address] | | | PLUS | | id | [phone] | [place] [address] | | | OPEN | | | [...] | 1935 | [phone] | [place] [address] | | | [place] | | | [phone] | | + +--------+ +--------+ + +"
--- OUTSIDE RECORDS SUMMARY | ~2018-08-26 | XMS | Clinical Summary ---
Demographics + + + | Address | [address] | | | [place] [address] | + + + | Home Phone | | + + + | Preferred Language | Unknown | + + + | Marital Status | | + + + | Confucianism Affiliation | Unknown | + + + | Race | Unknown | + + + | Ethnic Group | Unknown | + + + Author + + + | Author | [facility] [employer] | + + + | Organization | [facility] [employer] | + + + | Address [...] Team Providers + +------+ + | Care Supervisor Sandblaster Name | Role | Phone | + [...] | | | MRN: | | | [id number] | | | OM: | | | [...] | | | [id number], | | | [id number], | | | [id number], | | | BEART in | | [...] CLYDES | | | | | | [place] [address] | | | | | | [phone] | | | | | | | [...] Testing | 65 - 99 mg/dL | [facility] | | | performed at [facility];[address] | | | | | [address];[place], [place] | | | | | [address] | | | + + + + + + + + + + | Performing | Address | City/State/Zipcode | Phone Number | | Organization | | | | + + + + + | [facility] | [address] | [place] [facility] [address] | | + + + + + [...] | [facility] | | | performed at [facility], [address] | | LABORATORY | | | [address], | | | | | [place] [address] | | | + + + + + + + | Specimen | + + | Blood | + + + + + + + | Performing | Address | City/State/Zipcode | Phone Number | | Organization | | | | + + + + + | [facility] | [address] | [place] [address] | [phone] | | LABORATORY | [address]vd[address] | | [...] | | | | | TCL, [address] | | | | | [place], [place] | | | | | [address] | | | + + + + + + + | Specimen | + + | Blood | + + + + + + + | Performing | Address | City/State/Zipcode | Phone Number | | Organization | | | | + + + + + | [facility] | [address] | [place] [address] | [phone] | | LABORATORY | [place]. | | | + + + + + Folate (06/16/2018 5:58 AM) + + + + + | Component | Value | Ref Range | Performed At | + + + + + | FOLATE | 17.8Comment: Testing | >5.4 ng/mL | [facility] | | | performed at [facility], [address] | | LABORATORY | | | [address], | | | | | [place] [address] | | | + + + + + + + | Specimen | + + | Blood | + + + + + + + | Performing | Address | City/State/Zipcode | Phone Number | | Organization | | | | + + + + + | [facility] | [address] | [place] [address] | [phone] | | LABORATORY | Blvd. | | | + + + + + Ferritin (06/16/2018 5:58 AM) + + + + + | Component | Value | Ref Range | Performed At | + + + + + | FERRITIN | 298Comment: Testing | 11 - 450 ng/mL | [facility] | | | performed at [facility], [address] | | LABORATORY | | | [facility], | | | | | [place] [address] | | | + + + + + + + | Specimen | + + | Blood | + + + + + + + | Performing | Address | City/State/Zipcode | Phone Number | | Organization | | | | + + + + + | [facility] | [address] | [place] [address] | [phone] | | LABORATORY | Blvd. | | | + + + + + Vitamin B12 (06/16/2018 5:58 AM) + + + + + | Component | Value | Ref Range | Performed At | + + + + + | VITAMIN B12 | 431Comment: Testing | 254 - 1,320 pg/mL | [facility] | | | performed at [facility], [address] | | LABORATORY | | | [facility] [place], | | | | | [place] [address] | | | + + + + + + + | Specimen | + + | Blood | + + + + + + + | Performing | Address | City/State/Zipcode | Phone Number | | Organization | | | | + + + + + | [facility] | [address] | [place] [address] | [phone] | | LABORATORY | Blvd. | | [...] (L) | 8.5 - 10.5 mg/dL | [facility] | | | | | LABORATORY | + + + + + | EGFR | >60Comment: GFR <60: | >60 mL/min/1.73m2 | [facility] | | | CHRONIC KIDNEY DISEASE, | [...] [address] | | | | | [facility], | | | | | [place] [address] | | | + + + + + + + | Specimen | + + | Blood | + + + + + + + | Performing | Address | City/State/Zipcode | Phone Number | | Organization | | | | + + + + + | [facility] | [address] | [place] [address] | [phone] | | LABORATORY | Blvd. | | [...] + + + | [facility] | [address] | [place] [address] | [phone] | | LABORATORY | Blvd. | | [...] | LABORATORY | | | TCL, [address] [facility] | | | | | [place] | | | | | [address] | | | + + + + + + + | Specimen | + + | Blood | + + + + + + + | Performing | Address | City/State/Zipcode | Phone Number | | Organization | | | | + + + + + | [facility] | [address] | [place] [address] | [phone] | | LABORATORY | [address]vd. | | | + + + + + Phosphorus (06/15/2018 6:19 AM) + + + + + | Component | Value | Ref Range | Performed At | + + + + + | PHOSPHORUS | 3.3Comment: Testing | 2.3 - 4.8 mg/dL | [facility] | | | performed at [facility], [address] | | LABORATORY | | | [address], | | | | | [place] [address] | | | + + + + + + + | Specimen | + + | Blood | + + + + + + + | Performing | Address | City/State/Zipcode | Phone Number | | Organization | | | | + + + + + | [facility] | [address] | [place] [address] | [phone] | | LABORATORY | Blvd. | | | + + + + + Magnesium (06/15/2018 6:19 AM) + + + + + | Component | Value | Ref Range | Performed At | + + + + + | MAGNESIUM | 2.0Comment: Testing | 1.7 - 2.4 mg/dL | [facility] | | | performed at [facility], [address] | | LABORATORY | | | [address], | | | | | [place] [address] | | | + + + + + + + | Specimen | + + | Blood | + + + + + + + | Performing | Address | City/State/Zipcode | Phone Number | | Organization | | | | + + + + + | [facility] | [address] | [place] [address] | [phone] | | LABORATORY | [address]vd. | | | + + + + + Glycohemoglobin A1c (06/15/2018 6:19 AM) + + + + + | Component | Value | Ref Range | Performed At | + + + + + | HEMOGLOBIN A1C | 9.7 (H)Comment: HbA1c | 4.0 - 6.0 % | [facility] | | | method is certified by [...] | | | | | performed at [facility], [address] | | | | | [address], | | | | | [place] [address] | | | + + + + + + + | Specimen | + + | Blood | + + + + + + + | Performing | Address | City/State/Zipcode | Phone Number | | Organization | | | | + + + + + | [facility] | [address] | [place] [address] | [phone] | | LABORATORY | Blvd. | | [...] (H) | 65 - 99 mg/dL | [facility] | | | | | LABORATORY [...] | | | | | performed at [facility], [address] | | | | | [facility], | | | | | [place] [address] | | | + + + + + + + | Specimen | + + | Blood | + + + + + + + | Performing | Address | City/State/Zipcode | Phone Number | | Organization | | | | + + + + + | [facility] | [address] | [place] [address] | [phone] | | LABORATORY | Blvd. | | [...] INTERP | Testing performed by | | Best [employer] | | | Molecular | | LABORATORY | | | MethodologyComment: | | | | | Testing performed at | | | | | [facility], [address] [facility] | | | | | [place], [place] | | | | | [address] | | | + + + + + + + | Specimen | + + | Nasopharyngeal | | Culture | + + + + + + + | Performing | Address | City/State/Zipcode | Phone Number | | Organization | | | | + + + + + | [facility] | [address] | [place] [address] | [phone] | | LABORATORY | Blvd[address] | | [...] | [address] | [place] [address] | [phone] | | LABORATORY | Blvd. | | | + + + + + | [facility] | [address] | [place] [address] | | + + + + + [...] + + + | [facility] | [address] | [place] [address] | [phone] | | LABORATORY | Blvd. | | | + + + + + | [facility] | [address] | [place] [address] | | + + + + + [...] [facility] | [address] | [place] [address] | | + + + + + [...] | + + + + + | [facility] | [address] | [place] [address] | | + + + + + PROCALCITONIN (06/14/2018 7:06 PM) + + + + + | Component | Value | Ref Range | Performed At | + + + + + | PROCALCITONIN | 0.09Comment: | <0.5 ng/mL | [facility] | | | INTERPRETIVE [...] performed | | | | | at [facility];[address] [place] [address] | | | | | [facility];[place] [address] | | | + + + + + + + + + + | Performing | Address | City/State/Zipcode | Phone Number | | Organization | | | | + + + + + | [facility] | [address] | [place] [address] | | + + + + + Cardiac Panel (06/14/2018 7:06 PM) + + + + + | Component | Value | Ref Range | Performed At | + + + + + | WBC | 16.54 (H) | 3.80 - 11.00 K/uL | [facility] | + + + + + | RBC | 4.02 (L) | 4.20 - 5.70 M/uL | [facility] | + + + + + [...] 32.5 | 32.0 - 35.5 g/dL | [facility] | + + + + + | RDW SD | 50.3 | 37 - 53 fl | [facility] | + + + + + | PLT | 225 | 150 - 400 K/uL | [facility] | + + + + + | MPV | 8.4 | fl | [facility] | + + + + + | DIFF TYPE | MANUAL | | [facility] | + + + + + [...] (H) | 1.90 - 7.40 K/uL | [facility] | + + + + + | Bands Manual | 1.82 (H) | 0.00 - 0.20 K/uL | [facility] | + + + + + | Metamyelocytes | 0.33 (H) | 0.00 K/uL | [facility] | | Absolute | | | | + + + + + | Lymphocytes Absolute | 0.99 (L) | 1.00 - 3.90 K/uL | [facility] | + + + [...] SPECIMEN | 8 - 25 mg/dL | [facility] | | | MODERATELY [...] 4.0 | 3.3 - 4.8 g/dL | [facility] | + + + + + | GLOBULIN | 2.0 | 1.3 - 4.9 g/dL | [facility] | + + + + + | A/G | 2.0 | 1.0 - 2.4 | [facility] | + + + + + | TBIL | 0.7 | 0.1 - 1.5 mg/dL | [facility] | + + + + + | ALK PHOS | 63 | 35 - 115 U/L | [facility] | + + + + + | AST | 37 | 10 - 45 U/L | [facility] | + + + + + | ALT | 47 | 10 - 65 U/L | [facility] | + + + + + | EGFR | >60Comment: GFR <60: | >60 mL/min/1.73m2 | [facility] | | | CHRONIC [...] SPECIMEN | 55 - 400 U/L | [facility] | | | MODERATELY HEMOLYZED | | | + + + + + | INR | 0.9Comment: REFERENCE | | [facility] | | | RANGE:0.9 [...] (L) | 23 - 32 seconds | [facility] | + + + + + | MMB | 5.7 (H) | 0.5 - 3.6 ng/mL | [facility] | + + + + + | CK-MB Index | 7.4Comment: CK INDEX | | [facility] | | | INTERPRETATION: [...] | | | | | performed at [facility];[address] | | | | | [address];[place] | | | | | [address] | | | + + + + + + + + + + | Performing | Address | City/State/Zipcode | Phone Number | | Organization | | | | + + + + + | [facility] | [address] | [place] [address] | | + + + + + Troponin I (06/14/2018 7:06 PM) + + + + + | Component | Value | Ref Range | Performed At | + + + + + | TROPONIN I | 0.031Comment: Testing | 0.00 - 0.04 ng/mL | [facility] | | | performed at [facility];[address] | | | | | [facility];[place], [place] | | | | | [id number] ON 07/11 | | | | | [...] | + + + + + | [facility] | [address] | [place] [address] | | + + + + + D-dimer, quantitative (06/14/2018 7:06 PM) + + + + + | Component | Value | Ref Range | Performed At | + + + + + | D DIMER, | 0.68 (H)Comment: Testing | 0.19 - 0.50 mg/L FEU | [facility] | | QUANTITATIVE | performed at [facility] | | | | | [address];[place], [place] | | | | | [address] | | | + + + + + + + | Specimen | + + | Blood | + + + + + + + | Performing | Address | City/State/Zipcode | Phone Number | | Organization | | | | + + + + + | [facility] | [address] | [place] [address] | | + + + + + Brain natriuretic peptide (06/14/2018 7:06 PM) + + + + + | Component | Value | Ref Range | Performed At | + + + + + | BRAIN NATRIURETIC | 63.94Comment: Testing | 0 - 100 pg/mL | [facility] | | PEPTIDE | performed at [facility];[address];[place] | | | | | [address] | | | + + + + + + + + + + | Performing | Address | City/State/Zipcode | Phone Number | | Organization | | | | + + + + + | [facility] | [address] | [place] [address] | | + + + + + [...] + + + + | Calculated P Hanson | 49 | degrees | [facility] | + + + + + | Calculated R Hanson | -26 | degrees | [facility] | + + + + + | Calculated T Hanson | 92 | degrees | [facility] | + + + + + | Diagnosis | Normal sinus | | [facility] | | | rhythmNonspecific [...] | | | | | ONLY, -COMPUTER (211), | | | | | 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 | [place] [address] | | + + + + + ED INFORMATION EXCHANGE (06/14/2018 6:46 PM) + + + | Narrative | Performed At | + + + | [id number] Upcoming Changes to the Maria [facility] | ED | | Notification On June 20, 2018 the layout of this notification will | INFORMATION | | be updated. For an overview of upcoming changes, please log into | EXCHANGE | | [email or web address]. For questions, | | | please email [email or web address] or call . | | | This patient has registered at the [facility] | | | Emergency Department For more information visit: | | | [email or web address] | | | [email or web address] Security Events No [...] Diagnoses or Chief Complaint Jun 14, 2018 [facility] | | | [facility] [place] Emergency Emergency Shortness of | | | Breath Chest Pain Jun 13, 2018 [facility] | | | [place] Emergency Emergency Chief Complaint: DIFFICULTY BREATHING | | | Jun 12, 2018 [facility] [place] [place] | | | Emergency Emergency Chief Complaint: SOB Jun 08, 2018 [facility] | | | [facility] [place] [facility] Emergency Chief Complaint: | | | DIFFICULTY BREATHING Jun 08, 2018 [facility] [place] 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 | | | [facility] [place] Emergency Emergency Chief Complaint: | | | SOB May 22, 2018 [facility] [place] 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 | | | [place] Emergency Emergency Chief Complaint: DIFFICUTLY BREATHING | | | Apr 16, 2018 [facility] 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 [place] 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 [place] [place] | | | Emergency Emergency Chronic obstructive pulmonary disease | | | with (acute) exacerbation Shortness of breath Allergy | | | status to penicillin Other long-term (current) 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 | | | Nicotine dependence, unspecified, uncomplicated Essential | | | (primary) hypertension E.D. Visit Count (12 mo.) Facility | | | Visits Low Acuity [facility] 1 0 [facility]. | | | [facility] 13 0 Total 14 0 Note: Visits indicate total known | | | visits. Medicaid Low Acuity Dx are the number of primary diagnoses on | | | the Medicaid's Low Acuity dx list. Recent Inpatient Visit | | | Summary Date Facility [facility] State Type Major Type Diagnoses or Chief | | | Complaint [facility] [place] [place] Critical | | | Care Inpatient Chief Complaint: DEHYDRATION Jun 08, 2018 | | | [facility] [place] [place] [facility] In[facility] | [...] | | | (current) use of aspirin prison (current) use of inhaled | | | steroids May [facility], 2018 [facility] [place] 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 [place] 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 2018 | | | [facility] - [place], [place] - | | | [email or web address] | | + + + + + | Procedure Note | + + | Interface, Lab - 06/14/2018 6:48 PM PST Formatting of this note may be different | | from the original.[id number] Changes to the Maria R | | NotificationOn June 20, 2018 the layout of this notification will be updated. For an | | overview of upcoming changes, please log into | | [email or web address]. For questions, please email | | [email or web address] or call .This patient has registered at the | | [facility] Emergency Department For more information visit: | | [email or web address] Security | | EventsNo recent Security Events currently on fileED Care GuidelinesThere are currently | | no ED Care Guidelines for this patient. 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 | [place] Emergency Emergency Chief Complaint: SOB [facility] 22, 2018 [facility] [place] 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 [place] | | [place] Emergency Emergency Chief Complaint: DIFFICUTLY BREATHING Apr 16, 2018 [facility]. | | 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 | | [place] Emergency Emergency Chronic obstructive pulmonary disease with (acute) | | exacerbation Shortness of breath Allergy status to penicillin Other set designer | | (current) drug therapy Nicotine dependence, unspecified, uncomplicated Essential | | (primary) hypertension E.D. Visit Count (12 mo.)Facility Visits Low Acuity [facility] | | [facility] 1 0 [facility] 13 0 Total 14 0 Note: Visits | | indicate total known visits. Medicaid Low Acuity Dx are the number of primary diagnoses | | on the Medicaid's Low Acuity dx list. Recent Inpatient Visit SummaryDate Facility City | | State Type Major Type Diagnoses or Chief Complaint [facility] [place] Critical Care Inpatient Chief Complaint: DEHYDRATION Jun 08, 2018 [facility]. | | [facility] [place] 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 2019 | | [facility] - [place], [place] - | | [email or web address] | |[facility] 1 0 | |[facility] 13 0 | |Total 14 0 | |Note: Visits indicate total known visits. Medicaid Low Acuity Dx are the number of primary diagnoses on the Medicaid's Low Acuity dx list. | | | |Recent Inpatient Visit Summary | |Date Facility City State Type Major Type Diagnoses or Chief Complaint | |Jun 13, 2018 [facility] [place] [place] Critical Care Inpatient Chief Complaint: DEHYDR ATION | |Jun 08, 2018 [facility] [place] Medical Surgical Inpatient | | [...] prison (current) use of aspirin | | prison (current) use of inhaled steroids | | [facility] |[facility] | | [...] chronic respiratory failure with hypoxia | | prison (current) use of inhaled steroids | | | |May 03, 2018 [facility] 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 [place] 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 | | | |Care Providers | |Provider PRC Type Phone Fax Service Dates | |Denisse Blanton Fowl Blood Tester/Hydropulper Dec 17, 2017 - Current | |ADI [...] aforementioned facilities for additional information. | |2019 [facility] - [place], [place] - [email or web address] | + + + +---------+ + + [...] +------+-------+ + | MEDICARE | MEDICA | [id number] | | | [address] | | | RE | | | | [place] [address] | | | IP-OP | | | | | + +--------+ +------+-------+ + | MEDICAID | EASTER | [id number] | | | [address] | | | N | | | | [place] | | | [place] | | | | [address] | | | SENIOR JAVA WEB DEVELOPER | | | | | + +--------+ [...] | 1935 | [phone] | [place] [address] | | | kareem | | | [phone] | | + +--------+ +--------+ + +
--- OUTSIDE RECORDS SUMMARY | ~2018-08-26 | XMS | Encounter Summary ---
Demographics + + + | Address | [address] | | | [place] [address] | + + + | Home Phone | | + + + | Preferred Language | Unknown | + + + | Marital Status | | + + + | Orthodoxy Affiliation | Unknown | + + + | Race | Unknown | + + + | Ethnic Group | Unknown | + + + Author + + + | Author | [facility] [employer] | + + + | Organization | [facility] [employer] | + + + | Address [...] Team Providers + +------+ + | Care Coverstitch Elastic Attacher Name | Role | Phone | + [...] JYOTSNA LÓPEZ | | | | | ([facility]) | DAISHA, | [place], [place] | | | | | Procedures | [place] [address] | [address] | | | | | Complete PFT | Phone: | Phone: | | | | | - Pre & | [phone] | [phone] | | | | | Post | Fax: | Fax: | | | | | Spirometry, | [phone] | [phone] | | | | | PLETH & [...] | | | disease, | [place], | [facility] [place] | | | | | unspecified | [place] [address] | [address] Phone: | | | | | (HCC) | Phone: | [phone] | | | | | | [phone] | Fax: | | | | | | Fax: | [phone] | | | | | | [phone] | | + +--------+ + + + + Encounter Details +--------+---------+ + + + | Date | Type | Department | Care Team | Description | +--------+---------+ + + + | 07/30/ | Office | [facility] | Chip Claros MD | Centrilobular | | 2019 | Visit | Pulmonology [address] | [address] | emphysema (HCC) | | | | [address] | [place] [address] | (Primary Dx) | | | | [place], [place] | [phone] | | | | | [address] | | | | | | [phone] | | | +--------+---------+ + + + [...] order a PFT to be done at [facility] in this encounter Progress Notes Chip [...] got all his medications with him. His [id number] who is also his caregiver, give s [...] left lung base. Pulmonary function test 2016 [facility] severe obstructive impairment with very s [...] function test which will be done at [facility] - Complete PFT - Pre & [...] Claros MD Pulmonary and Critical Care Medicine [facility] [address] , [place] [address] in this encounter Plan of Treatment +--------+---------+ + + + | Date | Type | Specialty | Care Team | Description | +--------+---------+ + + + | 10/08/ | Office | Pulmonology | Chip Claros MD | | | 2019 | Visit | | [address] | | | | | | [place] [address] | | | | | | [phone] | | | | | | | [...]
--- OUTSIDE RECORDS SUMMARY | ~2018-08-26 | XMS | Clinical Summary ---
Demographics + + + | Address | [address] | | | [place] [address] | + + + | Home Phone | | + + + | Preferred Language | Unknown | + + + | Marital Status | Single | + + + | Latter-Day Affiliation | Unknown | + + + | Race | White | + + + | Ethnic Group | Not or | + + + Author + + + | Author | [facility] | + + + | Organization | [facility] | + + + | Address | Unknown | + + + | Phone | Unavailable | + + + Support + + + + + | Name | Relationship | Address | Phone | + + + + + | LUL SCHMIDT | ECON | [address] | | | | | [place], [place] | | | | | [address] | | + + + + + | SHANNON PENA | ECON | [address] | | | | | [place], [place] | | | | | [address] | | + + + + + Care Team Providers + +------+ + | Care Verifying Machine Operator Name | Role | Phone | + +------+ + | Resident, Mala Generic | PP | Unavailable | + +------+ + Source Comments LORENA is fully live on both [facility] Ambulatory and [facility] InPatient.[facility] & [facility] Allergies No Known Allergies Current [...] | MEDICA | xxxxxxxxxxx | Medica | [phone] | [address] | | | RE A & | | re | [phone] | [place] [address] | | | B | | | | | + +--------+ +--------+ + + | MEDICAID [place] | OHP | xxxxxxxx | Medica | [phone] | [address] [address] | | | PLUS | | id | [phone] | [place] [address] | | | OPEN | | | [...] | 1935 | [phone] | [place] [address] | | | kareem | | | [address] | | + +--------+ +--------+ + +"
--- OUTSIDE RECORDS SUMMARY | 2018-08-26 04:28 | XMS ---
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 - Has Care Guidelines - [facility] - 2 Visits in 30 Days CARE PROVIDERS Denisse Blanton Certified Athletic Trainer/Cork Floor Installer 12/17/2017-Current PHONE: [phone] Patrick Meade Certified Athletic Trainer/Cork Floor Installer 12/17/2017-Current PHONE: [phone] Patrick Meade Certified Athletic Trainer/Cork Floor Installer 12/17/2017-Current PHONE: [phone] MARCELA NELSON Internal Medicine 04/03/2018-Current SANDEEP PHONE: [phone] Patrick Meade Primary Care 12/17/2017-Current PHONE: [phone] MARCELA NELSON Primary Care 04/05/2016-Current PHONE: Unknown Other Current PHONE: Unknown Maria R has no Care Guidelines for this patient. Care History Medical/Surgical 07/10/2018 [facility] - PATIENT IS CURRENTLY ON SERVICES WITH PULMONARY REHAB AT [facility]. 05/23/2018 [facility] PATIENT NEXT APPOINTMENT WITH DR NELSON:\T\nbsp; May. 04/03/2018 [facility] - PATIENT HAS AN APT WITH DR NELSON ON 04/17/18. - Patient is currently established with [facility]. If patient is seen in the ED during business hours. Please contact CHWs at [facility]. Care Recommendation: This patient has had [...] care. E.D. VISIT COUNT (12 MO.) 1 [facility] 17 [facility] [place] TOTAL 18 NOTE: Visits indicate total known visits. 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 of aspirin - Allergy status to penicillin - Essential (primary) hypertension 07/14/2018 17:25 [facility] [place] TYPE: Emergency COMPLAINT: - SOB DIAGNOSES: - Shortness of breath - terminologist (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 - Personal history of nicotine dependence - Other long-term (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 - Allergy status to penicillin - Essential (primary) hypertension - Chronic obstructive pulmonary disease, unspecified 07/09/2018 20:05 [facility] [place] TYPE: Emergency COMPLAINT: - SOB DIAGNOSES: - Shortness of breath - [facility] (current) use of aspirin - Allergy status to penicillin - Essential (primary) hypertension - Chronic obstructive pulmonary disease with (acute) exacerbation - Personal history of nicotine dependence - Other long-term (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 - Benign prostatic hyperplasia without lower urinary tract symptoms [facility]2018 [facility]: [facility] DIAGNOSES: - Chronic obstructive pulmonary disease with (acute) exacerbation - Hypoxemia - Shortness of Breath - Chest Pain 06/13/2018 20:20 [facility] TYPE: Emergency COMPLAINT: - DIFFICULTY BREATHING 06/12/2018 12:59 [facility] TYPE: Emergency COMPLAINT: - SOB DIAGNOSES: - Candidal stomatitis - Allergy status to penicillin - Shortness of breath - 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 director long 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 care (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 - Essential (primary) hypertension - Personal history of nicotine dependence - Chronic obstructive pulmonary disease with (acute) exacerbation - Chronic obstructive pulmonary disease with (acute) exacerbation - terminologist (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 06/08/2018 19:37 [facility] [place] TYPE: Emergency COMPLAINT: - DIFFICULTY BREATHING 06/08/2018 01:29 [facility] [place] TYPE: Emergency COMPLAINT: - DIFFICULTY BREATHING DIAGNOSES: - terminologist (current) use of aspirin - Essential (primary) hypertension - Other long-term (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 - Personal history of nicotine dependence - Chronic obstructive pulmonary disease with (acute) exacerbation - terminologist (current) use of systemic steroids - Allergy status to penicillin - Shortness of breath 05/24/2018 07:27 [facility] [place] TYPE: Emergency COMPLAINT: - SOB 05/22/2018 01:46 [facility] [place] TYPE: Emergency COMPLAINT: - SOB DIAGNOSES: - Other director long term care (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 - Hyperglycemia, unspecified - Chronic obstructive pulmonary disease with (acute) exacerbation - Nicotine dependence, unspecified, uncomplicated - [facility] (current) use of systemic steroids - Essential (primary) hypertension - Shortness of breath - Allergy status to penicillin - terminologist (current) use of aspirin 05/03/2018 01:09 [facility] [place] TYPE: Emergency COMPLAINT: - DIFFICUTLY BREATHING 04/16/2018 22:51 [facility] [place] TYPE: Emergency COMPLAINT: - ANXIETY,SOB DIAGNOSES: - Chronic obstructive pulmonary disease, unspecified - 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 director long 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 care (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 - Nicotine dependence, unspecified, uncomplicated - [facility] (current) use of systemic steroids - [facility] (current) use of aspirin - Essential (primary) hypertension - Allergy status to penicillin - Anxiety disorder, unspecified 04/15/2018 19:41 [facility] [place] TYPE: Emergency COMPLAINT: - SHORTNESS OF BREATH/CONSTIPATION DIAGNOSES: - Shortness of breath - Essential (primary) hypertension - Constipation, unspecified - Nicotine dependence, unspecified, uncomplicated - Chronic obstructive pulmonary disease with (acute) exacerbation - Allergy status to penicillin - Other long-term (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 04/02/2018 20:47 [facility] [place] TYPE: Emergency COMPLAINT: - SOB DIAGNOSES: - Nicotine dependence, unspecified, uncomplicated - terminologist (current) use of aspirin - Chronic obstructive pulmonary disease with (acute) exacerbation - Allergy status to penicillin - Essential (primary) hypertension - Shortness of breath - Other director long term care (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 03/16/2018 20:53 [facility] [place] TYPE: Emergency COMPLAINT: - SOB,WEAKNESS DIAGNOSES: - Allergy status to penicillin - Other long-term (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 - Chronic obstructive pulmonary disease with (acute) exacerbation - Nicotine dependence, unspecified, uncomplicated - Shortness of breath - Essential (primary) hypertension 11/15/2017 19:51 [facility] [place] TYPE: Emergency COMPLAINT: - SWOLLEN GLANDS DIAGNOSES: - Nicotine dependence, unspecified, uncomplicated - Other director long term care (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 - Chronic obstructive pulmonary disease, unspecified - Acute pharyngitis, unspecified - Sialoadenitis, unspecified - Essential (primary) hypertension - Allergy status to penicillin 11/03/2017 12:09 [facility] [place] TYPE: Emergency COMPLAINT: - WEAKNESS DIAGNOSES: - Essential (primary) hypertension - Allergy status to penicillin - Weakness - Nicotine dependence, unspecified, uncomplicated - Other director long term care (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 - Chronic obstructive pulmonary disease with (acute) exacerbation INPATIENT VISIT TRACKING (12 MO.) 06/14/2018 18:[facility] TYPE: General Medicine DIAGNOSES: - Chronic obstructive pulmonary disease with (acute) exacerbation - Hypoxemia 06/13/2018 20:21 [facility] [place] TYPE: Observation COMPLAINT: - DEHYDRATION DIAGNOSES: - Essential (primary) hypertension - Other long-term (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 - [facility] (current) use of inhaled steroids - terminologist (current) use of antibiotics - [facility] (current) use of systemic steroids - terminologist (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 - Adjustment disorder with depressed mood - Anxiety disorder, unspecified - Dehydration - Weakness - terminologist (current) use of aspirin - Personal history [...] dependence - Allergy status to penicillin - [facility] (current) use of aspirin - terminologist (current) use of inhaled steroids - [facility] (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 - terminologist (current) use of non-steroidal anti-inflammatories (NSAID) - Shortness of breath - Other director long term care (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 - terminologist (current) use of systemic steroids - Adverse [...] hyperplasia without lower urinary tract symptoms - [facility] (current) use of systemic steroids - Acute and chronic respiratory failure with hypoxia - terminologist (current) use of inhaled steroids - terminologist (current) use of aspirin - Cramp and spasm - Other director long term care (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 - Chronic obstructive pulmonary disease with (acute) exacerbation - terminologist (current) use of oral hypoglycemic drugs - Adverse effect of glucocorticoids and synthetic analogues, initial encounter 05/03/2018 01:10 [facility] [place] TYPE: Observation COMPLAINT: - COPD EXACERBATION DIAGNOSES: - Other director long term care (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 - Benign prostatic hyperplasia without lower urinary tract symptoms - Allergy status to penicillin - Chronic obstructive pulmonary disease with (acute) exacerbation - [facility] (current) use of aspirin - Nicotine dependence, unspecified, uncomplicated - Essential (primary) hypertension - Nicotine dependence, cigarettes, uncomplicated - Shortness of breath - terminologist (current) use of inhaled steroids - Personal history of traumatic brain injury 04/03/2018 11:16 [facility] [place] TYPE: Observation COMPLAINT: - COPD EXACERBATION DIAGNOSES: - Essential (primary) hypertension - Allergy status to penicillin - [facility] (current) use of inhaled steroids - Benign prostatic hyperplasia without lower urinary tract symptoms - Nicotine dependence, cigarettes, uncomplicated - Other long-term (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 - Cramp and spasm - terminologist (current) use of aspirin - [facility] (current) use of systemic steroids - Chronic obstructive pulmonary disease with (acute) exacerbation [email or web address]
== END 2018-08-26 05:50 | disposition home or self-care (01) ==
LOC: ED 04:26
DX: J44.1 Chronic obstructive pulmonary disease with (acute) exacerbation (principal); I10 Essential (primary) hypertension; Z87.891 Personal history of nicotine dependence; Z88.0 Allergy status to penicillin; Z79.52 Long term (current) use of systemic steroids; Z79.899 Other long term (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; Z79.4 Long term (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
CPT/HCPCS: 71046; 80053; 83880; 85025; 99285-25

== ENCOUNTER 2018-09-08 19:39 | Emergency (ER) | payer MEDICARE, OTHER ==
[~2018-09-08] VITALS: Ht 172.7 cm; Wt 72.6 kg
--- OUTSIDE RECORDS SUMMARY | ~2018-09-08 | XMS | Clinical Summary ---
Demographics + + + | Address | [address] | | | [place] [address] | + + + | Home Phone | | + + + | Preferred Language | Unknown | + + + | Marital Status | Single | + + + | Buddhist Affiliation | Unknown | + + + | Race | White | + + + | Ethnic Group | Not or | + + + Author + + + | Author | [facility] | + + + | Organization | [facility] | + + + | Address | Unknown | + + + | Phone | Unavailable | + + + Support + + + + + | Name | Relationship | Address | Phone | + + + + + | LUL SCHMIDT | ECON | [address] | | | | | [place], [place] | | | | | [address] | | + + + + + | SHANNON PENA | ECON | [address] | | | | | [place], [place] | | | | | [address] | | + + + + + Care Team Providers + +------+ + | Care Dehairer Name | Role | Phone | + +------+ + | Resident, Mala Generic | PP | Unavailable | + +------+ + Source Comments LORENA is fully live on both [facility] Ambulatory and [facility] InPatient.[facility] Allergies No Known Allergies Current Medications + [...] | MEDICA | xxxxxxxxxxx | Medica | [phone] | [address] | | | RE A & | | re | [phone] | [place] [address] | | | B | | | | | + +--------+ +--------+ + + | MEDICAID [place] | OHP | xxxxxxxx | Medica | [phone] | [address] [address] | | | PLUS | | id | [phone] | [place] [address] | | | OPEN | | | [...] | 1935 | [phone] | [place] [address] | | | kareem | | | [phone] | | + +--------+ +--------+ + +"
--- OUTSIDE RECORDS SUMMARY | ~2018-09-08 | XMS | Clinical Summary ---
Demographics + + + | Address | [address] | | | [place] [address] | + + + | Home Phone | | + + + | Preferred Language | Unknown | + + + | Marital Status | Single | + + + | Zoroastrianism Affiliation | Unknown | + + + | Race | White | + + + | Ethnic Group | Not or | + + + Author + + + | Author | [facility] | + + + | Organization | [facility] | + + + | Address | Unknown | + + + | Phone | Unavailable | + + + Support + + + + + | Name | Relationship | Address | Phone | + + + + + | LUL SCHMIDT | ECON | [address] | | | | | [place], [place] | | | | | [address] | | + + + + + | SHANNON PENA | ECON | [address] | | | | | [place], [place] | | | | | [address] | | + + + + + Care Team Providers + +------+ + | Care Donor Services Manager Name | Role | Phone | + +------+ + | Resident, Mala Generic | PP | Unavailable | + +------+ + Source Comments LORENA is fully live on both [facility] Ambulatory and [facility] InPatient.[facility] & [facility] Allergies No Known Allergies Current Medications [...] | MEDICA | xxxxxxxxxxx | Medica | [phone] | [address] | | | RE A & | | re | [phone] | [place] [address] | | | B | | | | | + +--------+ +--------+ + + | MEDICAID [place] | OHP | xxxxxxxx | Medica | [phone] | [address] [address] | | | PLUS | | id | [phone] | [place] [address] | | | OPEN | | | [...] | 1935 | [phone] | [place] [address] | | | [place] | | | [phone] | | + +--------+ +--------+ + +"
[~2018-09-08 19:39] MED LIST changes: -BROVANA15 MCG/2 M INH; -DALIRESP250 MCG PO; +DALIRESP500 MCG PO
--- OUTSIDE RECORDS SUMMARY | 2018-09-08 19:42 | XMS ---
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 Security Musical Instrument Maker Events No recent Security Events currently on file CRITERIA MET - 6 ED Visits in 6 Months - [facility] - Has Care Guidelines - [facility] - 2 Visits in 30 Days CARE PROVIDERS Denisse Blanton Splitter Tender/Wool Merchant 12/17/2017-Current PHONE: [phone] Patrick Meade Splitter Tender/Wool Merchant 12/17/2017-Current PHONE: [phone] Patrick Meade Splitter Tender/Wool Merchant 12/17/2017-Current PHONE: [phone] MARCELA NELSON Internal Medicine 04/03/2018-Current SANDEEP PHONE: [phone] Patrick Meade Primary Care 12/17/2017-Current PHONE: [phone] MARCELA NELSON Primary Care 04/05/2016-Current PHONE: Unknown Other Current PHONE: Unknown Maria R has no Care Guidelines for this patient. Care History Medical/Surgical 07/10/2018 [facility] - PATIENT IS CURRENTLY ON SERVICES WITH PULMONARY REHAB AT [facility]. 05/23/2018 [facility] PATIENT NEXT APPOINTMENT WITH DR NELSON:\T\nbsp; May. 04/03/2018 [facility] - PATIENT HAS AN APT WITH DR NELSON ON 04/17/18. - Patient is currently established with [facility]. If patient is seen in the ED during business hours. Please contact CHWs at [facility]. Care Recommendation: This patient has [...] care. E.D. VISIT COUNT (12 MO.) [address] [facility] 18 [facility] TOTAL 19 NOTE: Visits indicate total known visits. 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 - Chronic obstructive pulmonary disease with (acute) exacerbation - Shortness of breath - Allergy status to penicillin - Personal history of nicotine dependence 08/10/2018 10:13 [facility] [place] TYPE: Emergency COMPLAINT: - SOB DIAGNOSES: - Other long term care social worker (current) drug therapy - Chronic obstructive pulmonary disease with (acute) exacerbation - Personal history of nicotine dependence - Shortness of breath - 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 - Allergy status to penicillin - Essential (primary) hypertension 07/14/2018 17:25 [facility] [place] TYPE: Emergency COMPLAINT: - SOB DIAGNOSES: - Shortness of breath - 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 - Personal history of nicotine dependence - Other fdc (current) drug therapy - Allergy status to penicillin - Essential (primary) hypertension - Chronic obstructive pulmonary disease, unspecified 07/09/2018 20:05 [facility] TYPE: Emergency COMPLAINT: - SOB DIAGNOSES: - Shortness of breath - MCC (current) use of aspirin - Allergy status to penicillin - Essential (primary) hypertension - Chronic obstructive pulmonary disease with (acute) exacerbation - Personal history of nicotine dependence - Other fdc (current) drug therapy - Benign prostatic hyperplasia without lower urinary tract symptoms 06/14/2018 18:43 [facility] TYPE: Emergency DIAGNOSES: - Chronic obstructive pulmonary disease with (acute) exacerbation - Hypoxemia - Shortness of Breath - Chest Pain 06/13/2018 20:20 [facility] TYPE: Emergency COMPLAINT: - DIFFICULTY BREATHING 06/12/2018 12:59 [facility] [place] TYPE: Emergency COMPLAINT: - SOB DIAGNOSES: - Candidal stomatitis - Allergy status to penicillin - Shortness of breath - Other long term care social worker (current) drug therapy - Essential (primary) hypertension - Personal history of nicotine dependence - Chronic obstructive pulmonary disease with (acute) exacerbation - Chronic obstructive pulmonary disease with (acute) exacerbation - MCC (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 06/08/2018 19:37 [facility] [place] TYPE: Emergency COMPLAINT: - DIFFICULTY BREATHING 06/08/2018 01:29 [facility] [place] TYPE: Emergency COMPLAINT: - DIFFICULTY BREATHING DIAGNOSES: - MCC (current) use of aspirin - Essential (primary) hypertension - Other long term care social worker (current) drug therapy - Personal history of nicotine dependence - Chronic obstructive pulmonary disease with (acute) exacerbation - MCC (current) use of systemic steroids - Allergy status to penicillin - Shortness of breath 05/24/2018 07:27 [facility] [place] TYPE: Emergency COMPLAINT: - SOB 05/22/2018 01:46 [facility] [place] TYPE: Emergency COMPLAINT: - SOB DIAGNOSES: - Other fdc (current) drug therapy - Hyperglycemia, unspecified - Chronic obstructive pulmonary disease with (acute) exacerbation - Nicotine dependence, unspecified, uncomplicated - 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 - Essential (primary) hypertension - Shortness of breath - Allergy status to penicillin - 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 05/03/2018 01:09 [facility] [place] TYPE: Emergency COMPLAINT: - DIFFICUTLY BREATHING 04/16/2018 22:51 [facility] [place] TYPE: Emergency COMPLAINT: - ANXIETY,SOB DIAGNOSES: - Chronic obstructive pulmonary disease, unspecified - Other long term care social worker (current) drug therapy - Nicotine dependence, unspecified, uncomplicated - 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 - MCC (current) use of aspirin - Essential (primary) hypertension - Allergy status to penicillin - Anxiety disorder, unspecified 04/15/2018 19:41 [facility] [place] TYPE: Emergency COMPLAINT: - SHORTNESS OF BREATH/CONSTIPATION DIAGNOSES: - Shortness of breath - Essential (primary) hypertension - Constipation, unspecified - Nicotine dependence, unspecified, uncomplicated - Chronic obstructive pulmonary disease with (acute) exacerbation - Allergy status to penicillin - Other long term care social worker (current) drug therapy 04/02/2018 20:47 [facility] [place] TYPE: Emergency COMPLAINT: - SOB DIAGNOSES: - Nicotine dependence, unspecified, uncomplicated - MCC (current) use of aspirin - Chronic obstructive pulmonary disease with (acute) exacerbation - Allergy status to penicillin - Essential (primary) hypertension - Shortness of breath - Other long term care social worker (current) drug therapy 03/16/2018 20:53 [facility] [place] TYPE: Emergency COMPLAINT: - SOB,WEAKNESS DIAGNOSES: - Allergy status to penicillin - Other long term care social worker (current) drug therapy - Chronic obstructive pulmonary disease with (acute) exacerbation - Nicotine dependence, unspecified, uncomplicated - Shortness of breath - Essential (primary) hypertension 11/15/2017 19:51 [facility] TYPE: Emergency COMPLAINT: - SWOLLEN GLANDS DIAGNOSES: - Nicotine dependence, unspecified, uncomplicated - Other long term care social worker (current) drug therapy - Chronic obstructive pulmonary disease, unspecified - Acute pharyngitis, unspecified - Sialoadenitis, unspecified - Essential (primary) hypertension - Allergy status to penicillin 11/03/2017 12:09 [facility] TYPE: Emergency COMPLAINT: - WEAKNESS DIAGNOSES: - Essential (primary) hypertension - Allergy status to penicillin - Weakness - Nicotine dependence, unspecified, uncomplicated - Other long term care social worker (current) drug therapy - Chronic obstructive pulmonary disease with (acute) exacerbation INPATIENT VISIT TRACKING (12 MO.) 06/14/2018 18:43 [facility] TYPE: General Medicine DIAGNOSES: - Chronic obstructive pulmonary disease with (acute) exacerbation - Hypoxemia 06/13/2018 20:21 [facility] [place] TYPE: Observation COMPLAINT: - DEHYDRATION DIAGNOSES: - Essential (primary) hypertension - Other long term care social worker (current) drug therapy - MCC (current) use of inhaled steroids - laborer marine terminal (current) 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 of antibiotics - MCC (current) use of systemic steroids - MCC (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 - Adjustment disorder with depressed mood - Anxiety disorder, unspecified - Dehydration - Weakness - MCC (current) use of aspirin - Personal history [...] dependence - Allergy status to penicillin - MCC (current) use of aspirin - laborer marine terminal (current) use of inhaled steroids - 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 - laborer marine terminal (current) use of non-steroidal anti-inflammatories (NSAID) - Shortness of breath - Other long term care social worker (current) drug therapy - MCC (current) use of systemic steroids - Adverse [...] hyperplasia without lower urinary tract symptoms - MCC (current) use of systemic steroids - Acute and chronic respiratory failure with hypoxia - MCC (current) use of inhaled steroids - MCC (current) use of aspirin - Cramp and spasm - Other fdc (current) drug therapy - Chronic obstructive pulmonary disease with (acute) exacerbation - laborer marine terminal (current) use of oral hypoglycemic drugs - Adverse effect of glucocorticoids and synthetic analogues, initial encounter 05/03/2018 01:10 [facility] [place] TYPE: Observation COMPLAINT: - COPD EXACERBATION DIAGNOSES: - Other fdc (current) drug therapy - Benign prostatic hyperplasia without lower urinary tract symptoms - Allergy status to penicillin - Chronic obstructive pulmonary disease with (acute) exacerbation - MCC (current) use of aspirin - Nicotine dependence, unspecified, uncomplicated - Essential (primary) hypertension - Nicotine dependence, cigarettes, uncomplicated - Shortness of breath - MCC (current) use of inhaled steroids - Personal history of traumatic brain injury 04/03/2018 11:[address] 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
== END 2018-09-08 20:20 | disposition home or self-care (01) ==
LOC: ED 19:39
DX: J44.1 Chronic obstructive pulmonary disease with (acute) exacerbation (principal); I10 Essential (primary) hypertension; Z87.891 Personal history of nicotine dependence; Z88.0 Allergy status to penicillin; Z79.899 Other long term (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; Z79.82 Long term (current) use of aspirin
CPT/HCPCS: 99284-25; J7512

== ENCOUNTER 2018-09-10 17:34 | Observation (INO) | payer MEDICARE, OTHER ==
[~2018-09-10] VITALS: Ht 172.7 cm; Wt 70.8 kg
--- OUTSIDE RECORDS SUMMARY | ~2018-09-10 | XMS | Encounter Summary ---
Demographics + + + | Address | [address] | | | [place] [address] | + + + | Home Phone | | + + + | Preferred Language | Unknown | + + + | Marital Status | | + + + | Buddhism Affiliation | Unknown | + + + | Race | Unknown | + + + | Ethnic Group | Unknown | + + + Author + + + | Author | [facility] [employer] | + + + | Organization | [facility] [employer] | + + + | Address [...] Team Providers + +------+ + | Care Die Lay Out Worker Name | Role | Phone | + [...] AVILA | | | | | | [place], [place] | | | | | | [address] | | | | | | [phone] | | | +--------+ + + + [...] PM PDT3 step testing Oximetry Exercise (code) [id number] 1. At rest on room air: Time: [...] ASHER | | | | | | [place] [address] | | | | | | [phone] | | | | | | | | +--------+---------+ + + + as of this encounter Visit Diagnoses Not on filein this encounter"
--- OUTSIDE RECORDS SUMMARY | ~2018-09-10 | XMS | Encounter Summary ---
Demographics + + + | Address | [address] | | | [place] [address] | + + + | Home Phone | | + + + | Preferred Language | Unknown | + + + | Marital Status | | + + + | Congregation Affiliation | Unknown | + + + | Race | Unknown | + + + | Ethnic Group | Unknown | + + + Author + + + | Author | [facility] | + + + | Organization | [facility] | + + + | Address [...] Team Providers + +------+ + | Care Foam Charger Name | Role | Phone | + [...] | | Internal | Diagnoses | | [facility] 8th | | | | Medicine | Acute | | [place] | | | | | exacerbation | | [address] | | | | | of chronic | | [address] | | | | | obstructive | | [place], [place] | | | | | pulmonary | | [address] Phone: | | | | | disease | | [phone] | | | | | (COPD) ([facility]) | | | | | | | Hypoxia | | | | | | | | | | +--------+--------+ + + + + Encounter Details +--------+ + + + + | Date | Type | Department | Care Team | Description | +--------+ + + + + | 06/14/ | Hospital | [facility] | Teja Blandon, | Acute exacerbation | | 2019 - | Encounter | [facility] 8th | MD Javon [address] | of chronic | | | | [address] | EMERGENCY DEPARTMENT | obstructive | | 06/16/ | | [address] | [place] [address] | pulmonary disease | | 2019 | | [place] [address] | [phone] | (COPD) (HCC) | | | | [phone] | | (Primary Dx); | | | | | Lei Barcenas, | Hypoxia | | | | | MD [address] | | | | | | [place] [address] | | | | | | [phone] | | | | | | | | | | | | Deric Nevarez MD | | | | | | [address] | | | | | | [place] [address] | | | | | | [phone] | | | | | | | | | | | | Hector Murdock | | | | | | MD J[address]on [address] | | | | | | Blvd [place], [place] | | | | | | [address] | | | | | | | [...] note may be different from the original. [facility] Service: Hospitalist Physician Discharge Summary Pt: David Miranda AGE/SEX: 83 y.o. male ROOM: [facility]81[facility] PCP: Adi Nelson : 1935 Admit date: [...] mellitus, was seen at emergency department at [facility] in [place] for COPD exacerbation. The shanon ramirez was [...] hours. No results for input(s): PHART, PO2ART, JYO9BEN, I5RONROX, BEART in the last 168 hours. Recent [...] 06/16/2018Continue supplemental oxygen at 2 liters/minute at [facility]. 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; 8) Straight arms-lift high-w/out pain, breath deep; [...] [address] | | | | | | [place] [address] | | | | | | [phone] | | | | | | | [...] Testing | 65 - 99 mg/dL | [facility] | | | performed at [facility];[address] | | | | | [address];[place] | | | | | [address] | | | + + + + + + + + + + | Performing | Address | City/State/Zipcode | Phone Number | | Organization | | | | + + + + + | [facility] | [address] | [place] [address] | | + + + + + [...] (H) | 65 - 99 mg/dL | [facility] | | | | | LABORATORY | [...] | | | | | performed at [facility], [address] | | | | | [facility], | | | | | [place] [address] | | | + + + + + + + | Specimen | + + | Blood | + + + + + + + | Performing | Address | City/State/Zipcode | Phone Number | | Organization | | | | + + + + + | [facility] | [address] | [place] [address] | [phone] | | LABORATORY | Blvd. | | [...] performed at | | | | | [facility], [address] [facility] | | | | | [place] | | | | | [address] | | | + + + + + + + | Specimen | + + | Blood | + + + + + + + | Performing | Address | City/State/Zipcode | Phone Number | | Organization | | | | + + + + + | [facility] | [address] [place] [address] | [place] [address] | [phone] | | LABORATORY | Blvd. | | | + + + + + Folate (06/16/2018 5:58 AM) + + + + + | Component | Value | Ref Range | Performed At | + + + + + | FOLATE | 17.8Comment: Testing | >5.4 ng/mL | [facility] | | | performed at [facility], [address] | | LABORATORY | | | [facility], | | | | | [place] [address] | | | + + + + + + + | Specimen | + + | Blood | + + + + + + + | Performing | Address | City/State/Zipcode | Phone Number | | Organization | | | | + + + + + | [facility] | [address] | [place] [address] | [phone] | | LABORATORY | Blvd. | | | + + + + + Vitamin B12 (06/16/2018 5:58 AM) + + + + + | Component | Value | Ref Range | Performed At | + + + + + | VITAMIN B12 | 431Comment: Testing | 254 - 1,320 pg/mL | [facility] | | | performed at [facility], [address] | | LABORATORY | | | [address], | | | | | [place] [address] | | | + + + + + + + | Specimen | + + | Blood | + + + + + + + | Performing | Address | City/State/Zipcode | Phone Number | | Organization | | | | + + + + + | [facility] | [address] [place] [address] | [place] [address] | [phone] | | LABORATORY | [address] | | | + + + + + Ferritin (06/16/2018 5:58 AM) + + + + + | Component | Value | Ref Range | Performed At | + + + + + | FERRITIN | 298Comment: Testing | 11 - 450 ng/mL | [facility] | | | performed at [facility], [address] | | LABORATORY | | | [address], | | | | | [place] [address] | | | + + + + + + + | Specimen | + + | Blood | + + + + + + + | Performing | Address | City/State/Zipcode | Phone Number | | Organization | | | | + + + + + | [facility] | [address] | [place] [address] | [phone] | | LABORATORY | Blvd. | | [...] | [facility] | | | performed at [facility], [address] | | LABORATORY | | | [facility], | | | | | [place] [address] | | | + + + + + + + | Specimen | + + | Blood | + + + + + + + | Performing | Address | City/State/Zipcode | Phone Number | | Organization | | | | + + + + + | [facility] | [address] [place] [address] | [place] [address] | [phone] | | LABORATORY | [address] | | | + + + + + POCT glucose (06/16/2018 5:48 AM) + + + + + | Component | Value | Ref Range | Performed At | + + + + + | GLUCOSE,POC SCREEN | 119 (H)Comment: Testing | 65 - 99 mg/dL | [facility] | | | performed at [facility];[address] | | | | | [address];[place], [place] | | | | | [address] | | | + + + + + + + + + + | Performing | Address | City/State/Zipcode | Phone Number | | Organization | | | | + + + + + | [facility] | [address] | [place] [address] | | + + + + + POCT glucose (06/15/2018 9:40 PM) + + + + + | Component | Value | Ref Range | Performed At | + + + + + | GLUCOSE,POC SCREEN | 263 (H)Comment: Testing | 65 - 99 mg/dL | [facility] | | | performed at [facility];[address] | | | | | [address];[place] | | | | | [address] | | | + + + + + + + + + + | Performing | Address | City/State/Zipcode | Phone Number | | Organization | | | | + + + + + | [facility] | [address] | [place] [address] | | + + + + + POCT glucose (06/15/2018 4:14 PM) + + + + + | Component | Value | Ref Range | Performed At | + + + + + | GLUCOSE,POC SCREEN | 324 (H)Comment: Testing | 65 - 99 mg/dL | [facility] | | | performed at [facility];[address] | | | | | [address];[place] | | | | | [address] | | | + + + + + + + + + + | Performing | Address | City/State/Zipcode | Phone Number | | Organization | | | | + + + + + | [facility] | [address] | [place] [address] | | + + + + + POCT glucose (06/15/2018 11:16 AM) + + + + + | Component | Value | Ref Range | Performed At | + + + + + | GLUCOSE,POC SCREEN | 282 (H)Comment: Testing | 65 - 99 mg/dL | [facility] | | | performed at [facility];[address] | | | | | [address];[place] | | | | | [address] | | | + + + + + + + + + + | Performing | Address | City/State/Zipcode | Phone Number | | Organization | | | | + + + + + | [facility] | [address] | [place] [address] | | + + + + + [...] + + + | [facility] | [address] | [place] [address] | [phone] | | LABORATORY | Blvd. | | | + + + + + TSH (06/15/2018 6:19 AM) + + + + + | Component | Value | Ref Range | Performed At | + + + + + | TSH | 5.390 (H)Comment: | 0.450 - 5.100 uIU/mL | [facility] | | | Testing performed at | | LABORATORY | | | [facility], [address] [place] [address] | | | | | [address], [place], [place] | | | | | [address] | | | + + + + + + + | Specimen | + + | Blood | + + + + + + + | Performing | Address | City/State/Zipcode | Phone Number | | Organization | | | | + + + + + | [facility] | [address] | [place] [address] | [phone] | | LABORATORY | [address] | | [...] | | | | | performed at [facility], [address] | | | | | [facility], | | | | | [place] [address] | | | + + + + + + + | Specimen | + + | Blood | + + + + + + + | Performing | Address | City/State/Zipcode | Phone Number | | Organization | | | | + + + + + | [facility] | [address] | [place] [address] | [phone] | | LABORATORY | [address] | | [...] (L) | 6.3 - 8.2 g/dL | [facility] | | | | | LABORATORY | + + + + + | Albumin | 2.7 (L) | 3.3 - 4.8 g/dL | [facility] | | | | | LABORATORY | [...] the | | | | | MDRD IDMT traceable | | | | | equation.Testing | | | | | performed at [facility], [address] | | | | | [facility], | | | | | [place] [address] | | | + + + + + + + | Specimen | + + | Blood | + + + + + + + | Performing | Address | City/State/Zipcode | Phone Number | | Organization | | | | + + + + + | [facility] | [address] | [place] [address] | [phone] | | LABORATORY | [address]vd[address] | | | + + + + + Phosphorus (06/15/2018 6:19 AM) + + + + + | Component | Value | Ref Range | Performed At | + + + + + | PHOSPHORUS | 3.3Comment: Testing | 2.3 - 4.8 mg/dL | [facility] | | | performed at [facility], [address] | | LABORATORY | | | [facility], | | | | | [place] [address] | | | + + + + + + + | Specimen | + + | Blood | + + + + + + + | Performing | Address | City/State/Zipcode | Phone Number | | Organization | | | | + + + + + | [facility] | [address] [place] [address] | [place] [address] | [phone] | | LABORATORY | [address]vd[address] | | | + + + + + Magnesium (06/15/2018 6:19 AM) + + + + + | Component | Value | Ref Range | Performed At | + + + + + | MAGNESIUM | 2.0Comment: Testing | 1.7 - 2.4 mg/dL | [facility] | | | performed at [facility], [address] | | LABORATORY | | | [facility], | | | | | [place] [address] | | | + + + + + + + | Specimen | + + | Blood | + + + + + + + | Performing | Address | City/State/Zipcode | Phone Number | | Organization | | | | + + + + + | [facility] | [address] | [place] [address] | [phone] | | LABORATORY | [address] | | [...] | LABORATORY | | | performed at [facility], [address] | | | | | [address], | | | | | [place] [address] | | | | | | | | + + + + + + + | Specimen | + + | Blood | + + + + + + + | Performing | Address | City/State/Zipcode | Phone Number | | Organization | | | | + + + + + | [facility] | [address] | [place] [address] | [phone] | | LABORATORY | [address] | | | + + + + + POCT glucose (06/15/2018 5:47 AM) + + + + + | Component | Value | Ref Range | Performed At | + + + + + | GLUCOSE,POC SCREEN | 251 (H)Comment: Testing | 65 - 99 mg/dL | [facility] | | | performed at [facility];[address] | | | | | [address];[place], [place] | | | | | [address] | | | + + + + + + + + + + | Performing | Address | City/State/Zipcode | Phone Number | | Organization | | | | + + + + + | [facility] | [address] | [place] [address] | | + + + + + [...] performed at | | | | | [facility], [address] [facility] | | | | | [place] | | | | | [address] | | | + + + + + + + | Specimen | + + | Nasopharyngeal | | Culture | + + + + + + + | Performing | Address | City/State/Zipcode | Phone Number | | Organization | | | | + + + + + | [facility] | [address] | [place] [address] | [phone] | | LABORATORY | [address] | | | + + + + + POCT glucose (06/14/2018 11:11 PM) + + + + + | Component | Value | Ref Range | Performed At | + + + + + | GLUCOSE,POC SCREEN | 143 (H)Comment: Testing | 65 - 99 mg/dL | [facility] | | | performed at [facility];[address] | | | | | [address];[place] | | | | | [address] | | | + + + + + + + + + + | Performing | Address | City/State/Zipcode | Phone Number | | Organization | | | | + + + + + | [facility] | [address] | [place] [address] | | + + + + + [...] | + + + + + | [facility] | [address] | [place] [address] | [phone] | | LABORATORY | Blvd. | | | + + + + + | [facility] | [address] | [place] [address] | | + + + + + [...] | + + + + + | [facility] | [address] | [place] [address] | [phone] | | LABORATORY | Blvd. | | | + + + + + | [facility] | [address] | [place] [address] | | + + + + + [...] | + + + + + | [facility] | [address] | [place] [address] | | + + + + + [...] | [address] | [place] [address] | | + + + + + PROCALCITONIN (06/14/2018 7:06 PM) + + + + + | Component | Value | Ref Range | Performed At | + + + + + | PROCALCITONIN | 0.09Comment: | <0.5 ng/mL | [facility] | | | INTERPRETIVE | | [...] performed | | | | | at [facility];[address];[place] [address] | | | + + + + + + + + + + | Performing | Address | City/State/Zipcode | Phone Number | | Organization | | | | + + + + + | [facility] | [address] | [place] [address] | | + + + + + Brain natriuretic peptide (06/14/2018 7:06 PM) + + + + + | Component | Value | Ref Range | Performed At | + + + + + | BRAIN NATRIURETIC | 63.94Comment: Testing | 0 - 100 pg/mL | [facility] | | PEPTIDE | performed at [facility];[address] | | | | | [address];[place] | | | | | [address] | | | + + + + + + + + + + | Performing | Address | City/State/Zipcode | Phone Number | | Organization | | | | + + + + + | [facility] | [address] | [place] [address] | | + + + + + Troponin I (06/14/2018 7:06 PM) + + + + + | Component | Value | Ref Range | Performed At | + + + + + | TROPONIN I | 0.031Comment: Testing | 0.00 - 0.04 ng/mL | [facility] | | | performed at [facility];[address] | | | | | [facility];[place], [place] | | | | | [id number] ON 07/11 | | | | | [...] | + + + + + | [facility] | [address] | [place] [address] | | + + + + + D-dimer, quantitative (06/14/2018 7:06 PM) + + + + + | Component | Value | Ref Range | Performed At | + + + + + | D DIMER, | 0.68 (H)Comment: Testing | 0.19 - 0.50 mg/L FEU | [facility] | | QUANTITATIVE | performed at [facility];[address] | | | | [address];[place], [place] | | | | | [address] | | | + + + + + + + | Specimen | + + | Blood | + + + + + + + | Performing | Address | City/State/Zipcode | Phone Number | | Organization | | | | + + + + + | [facility] | [address] | [place] [address] | | + + + + + Cardiac Panel (06/14/2018 7:06 PM) + + + + + | Component | Value | Ref Range | Performed At | + + + + + | WBC | 16.54 (H) | 3.80 - 11.00 K/uL | [facility] | + + + + + | RBC | 4.02 (L) | 4.20 - 5.70 M/uL | [facility] | + + + + + | HGB | 13.4 | 13.2 - 17.0 g/dL | [facility] | + + + + + | HCT | 41.0 | 39.0 - 50.0 % | [facility] | + + + + + | MCV | 102.0 (H) | 80.0 - 100.0 fl | [facility] | + + + + + | MCH | 33.2 | 27.0 - 34.0 pg | [facility] | + + + + + | MCHC | 32.5 | 32.0 - 35.5 g/dL | [facility] | + + + + + [...] | 0.33 (H) | 0.00 K/uL | [facility] | | Absolute | | | | + + + + + | Lymphocytes Absolute | 0.99 (L) | 1.00 - 3.90 K/uL | [facility] | + + + + + | Monocytes Absolute | 0.83 (H) | 0.00 - 0.80 K/uL | [facility] | + + + + + [...] SPECIMEN | 3.5 - 4.9 mmol/L | [facility] | | | MODERATELY HEMOLYZED | [...] + | BUN/CREAT | 21 | | [facility] | + + + + + | CALCIUM | 9.2 | 8.5 - 10.5 mg/dL | [facility] | + + + + + | TOTAL PROTEIN | 6.0 (L) | 6.3 - 8.2 g/dL | [facility] | + + + + + | Albumin | 4.0 | 3.3 - 4.8 g/dL | [facility] | + + + + + | GLOBULIN | 2.0 | 1.3 - 4.9 g/dL | [facility] | + + + + + | A/G | 2.0 | 1.0 - 2.4 | [facility] | + + + + + | TBIL | 0.7 | 0.1 - 1.5 mg/dL | [facility] | + + + + + | ALK PHOS | 63 | 35 - 115 U/L | [facility] | + + + + + | AST | 37 | 10 - 45 U/L | [facility] | + + + + + | ALT | 47 | 10 - 65 U/L | [facility] | + + + + + | EGFR | >60Comment: GFR <60: | >60 mL/min/1.73m2 | [facility] | | | CHRONIC KIDNEY DISEASE, [...] the | | | | | MDRD [facility] traceable | | | | | equation. | | | + + + + + | CPK | 77Comment: SPECIMEN | 55 - 400 U/L | [facility] | | | MODERATELY HEMOLYZED | | | + + + + + | INR | 0.9Comment: REFERENCE | | [facility] | | | RANGE:0.9 - | [...] (L) | 23 - 32 seconds | [facility] | + + + + + | MMB | 5.7 (H) | 0.5 - 3.6 ng/mL | [facility] | + + + + + | CK-MB Index | 7.4Comment: CK INDEX | | [facility] | | | INTERPRETATION: | | [...] | | | | | performed at [facility];[address] | | | | | [facility];[place] | | | | | [address] | | | + + + + + + + + + + | Performing | Address | City/State/Zipcode | Phone Number | | Organization | | | | + + + + + | [facility] | [address] [facility] | [place] [address] | | + + + + + [...] + + + + | Calculated P [place] | 49 | degrees | [facility] | + + + + + | Calculated R [place] | -26 | degrees | [facility] | + + + + + | Calculated T [place] | 92 | degrees | [facility] EKG [...] -COMPUTER (500), | | | | | art editor Marissa Paige | | | | | (79) on 06/16/2018 | | | | | 12:53:28 AM | | | + + + + + + + + + + | Performing | Address | City/State/Zipcode | Phone Number | | Organization | | | | + + + + + | [facility] | [address] | [place] [address] | | + + + + + ED INFORMATION EXCHANGE (06/14/2018 6:46 PM) + + + | Narrative | Performed At | + + + | [id number] Upcoming Changes to the Maria R | ED | | Notification On June 20, 2018 the layout of this notification will | INFORMATION | | be updated. For an overview of upcoming changes, please log into | EXCHANGE | | [email or web address]. For questions, | | | please email [email or web address] or call . | | | This patient has registered at the [facility] | | | Emergency Department For more information visit: | | | [email or web address] | | | [email or web address] Security Events No recent Security Events currently on file | | | ED Care Guidelines There are currently no ED Care Guidelines for | | | this patient. Please check your facility's medical records system. | | | Recent Emergency Department Visit Summary Date Facility [facility] State | | | Type Major Type Diagnoses or Chief Complaint Jun 14, 2018 [facility] | | | [facility] Emergency Shortness of | | | Breath Chest Pain Jun 13, 2018 [facility] [place] | | | [place] Emergency Emergency Chief Complaint: DIFFICULTY BREATHING | | | Jun 12, 2018 [place] | | | Emergency Emergency Chief Complaint: SOB Jun 08, 2018 [facility] | | | 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 | | | [facility] [place] [place] Emergency Emergency Chief Complaint: | | | SOB May 22, 2018 [facility] [place] | | | Emergency Emergency Hyperglycemia, unspecified | | | Chronic obstructive pulmonary disease with (acute) exacerbation | | | Shortness of breath Other usp (current) drug therapy | | | Nicotine dependence, unspecified, uncomplicated jail | | | (current) use of systemic steroids Essential (primary) | | | hypertension Allergy status to penicillin jail | | | (current) use of aspirin May 03, 2018 [facility] [place] | | | [place] Emergency Emergency Chief Complaint: DIFFICUTLY BREATHING | | | Apr 16, 2018 [facility] 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 | | [place] Emergency Emergency Shortness of breath | | | Essential (primary) hypertension Constipation, unspecified | | | Nicotine dependence, unspecified, uncomplicated Chronic | | | obstructive pulmonary disease with (acute) exacerbation Allergy | | | status to penicillin Other usp (current) drug therapy | | | [facility] 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 [place] [facility] | [facility] Emergency Chronic obstructive pulmonary disease | | | with (acute) exacerbation Shortness of breath Allergy | | | status to penicillin Other usp (current) drug therapy | | | Nicotine dependence, unspecified, uncomplicated Essential | | | (primary) hypertension E.D. Visit Count (12 mo.) Facility | | | Visits Low Acuity [facility] [address] [facility] [address] | | | [facility] 13 0 Total 14 0 Note: Visits indicate total known | | | visits. Medicaid Low Acuity Dx are the number of primary diagnoses on | | | the Medicaid's Low Acuity dx list. Recent Inpatient Visit | | | Summary Date Facility City State Type Major Type Diagnoses or Chief | | | Complaint Jun 13, 2018 [facility] [place] [facility] [place] Critical | | | Care Inpatient Chief Complaint: DEHYDRATION Jun 08, 2018 | | | [facility] [place] [facility] 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 Care Providers | | | Provider PRC Type Phone Fax Service Dates Denisse Blanton Case | | | Brown Sourer/[employer] Dec 17, 2017 - Current | | [...] for additional information. 2019 | | | [employer] - [place], [place] - | | | [place] | | + + + + + | Procedure Note | + + | Interface, Lab - 06/14/2018 6:48 PM PST Formatting of this note may be different | | from the original.[id number] Changes to the Maria R | | NotificationOn June 20, 2018 the layout of this notification will be updated. For an | | overview of upcoming changes, please log into | | [email or web address]. For questions, please email | | [email or web address] or call .This patient has registered at the | | [facility] Emergency Department For more information visit: | | [email or web address] Security | | EventsNo recent Security Events currently on fileED Care GuidelinesThere are currently | | no ED Care Guidelines for this patient. Please check your facility's medical records | | system.Recent Emergency Department Visit SummaryDate Facility City State Type Major Type | | Diagnoses or Chief [facility] [place] [facility] | Emergency Shortness of Breath Chest Pain Jun 13, 2018 [facility] [place] [facility] | | [place] Emergency Emergency Chief Complaint: DIFFICULTY BREATHING Jun 12, [address] [facility] | | [facility] [place] Emergency Emergency Chief Complaint: SOB Jun 08, [address] [facility] | | [facility] [place] Emergency Emergency Chief Complaint: DIFFICULTY BREATHING May | | 2018 [facility] [place] [facility] 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 | | [place] Emergency Emergency Chief Complaint: SOB May 22, 2018 [facility] [place] [facility] 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 | | [place] Emergency Emergency Chief Complaint: DIFFICUTLY BREATHING Apr 16, [address] [facility] [address] | | [facility] 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 [place] [facility] Emergency Chronic obstructive pulmonary disease with (acute) | | exacerbation Shortness of breath Allergy status to penicillin Other usp | | (current) drug therapy Nicotine dependence, unspecified, uncomplicated Essential | | (primary) hypertension E.D. Visit Count (12 mo.)Facility Visits Low Acuity [facility] | | [facility] 1 0 [facility] 13 0 Total 14 0 Note: Visits | | indicate total known visits. Medicaid Low Acuity Dx are the number of primary diagnoses | | on the Medicaid's Low Acuity dx list. Recent Inpatient Visit SummaryDate Facility City | | State Type Major Type Diagnoses or Chief Complaint [facility] [place] [facility] Inpatient Chief Complaint: DEHYDRATION Jun 08, 2018 [facility]. | | [facility] [place] Medical Surgical Inpatient Shortness of breath Benign | | prostatic hyperplasia without lower urinary tract symptoms Essential (primary) | | hypertension Acute and chronic respiratory failure with hypoxia Chronic | | obstructive pulmonary disease with (acute) exacerbation Hyperglycemia, unspecified | | Personal history of nicotine dependence Allergy status to penicillin jail | | (current) use of aspirin jail (current) use of inhaled steroids May 24, 2018 [facility] | | [place] [facility] 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 | | Inpatient Chronic obstructive pulmonary disease with (acute) exacerbation | | Shortness of breath Other usp (current) drug therapy Benign prostatic | | hyperplasia without lower urinary tract symptoms Allergy status to penicillin Long | | term (current) use of aspirin Nicotine dependence, unspecified, uncomplicated | | Essential (primary) hypertension jail (current) use of inhaled steroids | | Personal history of traumatic brain injury [facility] 03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 2019 | | [employer] [place], [place] - | | [email or web address] | |[facility] 1 0 | |[facility] 13 0 | |Total 14 0 | |Note: Visits indicate total known visits. Medicaid Low Acuity Dx are the number of primary diagnoses on the Medicaid's Low Acuity dx list. | | | |Recent Inpatient Visit Summary | |Date Facility [facility] State Type Major Type Diagnoses or Chief Complaint | |Jun [facility] Chief Complaint: DEHYDR ATION | |Jun 08, 2018 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. 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 | | | |Care Providers | |Provider PRC Type Phone Fax Service Dates | |Denisse Blanton High Climber/[employer] Dec 17, 2017 - Current | |ADI [...] aforementioned facilities for additional information. | |2019 [employer] - [place], [place] - | + + + +---------+ + + [...] | 10 mLs | | | | [id number] | | 9 16:28 | | | [...]
--- OUTSIDE RECORDS SUMMARY | ~2018-09-10 | XMS | Clinical Summary ---
Demographics + + + | Address | [address] | | | [place] [address] | + + + | Home Phone | | + + + | Preferred Language | Unknown | + + + | Marital Status | | + + + | Mormon Affiliation | Unknown | + + + | Race | Unknown | + + + | Ethnic Group | Unknown | + + + Author + + + | Author | [facility] | + + + | Organization | [facility] | + + + | Address [...] Team Providers + +------+ + | Care Network Control Operators Supervisor Name | Role | Phone | + +------+ + | Adi Nelson MD | PP | | + +------+ [...] | | +--------+ + + + + | 06/14/ | Hospital | | Teja Blandon, | Acute exacerbation | | 2019 - | Encounter | | Lei Price | of chronic | | | | MD Roque Castillo, | obstructive | | 06/16/ | | | MD Collette Leos, | pulmonary disease | | 2018 | | | Hector Carrington MD | (COPD) (HCC) | | | | | | (Primary Dx); | | | | | | Hypoxia | +--------+ + + + + +---+ + | | Discharge | | | Summaries | | | - Collette, | | | Hector | | | MD Zeb - | | | 06/16/2018 | | | 10:29 AM | | | PST | | | Formatting | | | of this | | | note may be | | | different | | | from the | | | original.[facility] | | | ce: | | | Hospitalist | | | Physician | | | Discharge | | | Summary Pt: | | | Elzie | | | Miranda | | | AGE/SEX: 83 | | | y.o. | | | male | | | MRN: | | | [id number] | | | OM: | | | [id number] | | | PCP: | | | Lohith | | | Nelson | | | : | | | 1935 | | | Admit date: | | | | | | 06/14/2018Di | | | scharge | | | date and | | | time: | | | 06/16/18 | | | Admitting | | | Physician: | | | Lei Pena | | | MD Swapna | | | Discharge | | | Physician: | | | Hector K | | | Piryani, | | | MDConsults: | | | Primary | | | Discharge | | | Diagnoses: | | | Principal | | | Problem: | | | COPD with | | | acute | | | exacerbatio | | | n | | | (HCC)Active | | | Problems: | | | Acute on | | | chronic | | | respiratory | | | failure | | | with | | | hypoxia | | | (HCC) | | | Bandemia | | | Pneumonia | | | of left | | | lower lobe | | | due to | | | infectious | | | organism | | | (HCC) | | | Generalized | | | | | | weaknessRes | | | olved | | | Problems: | | | * No | | | resolved | | | hospital | | | problems. | | | *Secondary | | | Discharge | | | Diagnoses: | | | Discharged | | | Condition: | | | | | | stableSigni | | | ficant | | | Diagnostic | | | Studies: | | | Xr Chest Pa | | | And | | | LateralResu | | | lt Date: | | | 06/14/2018Mi | | | ld | | | ill-defined | | | densities | | | in the left | | | lower lobe | | | which may | | | represent | | | atelectasis | | | , | | | bronchiolit | | | is or | | | scarring. | | | Hyperexpans | | | ion of the | | | lungs | | | suggestive | | | of COPD. | | | Signed by: | | | MD Lesley, | | | Walt | | | Sign | | | Date/Time: | | | 06/14/2018 | | | 7:20 PMCt | | | Chest Pe | | | ProtocolRes | | | ult Date: | | | 06/14/20181. | | | No | | | evidence of | | | pulmonary | | | embolus. 2. | | | Panlobular | | | | | | emphysemato | | | us change | | | with | | | probable | | | chronic | | | bronchitis. | | | 3. | | | Asymmetric | | | bronchial | | | wall | | | thickening | | | the lower | | | lung zones, | | | | | | particularl | | | y on the | | | left, | | | perhaps | | | with mild | | | peribronchi | | | al | | | infiltrate | | | in the left | | | lower | | | lobe, and | | | scarring in | | | the | | | peripheral | | | left lower | | | lobe with | | | mild | | | pleural | | | thickening. | | | 4. | | | Blebs/bulla | | | e in the | | | lateral | | | left lung | | | base. | | | Signed by: | | | Brewer, | | | Alex Sign | | | Date/Time: | | | 06/14/2018 | | | 8:35 PMHPI | | | and | | | Hospital | | | Course: | | | Mr. Miranda | | | is an | | | 83-year-old | | | man who | | | has past | | | medical | | | history of | | | chronic | | | hypoxic | | | respiratory | | | failure | | | due to | | | advanced | | | COPD, | | | lifelong | | | tobacco | | | use, type 2 | | | diabetes | | | mellitus, | | | was seen at | | | emergency | | | department | | | [facility] | [facility] [place] | | | for COPD | | | exacerbatio | | | n. The | | | patient was | | | admitted | | | overnight | | | and was | | | discharged | | | in the | | | morning | | | hours in a | | | stable | | | condition. | | | However, | | | the | | | patient's | | | family | | | thought he | | | still has | | | ongoing | | | dyspnea, | | | and hence | | | they drove | | | him to the | | | emergency | | | department | | | of this | | | hospital | | | and was | | | again | | | admitted.HO | | | SPITAL | | | COURSE: A | | | CT of chest | | | was done | | | that was | | | negative | | | for PE, but | | | showed | | | significant | | | panlobular | | | emphysema | | | and chronic | | | bronchitis | | | and | | | question of | | | left lower | | | lobe | | | infiltrate. | | | White | | | count was | | | elevated at | | | 16,000, | | | but the | | | patient was | | | taking | | | prednisone | | | at home. | | | He received | | | IV | | | Solu-Medrol | | | and | | | nebulized | | | treatment | | | as well as | | | supplementa | | | l oxygen. | | | His | | | symptoms | | | slowly | | | improved, | | | and | | | yesterday | | | apart from | | | minimal | | | wheezing, | | | he felt a | | | lot better, | | | and was | | | taken off | | | supplementa | | | l oxygen. | | | IV | | | Solu-Medrol | | | was | | | changed to | | | oral | | | prednisone | | | yesterday. | | | The | | | patient was | | | kept for | | | one more | | | day in the | | | hospital, | | | and today | | | he does not | | | have any | | | shortness | | | of breath | | | or wheezing | | | and wants | | | to go home. | | | In my | | | opinion, he | | | is stable | | | for | | | discharge. | | | The | | | patient is | | | on several | | | inhalers | | | including | | | inhaled | | | steroids, | | | long-acting | | | | | | beta-agonis | | | t and | | | Spiriva. I | | | will | | | continue | | | all other | | | medications | | | . He also | | | has a | | | nebulized | | | treatment | | | at home | | | that he is | | | supposed to | | | use every | | | 4 hours as | | | needed. We | | | will give | | | him | | | tapering | | | doses of | | | prednisone | | | for one | | | week. | | | There is no | | | need for | | | antibiotics | | | , as he is | | | afebrile, | | | and has had | | | several | | | courses of | | | oral | | | antibiotics | | | including | | | Ceftin and | | | doxycycline | | | recently. | | | Elevated | | | white count | | | is due to | | | prednisone. | | | In my | | | opinion, | | | the | | | possible | | | infiltrate | | | on chest | | | x-ray is | | | just an | | | incidental | | | finding. | | | The patient | | | has an | | | upcoming | | | appointment | | | with Dr. | | | Harlan in | | | about two | | | weeks from | | | now. His | | | blood | | | sugars were | | | slightly | | | out of | | | control due | | | to | | | steroids, | | | and I am | | | hopeful | | | that once | | | he is off | | | prednisone, | | | his blood | | | sugars will | | | be under | | | better | | | control. | | | However, | | | the patient | | | is advised | | | to follow | | | with his | | | primary | | | care | | | physician | | | in about | | | one week | | | from now | | | for rest of | | | his | | | medical | | | issues.Disc | | | harge | | | Vitals: | | | Vitals: | | | 06/15/18 | | | 2313 | | | 06/16/18 | | | 0448 | | | 06/16/18 | | | 0731 | | | 06/16/18 | | | 0804 BP: | | | 171/81 | | | 177/84 | | | 168/74 BP | | | Location: | | | Right upper | | | arm Right | | | upper arm | | | Right upper | | | arm Pulse: | | | 71 60 74 | | | 74 Resp: 20 | | | 16 18 16 | | | Temp: 98.1 | | | F (36.7 | | | C) 97.7 | | | F (36.5 | | | C) 98 | | | F (36.7 | | | C) | | | TempSrc: | | | Oral Oral | | | Oral SpO2: | | | 94% 94% 95% | | | 93% | | | Weight: | | | 73.6 kg | | | (162 lb 3.2 | | | oz) | | | Height: | | | Discharge | | | Exam: | | | Constitutio | | | nal: Alert | | | and | | | oriented to | | | person, | | | place, and | | | time. | | | Appears | | | well-develo | | | ped and | | | well-nouris | | | hed. | | | Cardiovascu | | | lar: Normal | | | rate, | | | regular | | | rhythm, | | | normal | | | heart | | | sounds with | | | S1 and S2 | | | and intact | | | distal | | | pulses. | | | Exam | | | reveals no | | | gallop and | | | no friction | | | rub. No | | | murmur | | | heard.Pulmo | | | nary/Chest: | | | Effort | | | normal and | | | breath | | | sounds | | | diminished | | | bilaterally | | | No | | | stridor. No | | | | | | respiratory | | | distress. | | | no | | | wheezes. no | | | rales. | | | exhibits no | | | | | | tenderness. | | | Abdominal: | | | Soft. | | | Bowel | | | sounds are | | | normal. | | | exhibits no | | | distension | | | and no | | | mass. There | | | is no | | | tenderness. | | | There is | | | no rebound | | | and no | | | guarding. | | | Musculoskel | | | etal: | | | Normal | | | range of | | | motion.exhi | | | bits no | | | tenderness. | | | exhibits | | | no edema. | | | | | | Neurologica | | | l: Alert | | | and | | | oriented to | | | person, | | | place, and | | | time. No | | | cranial | | | nerve | | | deficit. | | | Exhibits | | | normal | | | muscle | | | tone. | | | Coordinatio | | | n | | | normal.Skin | | | : Skin is | | | warm and | | | dry. No | | | rash noted. | | | No | | | erythema. | | | No pallor. | | | Psychiatric | | | : Has a | | | normal mood | | | and | | | affect. | | | Behavior is | | | normal. | | | Judgment | | | normal. | | | LABS: | | | Recent | | | [facility] | | | | | | 8 | | | | | | 9 | | | | | | 6 WBC | | | 18.75* | | | 11.50* | | | 16.54* HGB | | | 11.2* 11.7* | | | 13.4 HCT | | | 33.4* 35.2* | | | 41.0 PLT | | | 235 208 225 | | | Recent | | | [facility] | | | | | | 8 | | | | | | 9 | | | | | | 6 NA 140 | | | 138 141 K | | | 3.9 4.4 4.8 | | | CL 104 100 | | | 99 CO2 27 | | | 28 29 BUN | | | 20 20 23 | | | CREATININE | | | 0.8 0.9 | | | 1.07 PROT | | | -- 5.4* | | | 6.0* | | | BILITOT -- | | | 0.6 0.7 | | | ALT -- 38 | | | 47 AST -- | | | 14 37 | | | Invalid | | | input(s): | | | LABALBURece | | | nt [facility] | | | | | | 9 MG 2.0 No | | | results | | | for | | | input(s): | | | AMYLASE in | | | the last | | | 168 | | | hours.No | | | results for | | | input(s): | | | PHART, | | | PO2ART, | | | HOT8RYY, | | | O4BEBKUE, | | | BEART in | | | the last | | | 168 | | | hours.Recen | | | t [facility] | | | | | | 6 APTT 21* | | | INR 0.9 | | | Recent | | | [facility] | | | | | | 6 CKTOTAL | | | 77 | | | TROPONINI | | | 0.031 | | | CKMBINDEX | | | 7.4 | | | Disposition | | | : | | | HomePatient | | | | | | Instruction | | | s: | | | Medication | | | List START | | | taking | | | these | | | medications | | | | | | glimepiride | | | 2 MG | | | tabletQTY: | | | 30 | | | tabletRefil | | | ls: | | | 1Commonly | | | known as: | | | AMARYLTake | | | 1 tablet by | | | mouth | | | every | | | morning | | | before | | | breakfast. | | | CHANGE how | | | you take | | | these | | | medications | | | | | | predniSONE | | | 10 MG | | | tabletQTY: | | | 15 | | | tabletRefil | | | ls: | | | 0Commonly | | | known as: | | | DELTASONETa | | | ke 30 mg | | | daily for 2 | | | days, then | | | 20 mg | | | daily for 2 | | | days, then | | | 10 mg | | | daily for 2 | | | days, then | | | 5 mg daily | | | for 2 | | | days, then | | | stop.What | | | changed: | | | medication | | | strength | | | See the new | | | | | | instruction | | | s. VENTOLIN | | | HFA 108 | | | (90 Base) | | | MCG/ACT | | | inhalerRefi | | | lls: | | | 11Generic | | | drug: | | | albuterolWh | | | at changed: | | | Another | | | medication | | | with the | | | same name | | | was | | | removed. | | | Continue | | | taking this | | | | | | medication, | | | and follow | | | the | | | directions | | | you see | | | here. | | | CONTINUE | | | taking | | | these | | | medications | | | BROVANA | | | 15 MCG/2ML | | | NebuRefills | | | : 3Generic | | | drug: | | | arformotero | | | l | | | budesonide | | | 0.5 MG/2ML | | | nebulizer | | | suspensionR | | | efills: | | | 0Commonly | | | known as: | | | PULMICORT | | | DALIRESP | | | 250 MCG | | | TabsRefills | | | : 3Generic | | | drug: | | | Roflumilast | | | FREESTYLE | | | LITE | | | DeviRefills | | | : 0 | | | FREESTYLE | | | LITE test | | | stripRefill | | | s: | | | 3Generic | | | drug: | | | glucose | | | blood | | | HUMULIN R | | | 100 UNIT/ML | | | | | | injectionRe | | | fills: | | | 0Generic | | | drug: | | | insulin | | | regular | | | INSULIN | | | SYRINGE | | | .5CC/30GX5/ | | | 16" 30G X | | | 5/16" 0.5 | | | ML | | | MiscRefills | | | : 6 | | | ipratropium | | | -albuterol | | | 0.5-2.5 | | | mg/3mLRefil | | | ls: | | | 11Commonly | | | known as: | | | DUO-NEB | | | lisinopril | | | 20 MG | | | tabletRefil | | | ls: | | | 3Commonly | | | known as: | | | ZESTRIL | | | LORazepam 1 | | | MG | | | tabletRefil | | | ls: | | | 0Commonly | | | known as: | | | ATIVAN | | | metFORMIN | | | 500 MG | | | tabletRefil | | | ls: | | | 3Commonly | | | known as: | | | GLUCOPHAGE | | | SPIRIVA | | | HANDIHALER | | | 18 MCG | | | inhalation | | | capsuleRefi | | | lls: | | | 3Generic | | | drug: | | | tiotropium | | | tamsulosin | | | 0.4 MG | | | capsuleRefi | | | lls: | | | 3Commonly | | | known as: | | | FLOMAX You | | | might also | | | be taking | | | other | | | medications | | | not listed | | | above. If | | | you have | | | questions | | | about any | | | of your | | | other | | | medications | | | , talk to | | | the person | | | who | | | prescribed | | | them or | | | your | | | Primary | | | Care | | | Provider. | | | STOP | | | taking | | | these | | | medications | | | | | | cefUROXime | | | 500 MG | | | tabletCommo | | | nly known | | | as: CEFTIN | | | | | | clotrimazol | | | e 10 MG | | | trocheCommo | | | nly known | | | as: | | | MYCELEX | | | doxycycline | | | 100 MG | | | capsuleComm | | | only known | | | as: | | | VIBRAMYCIN | | | sulfamethox | | | azole-trime | | | thoprim | | | 800-160 MG | | | per | | | tabletCommo | | | nly known | | | as: | | | BACTRIM DS | | | Where to | | | Get Your | | | Medications | | | You can | | | get these | | | medications | | | from any | | | pharmacy | | | Bring a | | | paper | | | prescriptio | | | n for each | | | of these | | | medications | | | | | | glimepiride | | | 2 MG | | | tablet | | | predniSONE | | | 10 MG | | | tablet | | | Activity: | | | activity as | | | | | | toleratedDi | | | et: cardiac | | | diet and | | | diabetic | | | dietWound | | | Care: not | | | applicableT | | | otal time | | | of | | | discharge: | | | 35 minutes. | | | This | | | included | | | talking to | | | patient, | | | examining | | | patient, | | | discussing | | | outpatient | | | plan of | | | care, | | | reconciling | | | home | | | medications | | | and | | | dictating | | | discharge | | | summary.Fol | | | low-up with | | | PCP in 1 | | | week. | | | Signed:Sure | | | sh K | | | Coleltte, | | | MD06/16/2018 | | | 10:29 AM | +---+ + from Last 3 Months Social History [...] | | | | | [place] [address] | | | | | | [phone] | | | | | | | | +--------+---------+ + + + Procedures + +--------+ + + + | [...] | + +--------+ + + + | GIANA DAI PANEL W/O | STAT | 06/14/2018 | [...] section. | + +--------+ + + + from Last 3 Months Results POCT glucose (06/16/2018 11:28 AM)Only the most recent of 7 results within the time period is included. + + + + + | Component | Value | Ref Range | Performed At | + + + + + | GLUCOSE,POC SCREEN | 238 (H)Comment: Testing | 65 - 99 mg/dL | [facility] | | | performed at [facility];[address] | | | | [address];[place], [place] | | | | | [address] | | | + + + + + + + + + + | Performing | Address | City/State/Zipcode | Phone Number | | Organization | | | | + + + + + | [facility] | [address] | [place] [address] | | + + + + + [...] | [facility] | | | performed at [facility], [address] | | LABORATORY | | | [address], | | | | | [place] [address] | | | + + + + + + + | Specimen | + + | Blood | + + + + + + + | Performing | Address | City/State/Zipcode | Phone Number | | Organization | | | | + + + + + | [facility] | [address] | [place] [address] | [phone] | | LABORATORY | [address] | | | + + + + + CBC w/auto diff (reflex to manual) (06/16/2018 5:58 AM)Only the most recent of 2 results w kathyin the time period is included. + + + + + | Component [...] performed at | | | | | [facility], [address] | | | | | [place] | | | | | [address] | | | + + + + + + + | Specimen | + + | Blood | + + + + + + + | Performing | Address | City/State/Zipcode | Phone Number | | Organization | | | | + + + + + | [facility] | [address] | [place] [address] | [phone] | | LABORATORY | [address] | | | + + + + + Folate (06/16/2018 5:58 AM) + + + + + | Component | Value | Ref Range | Performed At | + + + + + | FOLATE | 17.8Comment: Testing | >5.4 ng/mL | [facility] | | | performed at [facility], [address] | | LABORATORY | | | [address], | | | | | [place] [address] | | | + + + + + + + | Specimen | + + | Blood | + + + + + + + | Performing | Address | City/State/Zipcode | Phone Number | | Organization | | | | + + + + + | [facility] | [address] | [place] [address] | [phone] | | LABORATORY | [address] | | | + + + + + Ferritin (06/16/2018 5:58 AM) + + + + + | Component | Value | Ref Range | Performed At | + + + + + | FERRITIN | 298Comment: Testing | 11 - 450 ng/mL | [facility] | | | performed at [facility], [address] | | LABORATORY | | | [address], | | | | | [place] [address] | | | + + + + + + + | Specimen | + + | Blood | + + + + + + + | Performing | Address | City/State/Zipcode | Phone Number | | Organization | | | | + + + + + | [facility] | [address] | [place] [address] | [phone] | | LABORATORY | [address] | | | + + + + + Vitamin B12 (06/16/2018 5:58 AM) + + + + + | Component | Value | Ref Range | Performed At | + + + + + | VITAMIN B12 | 431Comment: Testing | 254 - 1,320 pg/mL | [facility] | | | performed at [facility], [address] | | LABORATORY | | | [address], | | | | | [place] [address] | | | + + + + + + + | Specimen | + + | Blood | + + + + + + + | Performing | Address | City/State/Zipcode | Phone Number | | Organization | | | | + + + + + | [facility] | [address] | [place] [address] | [phone] | | LABORATORY | [address] | | [...] the | | | | | [facility] traceable | | | | | equation.Testing | | | | | performed at [facility], [address] | | | | | [facility], | | | | | [place] [address] | | | + + + + + + + | Specimen | + + | Blood | + + + + + + + | Performing | Address | City/State/Zipcode | Phone Number | | Organization | | | | + + + + + | [facility] | [address] | [place] [address] | [phone] | | LABORATORY | [address] | | [...] + + + | [facility] | [address] | [place] [address] | [phone] | | LABORATORY | [address] | | | + + + + + TSH (06/15/2018 6:19 AM) + + + + + | Component | Value | Ref Range | Performed At | + + + + + | TSH | 5.390 (H)Comment: | 0.450 - 5.100 uIU/mL | [facility] | | | Testing performed at | | LABORATORY | | | [facility], [address] [facility] [address] [facility] | | | | | [place] | | | | | [address] | | | + + + + + + + | Specimen | + + | Blood | + + + + + + + | Performing | Address | City/State/Zipcode | Phone Number | | Organization | | | | + + + + + | [facility] | [address] | [place] [address] | [phone] | | LABORATORY | [address] | | | + + + + + Phosphorus (06/15/2018 6:19 AM) + + + + + | Component | Value | Ref Range | Performed At | + + + + + | PHOSPHORUS | 3.3Comment: Testing | 2.3 - 4.8 mg/dL | [facility] | | | performed at [facility], [address] | | LABORATORY | | | [facility] [address], | | | | | [place] [address] | | | + + + + + + + | Specimen | + + | Blood | + + + + + + + | Performing | Address | City/State/Zipcode | Phone Number | | Organization | | | | + + + + + | [facility] | [address] | [place] [address] | [phone] | | LABORATORY | [address] | | | + + + + + Magnesium (06/15/2018 6:19 AM) + + + + + | Component | Value | Ref Range | Performed At | + + + + + | MAGNESIUM | 2.0Comment: Testing | 1.7 - 2.4 mg/dL | [facility] | | | performed at [facility], [address] | | LABORATORY | | | [address], | | | | | [place] [address] | | | + + + + + + + | Specimen | + + | Blood | + + + + + + + | Performing | Address | City/State/Zipcode | Phone Number | | Organization | | | | + + + + + | [facility] | [address] | [place] [address] | [phone] | | LABORATORY | [address] | | [...] by | | LABORATORY | | | NGS and traceable to | | | | [...] | | | | | performed at [facility], [address] | | | | | [facility], | | | | | [place] [address] | | | + + + + + + + | Specimen | + + | Blood | + + + + + + + | Performing | Address | City/State/Zipcode | Phone Number | | Organization | | | | + + + + + | [facility] | [address] | [place] [address] | [phone] | | LABORATORY | [address] | | [...] (L) | 6.3 - 8.2 g/dL | [facility] | | | | | LABORATORY | + + + + + | Albumin | 2.7 (L) | 3.3 - 4.8 g/dL | [facility] | | | | | LABORATORY [...] >60Comment: GFR <60: | >60 mL/min/1.73m2 | [facility] | | | CHRONIC KIDNEY DISEASE, | [...] the | | | | | MDRD [facility] traceable | | | | | equation.Testing | | | | | performed at [facility], [address] | | | | | [facility], | | | | | [place] [address] | | | + + + + + + + | Specimen | + + | Blood | + + + + + + + | Performing | Address | City/State/Zipcode | Phone Number | | Organization | | | | + + + + + | [facility] | [address] | [place] [address] | [phone] | | LABORATORY | [address]. | | [...] INTERP | Testing performed by | | [facility] | | | Molecular | | LABORATORY | | | MethodologyComment: | | | | | Testing performed at | | | | | [facility], [address] [place] [address] | | | | | [place] | | | | | [address] | | | + + + + + + + | Specimen | + + | Nasopharyngeal | | Culture | + + + + + + + | Performing | Address | City/State/Zipcode | Phone Number | | Organization | | | | + + + + + | [facility] | [address] [place] [address] | [place] [address] | [phone] | | LABORATORY | [place] | | [...] | + + + + + | [facility] | [address] | [place] [address] | [phone] | | LABORATORY | [place] | | | + + + + + | [facility] | [address] | [place] [address] | | + + + + + [...] | + + + + + | [facility] | [address] | [place] [address] | [phone] | | LABORATORY | Blvd. | | | + + + + + | [facility] | [address] | [place] [address] | | + + + + + [...] Signed | | | by: Alex Brewer Date/Time: 06/14/2018 8:35 PM | | + [...] | + + + + + | [facility] | [address] | [place] [address] | | + + + + + [...] + | Wilmer Brown Results In - 06/14/2018 7:24 PM PST [...] | + + + + + | [facility] | [address] | [place] [address] | | + + + + + [...] performed | | | | | at [facility];[address] | | | | | [address]vd;[place] [address] | | | + + + + + + + + + + | Performing | Address | City/State/Zipcode | Phone Number | | Organization | | | | + + + + + | [facility] [facility] | [address] | [place] [address] | | + + + + + Cardiac Panel (06/14/2018 7:06 PM) + + + + + | Component | Value | Ref Range | Performed At | + + + + + | WBC | 16.54 (H) | 3.80 - 11.00 K/uL | [facility] | + + + + + | RBC | 4.02 (L) | 4.20 - 5.70 M/uL | [facility] | + + + + + | HGB | 13.4 | 13.2 - 17.0 g/dL | [facility] | + + + + + | HCT | 41.0 | 39.0 - 50.0 % | [facility] | + + + + + | MCV | 102.0 (H) | 80.0 - 100.0 fl | [facility] | + + + + + | MCH | 33.2 | 27.0 - 34.0 pg | [facility] | + + + + + | MCHC | 32.5 | 32.0 - 35.5 g/dL | [facility] | + + + + + | RDW SD | 50.3 | 37 - 53 fl | [facility] | + + + + + | PLT | 225 | 150 - 400 K/uL | [facility] | + + + + + | MPV | 8.4 | fl | [facility] | + + + + + | DIFF TYPE | MANUAL | | [facility] | + + + + + | Neutrophils Manual | 76 | % | [email or web address] | + + + + + | Bands | 11 | % | [facility] | + + + + + | METAMYELOCYTES | 2 | % | [facility] | + + + + + | Lymphocytes Manual | 6 | % | [facility] | + + + + + | Monocytes Manual | 5 | % | [facility] | + + + + + | Neutrophils Absolute | 12.57 (H) | 1.90 - 7.40 K/uL | [facility] | + + + + + | Bands Manual | 1.82 (H) | 0.00 - 0.20 K/uL | [facility] [...] + | MORPHOLOGY | 1+ | | [facility] | | | Comment: | | [...] (H) | 65 - 99 mg/dL | [facility] | + + + + + | BUN | 23Comment: SPECIMEN | 8 - 25 mg/dL | [facility] | | | MODERATELY HEMOLYZED | | | + + + + + | CREATININE | 1.07 | 0.70 - 1.30 mg/dL | [facility] | + + + + + | BUN/CREAT | 21 | | [facility] | + + + + + | CALCIUM | 9.2 | 8.5 - 10.5 mg/dL | [facility] | + + + + + | TOTAL PROTEIN | 6.0 (L) | 6.3 - 8.2 g/dL | [facility] | + + + + + | Albumin | 4.0 | 3.3 - 4.8 g/dL | [facility] | + + + + + | GLOBULIN | 2.0 | 1.3 - 4.9 g/dL | [facility] | + + + + + | A/G | 2.0 | 1.0 - 2.4 | [facility] | + + + + + | TBIL | 0.7 | 0.1 - 1.5 mg/dL | [facility] | + + + + + | ALK PHOS | 63 | 35 - 115 U/L | [facility] | + + [...] the | | | | | MDRD IDOK traceable | | | | | equation. [...] | | | | | performed at [facility];[address] | | | | | [address];[place] | | | | | [address] | | | + + + + + + + + + + | Performing | Address | City/State/Zipcode | Phone Number | | Organization | | | | + + + + + | [facility] | [address] | [place] [address] | | + + + + + Troponin I (06/14/2018 7:06 PM) + + + + + | Component | Value | Ref Range | Performed At | + + + + + | TROPONIN I | 0.031Comment: Testing | 0.00 - 0.04 ng/mL | [facility] | | | performed at [facility];[address] | | | | | [facility];[place], [place] | | | | | [id number] ON 07/11 | | | | | [...] [facility] | [address] | [place] [address] | | + + + + + D-dimer, quantitative (06/14/2018 7:06 PM) + + + + + | Component | Value | Ref Range | Performed At | + + + + + | D DIMER, | 0.68 (H)Comment: Testing | 0.19 - 0.50 mg/L FEU | [facility] | | QUANTITATIVE | performed at [facility];[address] | | | | | [address];[place] | | | | | [address] | | | + + + + + + + | Specimen | + + | Blood | + + + + + + + | Performing | Address | City/State/Zipcode | Phone Number | | Organization | | | | + + + + + | [facility] | [address] | [place] [address] | | + + + + + Brain natriuretic peptide (06/14/2018 7:06 PM) + + + + + | Component | Value | Ref Range | Performed At | + + + + + | BRAIN NATRIURETIC | 63.94Comment: Testing | 0 - 100 pg/mL | [facility] | | PEPTIDE | performed at [facility];[address] | | | | | [address];[place] | | | | | [address] | | | + + + + + + + + + + | Performing | Address | City/State/Zipcode | Phone Number | | Organization | | | | + + + + + | [facility] | [address] | [place] [address] | | + + + + + [...] QTC Calculation | 439 | ms | [facility] | | (Bezet) | | | | + + + + + | Calculated P Hustler | 49 | degrees | [facility] | + + + + + | Calculated R Hustler | -26 | degrees | [facility] | + + + + + | Calculated T Hustler | 92 | degrees | [facility] | + + + + + | Diagnosis | Normal sinus | | [facility] | | | rhythmNonspecific T wave [...] | | | | | ONLY, -COMPUTER ([id number]), | | | | | clinical editor Marissa Paige | | | | | (79) on 06/16/2018 | | | | | 12:53:28 AM | | | + + + + + + + + + + | Performing | Address | City/State/Zipcode | Phone Number | | Organization | | | | + + + + + | [facility] | [address] | [place] [address] | | + + + + + ED INFORMATION EXCHANGE (06/14/2018 6:46 PM) + + + | Narrative | Performed At | + + + | [id number] Upcoming Changes to the Maria [facility] | ED | | Notification On June 20, 2018 the layout of this notification will | INFORMATION | | be updated. For an overview of upcoming changes, please log into | EXCHANGE | | [email or web address]. For questions, | | | please email [email or web address] or call . | | | This patient has registered at the [facility] | | | Emergency Department For more information visit: | | | [email or web address] | | | [email or web address] Security Events No recent Security Events currently on file | | | ED Care Guidelines There are currently no ED Care Guidelines for | | | this patient. Please check your facility's medical records system. | | | Recent Emergency Department Visit Summary Date Facility [facility] State | | | Type Major Type Diagnoses or Chief Complaint Jun 14, 2018 [facility] Shortness of | | | Breath Chest Pain Jun 13, 2018 [facility] | | | [place] Emergency Emergency Chief Complaint: DIFFICULTY BREATHING | | | Jun 12, 2018 [facility] [place] | | | Emergency Emergency Chief Complaint: SOB Jun 08, 2018 [facility] | | | [place] [facility] [place] Emergency Emergency Chief Complaint: | | | DIFFICULTY BREATHING Jun 08, 2018 [facility] 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 | | | [facility] [place] Emergency Emergency Chief Complaint: | | | SOB May 22, 2018 [facility] 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 | | | [place] Emergency Emergency Chief Complaint: DIFFICUTLY BREATHING | | | Apr 16, 2018 [facility] 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 | [facility] 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 [place] [facility] Emergency Chronic obstructive pulmonary disease | | | with (acute) exacerbation Shortness of breath Allergy | | | status to penicillin Other halfway (current) drug therapy | | | Nicotine dependence, unspecified, uncomplicated Essential | | | (primary) hypertension E.D. Visit Count (12 mo.) Facility | | | Visits Low Acuity [facility] [address] | | | [facility] 13 0 Total 14 0 Note: Visits indicate total known | | | visits. Medicaid Low Acuity Dx are the number of primary diagnoses on | | | the Medicaid's Low Acuity dx list. Recent Inpatient Visit | | | Summary Date Facility City State Type Major Type Diagnoses or Chief | | | [facility] [place] [facility] | | [facility] Inpatient Chief Complaint: DEHYDRATION Jun 08, 2018 | [facility] [place] [facility] In[facility] | | | Shortness of breath Benign prostatic hyperplasia without | | | lower urinary tract symptoms Essential (primary) hypertension | | | Acute and chronic respiratory failure with hypoxia | | | Chronic obstructive pulmonary disease with (acute) exacerbation | | | Hyperglycemia, unspecified Personal history of nicotine | | | dependence Allergy status to penicillin penitentiary | | | (current) use of aspirin penitentiary (current) use of inhaled | | | steroids [facility] [place] [facility] | | | [...] | | | respiratory failure with hypoxia intermediate accountant (current) use of | | | inhaled steroids May 03, 2018 [facility] 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 Care Providers | | | Provider PRC Type Phone Fax Service Dates Denisse Blanton Case | | | Drill Press Set Up Operator Radial/Car Tracer Dec 17, 2017 - Current | | | ADI NELSON MD Internal Medicine Mar | | | 2017 - Current Denisse Blanton Primary Care Nov | | | 2017 - Current ADI NELSON Primary Care Apr 05, 2016 - | | | Current Unknown Other Current Known Aliases No | | | known aliases. Criteria Met 10 in 12 2 in 2 The | [...] for additional information. 2019 | | | Freenom, Infinia. - [place], [place] - | | | [email or web address] | | + + + + + | Procedure Note | + + | Interface, Lab - 06/14/2018 6:48 PM PST Formatting of this note may be different | | from the original.[id number] Changes to the Maria R | | NotificationOn June 20, 2018 the layout of this notification will be updated. For an | | overview of upcoming changes, please log into | | [email or web address]. For questions, please email | | [email or web address] or call .This patient has registered at the | | [facility] Emergency Department For more information visit: | | [email or web address] Security | | EventsNo recent Security Events currently on fileED Care GuidelinesThere are currently | | no ED Care Guidelines for this patient. Please check your facility's medical records | | system.Recent Emergency Department Visit SummaryDate Facility City State Type Major Type | | Diagnoses or Chief [facility] [place] [facility] | | Emergency Shortness of Breath Chest Pain Jun 13, 2018 [facility] [place] [facility] | | [place] Emergency Emergency Chief Complaint: DIFFICULTY BREATHING Jun 12, [address] | | [facility] [place] Emergency Emergency Chief Complaint: SOB Jun 08, [address] | | [facility] [facility] [place] Emergency Emergency Chief Complaint: DIFFICULTY BREATHING May | | 2018 [facility] [place] [facility] [place] Emergency Emergency Shortness of breath | | intermediate accountant (current) use of aspirin Essential (primary) hypertension Other long | | term (current) 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 Personal history of nicotine dependence Chronic | | obstructive pulmonary disease with (acute) exacerbation intermediate accountant (current) use of | | systemic steroids Allergy status to penicillin May 24, 2018 [facility] | | [place] Emergency Emergency Chief Complaint: SOB May 22, 2018 [facility] [place] [facility] 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 | | [place] Emergency Emergency Chief Complaint: DIFFICUTLY BREATHING Apr 16, [address] | | [facility] [facility] [place] 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 [place] [facility] | | Emergency Shortness of breath Essential (primary) hypertension Constipation, | | unspecified Nicotine dependence, unspecified, uncomplicated Chronic obstructive | | pulmonary disease with (acute) exacerbation Allergy status to penicillin Other | | halfway (current) drug therapy Apr 02, [address] [facility] [place] [facility] | | Emergency Chronic obstructive pulmonary disease with (acute) exacerbation | | Shortness of breath Nicotine dependence, unspecified, uncomplicated penitentiary | | (current) use of aspirin Allergy status to penicillin Essential (primary) | | hypertension Other halfway (current) drug therapy Mar 16, 2018 [facility] | | [place] Emergency Emergency Chronic obstructive pulmonary disease with (acute) | | exacerbation Shortness of breath Allergy status to penicillin Other halfway | | (current) drug therapy Nicotine dependence, unspecified, uncomplicated Essential | | (primary) hypertension E.D. Visit Count (12 mo.)Facility Visits Low Acuity [facility] | | [facility] 1 0 [facility] 13 0 Total 14 0 Note: Visits | | indicate total known visits. Medicaid Low Acuity Dx are the number of primary diagnoses | | on the Medicaid's Low Acuity dx list. Recent Inpatient Visit SummaryDate Facility City | | State Type Major Type Diagnoses or Chief Complaint Jun 13, 2018 [facility] | | [place] Critical Care Inpatient Chief Complaint: DEHYDRATION Jun 08, 2018 [facility]. | | [place] [facility] Medical Surgical Inpatient Shortness of breath Benign | | prostatic hyperplasia without lower urinary tract symptoms Essential (primary) | | hypertension Acute and chronic respiratory failure with hypoxia Chronic | | obstructive pulmonary disease with (acute) exacerbation Hyperglycemia, unspecified | | Personal history of nicotine dependence Allergy status to penicillin penitentiary | | (current) use of aspirin intermediate accountant (current) use of inhaled steroids May 24, 2018 | | [facility] 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 2019 | | Freenom, Infinia. - [place], [place] - | | [email or web address] | |[facility] 1 0 | |[facility] 13 0 | |Total 14 0 | |Note: Visits indicate total known visits. Medicaid Low Acuity Dx are the number of primary diagnoses on the Medicaid's Low Acuity dx list. | | | |Recent Inpatient Visit Summary | |Date Facility City State Type Major Type Diagnoses or Chief Complaint | |Jun 13, 2018 [facility] [place] Critical Care Inpatient Chief Complaint: DEHYDR ATION | |Jun 08, 2018 [facility] [place] Medical Surgical Inpatient | | Shortness of breath | | Benign prostatic hyperplasia without lower urinary tract symptoms | | Essential (primary) hypertension | | Acute and chronic respiratory failure with hypoxia | | Chronic obstructive pulmonary disease with (acute) exacerbation | | Hyperglycemia, unspecified | | Personal history of nicotine dependence | | Allergy status to penicillin | | intermediate accountant (current) use of aspirin | | intermediate accountant (current) use of inhaled steroids | | | |May 24, 2018 [facility]. 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 [place] [facility] In[facility] | | Chronic obstructive pulmonary disease with (acute) exacerbation | | Shortness of breath | | Other halfway (current) drug therapy | | Benign prostatic hyperplasia without lower urinary tract symptoms | | Allergy status to penicillin | | penitentiary (current) use of aspirin | | Nicotine dependence, unspecified, uncomplicated | | Essential (primary) hypertension | | intermediate accountant (current) use of inhaled steroids | | Personal history of traumatic brain injury | | | |Apr 03, 2018 [facility]. [place] Medical Surgical Inpatient | | Essential (primary) hypertension | | Allergy status to penicillin | | intermediate accountant (current) use of inhaled steroids | | Benign prostatic hyperplasia without lower urinary tract symptoms | | Nicotine dependence, cigarettes, uncomplicated | | Other halfway (current) drug therapy | | Cramp and spasm | | penitentiary (current) use of aspirin | | penitentiary (current) use of systemic steroids | | Chronic obstructive pulmonary disease with (acute) exacerbation | | | | | | | |Prescription Drug Report (12 Mo.) | |PDMP query found no report. | | | |Care Providers | |Provider PRC Type Phone Fax Service Dates | |Denisse Blanton Manager Ed/Car Tracer Dec 17, 2017 - Current | |ADI [...] aforementioned facilities for additional information. | |2019 [employer] - [place], [place] - [email or web address] | + + + +---------+ + + | Performing | Address | City/State/Zipcode | Phone Number | | Organization | | | | + +---------+ + + | ED INFORMATION | | | | | EXCHANGE | | | | + +---------+ + + from Last 3 Months Insurance + +--------+ +------+-------+ + | Payer | Benefi | Subscriber | Type | Phone | Address | | | t Plan | ID | | | | | | / | | | | | | | Group | | | | | + +--------+ +------+-------+ + | MEDICARE | MEDICA | [id number] | | | [address] | | | RE | | | | [place] [id number] | | | IP-OP | | | | | + +--------+ +------+-------+ + | MEDICAID | FAVIOLA | [id number] | | | [address] | | | N | | | | [place] | | | [place] | | | | [phone] | | | SYNTHETIC DEPARTMENT SUPERVISOR | | | | | + +--------+ +------+-------+ + + +--------+ +--------+ + + | Guarantor Name | Accoun | Relation to | Date | Phone | Billing Address | | | t Type | Patient | of | | | | | | | | | | + +--------+ +--------+ + + | DAVID MIRANDA | Person | Self [birth year] Home: | [address] | | | al/Fam | | 1935 | [phone] [place] [address] | | | k[place]em | | | [phone] | | + +--------+ +--------+ + +
--- OUTSIDE RECORDS SUMMARY | ~2018-09-10 | XMS | Encounter Summary ---
Demographics + + + | Address | [address] | | | [place] [address] | + + + | Home Phone | | + + + | Preferred Language | Unknown | + + + | Marital Status | | + + + | Quaker Affiliation | Unknown | + + + | Race | Unknown | + + + | Ethnic Group | Unknown | + + + Author + + + | Author | [facility] | + + + | Organization | [facility] [employer] | + + + | Address [...] Team Providers + +------+ + | Care Carbon Furnace Operator Helper Name | Role | Phone | [...] JYOTSNA LÓPEZ | | | | | ([facility]) | DA[place], | [place], [place] | | | | | Procedures | [place] [address] | [address] | | | | | Complete PFT | Phone: | Phone: | | | | | - Pre & | [phone] | [phone] | | | | | Post | Fax: | Fax: | | | | | Spirometry, | [phone] | [phone] | | | | | PLETH & [...] | | | disease, | [place], | [place], [place] | | | | | unspecified | [place] [address] | [address] Phone: | | | | | (HCC) | Phone: | [phone] | | | | | | [phone] | Fax: | | | | | | Fax: | [phone] | | | | | | [phone] | | + +--------+ + + + + Encounter Details +--------+---------+ + + + | Date | Type | Department | Care Team | Description | +--------+---------+ + + + | 07/30/ | Office | [facility] | Chip Claros MD | Centrilobular | | 2019 | Visit | Pulmonology [address] | [address] | emphysema (HCC) | | | | [address] | [place] [address] | (Primary Dx) | | | | [place], [place] | [phone] | | | | | [address] | | | | | | [phone] | | | +--------+---------+ + + + [...] order a PFT to be done at [facility] in this encounter Progress Notes Chip [...] got all his medications with him. His eiwdthav-qz-vhy who is also his caregiver, give s [...] left lung base. Pulmonary function test 2016 [facility] severe obstructive impairment with very s everely [...] function test which will be done at [facility] - Complete PFT - Pre & Post [...] Claros MD Pulmonary and Critical Care Medicine [facility] [address] , [place] [address] in this encounter Plan of Treatment +--------+---------+ + + + | Date | Type | Specialty | Care Team | Description | +--------+---------+ + + + | 10/08/ | Office | Pulmonology | Chip Claros MD | | | 2019 | Visit | | [address] | | | | | | [place] [address] | | | | | | [phone] | | | | | | | [...]
--- OUTSIDE RECORDS SUMMARY | ~2018-09-10 | XMS | Clinical Summary ---
Demographics + + + | Address | [address] | | | [place] [address] | + + + | Home Phone | | + + + | Preferred Language | Unknown | + + + | Marital Status | | + + + | Congregation Affiliation | Unknown | + + + | Race | Unknown | + + + | Ethnic Group | Unknown | + + + Author + + + | Author | [facility] | + + + | Organization | [facility] [employer] | + + + | Address [...] Team Providers + +------+ + | Care X Ray Tech Name | Role | Phone | + [...] | | | MRN: | | | [id number] | | | OM: | | | [...] | | Hospital in | | | [place] | | | for COPD | | [...] | | | [id number], | | | [id number], | | | [id number], | | | BEART in | | [...] | | | | | [place] [address] | | | | | | [phone] | | | | | | | [...] Testing | 65 - 99 mg/dL | [facility] | | | performed at [facility];[address] | | | | | [address];[place], [place] | | | | | [address] | | | + + + + + + + + + + | Performing | Address | City/State/Zipcode | Phone Number | | Organization | | | | + + + + + | [facility] | [address] | [place] [address] | | + + + + + [...] | [facility] | | | performed at [facility], [address] | | LABORATORY | | | [address], | | | | | [place] [address] | | | + + + + + + + | Specimen | + + | Blood | + + + + + + + | Performing | Address | City/State/Zipcode | Phone Number | | Organization | | | | + + + + + | [facility] | [address] | [place] [address] | [phone] | | LABORATORY | [address]vd[address] | | [...] performed at | | | | | [facility], [address] | | | | | [place] | | | | | [address] | | | + + + + + + + | Specimen | + + | Blood | + + + + + + + | Performing | Address | City/State/Zipcode | Phone Number | | Organization | | | | + + + + + | [facility] | [address] | [place] [address] | [phone] | | LABORATORY | [address]vd. | | | + + + + + Folate (06/16/2018 5:58 AM) + + + + + | Component | Value | Ref Range | Performed At | + + + + + | FOLATE | 17.8Comment: Testing | >5.4 ng/mL | [facility] | | | performed at [facility], [address] | | LABORATORY | | | [address], | | | | | [place] [address] | | | + + + + + + + | Specimen | + + | Blood | + + + + + + + | Performing | Address | City/State/Zipcode | Phone Number | | Organization | | | | + + + + + | [facility] | [address] | [place] [address] | [phone] | | LABORATORY | [address] | | | + + + + + Ferritin (06/16/2018 5:58 AM) + + + + + | Component | Value | Ref Range | Performed At | + + + + + | FERRITIN | 298Comment: Testing | 11 - 450 ng/mL | [facility] | | | performed at [facility], [address] | | LABORATORY | | | [address], | | | | | [place] [address] | | | + + + + + + + | Specimen | + + | Blood | + + + + + + + | Performing | Address | City/State/Zipcode | Phone Number | | Organization | | | | + + + + + | [facility] | [address] | [place] [address] | [phone] | | LABORATORY | [address] | | | + + + + + Vitamin B12 (06/16/2018 5:58 AM) + + + + + | Component | Value | Ref Range | Performed At | + + + + + | VITAMIN B12 | 431Comment: Testing | 254 - 1,320 pg/mL | [facility] | | | performed at [facility], [address] | | LABORATORY | | | [address], | | | | | [place] [address] | | | + + + + + + + | Specimen | + + | Blood | + + + + + + + | Performing | Address | City/State/Zipcode | Phone Number | | Organization | | | | + + + + + | [facility] | [address] | [place] [address] | [phone] | | LABORATORY | [address] | | [...] | | | | | performed at [facility], [address] | | | | | [facility], | | | | | [place] [address] | | | + + + + + + + | Specimen | + + | Blood | + + + + + + + | Performing | Address | City/State/Zipcode | Phone Number | | Organization | | | | + + + + + | [facility] | [address] | [place] [address] | [phone] | | LABORATORY | [address]vd[address] | | [...] | [address] | [place] [address] | [phone] | | LABORATORY | Blvd. | | [...] LABORATORY | | | [facility], [address] [facility] | | | | | [place] | | | | | [address] | | | + + + + + + + | Specimen | + + | Blood | + + + + + + + | Performing | Address | City/State/Zipcode | Phone Number | | Organization | | | | + + + + + | [facility] | [address] | [place] [address] | [phone] | | LABORATORY | [address]vd. | | | + + + + + Phosphorus (06/15/2018 6:19 AM) + + + + + | Component | Value | Ref Range | Performed At | + + + + + | PHOSPHORUS | 3.3Comment: Testing | 2.3 - 4.8 mg/dL | [facility] | | | performed at [facility], [address] | | LABORATORY | | | [facility] [address], | | | | | [place] [address] | | | + + + + + + + | Specimen | + + | Blood | + + + + + + + | Performing | Address | City/State/Zipcode | Phone Number | | Organization | | | | + + + + + | [facility] | [address] | [place] [address] | [phone] | | LABORATORY | [address] | | | + + + + + Magnesium (06/15/2018 6:19 AM) + + + + + | Component | Value | Ref Range | Performed At | + + + + + | MAGNESIUM | 2.0Comment: Testing | 1.7 - 2.4 mg/dL | [facility] | | | performed at [facility], [address] | | LABORATORY | | | [address], | | | | | [place] [address] | | | + + + + + + + | Specimen | + + | Blood | + + + + + + + | Performing | Address | City/State/Zipcode | Phone Number | | Organization | | | | + + + + + | [facility] | [address] | [place] [address] | [phone] | | LABORATORY | Bl[address]. | | [...] | | | | | performed at [facility], [address] | | | | | [facility], | | | | | [place] [address] | | | + + + + + + + | Specimen | + + | Blood | + + + + + + + | Performing | Address | City/State/Zipcode | Phone Number | | Organization | | | | + + + + + | [facility] | [address] | [place] [address] | [phone] | | LABORATORY | [address] | | [...] 6.3 - 8.2 g/dL | [facility] | | | | | LABORATORY | + + + + + | Albumin | 2.7 (L) | 3.3 - 4.8 g/dL | [facility] | | | | | LABORATORY [...] <60: | >60 mL/min/1.73m2 | [facility] | | | CHRONIC KIDNEY DISEASE, | [...] the | | | | | MDRD IDIL traceable | | | | | equation.Testing | | | | | performed at [facility], [address] | | | | | [facility], | | | | | [place] [address] | | | + + + + + + + | Specimen | + + | Blood | + + + + + + + | Performing | Address | City/State/Zipcode | Phone Number | | Organization | | | | + + + + + | [facility] | [address] | [place] [address] | [phone] | | LABORATORY | [address]vd. | | [...] INTERP | Testing performed by | | [facility] | | | Molecular | | LABORATORY | | | MethodologyComment: | | | | | Testing performed at | | | | | [facility], [address] [place] [address] | | | | | [place] | | | | | [address] | | | + + + + + + + | Specimen | + + | Nasopharyngeal | | Culture | + + + + + + + | Performing | Address | City/State/Zipcode | Phone Number | | Organization | | | | + + + + + | [facility] | [address] [place] [address] | [place] [address] | [phone] | | LABORATORY | [address] | | [...] | + + + + + | [facility] | [address] | [place] [address] | [phone] | | LABORATORY | [address]. | | | + + + + + | [facility] | [address] | [place] [address] | | + + + + + [...] | + + + + + | [facility] | [address] | [place] [address] | [phone] | | LABORATORY | Blvd. | | | + + + + + | [facility] | [address] | [place] [address] | | + + + + + [...] | + + + + + | [facility] | [address] | [place] [address] | | + + + + + [...] | + + + + + | [facility] | [address] | [place] [address] | | + + + + + PROCALCITONIN (06/14/2018 7:06 PM) + + + + + | Component | Value | Ref Range | Performed At | + + + + + | PROCALCITONIN | 0.09Comment: | <0.5 ng/mL | [facility] | | | INTERPRETIVE [...] performed | | | | | at [facility];[address] | | | | | Blvd;[place] [address] | | | + + + + + + + + + + | Performing | Address | City/State/Zipcode | Phone Number | | Organization | | | | + + + + + | [facility] | [address] | [place] [address] | | + + + + + Cardiac Panel (06/14/2018 7:06 PM) + + + + + | Component | Value | Ref Range | Performed At | + + + + + | WBC | 16.54 (H) | 3.80 - 11.00 K/uL | [facility] | + + + + + | RBC | 4.02 (L) | 4.20 - 5.70 M/uL | [facility] | + + + + + | HGB | 13.4 | 13.2 - 17.0 g/dL | [facility] | + + + [...] 32.5 | 32.0 - 35.5 g/dL | [facility] | + + + + + | RDW SD | 50.3 | 37 - 53 fl | [facility] | + + + + + | PLT | 225 | 150 - 400 K/uL | [facility] | + + + + + | MPV | 8.4 | fl | [facility] | + + + + + | DIFF TYPE | MANUAL | | [facility] | + + + + + | Neutrophils Manual | 76 | % | [facility] | + + + + + | Bands | 11 | % | [facility] | + + + + + [...] (H) | 0.00 - 0.20 K/uL | [facility] | + + + + + | Metamyelocytes | 0.33 (H) | 0.00 K/uL | [facility] | | Absolute | | | | + + + + + | Lymphocytes Absolute | 0.99 (L) | 1.00 - 3.90 K/uL | [facility] | + + + + + | Monocytes Absolute | 0.83 (H) | 0.00 - 0.80 K/uL | [facility] | + + + + + | Platelet Estimate | ADEQUATE | | [facility] | + + + + + | MORPHOLOGY | 1+ | | [facility] | | | Comment: | | | | | MACRO | | | | | NORMAL PLT MORPH | | | | | | | | + + + + + | SODIUM | 141 | 135 - 145 mmol/L | [facility] | + + + + + | POTASSIUM | 4.8Comment: SPECIMEN | 3.5 - 4.9 mmol/L | [facility] | | | MODERATELY [...] + | BUN/CREAT | 21 | | [facility] | + + + + + | CALCIUM | 9.2 | 8.5 - 10.5 mg/dL | [facility] | + + + + + | TOTAL PROTEIN | 6.0 (L) | 6.3 - 8.2 g/dL | [facility] | + + + + + | Albumin | 4.0 | 3.3 - 4.8 g/dL | [facility] | + + + + + [...] 47 | 10 - 65 U/L | [facility] | + + + + + | EGFR | >60Comment: GFR <60: | >60 mL/min/1.73m2 | [facility] | | | CHRONIC [...] the | | | | | MDRD IDIL traceable | | | | | equation. | | | + + + + + | CPK | 77Comment: SPECIMEN | 55 - 400 U/L | [facility] | | | MODERATELY HEMOLYZED | | | + + + + + | INR | 0.9Comment: REFERENCE | | [facility] | | | RANGE:0.9 [...] (L) | 23 - 32 seconds | [facility] | + + + + + | MMB | 5.7 (H) | 0.5 - 3.6 ng/mL | [facility] | + + + + + | CK-MB Index | 7.4Comment: CK INDEX | | [facility] | | | INTERPRETATION: [...] | | | | | performed at [facility];[address] | | | | | [address];[place] | | | | | [address] | | | + + + + + + + + + + | Performing | Address | City/State/Zipcode | Phone Number | | Organization | | | | + + + + + | [facility] | [address] | [place] [address] | | + + + + + Troponin I (06/14/2018 7:06 PM) + + + + + | Component | Value | Ref Range | Performed At | + + + + + | TROPONIN I | 0.031Comment: Testing | 0.00 - 0.04 ng/mL | [facility] | | | performed at [facility];[address] | | | | | [employer];[place], [place] | | | | | [id number] ON 07/11 | | | | | [...] | + + + + + | [facility] | [address] | [place] [address] | | + + + + + D-dimer, quantitative (06/14/2018 7:06 PM) + + + + + | Component | Value | Ref Range | Performed At | + + + + + | D DIMER, | 0.68 (H)Comment: Testing | 0.19 - 0.50 mg/L FEU | [facility] | | QUANTITATIVE | performed at [facility];[address] | | | | | [address];[place] | | | | | [address] | | | + + + + + + + | Specimen | + + | Blood | + + + + + + + | Performing | Address | City/State/Zipcode | Phone Number | | Organization | | | | + + + + + | [facility] | [address] | [place] [address] | | + + + + + Brain natriuretic peptide (06/14/2018 7:06 PM) + + + + + | Component | Value | Ref Range | Performed At | + + + + + | BRAIN NATRIURETIC | 63.94Comment: Testing | 0 - 100 pg/mL | [facility] | | PEPTIDE | performed at [facility];[address] | | | | | [address];[place] | | | | | [address] | | | + + + + + + + + + + | Performing | Address | City/State/Zipcode | Phone Number | | Organization | | | | + + + + + | [facility] | [address] | [place] [address] | | + + + + + [...] + + + + | Calculated P Stinnett | 49 | degrees | [facility] | + + + + + | Calculated R Stinnett | -26 | degrees | [facility] | + + + + + | Calculated T Stinnett | 92 | degrees | [facility] | + + + + + | Diagnosis | Normal sinus | | [facility] | | | rhythmNonspecific [...] | | | | | ONLY, -COMPUTER (820), | | | | | food editor Marissa Paige | | | | | (79) on 06/16/2018 | | | | | 12:53:28 AM | | | + + + + + + + + + + | Performing | Address | City/State/Zipcode | Phone Number | | Organization | | | | + + + + + | [facility] | [address] | [place] [address] | | + + + + + ED INFORMATION EXCHANGE (06/14/2018 6:46 PM) + + + | Narrative | Performed At | + + + | [id number] Upcoming Changes to the [facility] | ED | | Notification On June 20, 2018 the layout of this notification will | INFORMATION | | be updated. For an overview of upcoming changes, please log into | EXCHANGE | | [email or web address]. For questions, | | | please email [email or web address] or call . | | | This patient has registered at the [facility] | | | Emergency Department For more information visit: | | | [email or web address] | | | [email or web address] Security Events No recent Security Events currently on file | | | ED Care Guidelines There are currently no ED Care Guidelines for | | | this patient. Please check your facility's medical records system. | | | Recent Emergency Department Visit Summary Date Facility [facility] State | | | Type Major Type Diagnoses or Chief Complaint Jun 14, 2018 [facility] [place] [facility] Emergency Shortness of | | | Breath Chest Pain Jun 13, 2018 [facility] [place]. | | | [place] Emergency Emergency Chief Complaint: DIFFICULTY BREATHING | | | Jun 12, 2018 [facility] [place] | | | Emergency Emergency Chief Complaint: SOB Jun 08, 2018 [facility] | | | [place] Emergency Emergency Chief Complaint: | | | DIFFICULTY BREATHING Jun 08, 2018 [facility] 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 | | | [place] Emergency Emergency Chief Complaint: | | | SOB May 22, 2018 [facility] 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 | | | [place] Emergency Emergency Chief Complaint: DIFFICUTLY BREATHING | | | Apr 16, 2018 [facility] 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 | | | 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 | | | Emergency Emergency Chronic obstructive pulmonary disease | | | with (acute) exacerbation Shortness of breath Allergy | | | status to penicillin Other correction (current) drug therapy | | | Nicotine dependence, unspecified, uncomplicated Essential | | | (primary) hypertension E.D. Visit Count (12 mo.) Facility | | | Visits Low Acuity [facility] 1 0 [facility] | | | [facility] 13 0 Total 14 0 Note: Visits indicate total known | | | visits. Medicaid Low Acuity Dx are the number of primary diagnoses on | | | the Medicaid's Low Acuity dx list. Recent Inpatient Visit | | | Summary Date Facility City State Type Major Type Diagnoses or Chief | | | [facility] [place] [place] Critical | | | Care Inpatient Chief Complaint: DEHYDRATION Jun 08, 2018 | [facility] [place] [place] [facility] Inpatient | | | Shortness of breath Benign prostatic hyperplasia without | | | lower urinary tract symptoms Essential (primary) hypertension | | | Acute and chronic respiratory failure with hypoxia | | | Chronic obstructive pulmonary disease with (acute) exacerbation | | | Hyperglycemia, unspecified Personal history of nicotine | | | dependence Allergy status to penicillin FPC | | | (current) use of aspirin FPC (current) use of inhaled | | | steroids May 24, 2018 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 [place] | | | Medical Surgical Inpatient Chronic obstructive pulmonary | | | disease with (acute) exacerbation Shortness of breath | | | Other correction (current) drug therapy Benign prostatic | | | hyperplasia without lower urinary tract symptoms Allergy status | | | to penicillin [employer] customer service (current) use of aspirin | | | Nicotine dependence, unspecified, uncomplicated Essential | | | (primary) hypertension FPC (current) use of inhaled | | | steroids Personal history of traumatic brain injury Mar | | | [address] [facility] [facility] 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 Care Providers | | | Provider PRC Type Phone Fax Service Dates Denisse Blanton Case | | | Hand Plate Stacker/Tie Maker Dec 17, 2017 - Current | | [...] for additional information. 2019 | | | [employer], [employer] - [place], [place] - | | | [email or web address] | | + + + + + | Procedure Note | + + | Interface, Lab - 06/14/2018 6:48 PM PST Formatting of this note may be different | | from the original.[id number] Changes to the Maria [facility] | | NotificationOn June 20, 2018 the layout of this notification will be updated. For an | | overview of upcoming changes, please log into | | [email or web address]. For questions, please email | | [email or web address] or call .This patient has registered at the | | [facility] Emergency Department For more information visit: | | [email or web address] Security | | EventsNo recent Security Events currently on fileED Care GuidelinesThere are currently | | no ED Care Guidelines for this patient. Please check your facility's medical records | | system.Recent Emergency Department Visit SummaryDate Facility City State Type Major Type | | Diagnoses or [facility] [place] Emergency | | Emergency Shortness of Breath Chest Pain Jun 13, 2018 [facility] [place] [facility] | | [place] Emergency Emergency Chief Complaint: DIFFICULTY BREATHING Jun 12, [address] | | [place] Emergency Emergency Chief Complaint: SOB Jun 08, [address] | | [place] Emergency Emergency Chief Complaint: DIFFICULTY BREATHING May | | 2018 [facility] 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 | | [place] Emergency Emergency Chief Complaint: SOB May 22, 2018 [facility] [place] | | Emergency Emergency Hyperglycemia, unspecified Chronic obstructive pulmonary | | disease with (acute) exacerbation Shortness of breath Other correction (current) | | drug therapy Nicotine dependence, unspecified, uncomplicated [employer] customer service (current) | | use of systemic steroids Essential (primary) hypertension Allergy status to | | penicillin [employer] customer service (current) use of aspirin May 03, 2018 [facility] [place] | | [place] Emergency Emergency Chief Complaint: DIFFICUTLY BREATHING Apr 16, [address] | | 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 [place] [facility] | | Emergency Shortness of breath Essential (primary) hypertension Constipation, | | unspecified Nicotine dependence, unspecified, uncomplicated Chronic obstructive | | pulmonary disease with (acute) exacerbation Allergy status to penicillin Other | | correction (current) drug therapy Apr 02, [address] [facility] [place] [facility] | | Emergency Chronic obstructive pulmonary disease with (acute) exacerbation | | Shortness of breath Nicotine dependence, unspecified, uncomplicated [facility] | | (current) use of aspirin Allergy status to penicillin Essential (primary) | | hypertension Other correction (current) drug therapy Mar 16, 2018 [facility] | | [place] Emergency Emergency Chronic obstructive pulmonary disease with (acute) | | exacerbation Shortness of breath Allergy status to penicillin Other correction | | (current) drug therapy Nicotine dependence, unspecified, uncomplicated Essential | | (primary) hypertension E.D. Visit Count (12 mo.)Facility Visits Low Acuity [facility] | | [facility] 1 0 [facility] 13 0 Total 14 0 Note: Visits | | indicate total known visits. Medicaid Low Acuity Dx are the number of primary diagnoses | | on the Medicaid's Low Acuity dx list. Recent Inpatient Visit SummaryDate Facility City | | State Type Major Type Diagnoses or Chief Complaint Jun 13, 2018 [facility] | | [place] Critical Care Inpatient Chief Complaint: DEHYDRATION Jun 08, 2018 [facility]. | | 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 | | Medical Surgical Inpatient Essential (primary) hypertension Allergy status to | | penicillin FPC (current) use of inhaled steroids Benign prostatic | | hyperplasia without lower urinary tract symptoms Nicotine dependence, cigarettes, | | uncomplicated Other intermodal customer service (current) drug therapy Cramp and spasm intermodal customer service | | (current) use of aspirin intermodal customer service (current) use of systemic steroids Chronic | | obstructive pulmonary disease with (acute) exacerbation Prescription Drug Report (12 | | Mo.)PDMP query found no report.Care ProvidersProvider PRC Type Phone Fax Service Dates | | Denisse Blanton Service Coordinator Elderly Facility/Tie Maker Dec 17, 2017 - Current [place]MAR, | [...] facilities for additional information. 2019 | | [employer] - [place], [place] - | | [email or web address] | |Located Within [facility] 1 0 | |[facility] 13 0 | |Total 14 0 | |Note: Visits indicate total known visits. Medicaid Low Acuity Dx are the number of primary diagnoses on the Medicaid's Low Acuity dx list. | | | |Recent Inpatient Visit Summary | |Date Facility City State Type Major Type Diagnoses or Chief Complaint | |Jun 13, 2018 [facility] [place] Critical Care Inpatient Chief Complaint: DEHYDR ATION | |Jun 08, 2018 [facility] [place] Medical Surgical Inpatient | | Shortness of breath | | Benign prostatic hyperplasia without lower urinary tract symptoms | | Essential (primary) hypertension | | Acute and chronic respiratory failure with hypoxia | | Chronic obstructive pulmonary disease with (acute) exacerbation | | Hyperglycemia, unspecified | | Personal history of nicotine dependence | | Allergy status to penicillin | | intermodal customer service (current) use of aspirin | | intermodal customer service (current) use of inhaled steroids | | | |May 24, 2018 [facility]. 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 [place] [facility] | | Chronic obstructive pulmonary disease with (acute) exacerbation | | Shortness of breath | | Other correction (current) drug therapy | | Benign prostatic hyperplasia without lower urinary tract symptoms | | Allergy status to penicillin | | FPC (current) use of aspirin | | Nicotine dependence, unspecified, uncomplicated | | Essential (primary) hypertension | | intermodal customer service (current) use of inhaled steroids | | Personal history of traumatic brain injury | | | |Apr 03, 2018 [facility]. [place] Medical Surgical Inpatient | | Essential (primary) hypertension | | Allergy status to penicillin | | intermodal customer service (current) use of inhaled steroids | | Benign prostatic hyperplasia without lower urinary tract symptoms | | Nicotine dependence, cigarettes, uncomplicated | | Other correction (current) drug therapy | | Cramp and spasm | | FPC (current) use of aspirin | | FPC (current) use of systemic steroids | | Chronic obstructive pulmonary disease with (acute) exacerbation | | | | | | | |Prescription Drug Report (12 Mo.) | |PDMP query found no report. | | | |Care Providers | |Provider PRC Type Phone Fax Service Dates | |Denisse Blanton Service Coordinator Elderly Facility/Tie Maker Dec 17, 2017 - Current | |ADI [...] aforementioned facilities for additional information. | |2019 [email or web address] - [place], [place] - [email or web address] | + + + +---------+ + + [...] +------+-------+ + | MEDICARE | MEDICA | [id number] | | | [address] | | | RE | | | | [place] [address] | | | IP-OP | | | | | + +--------+ +------+-------+ + | MEDICAID | FAVI[place]A | [id number] | | | [address] | | | N | | | | [place] | | | [place] | | | | [address] | | | PAIN MANAGEMENT NURSE PRACTITIONER | | | | | + +--------+ [...] | | al/Fam | | 1935 | [phone] | [place] [address] | | | [place] | | | [phone] | | + +--------+ +--------+ + +
--- OUTSIDE RECORDS SUMMARY | ~2018-09-10 | XMS | Clinical Summary ---
Demographics + + + | Address | [address] | | | [place] [address] | + + + | Home Phone | | + + + | Preferred Language | Unknown | + + + | Marital Status | Single | + + + | Hindu Affiliation | Unknown | + + + | Race | White | + + + | Ethnic Group | Not or | + + + Author + + + | Author | [facility] | + + + | Organization | [facility] | + + + | Address | Unknown | + + + | Phone | Unavailable | + + + Support + + + + + | Name | Relationship | Address | Phone | + + + + + | LUL SCHMIDT | ECON | [address] | | | | | [place], [place] | | | | | [address] | | + + + + + | SHANNON PENA | ECON | [address] | | | | | [place], [place] | | | | | [address] | | + + + + + Care Team Providers + +------+ + | Care Data Center Solutions Architect Name | Role | Phone | + +------+ + | Resident, Mala Generic | PP | Unavailable | + +------+ + Source Comments LORENA is fully live on both [facility] Amb[facility] and [facility] InPatient.[facility] Allergies No Known Allergies Current Medications + [...] | MEDICA | xxxxxxxxxxx | Medica | [phone] | [address] | | | RE A & | | re | [phone] | [place] [address] | | | B | | | | | + +--------+ +--------+ + + | MEDICAID [place] | OHP | xxxxxxxx | Medica | [phone] | [address] [address] | | | PLUS | | id | [phone] | [place] [address] | | | OPEN | | | [...] | 1935 | [phone] | [place] [address] | | | kareem | | | [phone] | | + +--------+ +--------+ + +"
--- OUTSIDE RECORDS SUMMARY | ~2018-09-10 | XMS | Encounter Summary ---
Demographics + + + | Address | [address] | | | [place] [address] | + + + | Home Phone | | + + + | Preferred Language | Unknown | + + + | Marital Status | | + + + | Gnosticism Affiliation | Unknown | + + + | Race | Unknown | + + + | Ethnic Group | Unknown | + + + Author + + + | Author | [facility] | + + + | Organization | [facility] | + + + | Address | Unknown | + + + | Phone | Unavailable | + + + Support + + + + + | Name | Relationship | Address | Phone | + + + + + | Jerry Miranda | ECON | [place] | | + + + + + | Amaris Miranda | ECON | [place] , [place] | | + + + + + Care Team Providers + +------+ + | Care Customer Experience Associate Name | Role | Phone | + [...] [place] | | | | | | [place], [place] | | | | | | [address] | | | | | | [phone] | | | +--------+ + + + [...] PM PDT3 step testing Oximetry Exercise (code) [id number] 1. At rest on room air: Time: [...] | | | | | [place] [address] | | | | | | [phone] | | | | | | | | +--------+---------+ + + + as of this encounter Visit Diagnoses Not on filein this encounter"
--- OUTSIDE RECORDS SUMMARY | ~2018-09-10 | XMS | Clinical Summary ---
Demographics + + + | Address | [address] | | | [place] [address] | + + + | Home Phone | | + + + | Preferred Language | Unknown | + + + | Marital Status | Single | + + + | Hoahaoism Affiliation | Unknown | + + + | Race | White | + + + | Ethnic Group | Not or | + + + Author + + + | Author | [facility] | + + + | Organization | [facility] | + + + | Address | Unknown | + + + | Phone | Unavailable | + + + Support + + + + + | Name | Relationship | Address | Phone | + + + + + | LUL SCHMIDT | ECON | [address] | | | | | [place], [place] | | | | | [address] | | + + + + + | SHANNON PENA | ECON | [address] | | | | | [place], [place] | | | | | [address] | | + + + + + Care Team Providers + +------+ + | Care Hotel Recreational Facilities Manager Name | Role | Phone | + +------+ + | Resident, Mala Generic | PP | Unavailable | + +------+ + Source Comments LORENA is fully live on both [facility] Ambulatory and [facility] InPatient.On License Of [facility] Allergies No Known Allergies Current Medications + [...] | MEDICA | xxxxxxxxxxx | Medica | [phone] | [address] | | | RE A & | | re | [phone] | [place] [address] | | | B | | | | | + +--------+ +--------+ + + | MEDICAID [place] | OHP | xxxxxxxx | Medica | [phone] | [address] [address] | | | PLUS | | id | [phone] | [place] [address] | | | OPEN | | | [...] | 1935 | [phone] | [place] [address] | | | [place] | | | [phone] | | + +--------+ +--------+ + +"
--- OUTSIDE RECORDS SUMMARY | ~2018-09-10 | XMS | Encounter Summary ---
Demographics + + + | Address | [address] | | | [place] [address] | + + + | Home Phone | | + + + | Preferred Language | Unknown | + + + | Marital Status | | + + + | Gnosticist Affiliation | Unknown | + + + | Race | Unknown | + + + | Ethnic Group | Unknown | + + + Author + + + | Author | [facility] | + + + | Organization | [facility] [employer] [facility] | + + + | Address [...] Providers + +------+ + | Care Foam Fabricator Name | Role | Phone | + [...] [place] | | | | | | [place], [place] | | | | | | [address] | | | | | | [phone] | | | +--------+ + + + [...] PM PDT3 step testing Oximetry Exercise (code) [id number] 1. At rest on room air: Time: [...] | | | | | [place] [address] | | | | | | [phone] | | | | | | | | +--------+---------+ + + + as of this encounter Visit Diagnoses Not on filein this encounter"
--- OUTSIDE RECORDS SUMMARY | ~2018-09-10 | XMS | Clinical Summary ---
Demographics + + + | Address | [address] | | | [place] [address] | + + + | Home Phone | | + + + | Preferred Language | Unknown | + + + | Marital Status | Single | + + + | Confucianist Affiliation | Unknown | + + + | Race | White | + + + | Ethnic Group | Not or | + + + Author + + + | Author | [facility] | + + + | Organization | [facility] | + + + | Address | Unknown | + + + | Phone | Unavailable | + + + Support + + + + + | Name | Relationship | Address | Phone | + + + + + | LUL SCHMIDT | ECON | [address] | | | | | [place], [place] | | | | | [address] | | + + + + + | SHANNON PENA | ECON | [address] | | | | | [place], [place] | | | | | [address] | | + + + + + Care Team Providers + +------+ + | Care Dietary Aide Teacher Name | Role | Phone | + +------+ + | Resident, Mala Generic | PP | Unavailable | + +------+ + Source Comments LORENA is fully live on both [facility] Ambulatory and [facility] InPatient.[facility] Allergies No Known Allergies Current Medications [...] | MEDICA | xxxxxxxxxxx | Medica | [phone] | [address] | | | RE A & | | re | [phone] | [place] [address] | | | B | | | | | + +--------+ +--------+ + + | MEDICAID [place] | OHP | xxxxxxxx | Medica | [phone] | [address] [address] | | | PLUS | | id | [phone] | [place] [address] | | | OPEN | | | [...] | | 1935 | [phone] | [place] [address] | | | [place] | | | [phone] | | + +--------+ +--------+ + +"
--- OUTSIDE RECORDS SUMMARY | ~2018-09-10 | XMS | Encounter Summary ---
Demographics + + + | Address | [address] | | | [place] [address] | + + + | Home Phone | | + + + | Preferred Language | Unknown | + + + | Marital Status | | + + + | Judaism Affiliation | Unknown | + + + | Race | Unknown | + + + | Ethnic Group | Unknown | + + + Author + + + | Author | [facility] | + + + | Organization | [facility] | + + + | Address [...] Team Providers + +------+ + | Care Manager China Name | Role | Phone | + [...] | | Internal | Diagnoses | | [facility] 8th | | | | Medicine | Acute | | [place] | | | | | exacerbation | | [address] | | | | | of chronic | | [address] | | | | | obstructive | | [place], [place] | | | | | pulmonary | | [address] Phone: | | | | | disease | | [phone] | | | | | (COPD) ([facility]) | | | | | | | Hypoxia | | | | | | | | | | +--------+--------+ + + + + Encounter Details +--------+ + + + + | Date | Type | Department | Care Team | Description | +--------+ + + + + | 06/14/ | Hospital | [facility] | Teja Blandon, | Acute exacerbation | | 2019 - | Encounter | [facility] 8th | MD Javon [address] | of chronic | | | | [place] | EMERGENCY DEPARTMENT | obstructive | | 06/16/ | | [address] | [place] [address] | pulmonary disease | | 2019 | | [place] [address] | [phone] | (COPD) (HCC) | | | | [phone] | | (Primary Dx); | | | | | Lei Barcenas, | Hypoxia | | | | | MD [address] | | | | | | [place] [address] | | | | | | [phone] | | | | | | | | | | | | Deric Nevarez MD | | | | | | [address] | | | | | | [place] [address] | | | | | | [phone] | | | | | | | | | | | | Hector Murdock | | | | | | MD J[address]on [address] | | | | | | Bl[address] [place], [place] | | | | | | [address] | | | | | | | [...] note may be different from the original. [facility] Service: Hospitalist Physician Discharge Summary Pt: David Miranda AGE/SEX: 83 y.o. male ROOM: [facility]81[facility] PCP: Adi [place] : 1935 Admit date: [...] mellitus, was seen at emergency department at [facility] in [place] for COPD exacerbation. The shanon ramirez was [...] hours. No results for input(s): PHART, PO2ART, OMT8OEE, S3ZEJEMZ, BEART in the last 168 hours. Recent [...] 06/16/2018Continue supplemental oxygen at 2 liters/minute at [facility]. 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; 8) Straight arms-lift high-w/out pain, breath [...] [address] | | | | | | [place] [address] | | | | | | [phone] | | | | | | | [...] Testing | 65 - 99 mg/dL | [facility] | | | performed at [facility];[address] | | | | | [address];[place] | | | | | [address] | | | + + + + + + + + + + | Performing | Address | City/State/Zipcode | Phone Number | | Organization | | | | + + + + + | [facility] | [address] | [place] [address] | | + + + + + [...] (H) | 65 - 99 mg/dL | [facility] | | | | | LABORATORY | [...] | | | | | performed at [facility], [address] | | | | | [facility], | | | | | [place] [address] | | | + + + + + + + | Specimen | + + | Blood | + + + + + + + | Performing | Address | City/State/Zipcode | Phone Number | | Organization | | | | + + + + + | [facility] | [address] | [place] [address] | [phone] | | LABORATORY | Blvd. | | [...] performed at | | | | | [facility], [address] [facility] | | | | | [place] | | | | | [address] | | | + + + + + + + | Specimen | + + | Blood | + + + + + + + | Performing | Address | City/State/Zipcode | Phone Number | | Organization | | | | + + + + + | [facility] | [address] [place] [address] | [place] [address] | [phone] | | LABORATORY | Blvd. | | | + + + + + Folate (06/16/2018 5:58 AM) + + + + + | Component | Value | Ref Range | Performed At | + + + + + | FOLATE | 17.8Comment: Testing | >5.4 ng/mL | [facility] | | | performed at [facility], [address] | | LABORATORY | | | [address], | | | | | [place] [address] | | | + + + + + + + | Specimen | + + | Blood | + + + + + + + | Performing | Address | City/State/Zipcode | Phone Number | | Organization | | | | + + + + + | [facility] | [address] | [place] [address] | [phone] | | LABORATORY | Blvd. | | | + + + + + Vitamin B12 (06/16/2018 5:58 AM) + + + + + | Component | Value | Ref Range | Performed At | + + + + + | VITAMIN B12 | 431Comment: Testing | 254 - 1,320 pg/mL | [facility] | | | performed at [facility], [address] | | LABORATORY | | | [address], | | | | | [place] [address] | | | + + + + + + + | Specimen | + + | Blood | + + + + + + + | Performing | Address | City/State/Zipcode | Phone Number | | Organization | | | | + + + + + | [facility] | [address] [place] [address] | [place] [address] | [phone] | | LABORATORY | [address] | | | + + + + + Ferritin (06/16/2018 5:58 AM) + + + + + | Component | Value | Ref Range | Performed At | + + + + + | FERRITIN | 298Comment: Testing | 11 - 450 ng/mL | [facility] | | | performed at [facility], [address] | | LABORATORY | | | [address], | | | | | [place] [address] | | | + + + + + + + | Specimen | + + | Blood | + + + + + + + | Performing | Address | City/State/Zipcode | Phone Number | | Organization | | | | + + + + + | [facility] | [address] | [place] [address] | [phone] | | LABORATORY | Blvd. | | [...] | [facility] | | | performed at [facility], [address] | | LABORATORY | | | [facility], | | | | | [place] [address] | | | + + + + + + + | Specimen | + + | Blood | + + + + + + + | Performing | Address | City/State/Zipcode | Phone Number | | Organization | | | | + + + + + | [facility] | [address] [place] [address] | [place] [address] | [phone] | | LABORATORY | [address] | | | + + + + + POCT glucose (06/16/2018 5:48 AM) + + + + + | Component | Value | Ref Range | Performed At | + + + + + | GLUCOSE,POC SCREEN | 119 (H)Comment: Testing | 65 - 99 mg/dL | [facility] | | | performed at [facility];[address] | | | | | [address];[place], [place] | | | | | [address] | | | + + + + + + + + + + | Performing | Address | City/State/Zipcode | Phone Number | | Organization | | | | + + + + + | [facility] | [address] | [place] [address] | | + + + + + POCT glucose (06/15/2018 9:40 PM) + + + + + | Component | Value | Ref Range | Performed At | + + + + + | GLUCOSE,POC SCREEN | 263 (H)Comment: Testing | 65 - 99 mg/dL | [facility] | | | performed at [facility];[address] | | | | | [address];[place] | | | | | [address] | | | + + + + + + + + + + | Performing | Address | City/State/Zipcode | Phone Number | | Organization | | | | + + + + + | [facility] | [address] | [place] [address] | | + + + + + POCT glucose (06/15/2018 4:14 PM) + + + + + | Component | Value | Ref Range | Performed At | + + + + + | GLUCOSE,POC SCREEN | 324 (H)Comment: Testing | 65 - 99 mg/dL | [facility] | | | performed at [facility];[address] | | | | | [address];[place] | | | | | [address] | | | + + + + + + + + + + | Performing | Address | City/State/Zipcode | Phone Number | | Organization | | | | + + + + + | [facility] | [address] | [place] [address] | | + + + + + POCT glucose (06/15/2018 11:16 AM) + + + + + | Component | Value | Ref Range | Performed At | + + + + + | GLUCOSE,POC SCREEN | 282 (H)Comment: Testing | 65 - 99 mg/dL | [facility] | | | performed at [facility];[address] | | | | | [address];[place] | | | | | [address] | | | + + + + + + + + + + | Performing | Address | City/State/Zipcode | Phone Number | | Organization | | | | + + + + + | [facility] | [address] | [place] [address] | | + + + + + [...] + + + | [facility] | [address] | [place] [address] | [phone] | | LABORATORY | Blvd. | | [...] | LABORATORY | | | [facility], [address] [place] [address] | | | | | [place], [place], [place] | | | | | [address] | | | + + + + + + + | Specimen | + + | Blood | + + + + + + + | Performing | Address | City/State/Zipcode | Phone Number | | Organization | | | | + + + + + | [facility] | [address] | [place] [address] | [phone] | | LABORATORY | [address] | | [...] | | | | | performed at [facility], [address] | | | | | [facility], | | | | | [place] [address] | | | + + + + + + + | Specimen | + + | Blood | + + + + + + + | Performing | Address | City/State/Zipcode | Phone Number | | Organization | | | | + + + + + | [facility] | [address] | [place] [address] | [phone] | | LABORATORY | [address] | | [...] (L) | 6.3 - 8.2 g/dL | [facility] | | | | | LABORATORY | + + + + + | Albumin | 2.7 (L) | 3.3 - 4.8 g/dL | [facility] | | | | | LABORATORY [...] | | | | | performed at [facility], [address] | | | | | [facility], | | | | | [place] [address] | | | + + + + + + + | Specimen | + + | Blood | + + + + + + + | Performing | Address | City/State/Zipcode | Phone Number | | Organization | | | | + + + + + | [facility] | [address] | [place] [address] | [phone] | | LABORATORY | [address]vd. | | | + + + + + Phosphorus (06/15/2018 6:19 AM) + + + + + | Component | Value | Ref Range | Performed At | + + + + + | PHOSPHORUS | 3.3Comment: Testing | 2.3 - 4.8 mg/dL | [facility] | | | performed at [facility], [address] | | LABORATORY | | | [facility], | | | | | [place] [address] | | | + + + + + + + | Specimen | + + | Blood | + + + + + + + | Performing | Address | City/State/Zipcode | Phone Number | | Organization | | | | + + + + + | [facility] | [address] [place] [address] | [place] [address] | [phone] | | LABORATORY | [address]vd[address] | | | + + + + + Magnesium (06/15/2018 6:19 AM) + + + + + | Component | Value | Ref Range | Performed At | + + + + + | MAGNESIUM | 2.0Comment: Testing | 1.7 - 2.4 mg/dL | [facility] | | | performed at [facility], [address] | | LABORATORY | | | [facility], | | | | | [place] [address] | | | + + + + + + + | Specimen | + + | Blood | + + + + + + + | Performing | Address | City/State/Zipcode | Phone Number | | Organization | | | | + + + + + | [facility] | [address] | [place] [address] | [phone] | | LABORATORY | [address] | | [...] | LABORATORY | | | performed at [facility], [address] | | | | | [address], | | | | | [place] [address] | | | | | | | | + + + + + + + | Specimen | + + | Blood | + + + + + + + | Performing | Address | City/State/Zipcode | Phone Number | | Organization | | | | + + + + + | [facility] | [address] | [place] [address] | [phone] | | LABORATORY | [address] | | | + + + + + POCT glucose (06/15/2018 5:47 AM) + + + + + | Component | Value | Ref Range | Performed At | + + + + + | GLUCOSE,POC SCREEN | 251 (H)Comment: Testing | 65 - 99 mg/dL | [facility] | | | performed at [facility];[address] | | | | | [address];[place], [place] | | | | | [address] | | | + + + + + + + + + + | Performing | Address | City/State/Zipcode | Phone Number | | Organization | | | | + + + + + | [facility] | [address] | [place] [address] | | + + + + + [...] performed at | | | | | [facility], [address] [facility] | | | | | [place] | | | | | [address] | | | + + + + + + + | Specimen | + + | Nasopharyngeal | | Culture | + + + + + + + | Performing | Address | City/State/Zipcode | Phone Number | | Organization | | | | + + + + + | [facility] | [address] | [place] [address] | [phone] | | LABORATORY | [address]vd[address] | | | + + + + + POCT glucose (06/14/2018 11:11 PM) + + + + + | Component | Value | Ref Range | Performed At | + + + + + | GLUCOSE,POC SCREEN | 143 (H)Comment: Testing | 65 - 99 mg/dL | [facility] | | | performed at [facility];[address] | | | | | [address];[place] | | | | | [address] | | | + + + + + + + + + + | Performing | Address | City/State/Zipcode | Phone Number | | Organization | | | | + + + + + | [facility] | [address] | [place] [address] | | + + + + + [...] | + + + + + | [facility] | [address] | [place] [address] | [phone] | | LABORATORY | Blvd. | | | + + + + + | [facility] | [address] | [place] [address] | | + + + + + [...] | + + + + + | [facility] | [address] | [place] [address] | [phone] | | LABORATORY | Blvd. | | | + + + + + | [facility] | [address] | [place] [address] | | + + + + + [...] | + + + + + | [facility] | [address] | [place] [address] | | + + + + + [...] | [address] | [place] [address] | | + + + + + PROCALCITONIN (06/14/2018 7:06 PM) + + + + + | Component | Value | Ref Range | Performed At | + + + + + | PROCALCITONIN | 0.09Comment: | <0.5 ng/mL | [facility] | | | INTERPRETIVE | [...] performed | | | | | at [facility];[address] | [address];[place] [address] | | | + + + + + + + + + + | Performing | Address | City/State/Zipcode | Phone Number | | Organization | | | | + + + + + | [facility] | [address] | [place] [address] | | + + + + + Brain natriuretic peptide (06/14/2018 7:06 PM) + + + + + | Component | Value | Ref Range | Performed At | + + + + + | BRAIN NATRIURETIC | 63.94Comment: Testing | 0 - 100 pg/mL | [facility] | | PEPTIDE | performed at [facility];[address] | | | | | [address];[place] | | | | | [address] | | | + + + + + + + + + + | Performing | Address | City/State/Zipcode | Phone Number | | Organization | | | | + + + + + | [facility] | [address] | [place] [address] | | + + + + + Troponin I (06/14/2018 7:06 PM) + + + + + | Component | Value | Ref Range | Performed At | + + + + + | TROPONIN I | 0.031Comment: Testing | 0.00 - 0.04 ng/mL | [facility] | | | performed at [facility];[address] | | | | | [facility];[place], [place] | | | | | [id number] ON 07/11 | | | | | [...] | + + + + + | [facility] | [address] | [place] [address] | | + + + + + D-dimer, quantitative (06/14/2018 7:06 PM) + + + + + | Component | Value | Ref Range | Performed At | + + + + + | D DIMER, | 0.68 (H)Comment: Testing | 0.19 - 0.50 mg/L FEU | [facility] | | QUANTITATIVE | performed at [facility];[address] | | | [address];[place], [place] | | | | | [address] | | | + + + + + + + | Specimen | + + | Blood | + + + + + + + | Performing | Address | City/State/Zipcode | Phone Number | | Organization | | | | + + + + + | [facility] | [address] | [place] [address] | | + + + + + Cardiac Panel (06/14/2018 7:06 PM) + + + + + | Component | Value | Ref Range | Performed At | + + + + + | WBC | 16.54 (H) | 3.80 - 11.00 K/uL | [facility] | + + + + + | RBC | 4.02 (L) | 4.20 - 5.70 M/uL | [facility] | + + + + + | HGB | 13.4 | 13.2 - 17.0 g/dL | [facility] | + + + + + | HCT | 41.0 | 39.0 - 50.0 % | [facility] | + + + + + | MCV | 102.0 (H) | 80.0 - 100.0 fl | [facility] | + + + + + | MCH | 33.2 | 27.0 - 34.0 pg | [facility] | + + + + + | MCHC | 32.5 | 32.0 - 35.5 g/dL | [facility] | + + + + [...] | 0.33 (H) | 0.00 K/uL | [facility] | | Absolute | | | | + + + + + | Lymphocytes Absolute | 0.99 (L) | 1.00 - 3.90 K/uL | [facility] | + + + + + | Monocytes Absolute | 0.83 (H) | 0.00 - 0.80 K/uL | [facility] | + + + + [...] SPECIMEN | 3.5 - 4.9 mmol/L | [facility] | | | MODERATELY HEMOLYZED [...] + | BUN/CREAT | 21 | | [facility] | + + + + + | CALCIUM | 9.2 | 8.5 - 10.5 mg/dL | [facility] | + + + + + | TOTAL PROTEIN | 6.0 (L) | 6.3 - 8.2 g/dL | [facility] | + + + + + | Albumin | 4.0 | 3.3 - 4.8 g/dL | [facility] | + + + + + | GLOBULIN | 2.0 | 1.3 - 4.9 g/dL | [facility] | + + + + + | A/G | 2.0 | 1.0 - 2.4 | [facility] | + + + + + | TBIL | 0.7 | 0.1 - 1.5 mg/dL | [facility] | + + + + + | ALK PHOS | 63 | 35 - 115 U/L | [facility] | + + + + + | AST | 37 | 10 - 45 U/L | [facility] | + + + + + | ALT | 47 | 10 - 65 U/L | [facility] | + + + + + | EGFR | >60Comment: GFR <60: | >60 mL/min/1.73m2 | [facility] | | | CHRONIC KIDNEY [...] the | | | | | MDRD [facility] traceable | | | | | equation. | | | + + + + + | CPK | 77Comment: SPECIMEN | 55 - 400 U/L | [facility] | | | MODERATELY HEMOLYZED | | | + + + + + | INR | 0.9Comment: REFERENCE | | [facility] | | | RANGE:0.9 - [...] (L) | 23 - 32 seconds | [facility] | + + + + + | MMB | 5.7 (H) | 0.5 - 3.6 ng/mL | [facility] | + + + + + | CK-MB Index | 7.4Comment: CK INDEX | | [facility] | | | INTERPRETATION: | [...] | | | | | performed at [facility];[address] | | | | | [facility];[place] | | | | | [address] | | | + + + + + + + + + + | Performing | Address | City/State/Zipcode | Phone Number | | Organization | | | | + + + + + | [facility] | [address] [facility] | [place] [address] | | + + + + + [...] + + + + | Calculated P [place] | 49 | degrees | [facility] | + + + + + | Calculated R [place] | -26 | degrees | [facility] | + + + + + | Calculated T [place] | 92 | degrees | [facility] E[facility] [...] -COMPUTER (500), | | | | | slot editor Marissa Paige | | | | | (79) on 06/16/2018 | | | | | 12:53:28 AM | | | + + + + + + + + + + | Performing | Address | City/State/Zipcode | Phone Number | | Organization | | | | + + + + + | [facility] | [address] | [place] [address] | | + + + + + ED INFORMATION EXCHANGE (06/14/2018 6:46 PM) + + + | Narrative | Performed At | + + + | [id number] Upcoming Changes to the Maria [facility] | ED | | Notification On June 20, 2018 the layout of this notification will | INFORMATION | | be updated. For an overview of upcoming changes, please log into | EXCHANGE | | [email or web address] For questions, | | | please email Ltd. or call . | | | This patient has registered at the [facility] | | | Emergency Department For more information visit: | | | [email or web address] | | | [email or web address] Security Events No recent Security Events currently on file | | | ED Care Guidelines There are currently no ED Care Guidelines for | | | this patient. Please check your facility's medical records system. | | | Recent Emergency Department Visit Summary Date Facility [facility] State | | | Type Major Type Diagnoses or Chief Complaint Jun 14, 2018 [facility] | | | [facility] Emergency Shortness of | | | Breath Chest Pain Jun 13, 2018 [facility] [place] | | | [place] Emergency Emergency Chief Complaint: DIFFICULTY BREATHING | | | Jun 12, 2018 [place] | | | Emergency Emergency Chief Complaint: SOB Jun 08, 2018 [facility] | | | 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 | | | [facility] Emergency Emergency Chief Complaint: | | | SOB May 22, 2018 [facility] [place] | | | Emergency Emergency Hyperglycemia, unspecified | | | Chronic obstructive pulmonary disease with (acute) exacerbation | | | Shortness of breath Other custodial (current) drug therapy | | | Nicotine dependence, unspecified, uncomplicated skilled nursing | | | (current) use of systemic steroids Essential (primary) | | | hypertension Allergy status to penicillin skilled nursing | | | (current) use of aspirin May 03, 2018 [facility] [place] | | | [place] Emergency Emergency Chief Complaint: DIFFICUTLY BREATHING | | | Apr 16, 2018 [facility] 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 | | | [place] Emergency Emergency Shortness of breath | | | Essential (primary) hypertension Constipation, unspecified | | | Nicotine dependence, unspecified, uncomplicated Chronic | | | obstructive pulmonary disease with (acute) exacerbation Allergy | | | status to penicillin Other custodial (current) drug therapy | | | [facility] [place] 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 [place] [place] [facility] Emergency Chronic obstructive pulmonary disease | | | with (acute) exacerbation Shortness of breath Allergy | | | status to penicillin Other custodial (current) drug therapy | | | Nicotine dependence, unspecified, uncomplicated Essential | | | (primary) hypertension E.D. Visit Count (12 mo.) Facility | | | Visits Low Acuity [facility] [address] [facility] [address] | | | [facility] 13 0 Total 14 0 Note: Visits indicate total known | | | visits. Medicaid Low Acuity Dx are the number of primary diagnoses on | | | the Medicaid's Low Acuity dx list. Recent Inpatient Visit | | | Summary Date Facility City State Type Major Type Diagnoses or Chief | | | Complaint Jun 13, 2018 [facility] [place] [facility] [place] Critical | | | Care Inpatient Chief Complaint: DEHYDRATION Jun 08, 2018 | | | [facility] [place] [facility] 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 Medical | | | [...] | | inhaled steroids May 03, 2018 [facility] 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 2019 | | | [employer] - [place], [place] - | | | [email or web address] | | + + + + + | Procedure Note | + + | Interface, Lab - 06/14/2018 6:48 PM PST Formatting of this note may be different | | from the original.[id number] Changes to the Maria R | | NotificationOn June 20, 2018 the layout of this notification will be updated. For an | | overview of upcoming changes, please log into | | [email or web address] For questions, please email | | Ltd. or call .This patient has registered at the | | [facility] Emergency Department For more information visit: | | [email or web address] Security | | EventsNo recent Security Events currently on fileED Care GuidelinesThere are currently | | no ED Care Guidelines for this patient. Please check your facility's medical records | | system.Recent Emergency Department Visit SummaryDate Facility City State Type Major Type | | [facility]oses [facility] [place] [facility] | Emergency Shortness of Breath Chest Pain Jun 13, 2018 [facility] [place] [facility] [place] | | [place] Emergency Emergency Chief Complaint: DIFFICULTY BREATHING Jun 12, [address] [facility] | | [place] Emergency Emergency Chief Complaint: SOB Jun 08, [address] [facility] | | [place] Emergency Emergency Chief Complaint: DIFFICULTY BREATHING May | | 2018 [facility] [place] [facility] [place] 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 [place] | | [place] Emergency Emergency Chief Complaint: SOB May 22, 2018 [facility] [place] [facility] [place] 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 | | [place] Emergency Emergency Chief Complaint: DIFFICUTLY BREATHING Apr 16, [address] [facility] [address] | | [place] 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 [place] 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 [place] 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 [place] [facility] Emergency Chronic obstructive pulmonary disease with (acute) | | exacerbation Shortness of breath Allergy status to penicillin Other custodial | | (current) drug therapy Nicotine dependence, unspecified, uncomplicated Essential | | (primary) hypertension E.D. Visit Count (12 mo.)Facility Visits Low Acuity [facility] | | [facility] 1 0 [facility] 13 0 Total 14 0 Note: Visits | | indicate total known visits. Medicaid Low Acuity Dx are the number of primary diagnoses | | on the Medicaid's Low Acuity dx list. Recent Inpatient Visit SummaryDate Facility City | | State Type Major Type Diagnoses or Chief Complaint [facility] [place] [facility] Inpatient Chief Complaint: DEHYDRATION Jun 08, 2018 [facility] | | [place] Medical Surgical Inpatient Shortness of breath Benign | | prostatic hyperplasia without lower urinary tract symptoms Essential (primary) | | hypertension Acute and chronic respiratory failure with hypoxia Chronic | | obstructive pulmonary disease with (acute) exacerbation Hyperglycemia, unspecified | | Personal history of nicotine dependence Allergy status to penicillin skilled nursing | | (current) use of aspirin skilled nursing (current) use of inhaled steroids May 24, 2018 [facility] | | 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 [place] [facility] | | Inpatient Chronic obstructive pulmonary disease with (acute) exacerbation | | Shortness of breath Other custodial (current) drug therapy Benign prostatic | | hyperplasia without lower urinary tract symptoms Allergy status to penicillin Long | | term (current) use of aspirin Nicotine dependence, unspecified, uncomplicated | | Essential (primary) hypertension skilled nursing (current) use of inhaled steroids | | Personal history of traumatic brain injury [facility] 03[facility] 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 2019 | | [employer] [place], [place] - | | [email or web address] | |[facility] 1 0 | |[facility] 13 0 | |Total 14 0 | |Note: Visits indicate total known visits. Medicaid Low Acuity Dx are the number of primary diagnoses on the Medicaid's Low Acuity dx list. | | | |Recent Inpatient Visit Summary | |Date Facility [facility] State Type Major Type Diagnoses or Chief Complaint | |[facility] [place] [facility] Chief Complaint: DEHYDR ATION | |Jun 08, [facility] [place] [facility] | | Shortness of breath | | Benign prostatic hyperplasia without lower urinary tract symptoms | | Essential (primary) hypertension | | Acute and chronic respiratory failure with hypoxia | | Chronic obstructive pulmonary disease with (acute) exacerbation | | Hyperglycemia, unspecified | | Personal history of nicotine dependence | | Allergy status to penicillin | | skilled nursing (current) use of aspirin | | intermediate accountant (current) use of inhaled steroids | | | |May 24[facility] 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. 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 | | | |Care Providers | |Provider PRC Type Phone Fax Service Dates | |Denisse Blanton Shock Absorption Floor Layer/Filter Press Supervisor Dec 17, 2017 - Current | [...] aforementioned facilities for additional information. | |2019 [employer] - [place], [place] - [email or web address] | + + + +---------+ + + [...] | 10 mLs | | | | [id number] | | 9 16:28 | | | [...]
--- OUTSIDE RECORDS SUMMARY | ~2018-09-10 | XMS | Encounter Summary ---
Demographics + + + | Address | [address] | | | [place] [address] | + + + | Home Phone | | + + + | Preferred Language | Unknown | + + + | Marital Status | | + + + | Jainism Affiliation | Unknown | + + + | Race | Unknown | + + + | Ethnic Group | Unknown | + + + Author + + + | Author | [facility] | + + + | Organization | [facility] [employer] | + + + | Address [...] Team Providers + +------+ + | Care Case Management Coordinator Name | Role | Phone | [...] | | | | | ([facility]) | [place], | [place], [place] | | | | | Procedures | [place] [address] | [address] | | | | | Complete PFT | Phone: | Phone: | | | | | - Pre & | [phone] | [phone] | | | | | Post | Fax: | Fax: | | | | | Spirometry, | [phone] | [phone] | | | | | PLETH & [...] | | | disease, | [place], | [facility] [place] | | | | | unspecified | [place] [address] | [address] Phone: | | | | | (HCC) | Phone: | [phone] | | | | | | [phone] | Fax: | | | | | | Fax: | [phone] | | | | | | [phone] | | + +--------+ + + + + Encounter Details +--------+---------+ + + + | Date | Type | Department | Care Team | Description | +--------+---------+ + + + | 07/30/ | Office | [facility] | Chip Claros MD | Centrilobular | | 2019 | Visit | Pulmonology [address] | emphysema (HCC) | | | | [address] | [place] [address] | (Primary Dx) | | | | [place], [place] | [phone] | | | | | [address] | | | | | | [phone] | | | +--------+---------+ + + + [...] order a PFT to be done at [facility] in this encounter Progress Notes [...] got all his medications with him. His [id number] who is also his caregiver, give s [...] left lung base. Pulmonary function test 2016 severe obstructive impairment with very s everely [...] function test which will be done at [facility] - Complete PFT - Pre [...] Claros MD Pulmonary and Critical Care Medicine [facility] [address] [place] [address] in this encounter Plan of Treatment +--------+---------+ + + + | Date | Type | Specialty | Care Team | Description | +--------+---------+ + + + | 10/08/ | Office | Pulmonology | Chip Claros MD | | | 2019 | Visit | | [address] | | | | | | [place] [address] | | | | | | [phone] | | | | | | | [...]
--- OUTSIDE RECORDS SUMMARY | ~2018-09-10 | XMS | Clinical Summary ---
Demographics + + + | Address | [address] | | | [place] [address] | + + + | Home Phone [...] + | Author | [facility] [email or web address] | + + + | Organization | [facility] [employer] | + + + | Address [...] Team Providers + +------+ + | Care Stamp Machine Servicer Name | Role | Phone | + +------+ + | dAi Nelson MD | PP | | + [...] | | | MRN: | | | [id number] | | | OM: | | | [...] | | [facility] in | | | [place] | | | for COPD | | [...] | | | PO2ART, | | | [id number], | | | [id number], | | | BEART in | | [...] | | | | | [place] [address] | | | | | | [phone] | | | | | | | [...] Testing | 65 - 99 mg/dL | [facility] | | | performed at [facility] [place] [place];[address] | | | | | [address];[place], [place] | | | | | [address] | | | + + + + + + + + + + | Performing | Address | City/State/Zipcode | Phone Number | | Organization | | | | + + + + + | [facility] | [address] | [place] [address] | | + + + + + [...] | [facility] | | | performed at [facility], [address] | | LABORATORY | | | [address], | | | | | [place] [address] | | | + + + + + + + | Specimen | + + | Blood | + + + + + + + | Performing | Address | City/State/Zipcode | Phone Number | | Organization | | | | + + + + + | [facility] | [address] | [place] [address] | [phone] | | LABORATORY | [address]vd[address] | | [...] performed at | | | | | [facility], [address] | | | | | [place] | | | | | [address] | | | + + + + + + + | Specimen | + + | Blood | + + + + + + + | Performing | Address | City/State/Zipcode | Phone Number | | Organization | | | | + + + + + | [facility] | [address] | [place] [address] | [phone] | | LABORATORY | [address]vd[address] | | | + + + + + Folate (06/16/2018 5:58 AM) + + + + + | Component | Value | Ref Range | Performed At | + + + + + | FOLATE | 17.8Comment: Testing | >5.4 ng/mL | [facility] | | | performed at [facility], [address] | | LABORATORY | | | [address], | | | | | [place] [address] | | | + + + + + + + | Specimen | + + | Blood | + + + + + + + | Performing | Address | City/State/Zipcode | Phone Number | | Organization | | | | + + + + + | [facility] | [address] | [place] [address] | [phone] | | LABORATORY | [address] | | | + + + + + Ferritin (06/16/2018 5:58 AM) + + + + + | Component | Value | Ref Range | Performed At | + + + + + | FERRITIN | 298Comment: Testing | 11 - 450 ng/mL | [facility] | | | performed at [facility], [address] | | LABORATORY | | | [address], | | | | | [place] [address] | | | + + + + + + + | Specimen | + + | Blood | + + + + + + + | Performing | Address | City/State/Zipcode | Phone Number | | Organization | | | | + + + + + | [facility] | [address] | [place] [address] | [phone] | | LABORATORY | [address] | | | + + + + + Vitamin B12 (06/16/2018 5:58 AM) + + + + + | Component | Value | Ref Range | Performed At | + + + + + | VITAMIN B12 | 431Comment: Testing | 254 - 1,320 pg/mL | [facility] | | | performed at [facility], [address] | | LABORATORY | | | [address], | | | | | [place] [address] | | | + + + + + + + | Specimen | + + | Blood | + + + + + + + | Performing | Address | City/State/Zipcode | Phone Number | | Organization | | | | + + + + + | [facility] | [address] | [place] [address] | [phone] | | LABORATORY | [address] | | [...] | | | | | performed at [facility], [address] | | | | | [facility], | | | | | [place] [address] | | | + + + + + + + | Specimen | + + | Blood | + + + + + + + | Performing | Address | City/State/Zipcode | Phone Number | | Organization | | | | + + + + + | [facility] | [address] | [place] [address] | [phone] | | LABORATORY | [address]vd[address] | | [...] | [address] | [place] [address] | [phone] | | LABORATORY | Blvd. | | [...] LABORATORY | | | [facility], [address] [facility] | | | | | [place] | | | | | [address] | | | + + + + + + + | Specimen | + + | Blood | + + + + + + + | Performing | Address | City/State/Zipcode | Phone Number | | Organization | | | | + + + + + | [facility] | [address] | [place] [address] | [phone] | | LABORATORY | [address]vd[address] | | | + + + + + Phosphorus (06/15/2018 6:19 AM) + + + + + | Component | Value | Ref Range | Performed At | + + + + + | PHOSPHORUS | 3.3Comment: Testing | 2.3 - 4.8 mg/dL | [facility] | | | performed at [facility], [address] | | LABORATORY | | | [facility] [address], | | | | | [place] [address] | | | + + + + + + + | Specimen | + + | Blood | + + + + + + + | Performing | Address | City/State/Zipcode | Phone Number | | Organization | | | | + + + + + | [facility] | [address] | [place] [address] | [phone] | | LABORATORY | [address]vd[address] | | | + + + + + Magnesium (06/15/2018 6:19 AM) + + + + + | Component | Value | Ref Range | Performed At | + + + + + | MAGNESIUM | 2.0Comment: Testing | 1.7 - 2.4 mg/dL | [facility] | | | performed at [facility], [address] | | LABORATORY | | | [address], | | | | | [place] [address] | | | + + + + + + + | Specimen | + + | Blood | + + + + + + + | Performing | Address | City/State/Zipcode | Phone Number | | Organization | | | | + + + + + | [facility] | [address] | [place] [address] | [phone] | | LABORATORY | Blvd. | | [...] | | | | | performed at [facility], [address] | | | | | [facility], | | | | | [place] [address] | | | + + + + + + + | Specimen | + + | Blood | + + + + + + + | Performing | Address | City/State/Zipcode | Phone Number | | Organization | | | | + + + + + | [facility] | [address] | [place] [address] | [phone] | | LABORATORY | [address] | | [...] (L) | 6.3 - 8.2 g/dL | [facility] | | | | | LABORATORY | + + + + + | Albumin | 2.7 (L) | 3.3 - 4.8 g/dL | [facility] | | | | | [...] >60Comment: GFR <60: | >60 mL/min/1.73m2 | [facility] | | | CHRONIC KIDNEY DISEASE, [...] the | | | | | MDRD IDUT traceable | | | | | equation.Testing | | | | | performed at [facility], [address] | | | | | [facility], | | | | | [place] [address] | | | + + + + + + + | Specimen | + + | Blood | + + + + + + + | Performing | Address | City/State/Zipcode | Phone Number | | Organization | | | | + + + + + | [facility] | [address] | [place] [address] | [phone] | | LABORATORY | Blvd. | | [...] INTERP | Testing performed by | | [employer] | | | Molecular | | LABORATORY | | | MethodologyComment: | | | | | Testing performed at | | | | | [facility], [address] [place] [address] | | | | | [place] | | | | | [address] | | | + + + + + + + | Specimen | + + | Nasopharyngeal | | Culture | + + + + + + + | Performing | Address | City/State/Zipcode | Phone Number | | Organization | | | | + + + + + | [facility] | [address] [place] [address] | [place] [address] | [phone] | | LABORATORY | [address] | | [...] | + + + + + | [facility] | [address] | [place] [address] | [phone] | | LABORATORY | [address] | | | + + + + + | [facility] | [address] | [place] [address] | | + + + + + [...] | + + + + + | [facility] | [address] | [place] [address] | [phone] | | LABORATORY | Blvd. | | | + + + + + | [facility] | [address] | [place] [address] | | + + + + + [...] | + + + + + | [facility] | [address] | [place] [address] | | + + + + + [...] | + + + + + | [facility] | [address] | [place] [address] | | + + + + + PROCALCITONIN (06/14/2018 7:06 PM) + + + + + | Component | Value | Ref Range | Performed At | + + + + + | PROCALCITONIN | 0.09Comment: | <0.5 ng/mL | [facility] | | | INTERPRETIVE [...] performed | | | | | at [facility] [place] [place];[address] | | | | | Blvd;[place] [address] | | | + + + + + + + + + + | Performing | Address | City/State/Zipcode | Phone Number | | Organization | | | | + + + + + | [facility] | [address] | [place] [address] | | + + + + + Cardiac Panel (06/14/2018 7:06 PM) + + + + + | Component | Value | Ref Range | Performed At | + + + + + | WBC | 16.54 (H) | 3.80 - 11.00 K/uL | [facility] | + + + + + | RBC | 4.02 (L) | 4.20 - 5.70 M/uL | [facility] | + + + + + | HGB | 13.4 | 13.2 - 17.0 g/dL | [facility] | + + + [...] 32.5 | 32.0 - 35.5 g/dL | [facility] | + + + + + | RDW SD | 50.3 | 37 - 53 fl | [facility] | + + + + + | PLT | 225 | 150 - 400 K/uL | [facility] | + + + + + | MPV | 8.4 | fl | [facility] | + + + + + | DIFF TYPE | MANUAL | | [facility] | + + + + + | Neutrophils Manual | 76 | % | [facility] | + + + + + | Bands | 11 | % | [facility] | + + + + + [...] (H) | 0.00 - 0.20 K/uL | [facility] | + + + + + | Metamyelocytes | 0.33 (H) | 0.00 K/uL | [facility] | | Absolute | | | | + + + + + | Lymphocytes Absolute | 0.99 (L) | 1.00 - 3.90 K/uL | [facility] | + + + + + | Monocytes Absolute | 0.83 (H) | 0.00 - 0.80 K/uL | [facility] | + + + + + | Platelet Estimate | ADEQUATE | | [facility] | + + + + + | MORPHOLOGY | 1+ | | [facility] | | | Comment: | | | | | MACRO | | | | | NORMAL PLT MORPH | | | | | | | | + + + + + | SODIUM | 141 | 135 - 145 mmol/L | [facility] | + + + + + | POTASSIUM | 4.8Comment: SPECIMEN | 3.5 - 4.9 mmol/L | [facility] | | | MODERATELY [...] + | BUN/CREAT | 21 | | [facility] | + + + + + | CALCIUM | 9.2 | 8.5 - 10.5 mg/dL | [facility] | + + + + + | TOTAL PROTEIN | 6.0 (L) | 6.3 - 8.2 g/dL | [facility] | + + + + + | Albumin | 4.0 | 3.3 - 4.8 g/dL | [facility] | + + + + + [...] 47 | 10 - 65 U/L | [facility] | + + + + + | EGFR | >60Comment: GFR <60: | >60 mL/min/1.73m2 | [facility] | | | CHRONIC [...] the | | | | | MDRD IDUT traceable | | | | | equation. | | | + + + + + | CPK | 77Comment: SPECIMEN | 55 - 400 U/L | [facility] | | | MODERATELY HEMOLYZED | | | + + + + + | INR | 0.9Comment: REFERENCE | | [facility] | | | RANGE:0.9 [...] (L) | 23 - 32 seconds | [facility] | + + + + + | MMB | 5.7 (H) | 0.5 - 3.6 ng/mL | [facility] | + + + + + | CK-MB Index | 7.4Comment: CK INDEX | | [facility] | | | INTERPRETATION: [...] | | | | | performed at [facility] [place] [place];[address] | | | | | [address];[place] | | | | | [address] | | | + + + + + + + + + + | Performing | Address | City/State/Zipcode | Phone Number | | Organization | | | | + + + + + | [facility] | [address] | [place] [address] | | + + + + + Troponin I (06/14/2018 7:06 PM) + + + + + | Component | Value | Ref Range | Performed At | + + + + + | TROPONIN I | 0.031Comment: Testing | 0.00 - 0.04 ng/mL | [facility] | | | performed at [facility] [place] [place];[address] | | | | | [facility];[place], [place] | | | | | [id number] ON 07/11 | | | | | [...] | + + + + + | [facility] | [address] | [place] [address] | | + + + + + D-dimer, quantitative (06/14/2018 7:06 PM) + + + + + | Component | Value | Ref Range | Performed At | + + + + + | D DIMER, | 0.68 (H)Comment: Testing | 0.19 - 0.50 mg/L FEU | [facility] | | QUANTITATIVE | performed at [facility] [place] [place];[address] | | | | | [address];[place] | | | | | [address] | | | + + + + + + + | Specimen | + + | Blood | + + + + + + + | Performing | Address | City/State/Zipcode | Phone Number | | Organization | | | | + + + + + | [facility] | [address] | [place] [address] | | + + + + + Brain natriuretic peptide (06/14/2018 7:06 PM) + + + + + | Component | Value | Ref Range | Performed At | + + + + + | BRAIN NATRIURETIC | 63.94Comment: Testing | 0 - 100 pg/mL | [facility] | | PEPTIDE | performed at [facility] [place] [place];[address] | | | | | [address];[place] | | | | | [address] | | | + + + + + + + + + + | Performing | Address | City/State/Zipcode | Phone Number | | Organization | | | | + + + + + | [facility] | [address] | [place] [address] | | + + + + + [...] + + + + | Calculated P Derwood | 49 | degrees | [facility] | + + + + + | Calculated R Derwood | -26 | degrees | [facility] | + + + + + | Calculated T Derwood | 92 | degrees | [facility] | + + + + + | Diagnosis | Normal sinus | | [facility] | | | rhythmNonspecific [...] | | | | | ONLY, -COMPUTER (003), | | | | | production editor Marissa Paige | | | | | (79) on 06/16/2018 | | | | | 12:53:28 AM | | | + + + + + + + + + + | Performing | Address | City/State/Zipcode | Phone Number | | Organization | | | | + + + + + | [facility] | [address] | [place] [address] | | + + + + + ED INFORMATION EXCHANGE (06/14/2018 6:46 PM) + + + | Narrative | Performed At | + + + | [id number] Upcoming Changes to the Maria [facility] | ED | | Notification On June 20, 2018 the layout of this notification will | INFORMATION | | be updated. For an overview of upcoming changes, please log into | EXCHANGE | | [email or web address]. For questions, | | | please email [email or web address] or call . | | | This patient has registered at the [facility] | | | Emergency Department For more information visit: | | | [email or web address] | | | [email or web address] Security Events No recent Security Events currently on file | | | ED Care Guidelines There are currently no ED Care Guidelines for | | | this patient. Please check your facility's medical records system. | | | Recent Emergency Department Visit Summary Date Facility [facility] State | | | Type Major Type Diagnoses or Chief Complaint Jun 14, 2018 [facility] | | [facility] [place] [facility] Shortness of | | | Breath Chest Pain Jun 13, [address] [facility] [address]. | | | [place] Emergency Emergency Chief Complaint: DIFFICULTY BREATHING | | | Jun 12, 2018 [facility] [place] | | | Emergency Emergency Chief Complaint: SOB Jun 08, 2018 [facility] | | | [place] [facility] Emergency Emergency Chief Complaint: | | | DIFFICULTY BREATHING Jun 08, 2018 [facility] 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 | | | [place] [facility] Emergency Emergency Chief Complaint: | | | SOB May 22, 2018 [facility] [place] | | | Emergency Emergency Hyperglycemia, unspecified | | | Chronic obstructive pulmonary disease with (acute) exacerbation | | | Shortness of breath Other oysterman (current) drug therapy | | | Nicotine dependence, unspecified, uncomplicated FDC | | | (current) use of systemic steroids Essential (primary) | | | hypertension Allergy status to penicillin FDC | | | (current) use of aspirin May 03, 2018 [facility] | | | [place] Emergency Emergency Chief Complaint: DIFFICUTLY BREATHING | | | Apr 16, 2018 [facility] [place] Emergency Emergency | | | Anxiety disorder, unspecified Chronic obstructive | | | pulmonary disease, unspecified Other oysterman (current) drug | | | therapy Nicotine dependence, unspecified, uncomplicated | | | intermediate project manager (current) use of systemic steroids FDC | | | (current) use of aspirin Essential (primary) hypertension | | | Allergy status to penicillin Apr 15, 2018 [facility] | | | [place] Emergency Emergency Shortness of breath | | | Essential (primary) hypertension Constipation, unspecified | | | Nicotine dependence, unspecified, uncomplicated Chronic | | | obstructive pulmonary disease with (acute) exacerbation Allergy | | | status to penicillin Other oysterman (current) drug therapy | | | Apr 02, 2018 [facility] | | | Emergency Emergency Chronic obstructive pulmonary disease | | | with (acute) exacerbation Shortness of breath Nicotine | | | dependence, unspecified, uncomplicated FDC (current) use | | | of aspirin Allergy status to penicillin Essential | | | (primary) hypertension Other oysterman (current) drug therapy | | | Mar [facility] 2018 [facility] [place] [facility] | | [facility] Emergency Chronic obstructive pulmonary disease | | | with (acute) exacerbation Shortness of breath Allergy | | | status to penicillin Other long-term (current) 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 | | | Nicotine dependence, unspecified, uncomplicated Essential | | | (primary) hypertension E.D. Visit Count (12 mo.) Facility | | | Visits Low Acuity [facility] [address] [facility] [address] | | | [facility] 13 0 Total 14 0 Note: Visits indicate total known | | | visits. Medicaid Low Acuity Dx are the number of primary diagnoses on | | | the Medicaid's Low Acuity dx list. Recent Inpatient Visit | | | Summary Date Facility City State Type Major Type Diagnoses or Chief | | | [facility] [place] [facility] | | | Care Inpatient Chief Complaint: DEHYDRATION Jun 08, 2018 | | [facility] [place] [facility] In[facility] | [...] | | | (current) use of aspirin FDC (current) use of inhaled | | | steroids May 24, 2018 [facility] [place] Medical | | | [...] | | respiratory failure with hypoxia intermediate project manager (current) use of | | | inhaled steroids May 03, [address] [facility] [address] [facility] 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 [facility] [place] [place] Medical | | | Surgical Inpatient Essential (primary) hypertension | | | Allergy status to penicillin FDC (current) use of | | | inhaled steroids Benign prostatic hyperplasia without lower | | | urinary tract symptoms Nicotine dependence, cigarettes, | | | uncomplicated Other oysterman (current) drug therapy | | | Cramp and spasm intermediate project manager (current) use of aspirin Long | | | term (current) use of systemic steroids Chronic obstructive | | | pulmonary disease with (acute) exacerbation Prescription | | | Drug Report (12 Mo.) PDMP query found no report. Care Providers | | | Provider PRC Type Phone Fax Service Dates Denisse Blanton Case | | | Compensation/Benefits Specialist/Rack Maker Dec 17, 2017 - Current | [...] for additional information. 2019 | | | [employer] - [place], [place] - | | | [email or web address] | | + + + + + | Procedure Note | + + | Interface, Lab - 06/14/2018 6:48 PM PST Formatting of this note may be different | | from the original.[id number] Changes to the Maria R | | NotificationOn June 20, 2018 the layout of this notification will be updated. For an | | overview of upcoming changes, please log into | | [email or web address]. For questions, please email | | [email or web address] or call .This patient has registered at the | | [facility] Emergency Department For more information visit: | | [email or web address] Security | | EventsNo recent Security Events currently on fileED Care GuidelinesThere are currently | | no ED Care Guidelines for this patient. Please check your facility's medical records | | system.Recent Emergency Department Visit SummaryDate Facility City State Type Major Type | | Diagnoses or Chief Complaint [facility] [place] [facility] | | Emergency Shortness of Breath Chest Pain Jun 13, 2018 [facility] | | [place] Emergency Emergency Chief Complaint: DIFFICULTY BREATHING Jun 12, [address] | | [facility] [place] [place] Emergency Emergency Chief Complaint: SOB Jun 08, [address] | | [place] [facility] Emergency Emergency Chief Complaint: DIFFICULTY BREATHING May | | 2018 [facility] [place] Emergency Emergency Shortness of breath | | intermediate project manager (current) use of aspirin Essential (primary) hypertension Other long | | term (current) 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 Personal history of nicotine dependence Chronic | | obstructive pulmonary disease with (acute) exacerbation intermediate project manager (current) use of | | systemic steroids Allergy status to penicillin May 24, 2018 [facility] | | [place] Emergency Emergency Chief Complaint: SOB May 22, 2018 [facility] [place] | | Emergency Emergency Hyperglycemia, unspecified Chronic obstructive pulmonary | | disease with (acute) exacerbation Shortness of breath Other long-term (current) | | drug therapy Nicotine dependence, unspecified, uncomplicated intermediate project manager (current) | | use of systemic steroids Essential (primary) hypertension Allergy status to | | penicillin intermediate project manager (current) use of aspirin May 03, 2018 [facility] | | [place] Emergency Emergency Chief Complaint: DIFFICUTLY BREATHING Apr 16, [address] | | 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 [place] [facility] | | Emergency Shortness of breath Essential (primary) hypertension Constipation, | | unspecified Nicotine dependence, unspecified, uncomplicated Chronic obstructive | | pulmonary disease with (acute) exacerbation Allergy status to penicillin Other | | long-term (current) 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 Apr 02, 2018 [facility] [place] [facility] | | Emergency Chronic obstructive pulmonary disease with (acute) exacerbation | | Shortness of breath Nicotine dependence, unspecified, uncomplicated FDC | | (current) use of aspirin Allergy status to penicillin Essential (primary) | | hypertension Other long-term (current) 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 Mar 16, 2018 [facility] | | [place] Emergency Emergency Chronic obstructive pulmonary disease with (acute) | | exacerbation Shortness of breath Allergy status to penicillin Other long-term | | (current) drug therapy Nicotine dependence, unspecified, uncomplicated Essential | | (primary) hypertension E.D. Visit Count (12 mo.)Facility Visits Low Acuity [facility] | | [facility] 1 0 [facility] 13 0 Total 14 0 Note: Visits | | indicate total known visits. Medicaid Low Acuity Dx are the number of primary diagnoses | | on the Medicaid's Low Acuity dx list. Recent Inpatient Visit SummaryDate Facility City | | State Type Major Type Diagnoses or Chief Complaint Jun 13, 2018 [facility] | | [place] Critical [...] [facility] | | (current) use of aspirin intermediate project manager (current) use of inhaled steroids May 24, 2018 [facility] | | [facility] 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 [place] Medical Surgical | | Inpatient Chronic obstructive pulmonary disease with (acute) exacerbation | | Shortness of breath Other long-term (current) 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 Benign prostatic | | hyperplasia without lower urinary tract symptoms Allergy status to penicillin Long | | term (current) use of aspirin Nicotine dependence, unspecified, uncomplicated | | Essential (primary) hypertension intermediate project manager (current) use of inhaled steroids | | Personal history of traumatic brain injury Apr 03, 2018 [facility] [place] | | Medical Surgical Inpatient Essential (primary) hypertension Allergy status to | | penicillin [facility] (current) use of inhaled steroids Benign prostatic | | hyperplasia without lower urinary tract symptoms Nicotine dependence, cigarettes, | | uncomplicated Other oysterman (current) drug therapy Cramp and spasm intermediate project manager | | (current) use of aspirin intermediate project manager (current) use of systemic steroids Chronic | | obstructive pulmonary disease with (acute) exacerbation Prescription Drug Report (12 | | Mo.)PDMP query found no report.Care ProvidersProvider PRC Type Phone Fax Service Dates | | Denisse Blanton Supervisor Final/Rack Maker Dec 17, 2017 - Current OMAR, [...] facilities for additional information. 2019 | | [employer] - [place], [place] - | | [email or web address] | |[facility] 1 0 | |[facility] 13 0 | |Total 14 0 | |Note: Visits indicate total known visits. Medicaid Low Acuity Dx are the number of primary diagnoses on the Medicaid's Low Acuity dx list. | | | |Recent Inpatient Visit Summary | |Date Facility City State Type Major Type Diagnoses or Chief Complaint | |Jun 13, 2018 [facility]. [place] Critical Care Inpatient Chief Complaint: DEHYDR ATION | |Jun 08, 2018 [facility]. 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. 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 | |2019 [employer] - [place], [place] - [email or web address] | + + + +---------+ + + [...] +------+-------+ + | MEDICARE | MEDICA | [id number] | | | [address] | | | RE | | | | [place] [id number] | | | IP-OP | | | | | + +--------+ +------+-------+ + | MEDICAID | FAVI[place]A | [id number] | | | [address] | | | N | | | | [place]OGESH [place]STRO | | | [place] | | | | [phone] | | | [employer] | | | | | + +--------+ [...] | | al/Fam | | [phone] | [phone] [place] [id number] | | | k[place]em | | | [phone] | | + +--------+ +--------+ + +
--- OUTSIDE RECORDS SUMMARY | ~2018-09-10 | XMS | Encounter Summary ---
Demographics + + + | Address | [address] | | | [place] [address] | + + + | Home Phone | | + + + | Preferred Language | Unknown | + + + | Marital Status | | + + + | Adventist Affiliation | Unknown | + + + | Race | Unknown | + + + | Ethnic Group | Unknown | + + + Author + + + | Author | [facility] | + + + | Organization | [facility] | + + + | Address [...] Team Providers + +------+ + | Care Rod Puller And Coiler Name | Role | Phone | + [...] | | Internal | Diagnoses | | [facility] 8th | | | | Medicine | Acute | | [place] | | | | | exacerbation | | [address] | | | | | of chronic | | [address] | | | | | obstructive | | [place], [place] | | | | | pulmonary | | [address] Phone: | | | | | disease | | [phone] | | | | | (COPD) ([facility]) | | | | | | | Hypoxia | | | | | | | | | | +--------+--------+ + + + + Encounter Details +--------+ + + + + | Date | Type | Department | Care Team | Description | +--------+ + + + + | 06/14/ | Hospital | [facility] | Teja Blandon, | Acute exacerbation | | 2019 - | Encounter | [facility] 8th | MD Javon [address] | of chronic | | | | [address] | EMERGENCY DEPARTMENT | obstructive | | 06/16/ | | [address] | [place] [address] | pulmonary disease | | 2019 | | [place] [address] | [phone] | (COPD) (HCC) | | | | [phone] | | (Primary Dx); | | | | | Lei Barcenas, | Hypoxia | | | | | MD [address] | | | | | | [place] [address] | | | | | | [phone] | | | | | | | | | | | | Deric Nevarez MD | | | | | | [address] | | | | | | [place] [address] | | | | | | [phone] | | | | | | | | | | | | Hector Murdock | | | | | | MD J[address]on [address] | | | | | | Blvd [place], [place] | | | | | | [address] | | | | | | | [...] note may be different from the original. [facility] Service: Hospitalist Physician Discharge Summary Pt: David Miranda AGE/SEX: 83 y.o. male ROOM: [facility]81[facility] PCP: Adi Nelson : [...] mellitus, was seen at emergency department at [facility] in [place] for COPD exacerbation. The shanon ramirez was [...] hours. No results for input(s): PHART, PO2ART, [id number], [id number], BEART in the last 168 hours. Recent [...] 06/16/2018Continue supplemental oxygen [facility] 2 liters/[facility] 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; 8) Straight arms-lift high-w/out pain, breath deep; [...] [address] | | | | | | [place] [address] | | | | | | [phone] | | | | | | | [...] Testing | 65 - 99 mg/dL | [facility] | | | performed at [facility];[address] | | | | | [address];[place] | | | | | [address] | | | + + + + + + + + + + | Performing | Address | City/State/Zipcode | Phone Number | | Organization | | | | + + + + + | [facility] | [address] | [place] [address] | | + + + + + [...] (H) | 65 - 99 mg/dL | [facility] | | | | | LABORATORY | [...] | | | | | performed at [facility], [address] | | | | | [facility], | | | | | [place] [address] | | | + + + + + + + | Specimen | + + | Blood | + + + + + + + | Performing | Address | City/State/Zipcode | Phone Number | | Organization | | | | + + + + + | [facility] | [address] | [place] [address] | [phone] | | LABORATORY | Blvd. | | [...] performed at | | | | | [facility], [address] [facility] | | | | | [place] | | | | | [address] | | | + + + + + + + | Specimen | + + | Blood | + + + + + + + | Performing | Address | City/State/Zipcode | Phone Number | | Organization | | | | + + + + + | [facility] | [address] [place] [address] | [place] [address] | [phone] | | LABORATORY | Blvd. | | | + + + + + Folate (06/16/2018 5:58 AM) + + + + + | Component | Value | Ref Range | Performed At | + + + + + | FOLATE | 17.8Comment: Testing | >5.4 ng/mL | [facility] | | | performed at [facility], [address] | | LABORATORY | | | [facility], | | | | | [place] [address] | | | + + + + + + + | Specimen | + + | Blood | + + + + + + + | Performing | Address | City/State/Zipcode | Phone Number | | Organization | | | | + + + + + | [facility] | [address] | [place] [address] | [phone] | | LABORATORY | Blvd. | | | + + + + + Vitamin B12 (06/16/2018 5:58 AM) + + + + + | Component | Value | Ref Range | Performed At | + + + + + | VITAMIN B12 | 431Comment: Testing | 254 - 1,320 pg/mL | [facility] | | | performed at [facility], [address] | | LABORATORY | | | [address], | | | | | [place] [address] | | | + + + + + + + | Specimen | + + | Blood | + + + + + + + | Performing | Address | City/State/Zipcode | Phone Number | | Organization | | | | + + + + + | [facility] | [address] [place] [address] | [place] [address] | [phone] | | LABORATORY | [address] | | | + + + + + Ferritin (06/16/2018 5:58 AM) + + + + + | Component | Value | Ref Range | Performed At | + + + + + | FERRITIN | 298Comment: Testing | 11 - 450 ng/mL | [facility] | | | performed at [facility], [address] | | LABORATORY | | | [address], | | | | | [place] [address] | | | + + + + + + + | Specimen | + + | Blood | + + + + + + + | Performing | Address | City/State/Zipcode | Phone Number | | Organization | | | | + + + + + | [facility] | [address] | [place] [address] | [phone] | | LABORATORY | Blvd. | | [...] | [facility] | | | performed at [facility], [address] | | LABORATORY | | | [facility], | | | | | [place] [address] | | | + + + + + + + | Specimen | + + | Blood | + + + + + + + | Performing | Address | City/State/Zipcode | Phone Number | | Organization | | | | + + + + + | [facility] | [address] [place] [address] | [place] [address] | [phone] | | LABORATORY | [address] | | | + + + + + POCT glucose (06/16/2018 5:48 AM) + + + + + | Component | Value | Ref Range | Performed At | + + + + + | GLUCOSE,POC SCREEN | 119 (H)Comment: Testing | 65 - 99 mg/dL | [facility] | | | performed at [facility];[address] | | | | | [address];[place], [place] | | | | | [address] | | | + + + + + + + + + + | Performing | Address | City/State/Zipcode | Phone Number | | Organization | | | | + + + + + | [facility] | [address] | [place] [address] | | + + + + + POCT glucose (06/15/2018 9:40 PM) + + + + + | Component | Value | Ref Range | Performed At | + + + + + | GLUCOSE,POC SCREEN | 263 (H)Comment: Testing | 65 - 99 mg/dL | [facility] | | | performed at [facility];[address] | | | | [address];[place] | | | | | [address] | | | + + + + + + + + + + | Performing | Address | City/State/Zipcode | Phone Number | | Organization | | | | + + + + + | [facility] | [address] | [place] [address] | | + + + + + POCT glucose (06/15/2018 4:14 PM) + + + + + | Component | Value | Ref Range | Performed At | + + + + + | GLUCOSE,POC SCREEN | 324 (H)Comment: Testing | 65 - 99 mg/dL | [facility] | | | performed at [facility];[address] | | | | | [address];[place] | | | | | [address] | | | + + + + + + + + + + | Performing | Address | City/State/Zipcode | Phone Number | | Organization | | | | + + + + + | [facility] | [address] | [place] [address] | | + + + + + POCT glucose (06/15/2018 11:16 AM) + + + + + | Component | Value | Ref Range | Performed At | + + + + + | GLUCOSE,POC SCREEN | 282 (H)Comment: Testing | 65 - 99 mg/dL | [facility] | | | performed at [facility];[address] | | | | | [address];[place] | | | | | [address] | | | + + + + + + + + + + | Performing | Address | City/State/Zipcode | Phone Number | | Organization | | | | + + + + + | [facility] | [address] | [place] [address] | | + + + + + [...] + + + | [facility] | [address] | [place] [address] | [phone] | | LABORATORY | Blvd. | | | + + + + + TSH (06/15/2018 6:19 AM) + + + + + | Component | Value | Ref Range | Performed At | + + + + + | TSH | 5.390 (H)Comment: | 0.450 - 5.100 uIU/mL | [facility] | | | Testing performed at | | LABORATORY | | | [facility], [address] [place] [address] | | | | | [place], [place], [place] | | | | | [address] | | | + + + + + + + | Specimen | + + | Blood | + + + + + + + | Performing | Address | City/State/Zipcode | Phone Number | | Organization | | | | + + + + + | [facility] | [address] | [place] [address] | [phone] | | LABORATORY | [address] | | [...] | | | | | performed at [facility], [address] | | | | | [facility], | | | | | [place] [address] | | | + + + + + + + | Specimen | + + | Blood | + + + + + + + | Performing | Address | City/State/Zipcode | Phone Number | | Organization | | | | + + + + + | [facility] | [address] | [place] [address] | [phone] | | LABORATORY | [address] | | [...] (L) | 6.3 - 8.2 g/dL | [facility] | | | | | LABORATORY | + + + + + | Albumin | 2.7 (L) | 3.3 - 4.8 g/dL | [facility] | | | | [...] the | | | | | MDRD IDOR traceable | | | | | equation.Testing | | | | | performed at [facility], [address] | | | | | [facility], | | | | | [place] [address] | | | + + + + + + + | Specimen | + + | Blood | + + + + + + + | Performing | Address | City/State/Zipcode | Phone Number | | Organization | | | | + + + + + | [facility] | [address] | [place] [address] | [phone] | | LABORATORY | [address]vd[address] | | | + + + + + Phosphorus (06/15/2018 6:19 AM) + + + + + | Component | Value | Ref Range | Performed At | + + + + + | PHOSPHORUS | 3.3Comment: Testing | 2.3 - 4.8 mg/dL | [facility] | | | performed at [facility], [address] | | LABORATORY | | | [facility], | | | | | [place] [address] | | | + + + + + + + | Specimen | + + | Blood | + + + + + + + | Performing | Address | City/State/Zipcode | Phone Number | | Organization | | | | + + + + + | [facility] | [address] [place] [address] | [place] [address] | [phone] | | LABORATORY | [address]vd[address] | | | + + + + + Magnesium (06/15/2018 6:19 AM) + + + + + | Component | Value | Ref Range | Performed At | + + + + + | MAGNESIUM | 2.0Comment: Testing | 1.7 - 2.4 mg/dL | [facility] | | | performed at [facility], [address] | | LABORATORY | | | [facility], | | | | | [place] [address] | | | + + + + + + + | Specimen | + + | Blood | + + + + + + + | Performing | Address | City/State/Zipcode | Phone Number | | Organization | | | | + + + + + | [facility] | [address] | [place] [address] | [phone] | | LABORATORY | [address] | | [...] | LABORATORY | | | performed at [facility], [address] | | | | | [address], | | | | | [place] [address] | | | | | | | | + + + + + + + | Specimen | + + | Blood | + + + + + + + | Performing | Address | City/State/Zipcode | Phone Number | | Organization | | | | + + + + + | [facility] | [address] | [place] [address] | [phone] | | LABORATORY | [address] | | | + + + + + POCT glucose (06/15/2018 5:47 AM) + + + + + | Component | Value | Ref Range | Performed At | + + + + + | GLUCOSE,POC SCREEN | 251 (H)Comment: Testing | 65 - 99 mg/dL | [facility] | | | performed at [facility];[address] | | | | | [address];[place], [place] | | | | | [address] | | | + + + + + + + + + + | Performing | Address | City/State/Zipcode | Phone Number | | Organization | | | | + + + + + | [facility] | [address] | [place] [address] | | + + + + + [...] performed at | | | | | [facility], [address] [facility] | | | | | [place] | | | | | [address] | | | + + + + + + + | Specimen | + + | Nasopharyngeal | | Culture | + + + + + + + | Performing | Address | City/State/Zipcode | Phone Number | | Organization | | | | + + + + + | [facility] | [address] | [place] [address] | [phone] | | LABORATORY | [address]vd[address] | | | + + + + + POCT glucose (06/14/2018 11:11 PM) + + + + + | Component | Value | Ref Range | Performed At | + + + + + | GLUCOSE,POC SCREEN | 143 (H)Comment: Testing | 65 - 99 mg/dL | [facility] | | | performed at [facility];[address] | | | | | [address];[place] | | | | | [address] | | | + + + + + + + + + + | Performing | Address | City/State/Zipcode | Phone Number | | Organization | | | | + + + + + | [facility] | [address] | [place] [address] | | + + + + + [...] | + + + + + | [facility] | [address] | [place] [address] | [phone] | | LABORATORY | [address]vd. | | | + + + + + | [facility] | [address] | [place] [address] | | + + + + + [...] | + + + + + | [facility] | [address] | [place] [address] | [phone] | | LABORATORY | [address]vd. | | | + + + + + | [facility] | [address] | [place] [address] | | + + + + + [...] | + + + + + | [facility] | [address] | [place] [address] | | + + + + + [...] | [address] | [place] [address] | | + + + + + PROCALCITONIN (06/14/2018 7:06 PM) + + + + + | Component | Value | Ref Range | Performed At | + + + + + | PROCALCITONIN | 0.09Comment: | <0.5 ng/mL | [facility] | | | INTERPRETIVE | [...] performed | | | | | at [facility];[address] | | | | [address];[place] [address] | | | + + + + + + + + + + | Performing | Address | City/State/Zipcode | Phone Number | | Organization | | | | + + + + + | [facility] | [address] | [place] [address] | | + + + + + Brain natriuretic peptide (06/14/2018 7:06 PM) + + + + + | Component | Value | Ref Range | Performed At | + + + + + | BRAIN NATRIURETIC | 63.94Comment: Testing | 0 - 100 pg/mL | [facility] | | PEPTIDE | performed at [facility];[address] | | | | | [address];[place] | | | | | [address] | | | + + + + + + + + + + | Performing | Address | City/State/Zipcode | Phone Number | | Organization | | | | + + + + + | [facility] | [address] | [place] [address] | | + + + + + Troponin I (06/14/2018 7:06 PM) + + + + + | Component | Value | Ref Range | Performed At | + + + + + | TROPONIN I | 0.031Comment: Testing | 0.00 - 0.04 ng/mL | [facility] | | | performed at [facility];[address] | | | | | [address];[place], [place] | | | | | [address] ON 07/11 | | | | | [...] | + + + + + | [facility] | [address] | [place] [address] | | + + + + + D-dimer, quantitative (06/14/2018 7:06 PM) + + + + + | Component | Value | Ref Range | Performed At | + + + + + | D DIMER, | 0.68 (H)Comment: Testing | 0.19 - 0.50 mg/L FEU | [facility] | | QUANTITATIVE | performed at [facility];[address] | | | | | [address];[place], [place] | | | | | [address] | | | + + + + + + + | Specimen | + + | Blood | + + + + + + + | Performing | Address | City/State/Zipcode | Phone Number | | Organization | | | | + + + + + | [facility] | [address] | [place] [address] | | + + + + + Cardiac Panel (06/14/2018 7:06 PM) + + + + + | Component | Value | Ref Range | Performed At | + + + + + | WBC | 16.54 (H) | 3.80 - 11.00 K/uL | [facility] | + + + + + | RBC | 4.02 (L) | 4.20 - 5.70 M/uL | [facility] | + + + + + | HGB | 13.4 | 13.2 - 17.0 g/dL | [facility] | + + + + + | HCT | 41.0 | 39.0 - 50.0 % | [facility] | + + + + + | MCV | 102.0 (H) | 80.0 - 100.0 fl | [facility] | + + + + + | MCH | 33.2 | 27.0 - 34.0 pg | [facility] | + + + + + | MCHC | 32.5 | 32.0 - 35.5 g/dL | [facility] | + + + + [...] | 0.33 (H) | 0.00 K/uL | [facility] | | Absolute | | | | + + + + + | Lymphocytes Absolute | 0.99 (L) | 1.00 - 3.90 K/uL | [facility] | + + + + + | Monocytes Absolute | 0.83 (H) | 0.00 - 0.80 K/uL | [facility] | + + + + [...] SPECIMEN | 3.5 - 4.9 mmol/L | [facility] | | | MODERATELY HEMOLYZED [...] + | BUN/CREAT | 21 | | [facility] | + + + + + | CALCIUM | 9.2 | 8.5 - 10.5 mg/dL | [facility] | + + + + + | TOTAL PROTEIN | 6.0 (L) | 6.3 - 8.2 g/dL | [facility] | + + + + + | Albumin | 4.0 | 3.3 - 4.8 g/dL | [facility] | + + + + + | GLOBULIN | 2.0 | 1.3 - 4.9 g/dL | [facility] | + + + + + | A/G | 2.0 | 1.0 - 2.4 | [facility] | + + + + + | TBIL | 0.7 | 0.1 - 1.5 mg/dL | [facility] | + + + + + | ALK PHOS | 63 | 35 - 115 U/L | [facility] | + + + + + | AST | 37 | 10 - 45 U/L | [facility] | + + + + + | ALT | 47 | 10 - 65 U/L | [facility] | + + + + + | EGFR | >60Comment: GFR <60: | >60 mL/min/1.73m2 | [facility] | | | CHRONIC KIDNEY [...] the | | | | | MDRD [facility] traceable | | | | | equation. | | | + + + + + | CPK | 77Comment: SPECIMEN | 55 - 400 U/L | [facility] | | | MODERATELY HEMOLYZED | | | + + + + + | INR | 0.9Comment: REFERENCE | | [facility] | | | RANGE:0.9 - [...] (L) | 23 - 32 seconds | [facility] | + + + + + | MMB | 5.7 (H) | 0.5 - 3.6 ng/mL | [facility] | + + + + + | CK-MB Index | 7.4Comment: CK INDEX | | [facility] | | | INTERPRETATION: | [...] | | | | | performed at [facility];[address] | | | | | [address];[place] | | | | | [address] | | | + + + + + + + + + + | Performing | Address | City/State/Zipcode | Phone Number | | Organization | | | | + + + + + | [facility] | [address] | [place] [address] | | + + + + + [...] + + + + | Calculated P [place] | 49 | degrees | [facility] | + + + + + | Calculated R [place] | -26 | degrees | [facility] | + + + + + | Calculated T [place] | 92 | degrees | [facility] [...] -COMPUTER (500), | | | | | business editor Marissa Paige | | | | | (79) on 06/16/2018 | | | | | 12:53:28 AM | | | + + + + + + + + + + | Performing | Address | City/State/Zipcode | Phone Number | | Organization | | | | + + + + + | [facility] | [address] | [place] [address] | | + + + + + ED INFORMATION EXCHANGE (06/14/2018 6:46 PM) + + + | Narrative | Performed At | + + + | [id number] Upcoming Changes to the Maria R | ED | | Notification On June 20, 2018 the layout of this notification will | INFORMATION | | be updated. For an overview of upcoming changes, please log into | EXCHANGE | | [email or web address] For questions, | | | please email [email or web address] or call . | | | This patient has registered at the [facility] | | | Emergency Department For more information visit: | | | [email or web address] | | | [email or web address] Security Events No recent Security Events currently on file | | | ED Care Guidelines There are currently no ED Care Guidelines for | | | this patient. Please check your facility's medical records system. | | | Recent Emergency Department Visit Summary Date Facility [facility] State | | | Type Major Type Diagnoses or Chief Complaint Jun 14, 2018 [facility] | | | [facility] Shortness of | | | Breath Chest Pain Jun 13, 2018 [facility] [place] | | | [place] Emergency Emergency Chief Complaint: DIFFICULTY BREATHING | | | Jun 12, 2018 [facility] | | | Emergency Emergency Chief Complaint: SOB Jun 08, 2018 [facility] | | | [facility] [place] Emergency Emergency Chief Complaint: | | | DIFFICULTY BREATHING Jun 08, 2018 [facility] | | | Emergency Emergency Shortness of breath intermediate card tender | | | (current) [...] | | | SOB May 22, 2018 [facility] [place] | | | Emergency Emergency Hyperglycemia, unspecified | | | Chronic obstructive pulmonary disease with (acute) exacerbation | | | Shortness of breath Other group home (current) drug therapy | | | Nicotine dependence, unspecified, uncomplicated correction | | | (current) use of systemic steroids Essential (primary) | | | hypertension Allergy status to penicillin correction | | | (current) use of aspirin May 03, 2018 [facility] [place] | | | [place] Emergency Emergency Chief Complaint: DIFFICUTLY BREATHING | | | Apr 16, 2018 [facility] 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 | | | [place] Emergency Emergency Shortness of breath | | | Essential (primary) hypertension Constipation, unspecified | | | Nicotine dependence, unspecified, uncomplicated Chronic | | | obstructive pulmonary disease with (acute) exacerbation Allergy | | | status to penicillin Other group home (current) drug therapy | | | [facility] [place] 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 [place] [place] [facility] | | Emergency Emergency Chronic obstructive pulmonary disease | | | with (acute) exacerbation Shortness of breath Allergy | | | status to penicillin Other group home (current) drug therapy | | | Nicotine dependence, unspecified, uncomplicated Essential | | | (primary) hypertension E.D. Visit Count (12 mo.) Facility | | | Visits Low Acuity [facility] [address] [facility] [address] | | | [facility] 13 0 Total 14 0 Note: Visits indicate total known | | | visits. Medicaid Low Acuity Dx are the number of primary diagnoses on | | | the Medicaid's Low Acuity dx list. Recent Inpatient Visit | | | Summary Date Facility City State Type Major Type Diagnoses or Chief | | | Complaint Jun 13, 2018 [facility] [place] Critical | | | Care Inpatient Chief Complaint: DEHYDRATION Jun 08, 2018 | | | [facility] [place] [facility] Surgical Inpatient | | | Shortness of breath Benign prostatic hyperplasia without | | | lower urinary tract symptoms Essential (primary) hypertension | | | Acute and chronic respiratory failure with hypoxia | | | Chronic obstructive pulmonary disease with (acute) exacerbation | | | Hyperglycemia, unspecified Personal history of nicotine | | | dependence Allergy status to penicillin correction | | | (current) use of aspirin intermediate card tender (current) use of inhaled | | | steroids May 24, 2018 [facility] [place] Medical | | | [...] | | inhaled steroids May 03, 2018 [facility] 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 2019 | | | [employer]. - [place], [place] - | | | [email or web address] | | + + + + + | Procedure Note | + + | Interface, Lab - 06/14/2018 6:48 PM PST Formatting of this note may be different | | from the original.[id number] Changes to the Maria R | | NotificationOn June 20, 2018 the layout of this notification will be updated. For an | | overview of upcoming changes, please log into | | [email or web address] For questions, please email | | [email or web address] or call .This patient has registered at the | | [facility] Emergency Department For more information visit: | | [email or web address] Security | | EventsNo recent Security Events currently on fileED Care GuidelinesThere are currently | | no ED Care Guidelines for this patient. Please check your facility's medical records | | system.Recent Emergency Department Visit SummaryDate Facility City State Type Major Type | | Diagnoses or Chief [facility] [place] [facility] | Emergency Shortness of Breath Chest Pain Jun 13, 2018 [facility] | | [place] Emergency Emergency Chief Complaint: DIFFICULTY BREATHING Jun 12, [address] [facility] | | [place] [facility] Emergency Emergency Chief Complaint: SOB Jun 08, [address] [facility] | | [place] Emergency Emergency Chief Complaint: DIFFICULTY BREATHING May | | 2018 [facility] [place] [place] Emergency Emergency Shortness of breath | | intermediate card tender (current) use of aspirin Essential (primary) hypertension Other long | | term (current) 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 Personal history of nicotine dependence Chronic | | obstructive pulmonary disease with (acute) exacerbation intermediate card tender (current) use of | | systemic steroids Allergy status to penicillin May 24, 2018 [facility] | | [place] Emergency Emergency Chief Complaint: SOB May 22, 2018 [facility] [place] 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 | | [place] Emergency Emergency Chief Complaint: DIFFICUTLY BREATHING Apr 16, [address] [facility] [address] | | 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 [place] 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 [place] [facility] Emergency Chronic obstructive pulmonary disease with (acute) | | exacerbation Shortness of breath Allergy status to penicillin Other group home | | (current) drug therapy Nicotine dependence, unspecified, uncomplicated Essential | | (primary) hypertension E.D. Visit Count (12 mo.)Facility Visits Low Acuity [facility] | | [facility] 1 0 [facility] 13 0 Total 14 0 Note: Visits | | indicate total known visits. Medicaid Low Acuity Dx are the number of primary diagnoses | | on the Medicaid's Low Acuity dx list. Recent Inpatient Visit SummaryDate Facility City | | State Type Major Type Diagnoses or Chief Complaint [facility] [place] Critical [facility] Inpatient Chief Complaint: DEHYDRATION Jun 08, 2018 [facility] | | [place] Medical Surgical Inpatient Shortness of breath Benign | | prostatic hyperplasia without lower urinary tract symptoms Essential (primary) | | hypertension Acute and chronic respiratory failure with hypoxia Chronic | | obstructive pulmonary disease with (acute) exacerbation Hyperglycemia, unspecified | | Personal history of nicotine dependence Allergy status to penicillin correction | | (current) use of aspirin correction (current) use of inhaled steroids May 24, 2018 [facility] | | [place] 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 [place] [facility] | | Inpatient Chronic obstructive pulmonary disease with (acute) exacerbation | | Shortness of breath Other group home (current) drug therapy Benign prostatic | | hyperplasia without lower urinary tract symptoms Allergy status to penicillin Long | | term (current) use of aspirin Nicotine dependence, unspecified, uncomplicated | | Essential (primary) hypertension correction (current) use of inhaled steroids | | Personal history of traumatic brain injury [facility] 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 2019 | | [employer]. [place], [place] - | | [email or web address] | |[facility] 1 0 | |[facility] 13 0 | |Total 14 0 | |Note: Visits indicate total known visits. Medicaid Low Acuity Dx are the number of primary diagnoses on the Medicaid's Low Acuity dx list. | | | |Recent Inpatient Visit Summary | |Date Facility [facility] State Type Major Type Diagnoses or Chief Complaint | |[facility] [place] [facility] Chief Complaint: DEHYDR ATION | |Jun [facility] [place] [facility] | | Shortness of breath | | Benign prostatic hyperplasia without lower urinary tract symptoms | | Essential (primary) hypertension | | Acute and chronic respiratory failure with hypoxia | | Chronic obstructive pulmonary disease with (acute) exacerbation | | Hyperglycemia, unspecified | | Personal history of nicotine dependence | | Allergy status to penicillin | | correction (current) use of aspirin | | intermediate card tender (current) use of inhaled steroids | | | |[facility] 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 [place] Medical Surgical Inpatient | | Chronic obstructive pulmonary disease with (acute) exacerbation | | Shortness of breath | | Other group home (current) drug therapy | | Benign prostatic hyperplasia without lower urinary tract symptoms | | Allergy status to penicillin | | intermediate card tender (current) use of aspirin | | Nicotine dependence, unspecified, uncomplicated | | Essential (primary) hypertension | | correction (current) use of inhaled steroids | | Personal history of traumatic brain injury | | | |Apr 03, 2018 [facility]. 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 | | | |Care Providers | |Provider PRC Type Phone Fax Service Dates | |Denisse Blanton Flight Control Tower Operator/Dinking Machine Operator Dec 17, 2017 - Current [...] aforementioned facilities for additional information. | |2019 [employer]. - [place], [place] - [email or web address] | + + + +---------+ + + [...] | 10 mLs | | | | [id number] | | 9 16:28 | | | [...]
--- OUTSIDE RECORDS SUMMARY | ~2018-09-10 | XMS | Encounter Summary ---
Demographics + + + | Address | [address] | | | [place] [address] | + + + | Home Phone | | + + + | Preferred Language | Unknown | + + + | Marital Status | | + + + | Temple Affiliation | Unknown | + + + | Race | Unknown | + + + | Ethnic Group | Unknown | + + + Author + + + | Author | [facility] | + + + | Organization | [facility] [employer] | + + + | Address [...] Team Providers + +------+ + | Care Hydraulic Boom Operator Name | Role | Phone | [...] JYOTSNA LÓPEZ | | | | | ([facility]) | DAISHA, | [place], [place] | | | | | Procedures | [place] [address] | [address] | | | | | Complete PFT | Phone: | Phone: | | | | | - Pre & | [phone] | [phone] | | | | | Post | Fax: | Fax: | | | | | Spirometry, | [phone] | [phone] | | | | | PLETH & [...] | | | disease, | [place], | [facility] [place] | | | | | unspecified | [place] [address] | [address] Phone: | | | | | (HCC) | Phone: | [phone] | | | | | | [phone] | Fax: | | | | | | Fax: | [phone] | | | | | | [phone] | | + +--------+ + + + + Encounter Details +--------+---------+ + + + | Date | Type | Department | Care Team | Description | +--------+---------+ + + + | 07/30/ | Office | [facility] | Chip Claros MD | Centrilobular | | 2019 | Visit | Pulmonology [address] | emphysema (HCC) | | | | [address] | [place] [address] | (Primary Dx) | | | | [place], [place] | [phone] | | | | | [address] | | | | | | [phone] | | | +--------+---------+ + + + [...] [facility] this encounter Progress Notes [...] got all his medications with him. His [id number]-byg who is also his caregiver, give s [...] test which will be done at [facility] - Complete PFT - Pre [...] Claros MD Pulmonary and Critical Care Medicine [facility] [address] , [place] [address] in this encounter Plan of Treatment +--------+---------+ + + + | Date | Type | Specialty | Care Team | Description | +--------+---------+ + + + | 10/08/ | Office | Pulmonology | Chip Claros MD | | | 2019 | Visit | | [address] | | | | | | [place] [address] | | | | | | [phone] | | | | | | | [...]
--- OUTSIDE RECORDS SUMMARY | 2018-09-10 17:36 | XMS ---
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 No recent Security Events currently on file CRITERIA MET - 6 ED Visits in 6 Months - [facility] - Has Care Guidelines - [facility] - 2 Visits in 30 Days CARE PROVIDERS Denisse Blanton Ward Assistant/Army Ranger 12/17/2017-Current PHONE: [phone] Patrick Meade Ward Assistant/Army Ranger 12/17/2017-Current PHONE: [phone] Patrick Meade Ward Assistant/Army Ranger 12/17/2017-Current PHONE: [phone] MARCELA NELSON Internal Medicine 04/03/2018-Current SANDEEP PHONE: [phone] Patrick Meade Primary Care 12/17/2017-Current PHONE: [phone] MARCELA NELSON Primary Care 04/05/2016-Current PHONE: Unknown Other Current PHONE: Unknown Maria R has no Care Guidelines for this patient. Care History Medical/Surgical 07/10/2018 [facility] - PATIENT IS CURRENTLY ON SERVICES WITH PULMONARY REHAB AT [facility]. 05/23/2018 [facility] PATIENT NEXT APPOINTMENT WITH DR NELSON:\T\nbsp; May. 04/03/2018 [facility] - PATIENT HAS AN APT WITH DR NELSON ON 04/17/18. - Patient is currently established with [facility]. If patient is seen in the ED during business hours. Please contact CHWs at [facility]. Care Recommendation: This patient has had 5 [...] care. E.D. VISIT COUNT (12 MO.) 1 [facility] 19 [facility] [place] TOTAL 20 NOTE: Visits indicate total known visits. 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 - senior living (current) use of systemic steroids - termination clerk (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 - Chronic obstructive pulmonary disease with (acute) exacerbation - Shortness of breath - Allergy status to penicillin - Personal history of nicotine dependence 08/10/2018 10:13 [facility] TYPE: Emergency COMPLAINT: - SOB DIAGNOSES: - Other snf (current) drug therapy - Chronic obstructive pulmonary disease with (acute) exacerbation - Personal history of nicotine dependence - Shortness of breath - senior living (current) use of aspirin - Allergy status to penicillin - Essential (primary) hypertension 07/14/2018 17:25 [facility] TYPE: Emergency COMPLAINT: - SOB DIAGNOSES: - Shortness of breath - termination clerk (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 - Personal history of nicotine dependence - Other snf (current) drug therapy - Allergy status to penicillin - Essential (primary) hypertension - Chronic obstructive pulmonary disease, unspecified 07/09/2018 20:05 [facility] TYPE: Emergency COMPLAINT: - SOB DIAGNOSES: - Shortness of breath - termination clerk (current) use of aspirin - Allergy status to penicillin - Essential (primary) hypertension - Chronic obstructive pulmonary disease with (acute) exacerbation - Personal history of nicotine dependence - Other snf (current) drug therapy - Benign prostatic hyperplasia without lower urinary tract symptoms 06/14/2018 18:43 [facility] TYPE: Emergency DIAGNOSES: - Chronic obstructive pulmonary disease with (acute) exacerbation - Hypoxemia - Shortness of Breath - Chest Pain 06/13/2018 20:20 [facility] TYPE: Emergency COMPLAINT: - DIFFICULTY BREATHING 06/12/2018 12:59 [facility] TYPE: Emergency COMPLAINT: - SOB DIAGNOSES: - Candidal stomatitis - Allergy status to penicillin - Shortness of breath - 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 - Essential (primary) hypertension - Personal history of nicotine dependence - Chronic obstructive pulmonary disease with (acute) exacerbation - Chronic obstructive pulmonary disease with (acute) exacerbation - senior living (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 06/08/2018 19:37 [facility] TYPE: Emergency COMPLAINT: - DIFFICULTY BREATHING 06/08/2018 01:29 [facility] TYPE: Emergency COMPLAINT: - DIFFICULTY BREATHING DIAGNOSES: - senior living (current) use of aspirin - Essential (primary) hypertension - 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 - Personal history of nicotine dependence - Chronic obstructive pulmonary disease with (acute) exacerbation - senior living (current) use of systemic steroids - Allergy status to penicillin - Shortness of breath 05/24/2018 07:27 [facility] TYPE: Emergency COMPLAINT: - SOB 05/22/2018 01:46 [facility] TYPE: Emergency COMPLAINT: - SOB DIAGNOSES: - 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 - Hyperglycemia, unspecified - Chronic obstructive pulmonary disease with (acute) exacerbation - Nicotine dependence, unspecified, uncomplicated - senior living (current) use of systemic steroids - Essential (primary) hypertension - Shortness of breath - Allergy status to penicillin - senior living (current) use of aspirin 05/03/2018 01:09 [facility] TYPE: Emergency COMPLAINT: - DIFFICUTLY BREATHING 04/16/2018 22:51 [facility] TYPE: Emergency COMPLAINT: - ANXIETY,SOB DIAGNOSES: - Chronic obstructive pulmonary disease, unspecified - Other snf (current) drug therapy - Nicotine dependence, unspecified, uncomplicated - termination clerk (current) use of systemic steroids - termination clerk (current) use of aspirin - Essential (primary) hypertension - Allergy status to penicillin - Anxiety disorder, unspecified 04/15/2018 19:41 [facility] TYPE: Emergency COMPLAINT: - SHORTNESS OF BREATH/CONSTIPATION DIAGNOSES: - Shortness of breath - Essential (primary) hypertension - Constipation, unspecified - Nicotine dependence, unspecified, uncomplicated - Chronic obstructive pulmonary disease with (acute) exacerbation - Allergy status to penicillin - 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 04/02/2018 20:47 [facility] TYPE: Emergency COMPLAINT: - SOB DIAGNOSES: - Nicotine dependence, unspecified, uncomplicated - termination clerk (current) use of aspirin - Chronic obstructive pulmonary disease with (acute) exacerbation - Allergy status to penicillin - Essential (primary) hypertension - Shortness of breath - 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 03/16/2018 20:53 [facility] TYPE: Emergency COMPLAINT: - SOB,WEAKNESS DIAGNOSES: - Allergy status to penicillin - 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 [...] INPATIENT VISIT TRACKING (12 MO.) 06/14/2018 18:43 [facility] TYPE: General Medicine DIAGNOSES: - Chronic obstructive pulmonary disease with (acute) exacerbation - Hypoxemia 06/13/2018 20:21 [facility] TYPE: Observation COMPLAINT: - DEHYDRATION DIAGNOSES: - Essential (primary) hypertension - Other snf (current) drug therapy - termination clerk (current) use of inhaled steroids - termination clerk (current) use of antibiotics - senior living (current) use of systemic steroids - senior living (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 - Adjustment disorder with depressed mood - Anxiety disorder, unspecified - Dehydration - Weakness - termination clerk (current) use of aspirin - Personal history of nicotine dependence - Chronic respiratory failure with hypoxia - Benign prostatic hyperplasia without lower urinary tract symptoms - Allergy status to penicillin - Chronic obstructive pulmonary disease with (acute) exacerbation - Type 2 diabetes mellitus without complications 06/08/2018 19:38 [facility] TYPE: Observation COMPLAINT: - COPD EXACERBATION DIAGNOSES: - Benign prostatic hyperplasia without lower urinary tract symptoms - Essential (primary) hypertension - Acute and chronic respiratory failure with hypoxia - Chronic obstructive pulmonary disease with (acute) exacerbation - Hyperglycemia, unspecified - Personal history of nicotine dependence - Allergy status to penicillin - senior living (current) use of aspirin - senior living (current) use of inhaled steroids - termination clerk (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 - termination clerk (current) use of non-steroidal anti-inflammatories (NSAID) - Shortness of breath - Other snf (current) drug therapy - termination clerk (current) use of systemic steroids - Adverse [...] hyperplasia without lower urinary tract symptoms - termination clerk (current) use of systemic steroids - Acute and chronic respiratory failure with hypoxia - senior living (current) use of inhaled steroids - termination clerk (current) use of aspirin - Cramp and spasm - 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 - Chronic obstructive pulmonary disease with (acute) exacerbation - senior living (current) use of oral hypoglycemic drugs - Adverse effect of glucocorticoids and synthetic analogues, initial encounter 05/03/2018 01:10 [facility] TYPE: Observation COMPLAINT: - COPD EXACERBATION DIAGNOSES: - Other snf (current) drug therapy - Benign prostatic hyperplasia without lower urinary tract symptoms - Allergy status to penicillin - Chronic obstructive pulmonary disease with (acute) exacerbation - senior living (current) use of aspirin - Nicotine dependence, unspecified, uncomplicated - Essential (primary) hypertension - Nicotine dependence, cigarettes, uncomplicated - Shortness of breath - termination clerk (current) use of inhaled steroids - Personal history of traumatic brain injury 04/03/2018 11:16 [facility] TYPE: Observation COMPLAINT: - COPD EXACERBATION DIAGNOSES: - Essential (primary) hypertension - Allergy status to penicillin - senior living (current) use of inhaled steroids - Benign prostatic hyperplasia without lower urinary tract symptoms - Nicotine dependence, cigarettes, uncomplicated - Other snf (current) drug therapy - Cramp and spasm - senior living (current) use of aspirin - senior living (current) use of systemic steroids - Chronic obstructive pulmonary disease with (acute) exacerbation [email or web address]
[2018-09-10] MEDS ORDERED: PREDNISONE20 MG PO (17:56)
--- NOTE | 2018-09-10 20:43 | NUR ---
PT ADMITTED TO ROOM 119 NEAR 1999; PT A/O, ABLE TO SLIDE SELF FROM STRETCHER TO BED. 2L NC, WITH SATS IN THE 90'S. PT LIVES IN AN ADULT FOSTER CARE LOCALLY, MOVED IN "7 DAYS OR SO HE SAID". STATES HE DOESN'T USE A WALKER AT HOME BUT "HAS ONE". REQUESTED SOMETHING TO EAT AND COFFEE. CALL LIGHT WITHIN REACH, EXPLAINED TO CALL STAFF WHEN HE NEEDS SOMETHING, TO NOT GET OUT OF BED BY HIMSELF.
--- NOTE | 2018-09-10 21:29 | NUR ---
PT ATE 100 PERCENT OF WHOLE SANDWICH, WELL THE APPLESAUCE, DRANK HIS WATER. MEDICATIONS ADMINISTERED TO PT AFTER WAKING HIM UP FROM A FAIRLY DEEP SLEEP. AFTER MEDICATIONS ADMINISTERED, PT STATED THAT THE FOOD HE JUST ATE WAS THE "MOST HE HAS EATEN IN A WEEK". STATES HE IS BREATHING EASIER.
--- NOTE | 2018-09-10 21:39 | EKG ---
[facility] [address] [place], [place] [address] Signed Normal sinus rhythm Left axis deviation ST \T\ T wave abnormality, consider lateral ischemia Abnormal ECG No previous ECGs available Confirmed by MARCELA NELSON MD ([id number]) on 09/10/2018 9:39:19 PM Electronically Signed By: MARCELA NELSON MD 09/10/18 2139 PATIENT NAME: ROMA SCHMIDT Electrocardiogram DATE OF : 39 PHYSICIAN: MARCELA NELSON MD REPORT #: [id number] REPORT IS CONFIDENTIAL AND NOT TO BE RELEASED WITHOUT AUTHORIZATION
--- NOTE | 2018-09-10 22:07 | NUR ---
IN ROOM TO ASSESS PT AND ADMINISTER LAST MEDICATION. PT STATES HIS BREATHING HAS IMPROVED WELL HIS APPETITE HE WAS ABLE TO EAT A SANDWHICH. HE IS ON 02 CHRONIC AT HOME. PT IS ALERT AND ORIENTED BUT BED ALARM IS ON FOR PRECAUTION. PT DENIES NEEDS AT THIS TIME. CALL LIGHT IS WITHIN REACH.
--- NOTE | 2018-09-10 23:05 | NUR ---
NOTIFIED BY ORACIO DIAMOND THAT PT IS COMPLAINING OF HEART BURN. PLACED NIO ORDER OF MAALOX AND VERIFIED ORDER WITH PHARMACY. BY THE TIME THIS RN RETURNED TO THE ROOM THE PT IS SLEEPING. WILL ADMINISTER WHEN PT WAKES UP. CALL LIGHT IS WITHIN REACH AND BED ALARM IS ON.
--- NOTE | 2018-09-11 00:47 | NUR ---
PT IS RESTING WITH EYES CLOSED, RESPIRATIONS ARE EVEN AND NONLABORED. CALL LIGHT IS WITHIN REACH.
--- NOTE | 2018-09-11 01:37 | NUR ---
IN ROOM TO ADMINISTER MEDICATION. PT DENIES NEEDS AT THIS TIME. CALL LIGHT IS CLOSE.
--- NOTE | 2018-09-11 04:01 | NUR ---
PT IS RESTING WITH EYES CLOSED, RESPIRATIONS ARE EVEN AND NONLABORED. CALL LIGHT IS WITHIN REACH.
--- NOTE | 2018-09-11 06:05 | NUR ---
VS & I&O'S ENTERED, PT REPORTS SOB HAS IMPROVED. HE WOULD LIKE COFFEE BUT DENIES FURTHER NEEDS AT THIS TIME. CALL LIGHT IS WITHIN REACH.
--- NOTE | 2018-09-11 06:08 | NUR ---
PT SLEPT WELL THROUGH THE NIGHT. HE REPORTS SOB HAS IMPROVED AND HE WAS ABLE TO EAT A FULL SANDWICH LAST NIGHT ALTHOUGH HE REPORTED A DECREASED APPETITE PRIOR TO ADMISSION. HE AMBULATES 1PA WITH FWW. HE IS ON 60G CARB DIET AND TAKES METFORMIN. HE IS ON 2 LNC WHICH IS CHRONIC FOR HIM.
--- NOTE | 2018-09-11 06:23 | NUR ---
PT AMBULATED WITH SBA TO BATHROOM, HAD A SOFT BM, BACK TO BED WITH NO INCREASE IN SOB. VOIDING IN URINAL INDEPENDENTLY. DAUGHTER IN ROOM, ON COUCH. PT UNAWARE SHE WAS IN ROOM.
--- NOTE | 2018-09-11 07:05 | NUR ---
BEDSIDE REPORT RECEIVED FROM DALJIT MARCOS. PT RESTING SUPINE IN BED. PT STATES HE HAS HAD GOOD PAIN CONTROL WITH THE ORAL OPIODS. CALL LIGHT AND H20 IN REACH. PT VERBALIZED EAGERNESS TO DISCHARGE TODAY. PT DENIES FURTHER NEEDS OR CONCERNS AT THIS TIME. FAMILY AT BEDSIDE.
--- NOTE | 2018-09-11 07:15 | NUR ---
PT RESTING IN SEMI FOWLERS POSITION IN BED WATCHING TV. CALL LIGHT AND H20 IN REACH. FAMILY AT BEDSIDE. BEDSIDE REPORT RECEIVED FROM DALJIT ISBELL. PT DENIES NEEDS OR CONCENRS AT THIS TIME.
--- NOTE | 2018-09-11 08:21 | NUR ---
PATIENT IN CHAIR EATING BREAKFAST. WARM WASHCLOTH OFFERED. CALL LIGHT IN REACH. NO FURTHER NEEDS AT THIS TIME.
--- NOTE | 2018-09-11 09:00 | NUR ---
IN TO VISIT WITH PT AND COMPLETE INITAIL CASE MANAGEMENT ASSESSMENT. PT SITTING UP IN CHAIR. 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 PT REPORTS HE WILL RETURN TO HIS CURRENT ADULT FOSTER HOME.
--- NOTE | 2018-09-11 09:16 | NUR ---
PT SITTING UP IN CHAIR STATES "I'M BREATHING MUCH BETTER AND FEEL SO MUCH BETTER TODAY. I GOT SOME OF THE BEST SLEEP I'VE HAD IN A LONG TIME LAST NIGHT". PT A/O. ASSESSMENT COMPLETED. CALL LIGHT AND H20 IN REACH. PT DENIES FURTHER NEEDS/CONCERNS.
--- NOTE | 2018-09-11 11:16 | NUR ---
PT SITTING UP IN CHAIR-ALERT AND ORIENTED. HE WELCOMED ME IN AND THANKED ME FOR COMING BY. HE MENTIONED THAT HE ALREADY WAS FEELING MUCH BETTER. HE BEGAN TO INFORM ME ABOUT HOW THINGS HAD BEEN AND HOW HE HAS JUST MOVED INTO A NEW CARE FACILITY. HE IS BREATHING EASIER AND ABLE TO EAT. PT REQUESTED PRAYER, WILL FOLLOW NEEDED
[2018-09-11] MEDS ORDERED: ASPIR 8181 MG PO (12:34)
[2018-09-11] MEDS ORDERED: TUMS200 MG PO (12:36)
[2018-09-11] MEDS ORDERED: [UNRECOGNIZED DRUG - OTHER] PO (12:39)
[2018-09-11] MEDS ORDERED: BROVANA15 MCG/2 M INH (12:41)
[2018-09-11] MEDS ORDERED: GLUCOSE TEST S1 EACH MISC (12:46)
[2018-09-11] MEDS ORDERED: BLOOD GLUCOSE1 EAC1 MISC (12:47)
--- NOTE | 2018-09-11 12:48 | NUR ---
MED REC COMPLETE
--- NOTE | 2018-09-11 13:30 | NUR ---
PT UP AMBULATING IN HALLS WITH MURALI DIAMOND. PT TOLERATED 2 LAPS AND BACK TO BED. ASSESSMENT COMPLETED. CALL LIGHT AND H20 IN REACH. PT SITTING UP WATCHING TV DENIES SOB/PAIN. NO NEEDS/CONCERNS VOICED.
--- NOTE | 2018-09-11 19:04 | NUR ---
IN ROOM FOR REPORT, PT DENIES NEEDS AT THIS TIME. CALL LIGHT IS WITHIN REACH.
--- NOTE | 2018-09-11 21:03 | NUR ---
VITALS AND I&OS DONE AND CHARTED. BEDSIDE TABLE AND CALL LIGHT IN REACH.
--- NOTE | 2018-09-11 21:15 | NUR ---
IN ROOM TO ASSESS PT AND ADMINISTER MEDICATIONS. PT REPORTS SOB HAS IMPROVED. HE STATES HIS NOSE IS DRY, SET UP HUMIDIFIED O2 FOR PT. HE HAD MULTIPLE BMS TODAY. HE DENIED PAIN AND NAUSEA. PT DENIES NEEDS AT THIS TIME. CALL LIGHT IS WITHIN REACH.
--- NOTE | 2018-09-11 23:19 | NUR ---
PT IS RESTING WITH EYES CLOSED, RESPIRATIONS ARE EVEN AND NONLABORED ON 2LNC. CALL LIGHT IS WITHIN REACH.
--- NOTE | 2018-09-12 01:16 | NUR ---
PT IS RESTING WITH EYES CLOSED, RESPIRATIONS ARE EVEN AND NONLABORED. CALL LIGHT IS WITHIN REACH.
--- NOTE | 2018-09-12 03:16 | NUR ---
PT IS RESTING WITH EYES CLOSED, RESPIRATIONS ARE EVEN AND NONLABORED. CALL LIGHT IS WITHIN REACH.
--- NOTE | 2018-09-12 04:29 | NUR ---
PT CALLED ASKING FOR A NEB TRT. HE STATES HE FEELS A LITTLE SOB. LUNGS SOUND DIMINISHED, NO WHEEZES AUSCULTATED. HE REQUESTED SOME COFFEE WELL. PT DENIES FURTHER NEEDS. CALL LIGHT IS WITHIN REACH.
--- NOTE | 2018-09-12 06:10 | NUR ---
VITALS AND I&OS DONE AND CHARTED. GARBAGES EMPTIED. BEDSIDE TABLE AND CALL LIGHT IN REACH. PT NEEDS NOTHING AT THIS TIME.
--- NOTE | 2018-09-12 06:48 | NUR ---
PT IS RESTING WITH EYES CLOSED, RESPIRATIONS ARE EVEN AND NONLABORED. CALL LIGHT IS WITHIN REACH.
--- NOTE | 2018-09-12 07:30 | NUR ---
PATIENT RESTING IN BED. PATIENT TRANSFERRED TO CHAIR. ONE PERSON ASSITING. HANDS AND FACE CLEANED. CALL LIGHT WITHIN REACH. NO OTHER NEEDS AT THIS TIME
--- NOTE | 2018-09-12 08:39 | NUR ---
PATIENT UP WALKIING IN HALLWAY. ONE PERSON ASSISTING. PATIENT BACKS TO CHAIR. CALL LIGHT WITHIN REACH. NO OTHER NEEDS AT THIS TIME
--- NOTE | 2018-09-12 08:45 | NUR ---
PT SITTING UP IN BED O2 WAS OFF OF PT AND RA SAT IS MAINTAINING AT 94% AND PT DENIES SOB. PT STATES "I ONLY USE O2 SOMETIMES AT HOME". PT ASSESSMENT COMPLETED, CALL LIGHT AND H20 IN REACH. PT STATES "I FEEL A LOT BETTER TODAY". PT DENIES FURHTER NEEDS/CONCERNS
--- NOTE | 2018-09-12 08:58 | NUR ---
PATIENT SITTING UP IN CHAIR. RN IN ROOM. VITAL SIGNS AND I&O DONE. CALL LIGHT WITHIN REACH. NO OTHER NEEDS AT THIS TIME
[2018-09-12] MEDS ORDERED: DOXYCYCLINE HY100 MG PO (09:55)
[2018-09-12] MEDS ORDERED: SENNA PLUS TAB1 EACH PO (09:56)
[2018-09-12] MEDS ORDERED: TRAZODONE HCL50 MG PO (09:56)
[2018-09-12] MEDS ORDERED: PREDNISONE20 MG PO (09:57)
--- NOTE | 2018-09-12 10:30 | NUR ---
PT UP AMBULATES IN HALLS WITH SBA. PT TOLERATES AMBULATION WELL ON RA. PT BACK TO ROOM. CALL LIGHT AND H20 IN REACH. PT RESUMES 2LPNC. PT DENIES FURTHER NEEDS/CONCERNS.
== END 2018-09-12 11:20 | disposition home or self-care (01) ==
LOC: ED 17:34 → MS 17:36
PROVIDERS: ADMIT Internal Medicine
DX: J44.1 Chronic obstructive pulmonary disease with (acute) exacerbation (principal); J96.11 Chronic respiratory failure with hypoxia; I10 Essential (primary) hypertension; E11.9 Type 2 diabetes mellitus without complications; N40.0 Benign prostatic hyperplasia without lower urinary tract symptoms; K59.00 Constipation, unspecified; F41.8 Other specified anxiety disorders; Z87.891 Personal history of nicotine dependence; Z79.84 Long term (current) use of oral hypoglycemic drugs; Z79.51 Long term (current) use of inhaled steroids; Z79.52 Long term (current) use of systemic steroids; Z79.899 Other long term (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
CPT/HCPCS: 36600; 71045; 80053; 82607; 82728; 82746; 82803; 83036; 83540; 83880; 84466; 84484; 85025; 93005; 93010; 94640; 94667; 94668; 96361; 96372; 96374; 96376; 99285-25; G0378; J1650; J2930; J7120

== ENCOUNTER 2018-09-23 18:46 | Emergency (ER) | payer MEDICARE, OTHER ==
[~2018-09-23] VITALS: Ht 172.7 cm; Wt 70.8 kg
--- OUTSIDE RECORDS SUMMARY | ~2018-09-23 | XMS | Clinical Summary ---
Demographics + + + | Address | [address] | | | [place] [address] | + + + | Home Phone | | + + + | Preferred Language | Unknown | + + + | Marital Status | | + + + | Buddhist Affiliation | Unknown | + + + | Race | Unknown | + + + | Ethnic Group | Unknown | + + + Author + + + | Author | [facility] [employer] | + + + | Organization | [facility] [employer] [facility] | + + + | Address | Unknown | + + + | Phone | Unavailable | + + + Support + + + + + | Name | Relationship | Address | Phone | + + + + + | Jerry Schmidt | ECON | [place] | | + + + + + | Amaris Schmidt | ECON | [place] , [place] | | + + + + + Care Team Providers + +------+ + | Care Electrocardiograph Technician Name | Role | Phone | + +------+ + | Adi Garrett MD | PP | | + +------+ + Allergies No Known Allergies Current Medications + + +--------+---------+------+------+-------+ | Prescription | Sig. | Disp. | Refills | Star | End | Statu | | | | | | t | Date | s | | | | | | Date | | | + + +--------+---------+------+------+-------+ | VENTOLIN HFA 108 | INHALE 2 PUFFS PO Q | | 11 | 01/0 | | Activ | | (90 Base) MCG/ACT | 2 H PRF SHORTNESS OF | | | 2/20 | | e | | inhaler | BREATH OR WHEEZING | | | 19 | | | + + +--------+---------+------+------+-------+ | BROVANA 15 MCG/2ML | INHALE THE CONTENTS | | 3 | 01/1 | | Activ | | NEBU | OF 1 VIAL VIA | | | /20 | | e | | | NEBULIZER BID | | | 19 | | | + + +--------+---------+------+------+-------+ | Blood Glucose | USE DAILY QID | | 0 | 01/0 | | Activ | | Monitoring Suppl | DIRECTED | | | 02/07 | | e | | (FREESTYLE LITE) | | | | 19 | | | | BONY | | | | | | | + + +--------+---------+------+------+-------+ | budesonide | INHALE THE CONTENTS | | 0 | 12/2 | | Activ | | (PULMICORT) 0.5 | OF 1 VIAL VIA | | | 4/20 | | e | | MG/2ML nebulizer | NEBULIZER BID | | | 18 | | | | suspension | | | | | | | + + +--------+---------+------+------+-------+ | FREESTYLE LITE | USE TO TEST QID | | 3 | 01/0 | | Activ | | test strip | | | | 9/20 | | e | | | | | | 19 | | | + + +--------+---------+------+------+-------+ | HUMULIN R 100 | | | 0 | 01/1 | | Activ | | UNIT/ML injection | | | | 0/20 | | e | | | | | | 19 | | | + + +--------+---------+------+------+-------+ | Insulin | USE QID DIRECTED | | 6 | 01/0 | | Activ | | Syringe-Needle U-100 | | | | 9/20 | | e | | (INSULIN SYRINGE | | | | 19 | | | | .5CC/30GX5/16") 30G | | | | | | | | X 5/16" 0.5 ML MISC | | | | | | | + + +--------+---------+------+------+-------+ | | INHALE THE CONTENTS | | 11 | 12/3 | | Activ | | ipratropium-albutero | OF 1 VIAL VIA | | | 1/20 | | e | | l (DUO-NEB) 0.5-2.5 | NEBULIZER Q 4 H | | | 18 | | | | mg/3mL | | | | | | | + + +--------+---------+------+------+-------+ | lisinopril | TK 1 T PO QD | | 3 | 12/1 | | Activ | | (ZESTRIL) 20 MG | | | | 20 | | e | | tablet | | | | 18 | | | + + +--------+---------+------+------+-------+ | LORazepam (ATIVAN) | TK 1 T PO 3 XD PRA | | 0 | 11/2 | | Activ | | 1 MG tablet | | | | 8/20 | | e | | | | | | 18 | | | + + +--------+---------+------+------+-------+ | metFORMIN | TK 1 T PO BID WAC | | 3 | 01/ | | Activ | | (GLUCOPHAGE) 500 MG | | | | 6/20 | | e | | tablet | | | | 19 | | | + + +--------+---------+------+------+-------+ | DALIRESP 250 MCG | TK 1 T PO QD | | 3 | 01/0 | | Activ | | TABS | | | | 3/20 | | e | | | | | | 19 | | | + + +--------+---------+------+------+-------+ | tamsulosin | TK 1 C PO QD | | 3 | 12/3 | | Activ | | (FLOMAX) 0.4 MG | | | | 1/20 | | e | | capsule | | | | 18 | | | + + +--------+---------+------+------+-------+ | predniSONE | Take 30 mg daily for | 15 | 0 | 01/2 | | Activ | | (DELTASONE) 10 MG | 2 days, then 20 mg | tablet | | 7/20 | | e | | tablet | daily for 2 days, | | | 19 | | | | | then 10 mg daily for | | | | | | | | 2 days, then 5 mg | | | | | | | | daily for 2 days, | | | | | | | | then stop. | | | | | | + + +--------+---------+------+------+-------+ | glimepiride | Take 1 tablet by | 30 | 1 | 05/22 | 05/22 | Activ | | (AMARYL) 2 MG tablet | mouth every morning | tablet | | 12/07 | 12/07 | e | | | before breakfast. | | | 19 | 20 | | + + +--------+---------+------+------+-------+ | aspirin 81 MG | Take 81 mg by mouth | | | | | Activ | | tablet | daily. | | | | | e | + + +--------+---------+------+------+-------+ | traZODone | Take 50 mg by mouth | | | | | Activ | | (DESYREL) 50 MG | nightly. | | | | | e | | tablet | | | | | | | + + +--------+---------+------+------+-------+ Active Problems + + + | Problem | Noted Date | + + + | Generalized weakness | 06/15/2018 | + + + | COPD with acute exacerbation (HCC) | 06/14/2018 | + + + | Acute on chronic respiratory failure with hypoxia (HCC) | 06/14/2018 | + + + | Bandemia | 06/14/2018 | + + + | Pneumonia of left lower lobe due to infectious organism (HCC) | 06/14/2018 | + + + Encounters +--------+ + + + + | Date | Type | Specialty | Care Team | Description | +--------+ + + + + | 07/30/ | Office | | Chip Claros MD | Centrilobular | | 2018 | Visit | | | emphysema (HCC) | | | | | | (Primary Dx) | +--------+ + + + + | 07/30/ | Documentati | | Clifton Feliciano, | Other (3-STEP) | | 2019 | on Only | | [place] | | +--------+ + + + + from Last 3 Months Social History + +-------+ +--------+ + | [...] on file | | + + + Last Filed Vital Signs + + + [...] PM PDT | + + + + Plan of Treatment +--------+---------+ + + + | Date | Type | Specialty | Care Team | Description | +--------+---------+ + + + | 10/08/ | Office | | Chip Claros MD | | | 2019 | Visit | | [address] | | | | | | [place] [address] | | | | | | [phone] | | | | | | | | +--------+---------+ + + + Results Not on filefrom Last 3 Months Insurance + +--------+ +------+-------+ + | Payer | Benefi | Subscriber | Type | Phone | Address | | | t Plan | ID | | | | | | / | | | | | | | Group | | | | | + +--------+ +------+-------+ + | MEDICARE | MEDICA | [id number] | | | [address] | | | RE | | | | [place] [address] | | | IP-OP | | | | | + +--------+ +------+-------+ + | MEDICAID | EASTER | [id number] | | | [address] | | | N | | | | [place], [place] | | | [place] | | | | [address] | | | PULLEY MORTISER OPERATOR | | | | | + +--------+ +------+-------+ + + +--------+ +--------+ + + | Guarantor Name | Accoun | Relation to | Date | Phone | Billing Address | | | t Type | Patient | of | | | | | | | | | | + +--------+ +--------+ + + | DAVID SCHMIDT | Person | Self | [birth year] Home: | [address] | | | al/Fam | | 1935 | [phone] | [place] [address] | | | [place] | | | [phone] | | + +--------+ +--------+ + +
--- OUTSIDE RECORDS SUMMARY | ~2018-09-23 | XMS | Clinical Summary ---
Demographics + + + | Address | [address] | | | [place] [address] | + + + | Home Phone | | + + + | Preferred Language | Unknown | + + + | Marital Status | Single | + + + | Rastafari Affiliation | Unknown | + + + | Race | White | + + + | Ethnic Group | Not or | + + + Author + + + | Author | [facility] | + + + | Organization | [facility] | + + + | Address | Unknown | + + + | Phone | Unavailable | + + + Support + + + + + | Name | Relationship | Address | Phone | + + + + + | LUL SCHMIDT | ECON | [address] | | | | | [place], [place] | | | | | [address] | | + + + + + | SHANNON PENA | ECON | [address] | | | | | [place], [place] | | | | | [address] | | + + + + + Care Team Providers + +------+ + | Care Press Reader Name | Role | Phone | + +------+ + | Resident, Mala Generic | PP | Unavailable | + +------+ + Source Comments LORENA is fully live on both [facility] Ambulatory and [facility] InPatient.[facility] Allergies No Known Allergies Current Medications + + +-------+---------+------+------+-------+ | Prescription | Sig. | Disp. | Refills | Star | End | Statu | | | | | | t | Date | s | | | | | | Date | | | + + +-------+---------+------+------+-------+ | albuterol 0.083% | INHALE THE CONTENTS | | 3 | 10/1 | | Activ | | 2.5 mg /3 mL (0.083 | OF 1 VIAL VIA | | | 0/20 | | e | | %) inhalation | NEBULIZER Q 4 H PRF | | | 18 | | | | solution for | WHEEZING | | | | | | | nebulization | | | | | | | + + +-------+---------+------+------+-------+ | amLODIPine 5 mg | TK 1 T PO QD HS FOR | | 3 | 10/0 | | Activ | | oral tablet | HIGH BP | | | 1/20 | | e | | | | | | 18 | | | + + +-------+---------+------+------+-------+ | budesonide 0.5 | INHALE THE CONTENTS | | 8 | 10/1 | | Activ | | mg/2 mL inhalation | OF 1 VIAL VIA | | | 0/20 | | e | | suspension for | NEBULIZER BID | | | 18 | | | | nebulization | | | | | | | + + +-------+---------+------+------+-------+ | | TK 1 T PO QD FOR | | 3 | 10/0 | | Activ | | lisinopril-hydrochlo | HIGH BP | | | 1/20 | | e | | rothiazide 20-12.5 | | | | 18 | | | | mg oral tablet | | | | | | | + + +-------+---------+------+------+-------+ | tamsulosin 0.4 mg | TK 1 C PO QD 30 | | 3 | 10/0 | | Activ | | oral capsule | MINUTES AFTER THE | | | 06/09 | | e | | | SAME MEAL | | | 18 | | | + + +-------+---------+------+------+-------+ Active Problems + + + | Problem | Noted Date | + + + | COPD (chronic obstructive pulmonary disease) (HCC) | 03/30/2018 | + + + | BPH (benign prostatic hyperplasia) | 03/30/2018 | + + + | Essential hypertension, benign | 03/30/2018 | + + + | Asteroid hyalosis of right eye | 03/30/2018 | + + + + + | Last Assessment & Plan: Extremely dense centrally with no | | view of the macula or disc. There is a question of whether such | | dense asteroid may be visually significant in this patient. 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 Observe for now Will return for a | | formal B-scan ultrasound in 2-3 weeks to rule out a neoplastic | | lesionLeft eye:Drusen noted in the left eye. Start | | CKDS/Amsler | + + Social History + +-------+ +--------+------+ [...] on file | | + + + Plan of Treatment + + + + + | Health Maintenance | Due Date | Last Done | Comments | + + + + + | Pneumococcal (Adult) | | | | | (1 of 2 - PCV13) | 2 | | | + + + + + | Influenza (Flu) | | | | | vaccination (#1) | 8 | | | + + + + + Results Not on filefrom Last 3 Months Insurance + +--------+ +--------+ + + | Payer | Benefi | Subscriber | Type | Phone | Address | | | t Plan | ID | | | | | | / | | | | | | | Group | | | | | + +--------+ +--------+ + + | MEDICARE | MEDICA | xxxxxxxxxxx | Medica | [id number] | [address] | | | [place] A & | | re | [phone] | [place] [address] | | | B | | | | | + +--------+ +--------+ + + | MEDICAID [place] | OHP | xxxxxxxx | Medica | [phone] | [address] [address] | | | PLUS | | id | [phone] | [place] [address] | | | OPEN | | | | | | | CARD | | | | | + +--------+ +--------+ + + + +--------+ +--------+ + + | Guarantor Name | Accoun | Relation to | Date | Phone | Billing Address | | | t Type | Patient | of | | | | | | | | | | + +--------+ +--------+ + + | ROMA SCHMIDT | Person | Self | [birth year] | Home: | [address] | | | al/Fam | | 1935 | [phone] | [place] [address] | | | [place] | | | [phone] | | + +--------+ +--------+ + +"
--- OUTSIDE RECORDS SUMMARY | ~2018-09-23 | XMS | Clinical Summary ---
Demographics + + + | Address | [address] | | | [place] [address] | + + + | Home Phone | | + + + | Preferred Language | Unknown | + + + | Marital Status | | + + + | Rastafari Affiliation | Unknown | + + + | Race | Unknown | + + + | Ethnic Group | Unknown | + + + Author + + + | Author | [facility] | + + + | Organization | [facility] [facility] | + + + | Address [...] Team Providers + +------+ + | Care Boat Joiner Helper Name | Role | Phone | + [...] [address] | | | | | | [place] [address] | | | | | | [phone] | | | | | | | [...] +------+-------+ + | MEDICARE | MEDICA | [id number] | | | [address] | | | RE | | | | [place] [address] | | | IP-OP | | | | | + +--------+ +------+-------+ + | MEDICAID | EASTER | [id number] | | | [address] | | | N | | | | [place], [place] | | | [place] | | | | [address] | | | BEEF LUGGER | | | | | + +--------+ [...] | 1935 | [phone] | [place] [address] | | | [place] | | | [address] | | + +--------+ +--------+ + +
--- OUTSIDE RECORDS SUMMARY | ~2018-09-23 | XMS | Encounter Summary ---
Demographics + + + | Address | [address] | | | [place] [address] | + + + | Home Phone | | + + + | Preferred Language | Unknown | + + + | Marital Status | | + + + | Pentecostalism Affiliation | Unknown | + + + | Race | Unknown | + + + | Ethnic Group | Unknown | + + + Author + + + | Author | [facility] [employer] | + + + | Organization | [facility] [employer] | + + + | Address [...] Team Providers + +------+ + | Care Material Movers Name | Role | Phone | + [...] [place] | | | | | | [place], [place] | | | | | | [address] | | | | | | [phone] | | | +--------+ + + + [...] PM PDT3 step testing Oximetry Exercise (code) 79200 1. At rest on room air: Time: [...] | | | | | [place] [address] | | | | | | [phone] | | | | | | | | +--------+---------+ + + + as of this encounter Visit Diagnoses Not on filein this encounter"
--- OUTSIDE RECORDS SUMMARY | ~2018-09-23 | XMS | Encounter Summary ---
Demographics + + + | Address | [address] | | | [place] [address] | + + + | Home Phone | | + + + | Preferred Language | Unknown | + + + | Marital Status | | + + + | Denominational Affiliation | Unknown | + + + | Race | Unknown | + + + | Ethnic Group | Unknown | + + + Author + + + | Author | [facility] [employer] | + + + | Organization | [facility] [employer] | + + + | Address [...] Team Providers + +------+ + | Care Resource Forester Name | Role | Phone | + [...] JYOTSNA LÓPEZ | | | | | ([facility]) | [place], | [place], [place] | | | | | Procedures | [place] [address] | [address] | | | | | Complete PFT | Phone: | Phone: | | | | | - Pre & | [phone] | [phone] | | | | | Post | Fax: | Fax: | | | | | Spirometry, | [phone] | [phone] | | | | | PLETH & [...] | | | disease, | [place], | [facility] [place] | | | | | unspecified | [place] [address] | [address] Phone: | | | | | (HCC) | Phone: | [phone] | | | | | | [phone] | Fax: | | | | | | Fax: | [phone] | | | | | | [phone] | | + +--------+ + + + + Encounter Details +--------+---------+ + + + | Date | Type | Department | Care Team | Description | +--------+---------+ + + + | 07/30/ | Office | [facility] | Chip Claros MD | Centrilobular | | 2019 | Visit | Pulmonology [address] | [address] | emphysema (HCC) | | | | [address] | [place] [address] | (Primary Dx) | | | | [place], [place] | [phone] | | | | | [address] | | | | | | [phone] | | | +--------+---------+ + + + [...] order a PFT to be done at [facility] in this encounter Progress Notes Chip Claros [...] got all his medications with him. His ulvmdubp-fk-kzn who is also his caregiver, give s [...] left lung base. Pulmonary function test 2016 [facility] severe obstructive impairment with very s [...] function test which will be done at [facility] - Complete PFT - Pre [...] Claros MD Pulmonary and Critical Care Medicine [facility] [address] [facility] , [place] [address] in this encounter Plan of Treatment +--------+---------+ + + + | Date | Type | Specialty | Care Team | Description | +--------+---------+ + + + | 10/08/ | Office | Pulmonology | Chip Claros MD | | | 2019 | Visit | | [address] | | | | | | [place] [address] | | | | | | [phone] | | | | | | | [...]
--- OUTSIDE RECORDS SUMMARY | ~2018-09-23 | XMS | Encounter Summary ---
Demographics + + + | Address | [address] | | | [place] [address] | + + + | Home Phone | | + + + | Preferred Language | Unknown | + + + | Marital Status | | + + + | Jain Affiliation | Unknown | + + + | Race | Unknown | + + + | Ethnic Group | Unknown | + + + Author + + + | Author | [facility] [employer] | + + + | Organization | [facility] [employer] | + + + | Address [...] Team Providers + +------+ + | Care Bilingual Counter Sales Retail Name | Role | Phone | + [...] [place] | | | | | | [place], [place] | | | | | | [address] | | | | | | [phone] | | | +--------+ + + + [...] PM PDT3 step testing Oximetry Exercise (code) 37442 1. At rest on room air: Time: [...] | | | | | [place] [address] | | | | | | [phone] | | | | | | | | +--------+---------+ + + + as of this encounter Visit Diagnoses Not on filein this encounter"
--- OUTSIDE RECORDS SUMMARY | ~2018-09-23 | XMS | Encounter Summary ---
Demographics + + + | Address | [address] | | | [place] [address] | + + + | Home Phone | | + + + | Preferred Language | Unknown | + + + | Marital Status | | + + + | Church Affiliation | Unknown | + + + | Race | Unknown | + + + | Ethnic Group | Unknown | + + + Author + + + | Author | [facility] [employer] | + + + | Organization | [facility] [employer] | + + + | Address [...] Team Providers + +------+ + | Care Slag Wheeler Name | Role | Phone | + [...] LÓPEZ | | | | | ([facility]) | [place], | [place], [place] | | | | | Procedures | [place] [address] | [address] | | | | | Complete PFT | Phone: | Phone: | | | | | - Pre & | [phone] | [phone] | | | | | Post | Fax: | Fax: | | | | | Spirometry, | [phone] | [phone] | | | | | PLETH & [...] | | | disease, | [place], | [facility] [place] | | | | | unspecified | [place] [address] | [address] Phone: | | | | | (HCC) | Phone: | [phone] | | | | | | [phone] | Fax: | | | | | | Fax: | [phone] | | | | | | [phone] | | + +--------+ + + + + Encounter Details +--------+---------+ + + + | Date | Type | Department | Care Team | Description | +--------+---------+ + + + | 07/30/ | Office | [facility] | Chip Claros MD | Centrilobular | | 2019 | Visit | Pulmonology [address] | [address] | emphysema (HCC) | | | | [address] | [place] [address] | (Primary Dx) | | | | [place], [place] | [phone] | | | | | [address] | | | | | | [phone] | | | +--------+---------+ + + + [...] order a PFT to be done at [facility] in this encounter Progress Notes Chip Claros [...] got all his medications with him. His xegnkgtt-kz-cdo who is also his caregiver, give s [...] left lung base. Pulmonary function test 2016 [facility] severe obstructive impairment with very s [...] function test which will be done at [facility] - Complete PFT - Pre & Post [...] Claros MD Pulmonary and Critical Care Medicine [facility] [address] [facility] , [place] [address] in this encounter Plan of Treatment +--------+---------+ + + + | Date | Type | Specialty | Care Team | Description | +--------+---------+ + + + | 10/08/ | Office | Pulmonology | Chip Claros MD | | | 2019 | Visit | | [address] | | | | | | [place] [address] | | | | | | [phone] | | | | | | | [...]
--- OUTSIDE RECORDS SUMMARY | ~2018-09-23 | XMS | Clinical Summary ---
Demographics + + + | Address | [address] | | | [place] [address] | + + + | Home Phone | | + + + | Preferred Language | Unknown | + + + | Marital Status | Single | + + + | Church Affiliation | Unknown | + + + | Race | White | + + + | Ethnic Group | Not or | + + + Author + + + | Author | [facility] | + + + | Organization | [facility] | + + + | Address | Unknown | + + + | Phone | Unavailable | + + + Support + + + + + | Name | Relationship | Address | Phone | + + + + + | LUL SCHMIDT | ECON | [address] | | | | | [place], [place] | | | | | [address] | | + + + + + | SHANNON PENA | ECON | [address] | | | | | [place], [place] | | | | | [address] | | + + + + + Care Team Providers + +------+ + | Care Editorial Project Manager Name | Role | Phone | + +------+ + | Resident, Mala Generic | PP | Unavailable | + +------+ + Source Comments LORENA is fully live on both [facility] and [facility] InPatient.[facility] Allergies No Known Allergies Current Medications + [...] | MEDICA | xxxxxxxxxxx | Medica | [phone] | [address] | | | RE A & | | re | [phone] | [place] [address] | | | B | | | | | + +--------+ +--------+ + + | [place]ICAID [place] | OHP | xxxxxxxx | Medica | [phone] [address] | | | PLUS | | id | [phone] | [place] [address] | | | OPEN | | | [...] | 1935 | [phone] | [place] [address] | | | kareem | | | [address] | | + +--------+ +--------+ + +"
[~2018-09-23 18:46] MED LIST changes: +BROVANA15 MCG/2 M INH; +SENNA PLUS TAB1 EACH PO; +TUMS200 MG PO; +[UNRECOGNIZED DRUG - OTHER] PO
--- OUTSIDE RECORDS SUMMARY | 2018-09-23 18:48 | XMS ---
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 Security Rehabilitation Coordinator Events No recent Security Events currently on file CRITERIA MET - 6 ED Visits in 6 Months - - Has Care Guidelines - - 2 Visits in 30 Days CARE PROVIDERS MARCELA NELSON Internal Medicine 04/03/2018-Current SANDEEP PHONE: [phone] Cassidy Jim Primary Care 09/02/2018-Current PHONE: [phone] MARCELA NELSON Primary Care 04/05/2016-Current PHONE: Unknown Other Current PHONE: Unknown Maria R has no Care Guidelines for this patient. Care History Medical/Surgical 07/10/2018 [facility] - PATIENT IS CURRENTLY ON SERVICES WITH PULMONARY REHAB AT [facility]. 05/23/2018 [facility] PATIENT NEXT APPOINTMENT WITH DR NELSON:\T\nbsp; May. 04/03/2018 [facility] - PATIENT HAS AN APT WITH DR NELSON ON 04/17/18. - Patient is currently established with [facility]. If patient is seen in the ED during business hours. Please contact CHWs at [facility]. Care Recommendation: This patient has had 5 [...] care. E.D. VISIT COUNT (12 MO.) 1 [facility] 20 [facility]. TOTAL 21 NOTE: Visits indicate total known visits. ED/UCC VISIT TRACKING (12 MO.) 09/23/2018 18:46 [facility] TYPE: Emergency COMPLAINT: - LOSE OF SLEEP/SOB 09/10/2018 17:35 [facility] TYPE: Emergency COMPLAINT: - SHORTNESS OF BREATH 09/08/2018 19:40 [facility] TYPE: Emergency COMPLAINT: - DIFFICULTY BREATHING DIAGNOSES: - Essential (primary) hypertension - Chronic obstructive pulmonary disease with (acute) exacerbation - senior care (current) use of aspirin - Shortness of breath - Allergy status to penicillin - Personal history of nicotine dependence - Other half-way (current) drug therapy 08/26/2018 04:26 [facility] TYPE: Emergency COMPLAINT: - SOB DIAGNOSES: - Essential (primary) hypertension - Other half-way (current) drug therapy - senior care (current) use of systemic steroids - senior care (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 - Chronic obstructive pulmonary disease with (acute) exacerbation - Shortness of breath - Allergy status to penicillin - Personal history of nicotine dependence 08/10/2018 10:13 [facility] TYPE: Emergency COMPLAINT: - SOB DIAGNOSES: - Other buttermaker continuous churn (current) drug therapy - Chronic obstructive pulmonary disease with (acute) exacerbation - Personal history of nicotine dependence - Shortness of breath - senior care (current) use of aspirin - Allergy status to penicillin - Essential (primary) hypertension 07/14/2018 17:25 [facility] TYPE: Emergency COMPLAINT: - SOB DIAGNOSES: - Shortness of breath - 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 - Personal history of nicotine dependence - Other buttermaker continuous churn (current) drug therapy - Allergy status to penicillin - Essential (primary) hypertension - Chronic obstructive pulmonary disease, unspecified 07/09/2018 20:05 [facility] TYPE: Emergency COMPLAINT: - SOB DIAGNOSES: - Shortness of breath - senior care (current) use of aspirin - Allergy status to penicillin - Essential (primary) hypertension - Chronic obstructive pulmonary disease with (acute) exacerbation - Personal history of nicotine dependence - Other buttermaker continuous churn (current) drug therapy - Benign prostatic hyperplasia without lower urinary tract symptoms 06/14/2018 18:43 [facility] TYPE: Emergency DIAGNOSES: - Chronic obstructive pulmonary disease with (acute) exacerbation - Hypoxemia - Shortness of Breath - Chest Pain 06/13/2018 20:20 [facility] TYPE: Emergency COMPLAINT: - DIFFICULTY BREATHING 06/12/2018 12:59 [facility] TYPE: Emergency COMPLAINT: - SOB DIAGNOSES: - Candidal stomatitis - Allergy status to penicillin - Shortness of breath - Other half-way (current) drug therapy - Essential (primary) hypertension - Personal history of nicotine dependence - Chronic obstructive pulmonary disease with (acute) exacerbation - Chronic obstructive pulmonary disease with (acute) exacerbation - 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 06/08/2018 19:37 [facility] TYPE: Emergency COMPLAINT: - DIFFICULTY BREATHING 06/08/2018 01:29 [facility] TYPE: Emergency COMPLAINT: - DIFFICULTY BREATHING DIAGNOSES: - senior care (current) use of aspirin - Essential (primary) hypertension - Other half-way (current) drug therapy - Personal history of nicotine dependence - Chronic obstructive pulmonary disease with (acute) exacerbation - superintendent container terminal (current) 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 of systemic 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 - Allergy status to penicillin - Shortness of breath 05/24/2018 07:27 [facility] TYPE: Emergency COMPLAINT: - SOB 05/22/2018 01:46 [facility] TYPE: Emergency COMPLAINT: - SOB DIAGNOSES: - Other half-way (current) drug therapy - Hyperglycemia, unspecified - Chronic obstructive pulmonary disease with (acute) exacerbation - Nicotine dependence, unspecified, uncomplicated - superintendent container terminal (current) use of systemic steroids - Essential (primary) hypertension - Shortness of breath - Allergy status to penicillin - senior care (current) use of aspirin 05/03/2018 01:09 [facility] TYPE: Emergency COMPLAINT: - DIFFICUTLY BREATHING 04/16/2018 22:51 [facility] TYPE: Emergency COMPLAINT: - ANXIETY,SOB DIAGNOSES: - Chronic obstructive pulmonary disease, unspecified - Other buttermaker continuous churn (current) drug therapy - Nicotine dependence, unspecified, uncomplicated - superintendent container terminal (current) use of systemic steroids - superintendent container terminal (current) use of aspirin - Essential (primary) hypertension - Allergy status to penicillin - Anxiety disorder, unspecified 04/15/2018 19:41 [facility] TYPE: Emergency COMPLAINT: - SHORTNESS OF BREATH/CONSTIPATION DIAGNOSES: - Shortness of breath - Essential (primary) hypertension - Constipation, unspecified - Nicotine dependence, unspecified, uncomplicated - Chronic obstructive pulmonary disease with (acute) exacerbation - Allergy status to penicillin - Other buttermaker continuous churn (current) drug therapy 04/02/2018 20:47 [facility] TYPE: Emergency COMPLAINT: - SOB DIAGNOSES: - Nicotine dependence, unspecified, uncomplicated - senior care (current) use of aspirin - Chronic obstructive pulmonary disease with (acute) exacerbation - Allergy status to penicillin - Essential (primary) hypertension - Shortness of breath - Other buttermaker continuous churn (current) drug therapy 03/16/2018 20:53 [facility] TYPE: Emergency COMPLAINT: - SOB,WEAKNESS DIAGNOSES: - Allergy status to penicillin - Other buttermaker continuous churn (current) drug therapy - Chronic obstructive pulmonary disease with (acute) exacerbation - Nicotine dependence, unspecified, uncomplicated - Shortness of breath - Essential (primary) hypertension 11/15/2017 19:51 [facility] TYPE: Emergency COMPLAINT: - SWOLLEN GLANDS DIAGNOSES: - Nicotine dependence, unspecified, uncomplicated - Other buttermaker continuous churn (current) drug therapy - Chronic obstructive pulmonary disease, unspecified - Acute pharyngitis, unspecified - Sialoadenitis, unspecified - Essential (primary) hypertension - Allergy status to penicillin Plus 1 More Visit INPATIENT VISIT TRACKING (12 MO.) 09/10/2018 17:36 [facility] TYPE: Observation COMPLAINT: - COPD EXACERBATION DIAGNOSES: - superintendent container terminal (current) use of systemic steroids - Other half-way (current) drug therapy - Other specified anxiety disorders - Chronic respiratory failure with hypoxia - Personal history of nicotine dependence - Type 2 diabetes mellitus without complications - Benign prostatic hyperplasia without lower urinary tract symptoms - Essential (primary) hypertension - senior care (current) use of oral hypoglycemic drugs - Shortness of breath - Chronic obstructive pulmonary disease with (acute) exacerbation - Constipation, unspecified - senior care (current) use of inhaled steroids [facility] DIAGNOSES: - Chronic obstructive pulmonary disease with (acute) exacerbation - Hypoxemia 06/13/2018 20:21 [facility] TYPE: Observation COMPLAINT: - DEHYDRATION DIAGNOSES: - Essential (primary) hypertension - Other half-way (current) drug therapy - senior care (current) use of inhaled steroids - superintendent container terminal (current) use of antibiotics - senior care (current) use of systemic steroids - 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 - Adjustment disorder with depressed mood - Anxiety disorder, unspecified - Dehydration - Weakness - senior care (current) use of aspirin - Personal history [...] - Allergy status to penicillin - senior care (current) use of aspirin - superintendent container terminal (current) use of inhaled steroids - 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 - superintendent container terminal (current) use of non-steroidal anti-inflammatories (NSAID) - Shortness of breath - Other half-way (current) drug therapy - superintendent container terminal (current) use of systemic steroids - Adverse [...] hyperplasia without lower urinary tract symptoms - senior care (current) use of systemic steroids - Acute and chronic respiratory failure with hypoxia - senior care (current) use of inhaled steroids - superintendent container terminal (current) use of aspirin - Cramp and spasm - Other buttermaker continuous churn (current) drug therapy - Chronic obstructive pulmonary disease with (acute) exacerbation - superintendent container terminal (current) use of oral hypoglycemic drugs - Adverse effect of glucocorticoids and synthetic analogues, initial encounter 05/03/2018 01:10 [facility] TYPE: Observation COMPLAINT: - COPD EXACERBATION DIAGNOSES: - Other half-way (current) drug therapy - Benign prostatic hyperplasia without lower urinary tract symptoms - Allergy status to penicillin - Chronic obstructive pulmonary disease with (acute) exacerbation - superintendent container terminal (current) 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 of 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 - Nicotine dependence, unspecified, uncomplicated - Essential (primary) hypertension - Nicotine dependence, cigarettes, uncomplicated - Shortness of breath - senior care (current) use of inhaled steroids - Personal history of traumatic brain injury 04/03/2018 11:16 [facility] TYPE: Observation COMPLAINT: - COPD EXACERBATION DIAGNOSES: - Essential (primary) hypertension - Allergy status to penicillin - senior care (current) use of inhaled steroids - Benign prostatic hyperplasia without lower urinary tract symptoms - Nicotine dependence, cigarettes, uncomplicated - Other buttermaker continuous churn (current) drug therapy - Cramp and spasm - superintendent container terminal (current) use of aspirin - superintendent container terminal (current) use of systemic steroids - Chronic obstructive pulmonary disease with (acute) exacerbation [email or web address]
[2018-09-23] MEDS ORDERED: VISTARIL25 MG PO (19:47)
== END 2018-09-23 20:11 | disposition home or self-care (01) ==
LOC: ED 18:46
DX: F41.9 Anxiety disorder, unspecified (principal); J44.9 Chronic obstructive pulmonary disease, unspecified; I10 Essential (primary) hypertension; Z87.891 Personal history of nicotine dependence; Z88.0 Allergy status to penicillin; Z79.899 Other long term (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; Z79.52 Long term (current) use of systemic steroids
CPT/HCPCS: 99283

== ENCOUNTER 2018-10-29 19:29 | Emergency (ER) | payer MEDICARE, OTHER ==
[~2018-10-29] VITALS: Ht 172.7 cm; Wt 70.8 kg
[~2018-10-29 19:29] MED LIST changes: +VISTARIL25 MG PO
--- OUTSIDE RECORDS SUMMARY | 2018-10-29 19:32 | XMS ---
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 Security Pretzel Twister Events No recent Security Events currently on file CRITERIA MET - 6 ED Visits in 6 Months - [facility] - Has 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 Care History Medical/Surgical 07/10/2018 [facility] - PATIENT IS CURRENTLY ON SERVICES WITH PULMONARY REHAB AT [facility]. - UPDATE DR NELSON PCP-MAKING REFERRAL TO [facility] FOR PATIENT. 05/23/2018 [facility] PATIENT NEXT APPOINTMENT WITH DR NELSON:\T\nbsp; May. 04/03/2018 [facility] - PATIENT HAS AN APT WITH DR NELSON ON 04/17/18. - Patient is currently established with [facility]. If patient is seen in the ED during business hours. Please contact CHWs at [facility]. Care Recommendation: This patient has had [...] care. E.D. VISIT COUNT (12 MO.) [address] [place] [address] 21 [facility] TOTAL 22 NOTE: Visits indicate total known visits. ED/UCC VISIT TRACKING (12 MO.) 10/29/2018 19:29 [facility] [place] TYPE: Emergency COMPLAINT: - STRESSED,CONSTIPATION 09/23/2018 18:46 [facility] [place] TYPE: Emergency COMPLAINT: - LOSE OF SLEEP/SOB DIAGNOSES: - Chronic obstructive pulmonary disease, unspecified - Anxiety disorder, unspecified - Other group home (current) drug therapy - Personal history of nicotine dependence - termination clerk (current) use of systemic steroids - Allergy status to penicillin - Essential (primary) hypertension 09/10/2018 17:35 [facility] [place] TYPE: Emergency COMPLAINT: - SHORTNESS OF BREATH 09/08/2018 19:40 [facility] [place] TYPE: Emergency COMPLAINT: - DIFFICULTY BREATHING DIAGNOSES: - Essential (primary) hypertension - Chronic obstructive pulmonary disease with (acute) exacerbation - termination clerk (current) use of aspirin - Shortness of breath - Allergy status to penicillin - Personal history of nicotine dependence - Other terminal supervisor (current) drug therapy 08/26/2018 04:26 [facility] [place] TYPE: Emergency COMPLAINT: - SOB DIAGNOSES: - Essential (primary) hypertension - Other group home (current) drug therapy - termination clerk (current) use of systemic steroids - assisted (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 - Chronic obstructive pulmonary disease with (acute) exacerbation - Shortness of breath - Allergy status to penicillin - Personal history of nicotine dependence 08/10/2018 10:13 [facility] [place] TYPE: Emergency COMPLAINT: - SOB DIAGNOSES: - Other group home (current) drug therapy - Chronic obstructive pulmonary disease with (acute) exacerbation - Personal history of nicotine dependence - Shortness of breath - assisted (current) use of aspirin - Allergy status to penicillin - Essential (primary) hypertension 07/14/2018 17:25 [facility] [place] TYPE: Emergency COMPLAINT: - SOB DIAGNOSES: - Shortness of breath - termination clerk (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 - Personal history of nicotine dependence - Other group home (current) drug therapy - Allergy status to penicillin - Essential (primary) hypertension - Chronic obstructive pulmonary disease, unspecified 07/09/2018 20:05 [facility] [place] TYPE: Emergency COMPLAINT: - SOB DIAGNOSES: - Shortness of breath - assisted (current) use of aspirin - Allergy status to penicillin - Essential (primary) hypertension - Chronic obstructive pulmonary disease with (acute) exacerbation - Personal history of nicotine dependence - Other terminal supervisor (current) drug therapy - Benign prostatic hyperplasia without lower urinary tract symptoms 06/14/2018 18:43 [facility] TYPE: Emergency DIAGNOSES: - Chronic obstructive pulmonary disease with (acute) exacerbation - Hypoxemia - Shortness of Breath - Chest Pain 06/13/2018 20:20 [facility] [place] TYPE: Emergency COMPLAINT: - DIFFICULTY BREATHING 06/12/2018 12:59 [facility] [place] TYPE: Emergency COMPLAINT: - SOB DIAGNOSES: - Candidal stomatitis - Allergy status to penicillin - Shortness of breath - Other terminal supervisor (current) drug therapy - Essential (primary) hypertension - Personal history of nicotine dependence - Chronic obstructive pulmonary disease with (acute) exacerbation - Chronic obstructive pulmonary disease with (acute) exacerbation - termination clerk (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 06/08/2018 19:37 [facility] [place] TYPE: Emergency COMPLAINT: - DIFFICULTY BREATHING 06/08/2018 01:29 [facility] [place] TYPE: Emergency COMPLAINT: - DIFFICULTY BREATHING DIAGNOSES: - termination clerk (current) use of aspirin - Essential (primary) hypertension - Other group home (current) drug therapy - Personal history of nicotine dependence - Chronic obstructive pulmonary disease with (acute) exacerbation - termination clerk (current) use of systemic steroids - Allergy status to penicillin - Shortness of breath 05/24/2018 07:27 [facility] [place] TYPE: Emergency COMPLAINT: - SOB 05/22/2018 01:46 [facility] [place] TYPE: Emergency COMPLAINT: - SOB DIAGNOSES: - Other group home (current) drug therapy - Hyperglycemia, unspecified - Chronic obstructive pulmonary disease with (acute) exacerbation - Nicotine dependence, unspecified, uncomplicated - assisted (current) use of systemic steroids - Essential (primary) hypertension - Shortness of breath - Allergy status to penicillin - assisted (current) use of aspirin 05/03/2018 01:09 [facility] [place] TYPE: Emergency COMPLAINT: - DIFFICUTLY BREATHING 04/16/2018 22:51 [facility] [place] TYPE: Emergency COMPLAINT: - ANXIETY,SOB DIAGNOSES: - Chronic obstructive pulmonary disease, unspecified - Other group home (current) drug therapy - Nicotine dependence, unspecified, uncomplicated - assisted (current) use of systemic steroids - assisted (current) use of aspirin - Essential (primary) hypertension - Allergy status to penicillin - Anxiety disorder, unspecified 04/15/2018 19:41 [facility] [place] TYPE: Emergency COMPLAINT: - SHORTNESS OF BREATH/CONSTIPATION DIAGNOSES: - Shortness of breath - Essential (primary) hypertension - Constipation, unspecified - Nicotine dependence, unspecified, uncomplicated - Chronic obstructive pulmonary disease with (acute) exacerbation - Allergy status to penicillin - Other terminal supervisor (current) drug therapy 04/02/2018 20:47 [facility] Pritchett [facility] [place] TYPE: Emergency COMPLAINT: - SOB DIAGNOSES: - Nicotine dependence, unspecified, uncomplicated - assisted (current) use of aspirin - Chronic obstructive pulmonary disease with (acute) exacerbation - Allergy status to penicillin - Essential (primary) hypertension - Shortness of breath - Other terminal supervisor (current) drug therapy 03/16/2018 20:53 [facility] [place] TYPE: Emergency COMPLAINT: - SOB,WEAKNESS DIAGNOSES: - Allergy status to penicillin - Other terminal supervisor (current) drug therapy - Chronic obstructive pulmonary disease with (acute) exacerbation - Nicotine dependence, unspecified, uncomplicated - Shortness of breath - Essential (primary) hypertension Plus 2 More Visits INPATIENT VISIT TRACKING (12 MO.) 09/10/2018 17:36 [facility] [place] TYPE: Observation COMPLAINT: - COPD EXACERBATION DIAGNOSES: - termination clerk (current) use of systemic steroids - Other terminal supervisor (current) drug therapy - Other specified anxiety disorders - Chronic respiratory failure with hypoxia - Personal history of nicotine dependence - Type 2 diabetes mellitus without complications - Benign prostatic hyperplasia without lower urinary tract symptoms - Essential (primary) hypertension - termination clerk (current) use of oral hypoglycemic drugs - Shortness of breath - Chronic obstructive pulmonary disease with (acute) exacerbation - Constipation, unspecified - termination clerk (current) use of inhaled steroids [facility]14[facility]2018 [facility] DIAGNOSES: - Chronic obstructive pulmonary disease with (acute) exacerbation - Hypoxemia 06/13/2018 20:[address] [facility] [place] TYPE: Observation COMPLAINT: - DEHYDRATION DIAGNOSES: - Essential (primary) hypertension - Other group home (current) drug therapy - assisted (current) use of inhaled steroids - termination clerk (current) use of antibiotics - termination clerk (current) use of systemic steroids - termination clerk (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 - Adjustment disorder with depressed mood - Anxiety disorder, unspecified - Dehydration - Weakness - assisted (current) use of aspirin - Personal history [...] dependence - Allergy status to penicillin - assisted (current) use of aspirin - assisted (current) use of inhaled steroids - assisted (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 - assisted (current) use of non-steroidal anti-inflammatories (NSAID) - Shortness of breath - Other terminal supervisor (current) drug therapy - termination clerk (current) [...] hyperplasia without lower urinary tract symptoms - assisted (current) use of systemic steroids - Acute and chronic respiratory failure with hypoxia - termination clerk (current) use of inhaled steroids - assisted (current) use of aspirin - Cramp and spasm - Other group home (current) drug therapy - Chronic obstructive pulmonary disease with (acute) exacerbation - termination clerk (current) use of oral hypoglycemic drugs - Adverse effect of glucocorticoids and synthetic analogues, initial encounter 05/03/2018 01:10 [facility] [place] TYPE: Observation COMPLAINT: - COPD EXACERBATION DIAGNOSES: - Other terminal supervisor (current) drug therapy - Benign prostatic hyperplasia without lower urinary tract symptoms - Allergy status to penicillin - Chronic obstructive pulmonary disease with (acute) exacerbation - termination clerk (current) use of aspirin - Nicotine dependence, unspecified, uncomplicated - Essential (primary) hypertension - Nicotine dependence, cigarettes, uncomplicated - Shortness of breath - termination clerk (current) use of inhaled steroids - Personal history of traumatic brain injury 04/03/2018 11:16 [facility] [place] TYPE: Observation COMPLAINT: - COPD EXACERBATION DIAGNOSES: - Essential (primary) hypertension - Allergy status to penicillin - assisted (current) use of inhaled steroids - Benign prostatic hyperplasia without lower urinary tract symptoms - Nicotine dependence, cigarettes, uncomplicated - Other terminal supervisor (current) drug therapy - Cramp and spasm - termination clerk (current) use of aspirin - termination clerk (current) use of systemic steroids - Chronic obstructive pulmonary disease with (acute) exacerbation [email or web address]
== END 2018-10-29 20:34 | disposition home or self-care (01) ==
LOC: ED 19:29
DX: K59.00 Constipation, unspecified (principal); I10 Essential (primary) hypertension; J44.9 Chronic obstructive pulmonary disease, unspecified; Z87.891 Personal history of nicotine dependence; Z88.0 Allergy status to penicillin; Z79.82 Long term (current) use of aspirin; Z79.899 Other long term (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
CPT/HCPCS: 99283

== ENCOUNTER 2018-11-01 02:37 | Emergency (ER) | payer MEDICARE, OTHER ==
[~2018-11-01] VITALS: Ht 172.7 cm; Wt 70.8 kg
--- OUTSIDE RECORDS SUMMARY | 2018-11-01 02:40 | XMS ---
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 Care History Medical/Surgical 07/10/2018 [facility] - PATIENT IS CURRENTLY ON SERVICES WITH PULMONARY REHAB AT [facility]. - UPDATE DR NELSON PCP-MAKING REFERRAL TO [facility] [place] FOR PATIENT. 05/23/2018 [facility] PATIENT NEXT APPOINTMENT WITH DR NELSON:\T\nbsp; May. 04/03/2018 [facility] - PATIENT HAS AN APT WITH DR NELSON ON 04/17/18. - Patient is currently established with [facility]. If patient is seen in the ED during business hours. Please contact CHWs at [facility]. Care Recommendation: This patient has had 5 [...] care. E.D. VISIT COUNT (12 MO.) 1 [facility] 22 [facility] [place] TOTAL 23 NOTE: Visits indicate total known visits. ED/UCC VISIT TRACKING (12 MO.) 11/01/2018 02:37 [facility] TYPE: Emergency COMPLAINT: - SOB 10/29/2018 19:29 [facility] [place] TYPE: Emergency COMPLAINT: - STRESSED,CONSTIPATION DIAGNOSES: - termite exterminator (current) use of aspirin - Constipation, unspecified - Other custodial (current) drug therapy - Personal history of nicotine dependence - Allergy status to penicillin - Essential (primary) hypertension - Chronic obstructive pulmonary disease, unspecified 09/23/2018 18:46 [facility] TYPE: Emergency COMPLAINT: - LOSE OF SLEEP/SOB DIAGNOSES: - Chronic obstructive pulmonary disease, unspecified - Anxiety disorder, unspecified - Other custodial (current) drug therapy - Personal history of nicotine dependence - residential (current) use of systemic steroids - Allergy status to penicillin - Essential (primary) hypertension 09/10/2018 17:35 [facility] TYPE: Emergency COMPLAINT: - SHORTNESS OF BREATH 09/08/2018 19:40 [facility] TYPE: Emergency COMPLAINT: - DIFFICULTY BREATHING DIAGNOSES: - Essential (primary) hypertension - Chronic obstructive pulmonary disease with (acute) exacerbation - residential (current) use of aspirin - Shortness of breath - Allergy status to penicillin - Personal history of nicotine dependence - Other custodial (current) drug therapy 08/26/2018 04:26 [facility] TYPE: Emergency COMPLAINT: - SOB DIAGNOSES: - Essential (primary) hypertension - Other custodial (current) drug therapy - residential (current) use of systemic steroids - termite exterminator (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 - Chronic obstructive pulmonary disease with (acute) exacerbation - Shortness of breath - Allergy status to penicillin - Personal history of nicotine dependence 08/10/2018 10:13 [facility] TYPE: Emergency COMPLAINT: - SOB DIAGNOSES: - Other terminal manager (current) drug therapy - Chronic obstructive pulmonary disease with (acute) exacerbation - Personal history of nicotine dependence - Shortness of breath - residential (current) use of aspirin - Allergy status to penicillin - Essential (primary) hypertension 07/14/2018 17:25 [facility] TYPE: Emergency COMPLAINT: - SOB DIAGNOSES: - Shortness of breath - termite exterminator (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 - Personal history of nicotine dependence - Other terminal manager (current) drug therapy - Allergy status to penicillin - Essential (primary) hypertension - Chronic obstructive pulmonary disease, unspecified 07/09/2018 20:05 [facility] TYPE: Emergency COMPLAINT: - SOB DIAGNOSES: - Shortness of breath - residential (current) use of aspirin - Allergy status to penicillin - Essential (primary) hypertension - Chronic obstructive pulmonary disease with (acute) exacerbation - Personal history of nicotine dependence - Other terminal manager (current) drug therapy - Benign prostatic hyperplasia without lower urinary tract symptoms 06/14/2018 18:43 [facility] TYPE: Emergency DIAGNOSES: - Chronic obstructive pulmonary disease with (acute) exacerbation - Hypoxemia - Shortness of Breath - Chest Pain 06/13/2018 20:20 [facility] TYPE: Emergency COMPLAINT: - DIFFICULTY BREATHING 06/12/2018 12:59 [facility] TYPE: Emergency COMPLAINT: - SOB DIAGNOSES: - Candidal stomatitis - Allergy status to penicillin - Shortness of breath - Other terminal manager (current) drug therapy - Essential (primary) hypertension - Personal history of nicotine dependence - Chronic obstructive pulmonary disease with (acute) exacerbation - Chronic obstructive pulmonary disease with (acute) exacerbation - termite exterminator (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 06/08/2018 19:37 [facility] TYPE: Emergency COMPLAINT: - DIFFICULTY BREATHING 06/08/2018 01:29 [facility] TYPE: Emergency COMPLAINT: - DIFFICULTY BREATHING DIAGNOSES: - residential (current) use of aspirin - Essential (primary) hypertension - Other custodial (current) drug therapy - Personal history of nicotine dependence - Chronic obstructive pulmonary disease with (acute) exacerbation - residential (current) use of systemic steroids - Allergy status to penicillin - Shortness of breath 05/24/2018 07:27 [facility] TYPE: Emergency COMPLAINT: - SOB 05/22/2018 01:46 [facility] TYPE: Emergency COMPLAINT: - SOB DIAGNOSES: - Other custodial (current) drug therapy - Hyperglycemia, unspecified - Chronic obstructive pulmonary disease with (acute) exacerbation - Nicotine dependence, unspecified, uncomplicated - residential (current) use of systemic steroids - Essential (primary) hypertension - Shortness of breath - Allergy status to penicillin - termite exterminator (current) use of aspirin 05/03/2018 01:09 [facility] TYPE: Emergency COMPLAINT: - DIFFICUTLY BREATHING 04/16/2018 22:51 [facility] TYPE: Emergency COMPLAINT: - ANXIETY,SOB DIAGNOSES: - Chronic obstructive pulmonary disease, unspecified - Other terminal manager (current) drug therapy - Nicotine dependence, unspecified, uncomplicated - residential (current) use of systemic steroids - residential (current) use of aspirin - Essential (primary) hypertension - Allergy status to penicillin - Anxiety disorder, unspecified 04/15/2018 19:41 [facility] TYPE: Emergency COMPLAINT: - SHORTNESS OF BREATH/CONSTIPATION DIAGNOSES: - Shortness of breath - Essential (primary) hypertension - Constipation, unspecified - Nicotine dependence, unspecified, uncomplicated - Chronic obstructive pulmonary disease with (acute) exacerbation - Allergy status to penicillin - Other custodial (current) drug therapy 04/02/2018 20:47 [facility] TYPE: Emergency COMPLAINT: - SOB DIAGNOSES: - Nicotine dependence, unspecified, uncomplicated - residential (current) use of aspirin - Chronic obstructive pulmonary disease with (acute) exacerbation - Allergy status to penicillin - Essential (primary) hypertension - Shortness of breath - Other custodial (current) drug therapy Plus 3 More Visits INPATIENT VISIT TRACKING (12 MO.) 09/10/2018 17:36 [facility] TYPE: Observation COMPLAINT: - COPD EXACERBATION DIAGNOSES: - termite exterminator (current) use of systemic steroids - Other terminal manager (current) drug therapy - Other specified anxiety disorders - Chronic respiratory failure with hypoxia - Personal history of nicotine dependence - Type 2 diabetes mellitus without complications - Benign prostatic hyperplasia without lower urinary tract symptoms - Essential (primary) hypertension - residential (current) use of oral hypoglycemic drugs - Shortness of breath - Chronic obstructive pulmonary disease with (acute) exacerbation - Constipation, unspecified - residential (current) use of inhaled steroids [facility] DIAGNOSES: - Chronic obstructive pulmonary disease with (acute) exacerbation - Hypoxemia 06/13/2018 20:[address] [facility] [place] TYPE: Observation COMPLAINT: - DEHYDRATION DIAGNOSES: - Essential (primary) hypertension - Other terminal manager (current) drug therapy - residential (current) use of inhaled steroids - residential (current) use of antibiotics - residential (current) use of systemic steroids - termite exterminator (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 - Adjustment disorder with depressed mood - Anxiety disorder, unspecified - Dehydration - Weakness - termite exterminator (current) use of aspirin - Personal history [...] - Allergy status to penicillin - termite exterminator (current) use of aspirin - residential (current) use of inhaled steroids - termite exterminator (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 - residential (current) use of non-steroidal anti-inflammatories (NSAID) - Shortness of breath - Other terminal manager (current) drug therapy - residential (current) use of systemic steroids - Adverse [...] hyperplasia without lower urinary tract symptoms - residential (current) use of systemic steroids - Acute and chronic respiratory failure with hypoxia - termite exterminator (current) use of inhaled steroids - residential (current) use of aspirin - Cramp and spasm - Other terminal manager (current) drug therapy - Chronic obstructive pulmonary disease with (acute) exacerbation - residential (current) use of oral hypoglycemic drugs - Adverse effect of glucocorticoids and synthetic analogues, initial encounter 05/03/2018 01:10 [facility] TYPE: Observation COMPLAINT: - COPD EXACERBATION DIAGNOSES: - Other custodial (current) drug therapy - Benign prostatic hyperplasia without lower urinary tract symptoms - Allergy status to penicillin - Chronic obstructive pulmonary disease with (acute) exacerbation - termite exterminator (current) use of aspirin - Nicotine dependence, unspecified, uncomplicated - Essential (primary) hypertension - Nicotine dependence, cigarettes, uncomplicated - Shortness of breath - residential (current) use of inhaled steroids - Personal history of traumatic brain injury 04/03/2018 11:16 [facility] TYPE: Observation COMPLAINT: - COPD EXACERBATION DIAGNOSES: - Essential (primary) hypertension - Allergy status to penicillin - termite exterminator (current) use of inhaled steroids - Benign prostatic hyperplasia without lower urinary tract symptoms - Nicotine dependence, cigarettes, uncomplicated - Other terminal manager (current) drug therapy - Cramp and spasm - termite exterminator (current) use of aspirin - termite exterminator (current) use of systemic steroids - Chronic obstructive pulmonary disease with (acute) exacerbation [email or web address]
[2018-11-01] MEDS ORDERED: PREDNISONE10 MG PO (03:50)
--- NOTE | 2018-11-01 08:19 | EKG ---
[facility] [address] [place] [address] Signed Normal sinus rhythm Left axis deviation ST \T\ T wave abnormality, consider lateral ischemia Abnormal ECG When compared with ECG of 10-SEP-2018 17:53, No significant change was found Confirmed by NGHIA DAMON MD ([id number]) on 11/01/2018 8:19:31 AM Electronically Signed By: NGHIA DAMON MD 11/01/18 0819 PATIENT NAME: ROMA SCHMIDT Electrocardiogram DATE OF : 39 PHYSICIAN: NGHIA DAMON MD REPORT #: [id number] REPORT IS CONFIDENTIAL AND NOT TO BE RELEASED WITHOUT AUTHORIZATION
[2018-11-02] MEDS ORDERED: DOXYCYCLINE HY100 MG PO (07:52)
== END 2018-11-01 05:20 | disposition home or self-care (01) ==
LOC: ED 02:37
DX: J44.1 Chronic obstructive pulmonary disease with (acute) exacerbation (principal); I10 Essential (primary) hypertension; F17.200 Nicotine dependence, unspecified, uncomplicated; Z88.0 Allergy status to penicillin; Z79.82 Long term (current) use of aspirin; Z79.899 Other long term (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
CPT/HCPCS: 71045; 80053; 83735; 83880; 84484; 85025; 93005; 93010; 96374; 99285-25; J2930

== ENCOUNTER 2018-11-02 06:35 | Emergency (ER) | payer MEDICARE, OTHER ==
[~2018-11-02] VITALS: Ht 172.7 cm; Wt 69.0 kg
[~2018-11-02 06:35] MED LIST changes: +PREDNISONE10 MG PO
--- OUTSIDE RECORDS SUMMARY | 2018-11-02 06:38 | XMS ---
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 - Has Care Guidelines - [facility] - 2 Visits in 30 Days CARE PROVIDERS Cassidy Jim Clinical Quality Assurance Specialist/Dean Of Instruction 09/02/2018-Current PHONE: [phone] MARCELA NELSON Internal Medicine 04/03/2018-Current WESLEYAna PHONE: [phone] Cassidy Jim Primary Care 09/02/2018-Current PHONE: [phone] MARCELA NELSON Primary Care 04/05/2016-Current PHONE: Unknown Other Current PHONE: Unknown Maria R has no Care Guidelines for this patient. Care History Medical/Surgical 07/10/2018 [facility] - PATIENT IS CURRENTLY ON SERVICES WITH PULMONARY REHAB AT [facility]. - UPDATE DR NELSON PCP-MAKING REFERRAL TO [facility] FOR PATIENT. 05/23/2018 [facility] PATIENT NEXT APPOINTMENT WITH DR NELSON:\T\nbsp; May. 04/03/2018 [facility] - PATIENT HAS AN APT WITH DR NELSON ON 04/17/18. - Patient is currently established with [facility]. If patient is seen in the ED during business hours. Please contact CHWs at [facility]. Care Recommendation: This patient has [...] care. [facility] T[facility] 24 NOTE: Visits indicate total known visits. ED/UCC VISIT TRACKING (12 MO.) 11/02/2018 06:36 [facility] TYPE: Emergency COMPLAINT: - SOB 11/01/2018 02:37 [facility] TYPE: Emergency COMPLAINT: - SOB 10/29/2018 19:29 [facility] TYPE: Emergency COMPLAINT: - STRESSED,CONSTIPATION DIAGNOSES: - [facility] (current) use of aspirin - Constipation, unspecified - Other exterminator termite (current) drug therapy - Personal history of nicotine dependence - Allergy status to penicillin - Essential (primary) hypertension - Chronic obstructive pulmonary disease, unspecified 09/23/2018 18:46 [facility] TYPE: Emergency COMPLAINT: - LOSE OF SLEEP/SOB DIAGNOSES: - Chronic obstructive pulmonary disease, unspecified - Anxiety disorder, unspecified - Other group home (current) drug therapy - Personal history of nicotine dependence - 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 servicer (current) use of systemic steroids - Allergy status to penicillin - Essential (primary) hypertension 09/10/2018 17:35 [facility] TYPE: Emergency COMPLAINT: - SHORTNESS OF BREATH 09/08/2018 19:40 [facility] TYPE: Emergency COMPLAINT: - DIFFICULTY BREATHING DIAGNOSES: - Essential (primary) hypertension - Chronic obstructive pulmonary disease with (acute) exacerbation - [facility] (current) use of aspirin - Shortness of breath - Allergy status to penicillin - Personal history of nicotine dependence - Other group home (current) drug therapy 08/26/2018 04:26 [facility] TYPE: Emergency COMPLAINT: - SOB DIAGNOSES: - Essential (primary) hypertension - Other exterminator termite (current) drug therapy - [facility] (current) use of systemic steroids - 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 servicer (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 - Chronic obstructive pulmonary disease with (acute) exacerbation - Shortness of breath - Allergy status to penicillin - Personal history of nicotine dependence 08/10/2018 10:13 [facility] TYPE: Emergency COMPLAINT: - SOB DIAGNOSES: - Other exterminator termite (current) drug therapy - Chronic obstructive pulmonary disease with (acute) exacerbation - Personal history of nicotine dependence - Shortness of breath - 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 servicer (current) use of aspirin - Allergy status to penicillin - Essential (primary) hypertension 07/14/2018 17:25 [facility] TYPE: Emergency COMPLAINT: - SOB DIAGNOSES: - Shortness of breath - 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 servicer (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 - Personal history of nicotine dependence - Other group home (current) drug therapy - Allergy status to penicillin - Essential (primary) hypertension - Chronic obstructive pulmonary disease, unspecified 07/09/2018 20:05 [facility] TYPE: Emergency COMPLAINT: - SOB DIAGNOSES: - Shortness of breath - 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 servicer (current) use of aspirin - Allergy status to penicillin - Essential (primary) hypertension - Chronic obstructive pulmonary disease with (acute) exacerbation - Personal history of nicotine dependence - Other group home (current) drug therapy - Benign prostatic hyperplasia without lower urinary tract symptoms 06/14/2018 18:43 [facility] TYPE: Emergency DIAGNOSES: - Chronic obstructive pulmonary disease with (acute) exacerbation - Hypoxemia - Shortness of Breath - Chest Pain 06/13/2018 20:20 [facility] TYPE: Emergency COMPLAINT: - DIFFICULTY BREATHING 06/12/2018 12:59 [facility] TYPE: Emergency COMPLAINT: - SOB DIAGNOSES: - Candidal stomatitis - Allergy status to penicillin - Shortness of breath - Other group home (current) drug therapy - Essential (primary) hypertension - Personal history of nicotine dependence - Chronic obstructive pulmonary disease with (acute) exacerbation - Chronic obstructive pulmonary disease with (acute) exacerbation - 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 servicer (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 06/08/2018 19:37 [facility] TYPE: Emergency COMPLAINT: - DIFFICULTY BREATHING 06/08/2018 01:29 [facility] TYPE: Emergency COMPLAINT: - DIFFICULTY BREATHING DIAGNOSES: - 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 servicer (current) use of aspirin - Essential (primary) hypertension - Other group home (current) drug therapy - Personal history of nicotine dependence - Chronic obstructive pulmonary disease with (acute) exacerbation - [facility] (current) use of systemic steroids - Allergy status to penicillin - Shortness of breath 05/24/2018 07:27 [facility] TYPE: Emergency COMPLAINT: - SOB 05/22/2018 01:46 [facility] TYPE: Emergency COMPLAINT: - SOB DIAGNOSES: - Other exterminator termite (current) drug therapy - Hyperglycemia, unspecified - Chronic obstructive pulmonary disease with (acute) exacerbation - Nicotine dependence, unspecified, uncomplicated - 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 servicer (current) use of systemic steroids - Essential (primary) hypertension - Shortness of breath - Allergy status to penicillin - 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 servicer (current) use of aspirin 05/03/2018 01:09 [facility] TYPE: Emergency COMPLAINT: - DIFFICUTLY BREATHING 04/16/2018 22:51 [facility] TYPE: Emergency COMPLAINT: - ANXIETY,SOB DIAGNOSES: - Chronic obstructive pulmonary disease, unspecified - Other group home (current) drug therapy - Nicotine dependence, unspecified, uncomplicated - [facility] (current) use of systemic steroids - 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 servicer (current) use of aspirin - Essential (primary) hypertension - Allergy status to penicillin - Anxiety disorder, unspecified 04/15/2018 19:41 [facility] TYPE: Emergency COMPLAINT: - SHORTNESS OF BREATH/CONSTIPATION DIAGNOSES: - Shortness of breath - Essential (primary) hypertension - Constipation, unspecified - Nicotine dependence, unspecified, uncomplicated - Chronic obstructive pulmonary disease with (acute) exacerbation - Allergy status to penicillin - Other group home (current) drug therapy Plus 4 More Visits INPATIENT VISIT TRACKING (12 MO.) 09/10/2018 17:36 [facility] TYPE: Observation COMPLAINT: - COPD EXACERBATION DIAGNOSES: - 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 servicer (current) use of systemic steroids - Other exterminator termite (current) drug therapy - Other specified anxiety disorders - Chronic respiratory failure with hypoxia - Personal history of nicotine dependence - Type 2 diabetes mellitus without complications - Benign prostatic hyperplasia without lower urinary tract symptoms - Essential (primary) hypertension - 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 servicer (current) use of oral hypoglycemic drugs - Shortness of breath - Chronic obstructive pulmonary disease with (acute) exacerbation - Constipation, unspecified - 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 servicer (current) use of inhaled steroids 06/14/2018 18:43 [facility] TYPE: General Medicine DIAGNOSES: - Chronic obstructive pulmonary disease with (acute) exacerbation - Hypoxemia 06/13/2018 20:21 [facility] TYPE: Observation COMPLAINT: - DEHYDRATION DIAGNOSES: - Essential (primary) hypertension - Other group home (current) drug therapy - 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 servicer (current) use of inhaled steroids - 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 servicer (current) use of antibiotics - 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 servicer (current) use of systemic steroids - 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 servicer (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 - Adjustment disorder with depressed mood - Anxiety disorder, unspecified - Dehydration - Weakness - 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 servicer (current) use of aspirin - Personal history [...] Allergy status to penicillin - 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 servicer (current) use of aspirin - FCI (current) use of inhaled steroids - [facility]CI (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 - [facility] (current) use of non-steroidal anti-inflammatories (NSAID) - Shortness of breath - Other exterminator termite (current) drug therapy - [facility] (current) use of systemic steroids - Adverse [...] hyperplasia without lower urinary tract symptoms - [facility] (current) use of systemic steroids - Acute and chronic respiratory failure with hypoxia - 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 servicer (current) use of inhaled steroids - 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 servicer (current) use of aspirin - Cramp and spasm - Other group home (current) drug therapy - Chronic obstructive pulmonary disease with (acute) exacerbation - [facility] (current) use of oral hypoglycemic drugs - Adverse effect of glucocorticoids and synthetic analogues, initial encounter 05/03/2018 01:10 [facility] TYPE: Observation COMPLAINT: - COPD EXACERBATION DIAGNOSES: - Other exterminator termite (current) drug therapy - Benign prostatic hyperplasia without lower urinary tract symptoms - Allergy status to penicillin - Chronic obstructive pulmonary disease with (acute) exacerbation - [facility] (current) use of aspirin - Nicotine dependence, unspecified, uncomplicated - Essential (primary) hypertension - Nicotine dependence, cigarettes, uncomplicated - Shortness of breath - [facility] (current) use of inhaled steroids - Personal history of traumatic brain injury 04/03/2018 11:[address] [facility] TYPE: Observation COMPLAINT: - COPD EXACERBATION DIAGNOSES: - Essential (primary) hypertension - Allergy status to penicillin - 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 servicer (current) use of inhaled steroids - Benign prostatic hyperplasia without lower urinary tract symptoms - Nicotine dependence, cigarettes, uncomplicated - Other exterminator termite (current) drug therapy - Cramp and spasm - 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 servicer (current) use of aspirin - 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 servicer (current) use of systemic steroids - Chronic obstructive pulmonary disease with (acute) exacerbation [email or web address]
[2018-11-02] MEDS ORDERED: DOXYCYCLINE HY100 MG PO (07:52)
== END 2018-11-02 09:06 | disposition home or self-care (01) ==
LOC: ED 06:35
DX: R06.02 Shortness of breath (principal); I10 Essential (primary) hypertension; F17.200 Nicotine dependence, unspecified, uncomplicated; J44.9 Chronic obstructive pulmonary disease, unspecified; Z88.0 Allergy status to penicillin; Z79.52 Long term (current) use of systemic steroids; Z79.899 Other long term (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; Z79.82 Long term (current) use of aspirin
CPT/HCPCS: 71045; 96365; 99285-25; J0696